=== PATIENT | male | born 1940 | race Caucasian/White ===

== ENCOUNTER 2020-03-31 10:39 | Outpatient (CLI) | payer MEDICARE, SELFPAY ==
--- NOTE | ~2020-03-31 | XR_ITS ---
XR chest 2V 03/31/2020 11:05 Indication: Shortness of breath and fatigue Procedure: 2 view chest Comparison: Comparison to multiple prior studies sequentially, with oldest reviewed study dated 05/2013. Findings: Status post median sternotomy for CABG. Heart size normal. No focal air space disease, pulm onary edema, pleural effusion or suspected pneumothorax. Mild thoracic spondylosis. Impression: 1: No acute cardiopulmonary disease. Reviewed, dictated and finalized at location A. Impression: 1: No acute cardiopulmonary disease.
--- NOTE | ~2020-03-31 | XR_ITS ---
XR hip LT 2V w AP pelvis 03/31/2020 11:05 Indication: Left hip pain Procedure: 3 views left hip including AP pelvis Comparison: 09/19/2014 Findings: There is moderate symmetric osteoarthritis of the hips. Moderate lower lumbar spondylosis. No acute fracture or traumatic malalignment. Sacral foramen are symmetric. Impression: 1: Moderate osteoarthritis of the left hip. Reviewed, dictated and finalized at location A. Impression: 1: Moderate osteoarthritis of the left hip.
== END 2020-03-31 10:40 | disposition home or self-care (01) ==
PROVIDERS: PCP Family Medicine; Visit Provider Family Medicine
DX: R06.02 Shortness of breath (principal); R53.83 Other fatigue; M25.552 Pain in left hip
CPT/HCPCS: 71046; 73502

== ENCOUNTER 2020-09-08 06:53 | Outpatient (NON) | payer MEDICARE, SELFPAY ==
[2020-09-09 00:04] LABS: SARS-CoV-2 RNA PCR Negative
== END 2020-09-08 06:54 ==
LOC: ANHCOVIDDT 07:03
PROVIDERS: PCP Family Medicine; Visit Provider Family Medicine
DX: R68.89 Other general symptoms and signs (principal); Z20.828 Contact with and (suspected) exposure to other viral communicable diseases
CPT/HCPCS: 87635; C9803; U0003

== ENCOUNTER 2020-12-18 12:30 | Outpatient (CLI) | payer MEDICARE, SELFPAY ==
--- NOTE | ~2020-12-18 | XR_ITS ---
XR_CERV2-3V_CR DATE: 12/18/2020 12:50 INDICATION: Neck pain, cervical radiculopathy TECHNIQUE: AP, open-mouth, lateral, swimmer views COMPARISON: None FINDINGS: Right-sided cochlear implant. Straightening of the cervical spine. C1 and C2 are normally aligned and the odontoid process is intact. No fracture or dislocation or lock ed facet or prevertebral soft tissue swelling is detected. There is moderate degenerative disc disease at C3-4, C4-5 and to a greater extent at C5-6. There is minimal anterolisthesis at C4-5. Sternal wire suture is noted. IMPRESSION: Straightening of the cervical spine Cervical spondylosis Reviewed, dictated and finalized at Location A. Reviewed, dictated and finalized at location A. RT ADMINISTRATOR
== END 2020-12-18 12:31 | disposition home or self-care (01) ==
PROVIDERS: PCP Family Medicine; Visit Provider Family Medicine
DX: M47.892 Other spondylosis, cervical region (principal)
CPT/HCPCS: 72040

== ENCOUNTER 2021-03-23 14:09 | Outpatient (CLI) | payer MEDICARE, SELFPAY ==
--- NOTE | ~2021-03-23 | XR_ITS ---
XR chest 2V DATE: 03/23/2021 14:27 INDICATION: Dyspnea on exertion TECHNIQUE: PA and lateral views COMPARISON: 03/31/2022 view chest 08/15/2018 PA and lateral chest FINDINGS: Status post sternotomy/CABG. Borderline heart size. Aortic arch calcification. There is there is mild elevation left leaf of diaphragm and left basilar infiltrate or atelectasis. T he lungs otherwise appear clear. Degenerative spurring of the thoracic spine. IMPRESSION: Left basilar atelectasis Reviewed, dictated and finalized at location A. IMPRESSION: Left basilar atelectasis
== END 2021-03-23 14:10 | disposition home or self-care (01) ==
PROVIDERS: PCP Family Medicine; Visit Provider Nurse Practitioner Adult Health
DX: R06.00 Dyspnea, unspecified (principal); R91.8 Other nonspecific abnormal finding of lung field
CPT/HCPCS: 71046

== ENCOUNTER 2021-08-03 08:32 | Outpatient (CLI) | payer MEDICARE, SELFPAY ==
--- NOTE | ~2021-08-03 | CT_ITS ---
EXAMINATION: CT cervical spine wo con DATE: 08/03/2021 09:39 INDICATION: Other cervical disc degeneration. TECHNIQUE: Computed tomography (CT) of the cervical spine was performed without intravenous contrast. Automated exposure control and iterative reconstruction technique were employed. The dose-length pro duct was 1362.00 mGy-cm. COMPARISON: Cervical spine radiographs 12/18/2020 FINDINGS: A right-sided cochlear implant is noted. There is 4 degrees dextrocurvature of cervical spi ne. Vertebral body heights are normal. There is moderately decreased disc height from C3-C4 through C 5-C6. Osseous central spinal canal is developmentally small from C1 to C6. The following disc levels are specifically discussed: C2-C3: There is mild bilateral uncovertebral joint osteoarthritis. There is severe bilateral facet brenda int osteoarthritis. There is mild bilateral neural foraminal stenosis. There is mild central canal st enosis. C3-C4: There is severe bilateral uncovertebral joint osteoarthritis. There is severe bilateral facet joint osteoarthritis. There is mild bilateral neural foraminal stenosis. There is moderate central ca nal stenosis. C4-C5: There is severe bilateral uncovertebral joint osteoarthritis. There is severe bilateral facet joint osteoarthritis. There is mild bilateral neural foraminal stenosis. There is moderate central ca nal stenosis. C5-C6: There is severe right and uncovertebral joint osteoarthritis. There is mild left cerebral face t joint osteoarthritis. There is mild bilateral neural foraminal stenosis. There is mild central maya l stenosis. C6-C7: There is no uncovertebral joint osteoarthritis. There is mild bilateral facet joint osteoarthr itis. There is no neural foraminal stenosis. There is mild central canal stenosis. C7-T1: There is no uncovertebral joint osteoarthritis. There is mild right and moderate left facet brenda int osteoarthritis. There is mild left neural foraminal stenosis. There is no central canal stenosis. IMPRESSION: 1. Moderate cervical spondylosis. Reviewed, dictated and finalized at location A.
--- NOTE | ~2021-08-03 | CT_ITS ---
EXAMINATION: CT brain wo/w con DATE: 08/03/2021 09:39 INDICATION: Paresis. Weakness. TECHNIQUE: Computed tomography (CT) of the head was performed without and subsequently with 100 cc Om nipaque 350 intravenous contrast. The mA was adjusted according to patient size. Iterative reconstruc tion technique was employed. Exam dose: 1362.00 mGy-cm total exam DLP. COMPARISON: 06/02/2005 CT brain FINDINGS: Vertebral artery, basilar artery and bilateral carotid siphon internal carotid artery calci fications. There is nonspecific diminished attenuation of the cerebral white matter, likely due to ch ronic small vessel ischemic changes. Chronic lacunar infarcts are noted in the region of the head of the right caudate nucleus and anterio r limb of the right internal capsule. No intracranial mass lesion or hemorrhage, midline shift or mass effect or cerebrovascular accident i s noted otherwise. No subdural or epidural hematoma. No orbital mass lesion. Right cochlear implant. There is mild mucoperiosteal thickening of the left frontal sinus, minimal mucoperiosteal thickening of the right frontal sinus. There is septal soft tissue thickening in the ethmoid air cells bilateral ly. Slight mucoperiosteal thickening of the left maxillary and sphenoid sinuses. The mastoid air cell s are unremarkable. No fracture or bone destruction of the cranial vault. IMPRESSION: Cerebral atherosclerosis and chronic small vessel ischemic changes of cerebral white mat ter Chronic lacunar infarcts in the region of the head of the right caudate nucleus and anterior limb of the right internal capsule No acute intracranial finding Right cochlear implant Reviewed, dictated and finalized at Location A. Reviewed, dictated and finalized at location B. IMPRESSION: Cerebral atherosclerosis and chronic small vessel ischemic changes of cerebral white matter Chronic lacunar infarcts in the region of the head of the right caudate nucleus and anterior limb of the right internal capsule No acute intracranial finding Right cochlear implant
[2021-08-03 09:23] LABS: Estimated Glomerular Filt Rate > 60
== END 2021-08-03 08:33 | disposition home or self-care (01) ==
PROVIDERS: PCP Family Medicine; Visit Provider Family Medicine
DX: R53.1 Weakness (principal); M50.30 Other cervical disc degeneration, unspecified cervical region; M47.892 Other spondylosis, cervical region; I67.2 Cerebral atherosclerosis
CPT/HCPCS: 70470; 72125; Q9967

== ENCOUNTER 2021-09-17 10:15 | Outpatient (CLI) | payer MEDICARE, SELFPAY ==
--- NOTE | ~2021-09-17 | CT_ITS ---
EXAMINATION: CT lumbar spine wo [facility] EXAM DATE: 09/17/2021 10:57 INDICATION: Lumbar radiculopathy. TECHNIQUE: Spiral CT of the lumbar spine was performed without contrast. Axial, coronal and sagittal images lumbar spine were reviewed. The dose-length product (DLP) for this examination was 1290.32 m Gy-cm. The exposure was tailored according to patient size (auto mA exposure control), and iterativ e reconstruction (ASIR) was used as additional dose reduction technique. There is no prior study for comparison. FINDINGS: Moderate disc disease L2-3, L4-5 and L5-S1. Vacuum disc phenomenon at L4-5 and L5-S1. No ac [place] fracture identified. The vertebral bodies are aligned in the AP dimension. No spondylolysis. Para spinal soft tissue is unremarkable. Moderate aortic arterial sclerosis. Level by level evaluation: T12-L1: Disc does not extend beyond the endplate margin. Facet arthropathy: Mild. Neural foraminal stenosis: No stenosis. Central canal stenosis: No stenosis. L1-L2: There is a mild diffuse disc bulge. Facet arthropathy: Mild bilateral. Neural foraminal stenosis: Mild left. Central canal stenosis: No stenosis. L2-L3: There is a mild to moderate diffuse disc bulge. Facet arthropathy: Mild to moderate. Neural foraminal stenosis: Mild to moderate bilateral. Central canal stenosis: Mild to moderate. L3-L4: There is a moderate diffuse disc bulge. Facet arthropathy: Moderate . Ligamentum flavum enlargement . Neural foraminal stenosis: Mild to moderate bilateral. Central canal stenosis: Moderate. L4-L5: There is a moderate diffuse disc bulge. Facet arthropathy: Moderate to severe . Ligamentum flavum enlargement. Neural foraminal stenosis: Moderate right, mild to moderate left. Central canal stenosis: Severe. L5-S1: There is a mild diffuse disc bulge. Facet arthropathy: Moderate. Neural foraminal stenosis: Moderate to severe right, moderate left. Central canal stenosis: Mild. IMPRESSION: 1. L4-5 severe central canal stenosis. 2. Overall moderate to severe lumbar spondylosis. Reviewed, dictated and finalized at location A. 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
== END 2021-09-17 10:16 | disposition home or self-care (01) ==
LOC: ANHIMG 10:22
PROVIDERS: PCP Family Medicine; Visit Provider Nurse Practitioner Family
DX: M47.26 Other spondylosis with radiculopathy, lumbar region (principal)
CPT/HCPCS: 72131

== ENCOUNTER 2022-09-01 14:54 | Outpatient (CLI) | payer MEDICARE, SELFPAY ==
--- NOTE | ~2022-09-01 | US_ITS ---
EXAMINATION: US renal BI DATE: 09/01/2022 15:35 INDICATION: Cystic kidney, acquired. TECHNIQUE: Multiple ultrasound grayscale images of the kidneys were obtained. COMPARISON: CT abdomen and pelvis 02/06/13 FINDINGS: The right kidney measures 11.8 x 6.6 x 7.8 cm. The left kidney measures 13.0 x 6.0 x 6.7 cm. The kidn eys demonstrate normal parenchymal echogenicity. There is a 3.1 cm cyst of left kidney. There is no h ydronephrosis. The bladder is not well distended. IMPRESSION: 1. 3.1 cm cyst of left kidney. Reviewed, dictated and finalized at location A. ACCOUNTANT
== END 2022-09-01 14:55 | disposition home or self-care (01) ==
PROVIDERS: PCP Family Medicine; Visit Provider Nurse Practitioner Family
DX: N28.1 Cyst of kidney, acquired (principal)
CPT/HCPCS: 76775

== ENCOUNTER 2023-01-30 15:26 | Outpatient (CLI) | payer MEDICARE, SELFPAY ==
[2023-01-30 16:21] LABS: Basophils Absolute Auto 0.1 K/mm3 (0.0-0.1); Basophils Percent Auto 0.7 % (0.2-1.2); Eosinophils Absolute Auto 0.2 K/mm3 (0-0.3); Eosinophils Percent Auto 2.7 % (0-4.4); Hematocrit 33.7 % (42.0-52.0); Immature Granulocyte Absolute 0.02 K/mm3 (0.00-0.031); Immature Granulocyte Percent A 0.3 % (0-0.5); Lymphocytes Percent Auto 24.3 % (18.3-44.2); Mean Corpuscular HGB Conc 32.6 g/dl (32-36); Mean Corpuscular Hemoglobin 30.2 pg (26-34); Mean Corpuscular Volume 92.6 fl (80-100); Mean Platelet Volume 11.5 fl (7.4-10.4); Monocytes Absolute Auto 0.6 K/mm3 (0.1-0.6); Neutrophils Absolute Auto 4.4 K/mm3 (1.3-6.7); Platelet Count Result 211 k/mm3 (150-375); Red Blood Count 3.64 M/mm3 (4.6-6.20); Red Cell Distribution Width 13.5 % (11.5-14.5)
[2023-01-30 16:53] LABS: Anion Gap 6 mmol/L (8-16); Blood Urea Nitrogen 30 mg/dL (9-20); Calcium 8.5 mg/dL (8.4-10.2); Carbon Dioxide 28 mmol/L (22-30); Chloride 103 mmol/L (98-107); Estimated Glomerular Filt Rate 58; Glucose 175 mg/dL (65-110); Potassium 3.5 mmol/L (3.4-5.0); Sodium 137 mmol/L (137-145); Uric Acid 5.1 mg/dL (3.5-8.5)
[2023-01-30 17:21] LABS: Iron 25 ug/dL (49-181)
[2023-01-30 17:30] LABS: Percent Iron Saturation 7 % (20-50)
[2023-02-03 15:32] LABS: Testosterone Free 0.3 pg/mL (30.0-135.0); Testosterone Total 2 ng/dL (250-1100)
== END 2023-01-30 15:27 | disposition home or self-care (01) ==
PROVIDERS: PCP Family Medicine; Visit Provider Family Medicine
DX: I10 Essential (primary) hypertension (principal); M10.9 Gout, unspecified; D64.9 Anemia, unspecified; G62.9 Polyneuropathy, unspecified; E29.1 Testicular hypofunction
CPT/HCPCS: 36415; 80048; 82607; 83540; 83550; 84402; 84403; 84443; 84550; 85025

== ENCOUNTER 2023-03-06 14:22 | Outpatient (CLI) | payer MEDICARE, SELFPAY ==
[2023-03-06 15:13] LABS: Basophils Absolute Auto 0.1 K/mm3 (0.0-0.1); Eosinophils Absolute Auto 0.2 K/mm3 (0-0.3); Eosinophils Percent Auto 2.8 % (0-4.4); Hematocrit 35.3 % (42.0-52.0); Hemoglobin 11.7 g/dL (14.0-18.0); Immature Granulocyte Absolute 0.02 K/mm3 (0.00-0.031); Immature Granulocyte Percent A 0.3 % (0-0.5); Lymphocytes Absolute Auto 1.91 K/mm3 (0.9-3.2); Lymphocytes Percent Auto 26.9 % (18.3-44.2); Mean Corpuscular HGB Conc 33.1 g/dl (32-36); Mean Corpuscular Hemoglobin 30.9 pg (26-34); Mean Corpuscular Volume 93.1 fl (80-100); Mean Platelet Volume 12.2 fl (7.4-10.4); Monocytes Absolute Auto 0.6 K/mm3 (0.1-0.6); Monocytes Percent Auto 8.7 % (2.6-8.5); Neutrophils Absolute Auto 4.3 K/mm3 (1.3-6.7); Neutrophils Percent Auto 60.3 % (45.5-73.1); Platelet Count Result 177 k/mm3 (150-375); Red Blood Count 3.79 M/mm3 (4.6-6.20); Red Cell Distribution Width 13.9 % (11.5-14.5); White Blood Count 7.1 K/mm3 (4.5-10.0)
[2023-03-06 21:13] LABS: Iron 55 ug/dL (49-181)
[2023-03-06 21:22] LABS: Percent Iron Saturation 15 % (20-50)
== END 2023-03-06 14:23 | disposition home or self-care (01) ==
PROVIDERS: PCP Family Medicine; Visit Provider Physician Assistant Medical
DX: D64.9 Anemia, unspecified (principal)
CPT/HCPCS: 36415; 83540; 83550; 85025; 85055

== ENCOUNTER 2023-09-28 08:54 | Outpatient (CLI) | payer MEDICARE, SELFPAY ==
--- NOTE | ~2023-09-28 | US_ITS ---
Renal-Bladder ultrasound Clinical History: Renal cyst Technique: Real-time sonographic imaging of the kidneys and urinary bladder was performed. Findings: The right kidney measures 12.0 cm in length and the left kidney measures 11.8 cm. There is no hydronephrosis or renal calculus identified. Renal cortical echogenicity is within normal limits. No solid renal mass lesion is identified. Small left renal cyst measures 2.5 cm. The urinary bladder is moderately distended at the time of this exam. No intraluminal echoes are iden tified. No abnormal wall thickening is seen. Impression: 2.5 cm left renal cyst. Reviewed, dictated and finalized at location . ESSORI TODDLER TEACHER Impression: 2.5 cm left renal cyst.
== END 2023-09-28 08:55 | disposition home or self-care (01) ==
PROVIDERS: PCP Family Medicine; Visit Provider Family Medicine
DX: N28.1 Cyst of kidney, acquired (principal)
CPT/HCPCS: 76775

== ENCOUNTER 2023-10-24 16:50 | Outpatient (CLI) | payer MEDICARE, SELFPAY ==
--- NOTE | ~2023-10-24 | XR_ITS ---
XR hip LT min 2V DATE: 10/24/2023 17:10 INDICATION: Left hip pain TECHNIQUE: AP and lateral views COMPARISON: None FINDINGS: There is mild left hip osteoarthritis. No fracture or dislocation, avascular necrosis or dmitriy ne destruction. The pubic symphysis and left sacral iliac joint are intact. IMPRESSION: Mild left hip osteoarthritis. Reviewed, dictated and finalized at location L. N RESOURCE PROFESSIONAL
== END 2023-10-24 16:51 | disposition home or self-care (01) ==
PROVIDERS: PCP Family Medicine; Visit Provider Family Medicine
DX: M16.12 Unilateral primary osteoarthritis, left hip (principal)
CPT/HCPCS: 73502

== ENCOUNTER 2023-12-15 11:22 | Outpatient (CLI) | payer MEDICARE, SELFPAY ==
--- NOTE | ~2023-12-15 | XR_ITS ---
Clinical Indication: Chronic cough PA and lateral views of the chest: Comparison: 03/23/2021 Findings: The lungs are clear, without evidence of focal consolidation or pleural effusion. Cardiome diastinal silhouette is stable, status post CABG. Bones and soft tissues are unremarkable. Impression: Clear lungs. Reviewed, dictated and finalized at location . SS CLINICIAN Impression: Clear lungs.
== END 2023-12-15 11:23 | disposition home or self-care (01) ==
PROVIDERS: PCP Family Medicine; Visit Provider Nurse Practitioner Family
DX: R05.3 Chronic cough (principal)
CPT/HCPCS: 71046

== ENCOUNTER 2024-02-08 06:53 | Outpatient (CLI) | payer MEDICARE, SELFPAY ==
--- NOTE | ~2024-02-08 | CT_ITS ---
Clinical Indication: Chronic cough CT Scan of the Chest with Contrast: Technique: Contiguous sections were acquired throughout the chest after intravenous administration of 75 cc of Omnipaque 350. Dose reduction technique was used on this scan by utilizing automated exposu re control and iterative reconstruction technique. The dose-length product (DLP) was 777.25 mGy-cm. Findings: There is no evidence of any significant mediastinal, hilar or axillary lymphadenopathy. No large cent ral pulmonary embolus seen. There is no evidence of aortic dissection or aneurysm. Evidence of prior presumed CABG. There is no evidence of pleural or pericardial effusion. The lungs are clear. No pulmonary nodules or infiltrates are noted. Images through the upper abdomen reveal no abnormalities. Impression: No acute abnormality. Status post CABG. Reviewed, dictated and finalized at [facility] [place]. Impression: No acute abnormality. Status post CABG.
[2024-02-08 07:21] LABS: Estimated Glomerular Filt Rate 58
== END 2024-02-08 06:54 | disposition home or self-care (01) ==
PROVIDERS: PCP Family Medicine; Visit Provider Physician Assistant
DX: R05.3 Chronic cough (principal); J41.1 Mucopurulent chronic bronchitis; Z95.1 Presence of aortocoronary bypass graft
CPT/HCPCS: 71260; Q9967

== ENCOUNTER 2024-02-28 08:14 | Outpatient (CLI) | payer MEDICARE, SELFPAY ==
--- NOTE | 2024-02-28 12:56 | WPDPFTINT ---
PFT Procedure Performed PFT Procedure Performed Spirometry with Pre/Post Bronchodilator Plethysmography (Lung Vol) Diffusing Cap (DLCO) Flow Vol Loop PFT Interpretation Lung volumes were measured with the body plethysmography method. The diminished expiratory reserve volume is related to obesity. The remaining lung volumes are unremarkable. Spirometry showed diminished expiratory flow rates and a normal FEV1 to FVC ratio 71%. Following administration of a bronchodilator there was no significant increase in expiratory flow rates. Lung diffusion capacity is within the normal range at 76% predicted. The restrictive pattern on spirometry coupled with a normal total lung capacity is consistent with a nonspecific pattern. The flow-volume loop is unremarkable. Impression: Nonspecific pattern. Lung diffusion capacity within the normal range.
== END 2024-02-28 08:15 | disposition home or self-care (01) ==
PROVIDERS: PCP Family Medicine; Visit Provider Family Medicine
DX: R06.02 Shortness of breath (principal)
CPT/HCPCS: 94060; 94726; 94729

== ENCOUNTER 2024-03-11 01:05 | Day surgery (SDC) | payer MEDICARE, SELFPAY ==
[2024-03-08 14:25] VITALS: BMI 39.4
[2024-03-11] VITALS (13 sets, daily range): BP systolic 103–192; BP diastolic 48–95; PULSE 52–58; RESP 12–20; TEMP 36.1–36.7; O2SAT 94–100
[2024-03-11 07:42] LABS: Basophils Absolute Auto 0.1 K/mm3 (0.0-0.1); Basophils Percent Auto 1.2 % (0.2-1.2); Eosinophils Absolute Auto 0.2 K/mm3 (0-0.3); Eosinophils Percent Auto 3.4 % (0-4.4); Hematocrit 35.8 % (42.0-52.0); Immature Granulocyte Absolute 0.01 K/mm3 (0.00-0.031); Immature Granulocyte Percent A 0.2 % (0-0.5); Lymphocytes Absolute Auto 1.55 K/mm3 (0.9-3.2); Lymphocytes Percent Auto 26.2 % (18.3-44.2); Mean Corpuscular HGB Conc 33.5 g/dl (32-36); Mean Corpuscular Hemoglobin 30.9 pg (26-34); Mean Corpuscular Volume 92.3 fl (80-100); Mean Platelet Volume 11.1 fl (7.4-10.4); Monocytes Absolute Auto 0.6 K/mm3 (0.1-0.6); Monocytes Percent Auto 9.6 % (2.6-8.5); Neutrophils Absolute Auto 3.5 K/mm3 (1.3-6.7); Neutrophils Percent Auto 59.4 % (45.5-73.1); Platelet Count Result 214 k/mm3 (150-375); Red Blood Count 3.88 M/mm3 (4.6-6.20); Red Cell Distribution Width 14.1 % (11.5-14.5); White Blood Count 5.9 K/mm3 (4.5-10.0)
[2024-03-11 07:53] LABS: Anion Gap 6 mmol/L (4-12); Blood Urea Nitrogen 29 mg/dL (9-20); Carbon Dioxide 28 mmol/L (22-30); Chloride 105 mmol/L (98-107); Estimated CRCL calculation 61 ml/min; Estimated Glomerular Filt Rate > 60; Glucose 109 mg/dL (65-110); Potassium 3.8 mmol/L (3.4-5.0); Sodium 139 mmol/L (137-145)
--- NOTE | 2024-03-11 10:33 | WPDCARDPROC ---
Cardiac Cath Procedure Note Date of procedure:: 03/11/24 Performing physician:: Victor Manuel Dallas MD Indication:: Exertional dyspnea coronary artery disease with previous bypass graft aortic stenosis, now severe by echo Brief clinical history:: this is an 83-year-old man known to have multivessel coronary disease who was referred for surgical revascularization back in 2009. He has been experiencing worsening symptoms of exertional dyspnea. He is known to have valve stenosis which has been mild fell now. Recent echocardiogram has suggested this has progressed to severe with valve area 0.8. With this information catheterization was recommended today for further evaluation this ischemic disease and valvular heart disease. Procedure Procedure performed:: Right heart catheterization simultaneous left ventricular and aortic hemodynamics and calculation of aortic valve area left ventriculography coronary angiography vein graft angiography VINICIUS graft angiography Sedation/Medication given:: fentanyl 50 mg Versed 2 mg Access site:: right femoral artery, right femoral vein Estimated blood loss:: 30 cc Procedure note:: patient brought to cardiac catheterization lab postabsorptive state where the right femoral triangle was prepared and draped in the usual fashion. Using the modified Seldinger technique the right femoral in the right femoral artery was punctured. A 7 Martiniquais sheath was placed in the femoral vein and a 6 Martiniquais 45 cm sheath was placed into the right femoral artery. The sheath was advanced into the central aorta. Following this I used a balloon tip [place]-Sharmila catheter to measure right-sided hemodynamics and perform thermodilution cardiac output assessment as well as Nikki cardiac output assessment. The [place]-Sharmila catheter was then removed. I used a 5 Martiniquais angled pigtail catheter then in the central aorta and a straight wire to cross the stenotic aortic valve. Simultaneous left ventricular and aortic pressures were documented. Aortic valve area was calculated. Left ventriculography was injected using this catheter in COKER projection. Following this the left coronary artery was engaged and injected using a standard 5 Martiniquais FL4 catheter. The right coronary artery was engaged and injected using a standard 5 Martiniquais JR4 catheter. This catheter was also used to inject the saphenous vein grafts. A 5 Martiniquais VINICIUS catheter was used to perform angiography of the left internal mammary graft. Following this the cineangiograms were reviewed case was terminated. An Angio-Seal device was deployed in the site of the arterial puncture with a good hemostatic result. The venous sheath was removed in the blood bank laboratory technologist. Findings:: Hemodynamics: right atrial pressure is 12, right ventricle 47/ 6 end-diastolic 12, pulmonary artery 46/16, pulmonary capillary wedge pressure 14, central aorta 182/71 left ventricle 208/5 end-. thermodilution cardiac output is 7.0 liters/minute giving an index of 2.8. Nikki cardiac output 7.1 liters/minute giving an index of 2.9. Central aorta saturation 93% pulmonary 66.5% aortic valve area calculates to be 1.55 cm2. Left ventricle: The LV is normal in size there is concentric LVH noted contractility is vigorous in all segments with an ejection fraction of visually estimated to be 70%. The left main coronary artery is medium in caliber. There is a distal 80% stenosis in the left main. The left anterior descending is diffusely diseased and totally occluded after the 1st diagonal branch takes its origin. The 1st diagonal is a small to medium size artery. the circumflex is a medium-sized artery with a 90% proximal stenosis. There is a 1st high OM branch that is seen with KEHINDE 3 flow in it without significant disease. After this 1st OM the remainder of the circumflex is totally closed. The right coronary artery is moderate caliber and dominant to the posterior circulation. T
== END 2024-03-11 13:30 | disposition home or self-care (01) ==
PROVIDERS: PCP Family Medicine; Visit Provider Specialist
PROC: 4A023N8 Measurement of Cardiac Sampling and Pressure, Bilateral, Percutaneous Approach (ICD-10-PCS; CPT 93461; principal; 2024-03-11 08:30)
DX: R93.1 Abnormal findings on diagnostic imaging of heart and coronary circulation (principal); I25.10 Atherosclerotic heart disease of native coronary artery without angina pectoris; I35.0 Nonrheumatic aortic (valve) stenosis; Z79.51 Long term (current) use of inhaled steroids; Z79.82 Long term (current) use of aspirin; Z79.810 Long term (current) use of selective estrogen receptor modulators (SERMs); Z95.1 Presence of aortocoronary bypass graft
CPT/HCPCS: 36415; 80048; 85025; 93461; C1760; C1769; C1887; C1894; G0269; J1644; J2250; J3010

== ENCOUNTER 2024-03-28 10:46 | Outpatient (CLI) | payer MEDICARE, SELFPAY ==
--- NOTE | ~2024-03-28 | XR_ITS ---
EXAMINATION: XR chest 2V 03/28/2024 11:10 INDICATION: Cough PROCEDURE: 2 view chest COMPARISON: Comparison to multiple prior studies sequentially, with oldest reviewed study dated 07/24. FINDINGS: The lungs are clear. The cardiomediastinal silhouette is within normal limits. There are no pleural effusions. There is no pneumothorax suspected. IMPRESSION: 1: NO ACUTE CARDIOPULMONARY DISEASE. Reviewed, dictated and finalized at location B.
== END 2024-03-28 10:47 | disposition home or self-care (01) ==
PROVIDERS: PCP Family Medicine; Visit Provider Family Medicine
DX: J40 Bronchitis, not specified as acute or chronic (principal)
CPT/HCPCS: 71046

== ENCOUNTER 2024-08-26 10:00 | Outpatient (RCR) | payer MEDICARE, SELFPAY ==
[2024-05-17 11:57] VITALS: PULSE 61
== END 2024-08-26 11:49 | disposition home or self-care (01) ==
LOC: ANHCPREHAB 10:00
PROVIDERS: PCP Family Medicine; Visit Provider Specialist
DX: Z98.61 Coronary angioplasty status (principal)
CPT/HCPCS: 93798

== ENCOUNTER 2025-01-05 20:29 | Emergency (ER) | payer MEDICARE, SELFPAY ==
--- NOTE | ~2025-01-05 | CT_ITS ---
CT of the Abdomen and Pelvis: Indication: Right flank pain Technique: 2.5 mm axial scans were obtained through the abdomen and pelvis following intravenous adm inistration of 100 cc of Omnipaque 350. Dose reduction technique was used on this scan by utilizing a utomated exposure control and iterative reconstruction technique. The dose-length product (DLP) was 1 687.67 mGy-cm. Findings: Scans through the lung bases are unremarkable. The liver, spleen, pancreas, gallbladder, adrenals and right kidney are within normal limits. 2.8 cm exophytic posterior left renal lesion demonstrates intermediate/indeterminate Hounsfield units. There are atherosclerotic calcifications of the aorta. No lymphadenopathy. No bowel obstruction or bowel wall thickening. There is no evidence to suggest acute appendicitis. Images through the pelvis were performed. Urinary bladder unremarkable. No pelvic mass seen. No ascit es. Impression: No acute abnormalities seen. 2.8 cm indeterminate left renal mass. Follow-up renal mass protocol CT or MR recommended to assess fo r solid versus cystic lesion. Reviewed, dictated and finalized at [facility]. Impression: No acute abnormalities seen. 2.8 cm indeterminate left renal mass. Follow-up renal mass protocol CT or MR re commended to assess for solid versus cystic lesion.
--- OUTSIDE RECORDS SUMMARY | 2025-01-05 20:31 | XMS_ITS | Referral Summary ---
Author Organization [facility] Address [address] [place] [address] Care Team Providers Care Manager Policy Name Role Phone Nicolas Kumar MD Primary Care Provider Victor Manuel Dallas MD Unavailable [phone] Fadi Moreno MD Unavailable [phone] Leno Mao MD Unavailable Linda Schwartz NP Unavailable [phone] Encounters Date Type Department Care Team Description 11/22/2024 9:40 AM MACHINE SETTER AND REPAIRER Office Visit [facility]) - [facility] Urology [address] [facility] [address] [place] [address] Jodi Kapoor MD Prostate cancer (HCC) (Primary Dx) 11/21/2024 Telephone [facility] Cardiology [address] [facility] [address] [place] [address] Aubrey Brand MD 11/14/2024 Telephone [facility] [address] [facility] [address] [place] [address] Victor Manuel Dallas MD 11/13/2024 3:45 PM MACHINE SETTER AND REPAIRER - 11/13/2024 11:59 PM MACHINE SETTER AND REPAIRER Hospital Encounter [facility] [address] [place] [address] Prostate CA (HCC) Discharge Disposition: Discharge to home or self care 11/13/[address] [facility] Advanced Medicine ([facility]) - [facility] Urology [address] [facility] 11th [place] [address] [place] [address] Jodi Kapoor MD Prostate CA (HCC) (Primary Dx) 11/13/2024 3:30 PM MACHINE SETTER AND REPAIRER Lab [facility] Outpatient Lab at [address] [address] Mixed hyperlipidemia (Primary Dx) 11/12/2024 Telephone [facility] Surgery [address] [place] [address] Alina Mendez 11/12/2024 Telephone [facility] Medical [facility] Cardiology [address] [facility] [address] [place] [address] Aubrey Brand MD from Last 3 Months Allergies Active Allergy Reactions Criticality Noted Date Comments Lactose Diarrhea,Flatulence Low Izsvbja-Rrf-Lau Reductase Inhibitors Muscle pain Medium 04/15/2024 Medications lansoprazole (PREVACID) 30 mg capsule take 1 capsule (30MG) by oral route every day before a meal 0 3 Active Additional Information Patient taking differently:30 mgoral Every morning, Informant: Self, Reported on 08/15/2023 indapamide (LOZOL) 2.5 mg tablet take 1 tablet (2.5MG) by oral route every day in the morning 0 3 Active Additional Information Patient taking differently:2.5 mgoral Every morning, Informant: Self, Reported on 08/15/2023 allopurinoL (ZYLOPRIM) 300 mg tabletIndicatio ns:prevention of acute gout attack Take 1 tablet (300 mg total) by mouth every morning 1 Active pregabalin (LYRICA) 50 mg capsuleIndicati ons:Neuropathic Pain Take 1 capsule (50 mg total) by mouth 2 (two) times a day Active aspirin 81 mg chewable tablet Take 1 tablet (81 mg total) by mouth daily 2 Active Xhance 93 mcg/actuation aerosol breath activated INSTILL 1 SPRAY IN EACH NOSTRIL EVERY 12 HOURS 3 Active albuterol HFA (PROVENTIL HFA,VENTOLIN HFA,PROAIR HFA) 90 mcg/actuation inhaler INHALE 2 PUFFS BY MOUTH EVERY 4 TO 6 HOURS NEEDED FOR SHORTNESS OF BREATH OR WHEEZING 4 Active lisinopriL (PRINIVIL,ZESTR IL) 40 mg tablet Take 1 tablet (40 mg total) by mouth daily 4 Active tamsulosin (FLOMAX) 0.4 mg extended release capsuleIndicati ons:Elevated PSA Take 1 capsule (0.4 mg total) by mouth daily 90 capsule 3 4 Active clopidogreL (PLAVIX) 75 mg tablet Take 1 tablet (75 mg total) by mouth daily 90 tablet 3 4 04/10/20 25 Active evolocumab 140 mg/mL pen injector Inject 1 mL (140 mg total) under the skin every 14 (fourteen) days 2 mL 11 4 Active metoprolol XL (TOPROL-XL) 25 mg extended release tablet Take 1 tablet (25 mg total) by mouth daily 90 tablet 2 4 05/28/20 25 Active Active Problems Problem Noted Date Diagnosed Date 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 The valve is functioning well. We will plan for a 1 year TAVR follow up. Aortic stenosis 04/29/2024 Aortic valve stenosis 04/09/2024 Encounter for examination fo r normal comparison and control in clinical research program 04/09/2024 Mixed hyperlipidemia 03/15/2024 Primary hypertension 03/15/2024 Nonrheumatic aortic valve stenosis 02/22/2024 Morbid (severe) obesity due to excess calories 1 Cervical stenosis of spine 01/07/2022 Overview (01/07/2022): Added automatically from request for surgery [id number] Elevated PSA 11/29/2021 Overview (11/29/2021): Added automatically from request for surgery [id number] Right carpal tunnel syndrome 05/10/2021 Overview (05/10/2021): Added automatically from request for surgery [id number] Aortic systolic murmur on examination 05/28/2019 CAD (coronary artery disease) 05/23/2017 S/P CABG (coronary artery bypass graft) 05/23/20 17 Hearing loss 04/27/2017 Immunizations Immunization Administration Dates Next Due Influenza, Quadrivalent, Beatrice l Culture-based MDCK, Antibiotic Free, Intramuscular 08/14/2018 Influenza, Quadrivalent, Hig h Dose, Preservative Free, Intrr 08/16/2021 Influenza, Quadrivalent, Split, Intramuscular Influenza, Quadrivalent, Spl it, Preservative Free, Intramuscular 09/22/2020 Moderna SARS-CoV-2 Monovalent Vaccination (12+ Y RS) 12/22/2020,11/19/2020 Pneumococcal Conjugate PCV 13 08/03/2016 Pneumococcal Polysaccharide PPV23 07/14/2010, TD Preservative Free 05/25/2017,10/11/2006 Social History Tobacco Use Types Packs/Day Years Used Date Smoking Tobacco: Former Cigarettes 2 50 S tarted: 1970 Smokeless Tobacco: Former Tobacco Cessation:Counseling Given: Not Answered Comments:pt quit between 30-35 years ago. Alcohol Use Standard Drinks/Week Comments No 0 (1 standard drink = 0.6 oz pur e alcohol) AUDIT-C Answer Date Recorded Q1: How often do you have a drink containing alc ohol? Monthly or less 04/29/2024 Q2: How many drinks containi ng alcohol do you have on a typical day when you are drinking? 1 or 2 04/29/2024 Frequency of Binge Drinking Not on file 05/2024 Personal Safety Answer Date Recorded Have you ever been in or are you currently in a harmful physical or emotional relationship or is someone making you feel afraid or unsafe? 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 Gender Identity Not on file Sexual Orientation Not on file Occupation Industry Job Start Date Job End Date Retired Not on file Not on file Not on file Last Filed Vital Signs Vital Sign Reading Time Taken Comments Blood Pressure 151/79 06/12/2024 2:56 PM CDT Pulse 54 06/12/2024 2:56 PM CDT Temperature 37.2 C (99 F) 04/30/2024 8:06 AM CDT Respiratory Rate 16 06/12/2024 2:56 PM CDT Oxygen Saturation 98% 06/12/2024 2:56 PM CDT Inhaled Oxygen Concentration - - Weight 123.4 kg (272 lb) 06/12/2024 2:56 PM CDT Height 185.4 cm (6' 1 ) 06/12/2024 2:56 PM CDT Body Mass Index 35.89 06/12/2024 2:56 PM CDT Plan of Treatment Not on file Medical Devices Implanted Type Area Hide Mill Man Device Identifier Shelf Expiration Date Model / Serial / Lot Brennan [employer] Tory 3 29mm Transcatheter Aortic Valve [id number] - [id number] - [id number] Implanted:Qty: 1 on 04/29/2024 by Aubrey Brand MD at [facility] Prosthetic Valve N/A: Aortic Valve [employer] 10/02/2026 [id number] / [id number] / [employer] Carlitos Synergy Xd Monorail 3.5mm 38mm 144cm Delivery System 1 Access [id number] - [id number] - [id number] Implanted:Qty: 1 on 04/03/2024 by Aubrey Brand MD at [facility] Stent Left: Circumflex Coronary Artery [employer] Carlitos 12/19/2025 [id number] / [id number] / [id number] [employer] 18f Manta Vascular Closure Device 2115 - S0 - [id number] Implanted:Qty: 1 on 04/29/2024 by Aubrey Brand MD at [facility] Vascular Closure Device [employer] 06/11/2025 [id number] / [id number] / [id number] Cochlear Implant Right: Head [facility] Carlitos Graft Bone Filler Cancellous 1-2mm Micro Granules Gel Altapore 10ml Putty [id number] - [id number] Implanted:Qty: 1 on 03/14/2022 by Fadi Moreno MD at [facility] N/A: Spine Cervical [facility] Carlitos [id number] 11/02/2023 [id number] / / [id number] Depuy Synthes Spine [id number] 3.5mm 16mm Ply Spine Screw Bone Nonsterile 4mm Jose - [id number] Implanted:Qty: 7 on 03/14/2022 by Fadi Moreno MD at [facility] N/A: Spine Cervical Depuy Synthes Spine [id number] / / Depuy Synthes Spine [id number] Lock Cap Spine T15 Standard Screw Set Titanium Nonsterile - [id number] Implanted:Qty: 7 on 03/14/2022 by Fadi Moreno MD at [facility] N/A: Spine Cervical Depuy Synthes Spine [id number] / / Depuy Spine [id number] [place] Expedium 2 Spine Wire Fixation Cocr Titanium - [id number] Implanted:Qty: 2 on 03/14/2022 by Fadi Moreno MD at [facility] N/A: Spine Cervical Depuy Synthes Spine [id number] / / Depuy Synthes Spine [id number] 4mm 60mm Lordosis Jose Spinal Titanium - [id number] Implanted:Qty: 2 on 03/14/2022 by Fadi Moreno MD at [facility] N/A: Spine Cervical Depuy Synthes Spine [id number] / / Procedures Procedure Name Priority Date/Time Associated Diagnosis Comments PSA, TOTAL AND FREE Routine 11/13/2024 3 :45 PM MACHINE SETTER AND REPAIRER Prostate CA (HCC) TOTAL TESTOSTERONE Routine 11/13/2024 3: 45 PM MACHINE SETTER AND REPAIRER Prostate CA (HCC) from Last 3 Months Results * PSA, total and free (11/13/2024 3:45 PM MACHINE SETTER AND REPAIRER) PSA-free <0.1 ng/mL [facility] PSA-Total <0.10 <=7.2 ng/mL [facility] PSA-Free/Total Ratio See Footnote CECIL ORDONE[facility] Comment: Ratio was not calculated because free PSA is less than 0.1 ng/mL. Ratio not calculated because clinical usefulness is not defined except in range of total PSA 4.0-10.0 ng/mL. ADDITIONAL INFORMATION The testing method is an electrochemiluminescence assay manufactured by [employer] and performed on the Modular or Yaneli system. Values obtained with different assay methods or kits may be different and cannot be used interchangeably. Test results cannot be interpreted as absolute evidence for the presence or absence of malignant disease. Test Performed by: [facility] [address] [place] [id number] Orange Picker Machine Operator: Kaiden Harp Ph.D.; CLIA# [id number] Blood 11/13/2024 3:45 PM MACHINE SETTER AND REPAIRER 11/13/2024 8:10 PM MACHINE SETTER AND REPAIRER us Jodi Kapoor MD LAB BLOOD ORDERABLES Final Resul t Performing Organization Address City/[facility] Co de Phone Number CECIL ORDONEZ [address] [place] [address] [facility] ref [facility] * (ABNORMAL) Total testosterone (11/13/2024 3:45 PM MACHINE SETTER AND REPAIRER) Testosterone <3(L) 193 - 740 ng/dL Blood 11/13/2024 3:45 PM MACHINE SETTER AND REPAIRER 11/13/2024 8:10 PM MACHINE SETTER AND REPAIRER us Jodi Kapoor MD LAB BLOOD ORDERABLES Final Resul t Performing Organization Address [facility] Co de Phone Number [facility]ECIL ORDONEZ [address] [employer] [place] [address] from Last 3 Months Insurance MEDICARE SOLUTIONS MEDICARE SOLUTIONS * Guarantor: QUAN GUALLPA Account Type Relation to Patient Date of Phone Billing Address Personal/Family MEDICARE SOLUTIONS Advance Directives For more information, please contact: [phone] Documents on File Type Date Recorded Patient Ed Manager Expl anation ADVANCE DIRECTIVE 03/14/2022 11:31 AM Johnathan r of Professor Of Legal Studies-Medical * Full Code (Latest Code Status on File) Date Activated Date Inactivated Comments 04/29/2024 11:57 AM 04/30/2024 6:57 PM * Full Code Date Activated Date Inactivated Comments 04/03/2024 5:03 PM 04/04/2024 1:59 PM * Full Code Date Activated Date Inactivated Comments 03/14/2022 10:30 PM 03/22/2022 6:43 PM Care Teams Manager Policy Relationship Specialty Start Date End Date Nicolas Kumar MD PCP - General 07/02/21 Victor Manuel Dallas MD [address] [facility] [address] [place] [address] Consulting Physician Cardiology 01/14/22 Fadi Moreno MD [address] [place] [address] Consulting Physician Neurosurgery 03/22/22 Leno Mao MD [address] [facility] [address] [place] [address] Consulting Physician Cardiothoracic Surgery 03/19/24 Linda Schwartz NP [address] [facility] [address] [place] [address] Nurse Practitioner Cardiothoracic Surgery 04/30/24
--- OUTSIDE RECORDS SUMMARY | 2025-01-05 20:31 | XMS_ITS | Clinical Summary ---
Author Organization [facility] Address [address], [address] [address] Phone Care Team Providers Care Media Relations Specialist Name Role Phone Breanna Mao MD Primary Care Provi sumanth Social History Tobacco Use Types Packs/Day Years Used Date Smoking Tobacco: Never Assessed Sex and Gender Information Value Date Recorded Sex Assigned at Not on file Legal Sex Male 11:16 PM CDT Gender Identity Not on file Sexual Orientation Not on file Plan of Treatment Health Maintenance Due Date Last Done Comments Hepatitis C Virus (HCV) Screening 1940 TdaP Immunization 1940 Pneumococcal Immunization (5 0+ years) (1 of 1 - PCV) 1989 Zoster Immunization (1 of 2) 1989 Respiratory Syncytial Virus (RSV) Immunization (Adult) (1 - 1-dose 75+ series) 2014 Influenza Immunization (#1) 2024 SARS-COV-2 Immunization ( - season) 2024 Hepatitis B Immunization Aged Out No longer eligible based on patient's age to complete this topic Meningococcal Immunization (ACWY) Aged Out No longer eligible based on patient's age to complete this topic Rotavirus Immunization Aged Out No lo nger eligible based on patient's age to complete this topic Care Teams Media Relations Specialist Relationship Specialty Start Date End Date Breanna Mao [place] [address] [place] [address] PCP - General Family Medicine 03/12/19
--- OUTSIDE RECORDS SUMMARY | 2025-01-05 20:31 | XMS_ITS | Continuity of Care Document ---
Author Name Auto Generated, Auto Generated Organization [facility] Support Name Relationship Address Phone Myles Daniela Emergency Contact [address] [place] [address] Daniela Bueno Daughter [address] [place] [address] Daniela Bueno [employer] [address] [place] [address] Feco, Gracia Daughter [address] [place] [address] Unavailable Feco, Gracia [employer] [address] [place] [address] Unavailable Félix Guallpa Son [facility] [place] [address] Quan Guallpa Financial Responsible [employer] [address] [place] [address] Unavailable Quan Guallpa Self [address] [place] [address] Unavailable Daniela Bueno [facility] [address] [place] [address] Feco, Gracia Emergency Contact [address] [place] [address] Unavailable Feco, Gracia [employer] [address] [place] [address] Unavailable Summary Purpose Consult/Referral Allergies, Adverse Reactions, Alerts No Known Allergies Medications No Known Medications Conditions/Problems No Known Problems Procedures No Known Procedures
--- OUTSIDE RECORDS SUMMARY | 2025-01-05 20:31 | XMS_ITS | Clinical Summary ---
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 Gender Identity Not on file Sexual Orientation Not on file Plan of Treatment Upcoming Encounters Date Type Department Care Team (Late st Contact Info) Description 01/08/2025 1:30 PM CDT Office Visit [facility] Oncology and Hematology - [place] [address] [facility] [address] [place] [address] Rico Kay MD [address] [facility] [address] [place] [address] Health Maintenance Due Date Last Done Comments ZOSTER VACCINE (1 of 2) 1989 RSV VACCINE (60+ or ) (1 - 1-dose 75+ series) 2014 DTAP/TDAP/TD VACCINES (1 - Tdap) 05/26/2017 05/25/20 17, 10/11/2006 INFLUENZA VACCINE (#1) 2024 1, 09/22/2020, 08/14/2019, Additional history exists PNEUMOCOCCAL VACCINE 50+ YEARS Completed 1 , 07/14/2010, 08/11/2006 Insurance [facility] [id number] [facility] [id number]
--- OUTSIDE RECORDS SUMMARY | 2025-01-05 20:31 | XMS_ITS | Clinical Summary ---
Author Organization [facility] [address] Address [address] [place] [address] Care Team Providers Care Junior Technical Writer Name Role Phone Nicolas Kumar MD Primary Care Provider Victor Manuel Dallas MD Unavailable Fadi Moreno MD Unavailable [phone] Leno Mao MD Unavailable Linda Schwartz NP Unavailable [phone] Allergies Active Allergy Reactions Criticality Noted Date Comments Lactose Diarrhea,Flatulence Low Amzowff-Dbt-Ybb Reductase Inhibitors Muscle pain Medium 04/15/2024 Medications [...] (01/07/2022): Added automatically from request for surgery [id number] Elevated PSA 11/29/2021 Overview (11/29/2021): Added automatically from request for surgery [id number] Right carpal tunnel syndrome 05/10/2021 Overview (05/10/2021): Added automatically from request for surgery [id number] Aortic systolic murmur on examination 05/28/2019 CAD (coronary artery disease) 05/23/2017 S/P CABG (coronary artery bypass graft) 05/23/20 17 Hearing loss 04/27/2017 Encounters Date Type Department Care Team Description 11/22/2024 9:40 AM SCHOOL BUS ATTENDANT Office Visit [facility]) - [facility] Urology [address] [place] [id number] Jodi Kapoor MD Prostate cancer (HCC) (Primary Dx) 11/21/2024 Telephone [facility] Cardiology [address] [facility] [address] [facility] [address] [place] [address] Aubrey Brand MD 11/14/2024 Telephone [facility] Cardiology [address] [facility] [address] [place] [address] Victor Manuel Dallas MD 11/13/2024 3:45 PM SCHOOL BUS ATTENDANT - 11/13/2024 11:59 PM SCHOOL BUS ATTENDANT Hospital Encounter [facility] [address] [place] [address] Prostate CA (HCC) Discharge Disposition: Discharge to home or self care 11/13/2024 3:30 PM SCHOOL BUS ATTENDANT Lab [facility] Outpatient Lab at [address] [address] Mixed hyperlipidemia (Primary Dx) 11/13/2024 Orders Only [facility] - [facility] Urology [facility] Advanced Medicine 11th [place] [address] [place] [address] Jodi Kapoor MD Prostate CA (HCC) (Primary Dx) 11/12/2024 Telephone [facility] Surgery [address] [place] [address] [place] 11/12/2024 Telephone [facility] Cardiology [address] [facility] [address] [facility] [address] [place] [address] Aubrey Brand MD from Last 3 Months Immunizations Immunization Administration Dates Next Due Influenza, Quadrivalent, Beatrice l Culture-based MDCK, Antibiotic Free, Intramuscular 08/14/2018 Influenza, Quadrivalent, Hig h Dose, Preservative Free, Intrr 08/16/2021 Influenza, Quadrivalent, Split, Intramuscular Influenza, Quadrivalent, Spl it, Preservative Free, Intramuscular 09/22/2020 Moderna SARS-CoV-2 Monovalent Vaccination (12+ Y RS) 12/22/2020,11/19/2020 Pneumococcal Conjugate PCV 13 08/03/2016 Pneumococcal Polysaccharide PPV23 07/14/2010, TD Preservative Free 05/25/2017,10/11/2006 Surgical History Surgery Date Site/Laterality Comments CORONARY ARTERY BYPASS GRAFT 2009, QUAD COCHLEAR IMPLANT Right CARDIAC STENT PLACEMENT 10/23/2002 - 10/22/2003 2 stents KNEE ARTHROSCOPY Right CORONARY STENT PLACEMENT 04/03/2024 DEVON to LAD x 1 CARDIAC CATHETERIZATION TRANSCATHETER AORTIC VALVE REPLACEMENT 04/29/2024 29 [place] Medical History Medical History Date Comments Hypertension GERD (gastroesophageal reflux disease) Weight loss Anxiety Gout Coronary artery disease Hyperlipidemia Prostate Cancer (CMS/HCC) (HCC) Hx of aortic valve stenosis 04/29/2024 TAVR Family History Medical History Relation Name Comments Cancer Father Quan Hearing loss Father Quan Prostate cancer Father Quan Stroke Mother Heart disease Other sibling Anesthesia problems Neg Hx Relation Name Status Comments Father Quan Mother Other sibling Other Social History Tobacco Use Types Packs/Day Years [...] on file Legal Sex Male 5:09 AM SCHOOL BUS ATTENDANT Gender Identity Not on file Sexual Orientation Not on file Occupation Industry Job Start Date Job End Date Retired Not on file Not on file Not on file Obstetrics History Last Filed Vital Signs Vital Sign Reading [...] 06/12/2024 2:56 PM CDT Plan of Treatment Health Maintenance Due Date Last Done Comments Depression Screening 1940 Hepatitis B Screening 1957 Zoster Vaccine (1 of 2) 1989 Well Visit 65+ 2004 DTaP/Tdap/Td Vaccine (1 - Tdap) 05/26/2017 7, 10/11/2006 Covid-19 Vaccine (4 - 2023-2 5 season) 2024 08/25/2021, 12/22/2020, 11/19/2020 Influenza Vaccine (#1) 2024 , 09/22/2020, 08/14/2019, Additional history exists Fall Risk Assessment 04/30/2025 04/30/2024 Pneumococcal vaccine 65+ Completed 016, 07/14/2010, 08/11/2006 Medical Devices Implanted Type Area Fluid Pump Operator Device Identifier Shelf Expiration Date Model / Serial / Lot Profit Software Tory 3 29mm Transcatheter Aortic Valve [id number] - [id number] - [id number] Implanted:Qty: 1 on 04/29/2024 by Aubrey Brand MD at [facility] Prosthetic Valve N/A: Aortic Valve [employer] 10/02/2026 [id number] / [id number] / [employer] Synergy Xd Monorail 3.5mm 38mm 144cm Delivery System 1 Access [id number] - [id number] - [id number] Implanted:Qty: 1 on 04/03/2024 by Aubrey Brand MD at [facility] Stent Left: Circumflex Coronary Artery [employer] 12/19/2025 [id number] / [id number] / [id number] [employer] 18f [place]anta Vascular Closure Device 2115 - S0 - [id number] Implanted:Qty: 1 on 04/29/2024 by Aubrey Brand MD at [facility] Vascular Closure Device [employer] 06/11/2025 2115 / 0 / [id number] Cochlear Implant Right: Head [facility] [employer] Graft Bone Filler Cancellous 1-2mm Micro Granules Gel Altapore 10ml Putty [id number] - [id number] Implanted:Qty: 1 on 03/14/2022 by Fadi Moreno MD at [facility] N/A: Spine Cervical [facility] [employer] [id number] 11/02/2023 [id number] / / [id number] Depuy Synthes Spine [id number] 3.5mm 16mm Ply Spine Screw Bone Nonsterile 4mm Jose - [id number] Implanted:Qty: 7 on 03/14/2022 by Fadi Moreno MD at [facility] N/A: Spine Cervical Depuy Synthes Spine [id number] / / Depuy Synthes Spine [id number] Lock Cap Spine T15 Standard Screw Set Titanium Nonsterile - [id number] Implanted:Qty: 7 on 03/14/2022 by Fadi Moreno MD at [facility] N/A: Spine Cervical Depuy Synthes Spine [id number] / / Depuy Spine [id number] [place] [employer] 2 Spine Wire Fixation Cocr Titanium - [id number] Implanted:Qty: 2 on 03/14/2022 by Fadi Moreno MD at [facility] N/A: Spine Cervical Depuy Synthes Spine [id number] / / Depuy Synthes Spine [id number] 4mm 60mm Lordosis Jose Spinal Titanium - [id number] Implanted:Qty: 2 on 03/14/2022 by Fadi Moreno MD at [facility] N/A: Spine Cervical Depuy Synthes Spine [id number] / / Procedures Procedure Name Priority Date/Time Associated Diagnosis Comments PSA, TOTAL AND FREE Routine 11/13/2024 3 :45 PM SCHOOL BUS ATTENDANT Prostate CA (HCC) TOTAL TESTOSTERONE Routine 11/13/2024 3: 45 PM SCHOOL BUS ATTENDANT Prostate CA (HCC) from Last 3 Months Results * PSA, total and free (11/13/2024 3:45 PM SCHOOL BUS ATTENDANT) PSA-free <0.1 ng/mL [facility] ref Lab PSA-Total <0.10 <=7.2 ng/mL [facility] [...] absence of malignant disease. Test Performed by: [address] [address] International Exchange Coordinator: Kaiden Harp Ph.D.; CLIA# [id number] Blood 11/13/2024 3:45 PM SCHOOL BUS ATTENDANT 11/13/2024 8:10 PM SCHOOL BUS ATTENDANT us Jodi Kapoor MD LAB BLOOD ORDERABLES Final Resul t [facility] [address] [facility] [place] [address] Tran ref Lab * (ABNORMAL) Total testosterone (11/13/2024 3:45 PM SCHOOL BUS ATTENDANT) Testosterone <3(L) 193 - 740 ng/dL Blood 11/13/2024 3:45 PM SCHOOL BUS ATTENDANT 11/13/2024 8:10 PM SCHOOL BUS ATTENDANT us Jodi Kapoor MD LAB BLOOD ORDERABLES Final Resul t Performing Organization Address City/[facility] Co de Phone Number [facility] [address] Department [place] [address] from Last 3 Months Insurance MEDICARE SOLUTIONS MEDICARE SOLUTIONS * Guarantor: QUAN GUALLPA Account Type Relation to Patient Date of Phone Billing Address Personal/Family MEDICARE SOLUTIONS Advance Directives For more information, please contact: [phone] Documents on File Type Date Recorded Patient Plant Maintenance Supervisor Expl anation ADVANCE DIRECTIVE 03/14/2022 11:31 AM Johnathan r of Rail Technician-Medical * Full Code (Latest Code Status on File) Date Activated Date Inactivated Comments 04/29/2024 11:57 AM 04/30/2024 6:57 PM * Full Code Date Activated Date Inactivated Comments 04/03/2024 5:03 PM 04/04/2024 1:59 PM * Full Code Date Activated Date Inactivated Comments 03/14/2022 10:30 PM 03/22/2022 6:43 PM Care Teams Junior Technical Writer Relationship Specialty Start Date End Date Nicolas Kumar MD PCP - General 07/02/21 Victor Manuel Dallas MD [address] [place] [address] Consulting Physician Cardiology 01/14/22 Fadi Moreno MD [address] [place] [address] Consulting Physician Neurosurgery 03/22/22 Leno Mao MD [address] [facility] [address] [place] [address] Consulting Physician Cardiothoracic Surgery 03/19/24 Linda Schwartz NP [address] [facility] [address] [place] [address] Nurse Practitioner Cardiothoracic Surgery 04/30/24
--- OUTSIDE RECORDS SUMMARY | 2025-01-05 20:31 | XMS_ITS | Clinical Summary ---
Author Organization [facility] Address [address] [place] [address] Care Team Providers Care Liaison Planner Name Role Phone Unavailable Primary Care Provider Unavailabl e Social History Tobacco Use Types Packs/Day Years Used Date Smoking Tobacco: Never Assessed Sex and Gender Information Value Date Recorded Sex Assigned at Not on file Legal Sex Male 7:42 PM CDT Gender Identity Not on file Sexual Orientation Not on file Plan of Treatment Health Maintenance Due Date Last Done Comments DTaP, Tdap and Td Vaccines ( 1 - Tdap) 1958 Zoster Vaccines (1 of 2) 1989 Pneumococcal Vaccine: 65+ Ye ars (1 of 1 - PCV) 2004 RSV Immunization or 60+ Years (1 - 1-dose 75+ series) 2014 COVID-19 Vaccine ( - 2023-2 5 season) 2024 Influenza Adult (#1) 2024 Meningococcal B Vaccine Aged Out No l onger eligible based on patient's age to complete this topic Meningococcal Vaccine Aged Out No mu david eligible based on patient's age to complete this topic RSV Immunizations Under 20 Months Aged Out No longer eligible based on patient's age to complete this topic
[2025-01-05 20:32] VITALS: BP 124/99; PULSE 68; RESP 18; TEMP 36.6; O2SAT 100
[2025-01-05 23:06] VITALS: BP 125/85; PULSE 85; RESP 16; TEMP 36.9; O2SAT 98
--- NOTE | 2025-01-05 23:06 | ED_ITS ---
HPI - Abdominal Pain General Chief Complaint: Abdominal Pain Stated Complaint: right flank pain Time Seen by Provider: 01/05/25 22:59 Source: patient and family (Daughter and son) Mode of arrival: ambulatory Limitations: no limitations History of Present Illness HPI narrative: Patient presents with report of right flank pain. He describes it as being in the area of my spare tire/muffin top/love handle. Low right sided back pain. He initially denies any abdominal pain although does note that it is on his lateral abdomen / right hip. He has a history of passing small kidney stones with the last occurring 2 months ago. Patient took 2 500 mg tablets of Tylenol while in the waiting room. In his penis or testicles. Denies any nausea, vomiting, diarrhea, dysuria, urgency, frequency, or hematuria. He has been told he has an enlarged prostate although he still makes urine and denies any changes with urination recently. He sees a urologist through [facility] in [place]. No fevers or chills. Denies any midline back pain or pain radiating to buttock or either leg. Related Data Home Medications ?Medication ?Instructions ?Recorded ?Confirmed ?Last Taken ?Type aspirin 81 mg tablet,delayed 81 mg PO DAILY 09/20/21 10/24/24 03/08/24 History release (Adult Aspirin Regimen) tamsulosin 0.4 mg capsule 0.4 mg PO DAILY 03/28/24 10/24/24 Unknown History clopidogrel 75 mg tablet 75 mg PO DAILY 05/23/24 10/24/24 Unknown History evolocumab 140 mg/mL subcutaneous mg subcut 05/23/24 10/24/24 Unknown History pen injector (Repatha SureClick) Allergies Allergy/AdvReac Type Severity Reaction Status Date / Time lactose Allergy Unknown stomach Verified 10/24/24 08:27 upset PMFSH Past Medical History Medical History (Updated 01/07/25 @ 06:27 by Re Martin MD) Hearing aid worn Hard of hearing CAD (coronary artery disease) Polyarthralgia Sinusitis Wheezing Testosterone deficiency Screening for malignant neoplasm of prostate Screening for malignant neoplasm of colon Low testosterone in male Influenza A Encounter for screening for malignant neoplasm of lung Dyspnea Chronic fatigue Left hip pain Constipation Post-nasal drip Saliva increased Dermatitis Testicular hypofunction Anemia Renal cyst BPH loc w/o ur obs/LUTS ZOILA (obstructive sleep apnea) Benign hypertension Prostate cancer BMI over 35 Chronic rhinitis Neuropathy Ataxia Cervical stenosis of spinal canal Progressive focal motor weakness Degenerative, intervertebral disc, cervical Former smoker Rotator cuff arthropathy Statin intolerance muscle pain Hypercholesteremia Ischemic heart disease Multi-vessel coronary artery stenosis Asbestos exposure Seasonal allergic rhinitis GERD without esophagitis Osteoarthritis Testicular hypofunction Controlled gout Hyperlipidemia Hypertension History of torn meniscus of right knee Carpal tunnel syndrome, bilateral Surgical History Surgical History S/P TAVR (transcatheter aortic valve replacement) S/P cervical spinal fusion Hx of extremity bypass graft History of vasectomy S/P CABG (coronary artery bypass graft) History of heart artery stent Family History Family History Mother Cerebrovascular accident Grandparent Family history of kidney disease Father Malignant neoplasm of prostate Sibling , natural causes Heart disease Social History Social History Social History: single-story home no stairs. Patient had hired caregiver . 3 children. POLST signed 03/30/22 lists DNR Smoking packs per day: 1 Smoking cigarettes per day: 20.0 Years smoked: 50 Smoking pack-years: 50.00 Smoking status: Former smoker Tobacco type: cigarettes Second hand tobacco smoke exposure: Yes Smoking end date: 10/23/16 Alcohol intake: current Alcohol use details: Rarely Substance use: never Substance use type: does not use Other substance usage details: gummies-used only for sleep. 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 HEAD: Normocephalic, atraumatic. EYES: Non injected, non icteric ENT: Nares clear, no rhinorrhea or epistaxis. Hard of hearing with hearing aid in left ear and implantable device right. NECK: Supple. CHEST: Speaking in full sentences. No respiratory distress. HEART: Regular rate and rhythm. . ABDOMEN: Protuberant but Soft, nondistended. No tenderness to palpation throughout. No appreciable hernia. EXTREMITIES: Normal range of motion. No lower extremity edema. BACK: No CVA tenderness on the right. No tenderness to palpation of thoracic or lumbar spine for which there was no bony step-offs or abnormalities. SKIN: Warm, dry. No ecchymosis, erythema, or rash overlying R back or right lateral abdomen : No appreciable inguinal hernia. NEURO: No focal deficits. Alert and oriented x3. PSYCH: Normal mood and affect. Course Vital Signs Vital signs: Vital Signs Temperature 98 F 01/05/25 20:32 Pulse Rate 68 01/05/25 20:32 Respiratory Rate 18 01/05/25 20:32 Blood Pressure 124/99 H 01/05/25 20:32 Pulse Oximetry 100 01/05/25 20:32 Oxygen Delivery Room Air 01/05/25 20:32 Temperature 98.5 F 01/05/25 23:06 Pulse Rate 53 L 01/06/25 04:56 Respiratory Rate 18 01/06/25 04:56 Blood Pressure 167/72 H 01/06/25 04:56 Pulse Oximetry 100 01/06/25 04:56 Oxygen Delivery Room Air 01/05/25 20:32 MDM - Abdominal Pain MDM Narrative Medical decision making narrative: Patient presents with initial report of right flank pain although it does appear to be right-sided low back pain/partial right lateral abdominal pain. In the emergency department he is afebrile with vital signs that show elevated diastolic blood pressure. Normocytic anemia, stable from previous. Isolated azotemia which has previously been appreciated. Patient reassessed approximately 2:05 a.m.. He states his pain is greatly improved, now only a twinge. Await CT interpretation. Patient noted to be bradycardic around 3:05 a.m. the nurse. He remains without complaint of shortness of breath or chest pain. He had been sleeping at the time. Appears to be sinus bradycardia on the monitor with no pauses appreciated. Hemodynamically stable otherwise in regards to BP and mentation. EKG obtained. He is having some pain again. Acetaminophen ordered. It had not been given at the time of reassessment. Because it had timed out, it was reordered along with ketorolac. Patient otherwise feels comfortable with discharge back to facility and family feels comfortable with being able to provide this as long as there is assistance getting him into the car. We did extensively discuss the incidental finding of the left mass in the kidney and the appropriate follow-up for this. He states that he believes this has been appreciated before and that his primary care physician is already aware of this. We discussed the uncertainty of his pain although likely felt to be musculoskeletal in nature. Discussed aggressive but reasonable multimodal pain management strategies to include cxls-zsb-nbgrgeg analgesic agents and appropriate dosing of these. Given his age, I do not feel comfortable prescribing a muscle relaxer given the sedating affects. However, he is also prescribed lidocaine patches and topical diclofenac. He had questioned the use of 650 mg acetaminophen that has been prescribed for his arthritis we discussed that this is usually not typically a very appropriate dose however for this acute pain, it would be safe to take 4000mg/day of acetaminophen and the easiest way to accomplish this might be 500mg x2 tablets q6 hours. He and his family verifies understanding and are in agreement with the plan. Stable for discharge. Differential Diagnosis Differential diagnosis: Likely abdominal pain, acute appendicitis, calculus of kidney, constipation, small bowel obstruction and other (Multiple sprain/strain, hernia, shingles/Zoster; RP hemorrhage/abscess) Lab Data Attestation: I reviewed the patient's lab results. Lab results narrative: Urinalysis unremarkable 01/05/25 23:56 01/05/25 23:56 Labs: Lab Results 01/05/25 01/06/25 Range/Units 23:56 01:26 WBC 7.8 (4.5-10.0) K/mm3 RBC 3.49 L (4.6-6.20) M/mm3 Hgb 11.0 L (14.0-18.0) g/dL Hct 33.1 L (42.0-52.0) % MCV 94.8 (80-100) fl MCH 31.5 (26-34) pg MCHC 33.2 (32-36) g/dl RDW 13.3 (11.5-14.5) % Plt Count 219 (150-375) k/mm3 MPV 10.8 H (7.4-10.4) fl Immature Gran % (Auto) 0.1 (0-0.5) % Neut % (Auto) 60.6 (45.5-73.1) % Lymph % (Auto) 27.3 (18.3-44.2) % Dorado % (Auto) 8.6 H (2.6-8.5) % Eos % (Auto) 2.6 (0-4.4) % Baso % (Auto) 0.8 (0.2-1.2) % Lymph # (Auto) 2.13 (0.9-3.2) K/mm3 Dorado # (Auto) 0.7 H (0.1-0.6) K/mm3 Eos # (Auto) 0.2 (0-0.3) K/mm3 Baso # (Auto) 0.1 (0.0-0.1) K/mm3 Abs Immat Gran (auto) 0.01 (0.00-0.031) K/mm3 Absolute Neuts (auto) 4.7 (1.3-6.7) K/mm3 Absolute Nucleated RBC 0.000 (0.0-0.012) K/mm3 Nucleated RBC % 0.0 (0.0-0.2) % Sodium 137 (137-145) mmol/L Potassium 3.7 (3.4-5.0) mmol/L Chloride 102 (98-107) mmol/L Carbon Dioxide 27 (22-30) mmol/L Anion Gap 8 (4-12) mmol/L BUN 25 H (9-20) mg/dL Creatinine 0.94 (0.7-1.3) mg/dL Estim Creat Clear Calc 70 ml/min Estimated GFR > 60 (59 - ) Glucose 107 (65-110) mg/dL Lactic Acid 1.0 (0.7-2.0) mmol/L Calcium 8.8 (8.4-10.2) mg/dL Total Bilirubin 0.3 (0.2-1.3) mg/dL AST 31 (17-59) U/L ALT 17 (6-50) U/L Alkaline Phosphatase 67 (38-126) U/L Total Protein 7.0 (6.3-8.2) g/dL Albumin 4.1 (3.5-5.1) g/dL Lipase 68 (23-300) U/L Urine Color Yellow (Yellow) Urine Appearance Clear (Clear) Urine pH 6.0 (5.0-9.0) Ur Specific Adena 1.022 (1.001-1.035) Urine Protein Negative (Negative) mg/dL Urine Glucose (UA) Negative (Negative) mg/dL Urine Ketones Negative (Negative) mg/dL Ur Blood (Man) Negative (Negative) Urine Nitrate Negative (Negative) Urine Bilirubin Negative (Negative) Urine Urobilinogen 1.0 (<2.0) mg/dL Leukocyte Esterase Rfl Negative (Negative) VERO/UL Imaging Data Radiologist's impression: ITS Impressions Abdomen/Pelvis CT 01/06/25 06:17 Impression: No acute abnormalities seen. 2.8 cm indeterminate left renal mass. Follow-up renal mass protocol CT or MR recommended to assess for solid versus cystic lesion. CT Abd Pelvis with Contrast STat Rad: No evidence of radiopaque renal calculi or signs of collecting system dilatation. Bilateral perinephric stranding. Findings can be seen with volume status. Sequela of ascending urinary tract infection is also possible, but less likely. Exophytic 2.7cm hypodensity within the lower pole of the left kidney. ACR White Paper guidelines (Herlisa, et al. JACR 2018; 15(2): 264-273) recommend MRI and CT without and with intravenous contrast. No evidence of bowel obstruction. Normal appendix. TAVR completely visualized. No other acute findings. ECG Data EKG #1: Attestation: I personally reviewed and interpreted this ECG as follows: ECG completion date: 01/06/25 ECG completion time: 03:08 Interpretation: Sinus bradycardia at a rate of 49 beats per minute. MS interval prolonged at 345 milliseconds. QRS 85. QT/QTC 444/413. Discharge Plan Discharge Clinical Impression: Normocytic anemia, Azotemia, First degree AV block, Right low back pain, Renal mass, left Patient Disposition: NH Detention/Asst Living Condition: Stable Instructions: Antibiotic Form, Low Back Strain (ED), Acute Low Back Pain (ED), Flank Pain (ED), Anemia (ED), Lower Back Exercises (ED) Additional Instructions: As we discussed, recommend a multimodal pain management regimen to help you balance both rest with improving the pain to a degree that allows you to continue to move in maintain activities that you do not become more sore/achy/stiff. Acetaminophen/Tylenol (maximum 4000 mg per day) is safe to take with NSAIDs (ibuprofen/Motrin) for pain relief. You were incidentally found to have a mass within the lower pole of your left kidney. Recommend follow up with an MRI or CT without and with IV contrast. Your primary care physician can help arrange this for the outpatient setting. Follow-up with your primary care physician and return to the emergency department with any new or worsening symptoms. Return to the ER if you have increased pain in your back, you develop lower extremity weakness/numbness/paralysis, you have numbness or tingling in your private parts, or you are unable to control your ability to urinate/stool. Patient Language: Pashto Prescriptions: New acetaminophen 500 mg capsule 1,000 mg PO Q6H PRN (Reason: pain) Qty: 30 0RF ibuprofen 600 mg tablet 600 mg PO TID PRN (Reason: pain) Qty: 30 0RF diclofenac sodium [Arthritis Pain (diclofenac)] 1 % gel 2 g topical QID Qty: 100 0RF Rx Instructions: apply to single elbow, wrist or hand; for hand includes palm/fingers/back of hand lidocaine 4 % adhesive patch,medicated 1 patch topical DAILY PRN (Reason: pain) Qty: 10 0RF No Action aspirin [Adult Aspirin Regimen] 81 mg tablet,delayed release (DR/EC) 81 mg PO DAILY tamsulosin 0.4 mg capsule 0.4 mg PO DAILY Neilmed Sinus Rinse Refill Packet 1 packet .Route .2 times daily Qty: 100 0RF Rx Instructions: 1 packet 2 times a day meloxicam 7.5 mg tablet 7.5 mg PO DAILY Qty: 30 0RF Repatha SureClick 140 mg/mL pen injector subcut clopidogrel 75 mg tablet 75 mg PO DAILY Xhance 93 mcg/actuation aerosol breath activated 1 spray intranasal Q12H Qty: 16 3RF Rx Instructions: into each nostril metoprolol succinate 50 mg tablet extended release 24 hr 50 mg PO DAILY Qty: 90 1RF albuterol sulfate 90 mcg/actuation HFA aerosol inhaler 2 inh inhalation Q4-6H PRN (Reason: shortness of breath or wheezing) Qty: 6.7 0RF indapamide 2.5 mg tablet 2.5 mg PO DAILY Qty: 90 3RF Rx Instructions: TAKE 1 TABLET BY MOUTH DAILY. allopurinol 300 mg tablet 300 mg PO DAILY Qty: 90 2RF ferrous sulfate 325 mg (65 mg iron) tablet,delayed release (DR/EC) 325 mg PO DAILY Qty: 30 6RF pregabalin 50 mg capsule 50 mg PO BID Qty: 180 2RF lansoprazole 30 mg capsule,delayed release(DR/EC) 30 mg PO DAILY Qty: 90 1RF lisinopril 40 mg tablet 40 mg PO DAILY Qty: 90 1RF polyethylene glycol 3350 [Miralax] 17 gram Powder In Packet 17 g PO QAM PRN (Reason: Constipation - 1st Line) Qty: 14 0RF Metamucil (with sugar) 3.4 gram Powder In Packet 1 packet PO Q12HR PRN (Reason: prn) Qty: 10 0RF Follow-up/Referrals: Nicolas Kumar MD [Primary Care Provider] - Stand Alone Forms: [facility] Discharge Time of Disposition: 04:51
--- OUTSIDE RECORDS SUMMARY | 2025-01-05 23:38 | XMS_ITS | Clinical Summary ---
Author Organization [facility] Address [address] [place] [address] Care Team Providers Care Child And Youth Program Assistant Name Role Phone Unavailable Primary Care Provider [...] topic Meningococcal Vaccine Aged Out No mu davdi eligible based on patient's age to complete this topic RSV Immunizations Under 20 Months Aged Out No longer eligible based on patient's age to complete this topic
--- OUTSIDE RECORDS SUMMARY | 2025-01-05 23:38 | XMS_ITS | Referral Summary ---
Author Organization [facility] [address] Address [address] [place] [address] Care Team Providers Care Commercial Loan Processor Name Role Phone Nicolas Kumar MD Primary Care Provider Victor Manuel Dallas MD Unavailable [phone] Fadi Moreno MD Unavailable [phone] Leno Mao MD Unavailable [phone] Linda Schwartz NP Unavailable [phone] Encounters Date Type Department Care Team Description 11/22/2024 9:40 AM AIR TRAFFIC CONTROL SUPERVISOR Office Visit [facility]) - [facility] Urology [address] [place] [address] Jodi Kapoor MD Prostate cancer (HCC) (Primary Dx) 11/21/2024 Telephone [facility] Medical Group Cardiology [address] [place] [address] Aubrey Brand MD 11/14/2024 Telephone [facility] Cardiology [address] [place] [address] Victor Manuel Dallas MD 11/13/2024 3:45 PM AIR TRAFFIC CONTROL SUPERVISOR - 11/13/2024 11:59 PM AIR TRAFFIC CONTROL SUPERVISOR Hospital Encounter [facility] [address] [place] [address] Prostate CA (HCC) Discharge Disposition: Discharge to home or self care 11/13/2024 Orders Only [facility] Advanced Medicine ([facility]) - [facility] Urology [address] 11[address] [place] [address] [place] [id number] Jodi Kapoor MD Prostate CA (HCC) (Primary Dx) 11/13/2024 3:30 PM AIR TRAFFIC CONTROL SUPERVISOR Lab [facility] Medical [facility] Outpatient Lab at [address] [address] Mixed hyperlipidemia (Primary Dx) 11/12/2024 Telephone [facility] Surgery [address] [place] [address] Alina Mendez 11/12/2024 Telephone [facility] Medical [facility] Cardiology [address] [place] [address] Aubrey Brand MD from Last 3 Months Allergies Active Allergy Reactions Criticality Noted Date Comments Lactose Diarrhea,Flatulence Low Gvdmkyg-Aph-Axb Reductase Inhibitors Muscle pain Medium 04/15/2024 Medications [...] (01/07/2022): Added automatically from request for surgery [id number] Elevated PSA 11/29/2021 Overview (11/29/2021): Added automatically from request for surgery [id number] Right carpal tunnel syndrome 05/10/2021 Overview (05/10/2021): Added automatically from request for surgery [id number] Aortic systolic murmur on examination 05/28/2019 CAD [...] on file Legal Sex Male 5:09 AM AIR TRAFFIC CONTROL SUPERVISOR Gender Identity Not on file Sexual Orientation [...] on file Medical Devices Implanted Type Area Chiropractor Assistant Device Identifier Shelf Expiration Date Model / Serial / Lot [employer] Tory 3 29mm Transcatheter Aortic Valve [id number] - [id number] - [id number] Implanted:Qty: 1 on 04/29/2024 by Aubrey Brand MD at [facility] Prosthetic Valve N/A: Aortic Valve [employer] 10/02/2026 [id number] / [id number] / [employer] Synergy Xd Monorail 3.5mm 38mm 144cm Delivery System 1 Access [id number] - [id number] - [id number] Implanted:Qty: 1 on 04/03/2024 by Aubrey Brand MD at [facility] Stent Left: Circumflex Coronary Artery [employer]itos 12/19/2025 [id number] / [id number] / [id number] [employer] 18f Manta Vascular Closure Device 2115 - S0 - [id number] Implanted:Qty: 1 on 04/29/2024 by Aubrey Brand MD at [facility] Vascular Closure Device [employer] 06/11/2025 [id number] / 0 / [id number] Cochlear Implant Right: Head [facility] Carlitos Graft Bone Filler Cancellous 1-2mm Micro Granules Gel Altapore 10ml Putty [id number] - [id number] Implanted:Qty: 1 on 03/14/2022 by Fadi Moreno MD at [facility] N/A: Spine Cervical [facility] [employer]itos [id number] 11/02/2023 [id number] / / [id number] Depuy Synthes Spine [id number] 3.5mm 16mm Ply Spine Screw Bone Nonsterile 4mm Jose - [id number] Implanted:Qty: 7 on 03/14/2022 by Fadi Moreno MD at [facility] N/A: Spine Cervical Depuy Synthes Spine [id number] / / Depuy Synthes Spine [id number] Lock Cap Spine T15 Standard Screw Set Titanium Nonsterile - [id number] Implanted:Qty: 7 on 03/14/2022 by Fadi Moreno MD at [facility] N/A: Spine Cervical Depuy Synthes Spine [id number] / / Depuy Spine [id number] Pool Expedium 2 Spine Wire Fixation Cocr Titanium - [id number] Implanted:Qty: 2 on 03/14/2022 by Fadi Moreno MD at [facility] N/A: Spine Cervical Depuy Synthes Spine [id number] / / Depuy Synthes Spine [id number] 4mm 60mm Lordosis Jose Spinal Titanium - [id number] Implanted:Qty: 2 on 03/14/2022 by Fadi Moreno MD at [facility] N/A: Spine Cervical Depuy Synthes Spine [id number] / / Procedures Procedure Name Priority Date/Time Associated Diagnosis Comments PSA, TOTAL AND FREE Routine 11/13/2024 3 :45 PM AIR TRAFFIC CONTROL SUPERVISOR Prostate CA (HCC) TOTAL TESTOSTERONE Routine 11/13/2024 3: 45 PM AIR TRAFFIC CONTROL SUPERVISOR Prostate CA (HCC) from Last 3 Months Results * PSA, total and free (11/13/2024 3:45 PM AIR TRAFFIC CONTROL SUPERVISOR) PSA-free <0.1 ng/mL [place] [facility] PSA-Total <0.10 <=7.2 ng/mL CECIL [...] absence of malignant disease. Test Performed by: [facility] [address] [place] [id number] Race Starter: Kaiden Harp Ph.D.; CLIA# [id number] Blood 11/13/2024 3:45 PM AIR TRAFFIC CONTROL SUPERVISOR 11/13/2024 8:10 PM AIR TRAFFIC CONTROL SUPERVISOR us Jodi Kapoor MD LAB BLOOD ORDERABLES Final Resul t Performing Organization Address City[facility] Co de Phone Number CECIL ORDONEZ [address] [place] [address] [place] [facility] * (ABNORMAL) Total testosterone (11/13/2024 3:45 PM AIR TRAFFIC CONTROL SUPERVISOR) Testosterone <3(L) 193 - 740 ng/dL Blood 11/13/2024 3:45 PM AIR TRAFFIC CONTROL SUPERVISOR 11/13/2024 8:10 PM AIR TRAFFIC CONTROL SUPERVISOR us Jodi Kapoor MD LAB BLOOD ORDERABLES Final Resul t Performing Organization Address [facility] Co de Phone Number CECIL ORDONEZ [address] [place] [address] from Last 3 Months Insurance MEDICARE SOLUTIONS MEDICARE SOLUTIONS * Guarantor: QUAN GUALLPA Account Type Relation to Patient Date of Phone Billing Address Personal/Family MEDICARE SOLUTIONS Advance Directives For more information, please contact: [phone] Documents on File Type Date Recorded Patient Log Getter Expl anation ADVANCE DIRECTIVE 03/14/2022 11:31 AM Johnathan r of Dental Equipment Installer And Servicer-Medical * Full Code (Latest Code Status on File) Date Activated Date Inactivated Comments 04/29/2024 11:57 AM 04/30/2024 6:57 PM * Full Code Date Activated Date Inactivated Comments 04/03/2024 5:03 PM 04/04/2024 1:59 PM * Full Code Date Activated Date Inactivated Comments 03/14/2022 10:30 PM 03/22/2022 6:43 PM Care Teams Commercial Loan Processor Relationship Specialty Start Date End Date Nicolas Kumar MD PCP - General 07/02/21 Victor Manuel Dallas MD [address] [facility] [address] [place] [address] Consulting Physician Cardiology 01/14/22 Fadi Moreno MD [address] [place] [address] Consulting Physician Neurosurgery 03/22/22 Leno Mao MD [address] [place] [address] Consulting Physician Cardiothoracic Surgery 03/19/24 Linda Schwartz NP [address] [place] [address] Nurse Practitioner Cardiothoracic Surgery 04/30/24
--- OUTSIDE RECORDS SUMMARY | 2025-01-05 23:38 | XMS_ITS | Clinical Summary ---
Author Organization [facility] [address] Address [address] [place] [address] Care Team Providers Care Well Reactivator Operator Name Role Phone Nicolas Kumar MD Primary Care Provider Victor Manuel Dallas MD Unavailable Fadi Moreno MD Unavailable [phone] Leno Mao MD Unavailable Linda Schwartz NP Unavailable [phone] Allergies Active Allergy Reactions Criticality Noted Date Comments Lactose Diarrhea,Flatulence Low Bmgrwmb-Gaw-Vix Reductase Inhibitors Muscle pain Medium 04/15/2024 Medications [...] (01/07/2022): Added automatically from request for surgery [id number] Elevated PSA 11/29/2021 Overview (11/29/2021): Added automatically from request for surgery [id number] Right carpal tunnel syndrome 05/10/2021 Overview (05/10/2021): Added automatically from request for surgery [id number] Aortic systolic murmur on examination 05/28/2019 CAD (coronary artery disease) 05/23/2017 S/P CABG (coronary artery bypass graft) 05/23/20 17 Hearing loss 04/27/2017 Encounters Date Type Department Care Team Description 11/22/2024 9:40 AM FISH INSPECTOR Office Visit [facility]) - [facility] Urology [address] [facility] [address] [place] [address] Jodi Kapoor MD Prostate cancer (HCC) (Primary Dx) 11/21/[address] [facility] Cardiology [address] [facility] [address] [place] [address] Aubrey Brand MD 11/14/[address] [facility] Cardiology [address] [facility] [address] [place] [address] Victor Manuel Dallas MD 11/13/2024 3:45 PM FISH INSPECTOR - 11/13/2024 11:59 PM FISH INSPECTOR Hospital Encounter [facility] [address] [place] [address] Prostate CA (HCC) Discharge Disposition: Discharge to home or self care 11/13/2024 3:30 [address] Lab [facility] Outpatient Lab at [address] [address] Mixed hyperlipidemia (Primary Dx) 11/13/2024 Orders Only [facility]) - [facility] Urology [facility] Advanced Medicine [address]th [place] [address] [place] [address] Jodi Kapoor MD Prostate CA (HCC) (Primary Dx) 11/12/2024 Telephone [facility] Surgery [address] [place] [address] [place] 11/12/[address] [facility] Cardiology [address] [facility] [address] [place] [address] Aubrey Brand MD from Last [...] on file Legal Sex Male 5:09 AM FISH INSPECTOR Gender Identity Not on file Sexual Orientation [...] 07/14/2010, 08/11/2006 Medical Devices Implanted Type Area Steel Erector Device Identifier Shelf Expiration Date Model / Serial / Lot Bikanta Tory 3 29mm Transcatheter Aortic Valve [id number] - [id number] - [id number] Implanted:Qty: 1 on 04/29/2024 by Aubrey Brand MD at [facility] Prosthetic Valve N/A: Aortic Valve [employer] Lifesciences 10/02/2026 [id number] / [id number] / [place] [employer] Carlitos Synergy Xd Monorail 3.5mm 38mm 144cm Delivery System 1 Access [id number] - [id number] - [id number] Implanted:Qty: 1 on 04/03/2024 by Aubrey Brand MD at [facility] Stent Left: Circumflex Coronary Artery [place] [employer] Carlitos 12/19/2025 [id number] / [id number] / [id number] Teleflex Medical Inc 18f Manta Vascular Closure Device 2115 - S0 - [id number] Implanted:Qty: 1 on 04/29/2024 by Aubrey Brand MD at [facility] Vascular Closure Device Teleflex Medical Inc 06/11/2025 2115 / 0 / [id number] Cochlear Implant Right: Head [facility] Carlitos Graft Bone Filler Cancellous 1-2mm Micro Granules Gel Altapore 10ml Putty [id number] - [id number] Implanted:Qty: 1 on 03/14/2022 by Fadi Moreno MD at [facility] N/A: Spine Cervical [facility] Carlitos [id number] 11/02/2023 [id number] / / [id number] Depuy Synthes Spine [id number] 3.5mm 16mm Ply Spine Screw Bone Nonsterile 4mm Jose - [id number] Implanted:Qty: 7 on 03/14/2022 by Fadi Moreno MD at [facility] N/A: Spine Cervical Depuy Synthes Spine [id number] / / Depuy Synthes Spine [id number] Lock Cap Spine T15 Standard Screw Set Titanium Nonsterile - [id number] Implanted:Qty: 7 on 03/14/2022 by Fadi Moreno MD at [facility] N/A: Spine Cervical Depuy Synthes Spine [id number] / / Depuy Spine [id number] [place] Expedium 2 Spine Wire Fixation Cocr Titanium - [id number] Implanted:Qty: 2 on 03/14/2022 by Fadi Moreno MD at [facility] N/A: Spine Cervical Depuy Synthes Spine [id number] / / Depuy Synthes Spine [id number] 4mm 60mm Lordosis Jose Spinal Titanium - [id number] Implanted:Qty: 2 on 03/14/2022 by Fadi Moreno MD at [facility] N/A: Spine Cervical Depuy Synthes Spine [id number] / / Procedures Procedure Name Priority Date/Time Associated Diagnosis Comments PSA, TOTAL AND FREE Routine 11/13/2024 3 :45 PM FISH INSPECTOR Prostate CA (HCC) TOTAL TESTOSTERONE Routine 11/13/2024 3: 45 PM FISH INSPECTOR Prostate CA (HCC) from Last 3 Months Results * PSA, total and free (11/13/2024 3:45 PM FISH INSPECTOR) PSA-free <0.1 ng/mL [place] ref Lab PSA-Total <0.10 <=7.2 ng/mL C[facility]IL [...] absence of malignant disease. Test Performed by: [address] [address] Buildings Painter: Kaiden Harp Ph.D.; CLIA# [id number] Blood 11/13/2024 3:45 PM FISH INSPECTOR 11/13/2024 8:10 PM FISH INSPECTOR us Jodi Kapoor MD LAB BLOOD ORDERABLES Final Resul t [facility] [address] Department [place] [address] [place] ref Lab * (ABNORMAL) Total testosterone (11/13/2024 3:45 PM FISH INSPECTOR) Testosterone <3(L) 193 - 740 ng/dL Blood 11/13/2024 3:45 PM FISH INSPECTOR 11/13/2024 8:10 PM FISH INSPECTOR us Jodi Kapoor MD LAB BLOOD ORDERABLES Final Resul t Performing Organization Address City/[facility] Co de Phone Number [facility] [address] Department [place] [address] from Last 3 Months Insurance [facility] Address: [facility] [address] [place] [address] [facility] MED[facility] Address: [address] [address] [place] [address] * Guarantor: QUAN GUALLPA Account Type Relation to Patient Date of Phone Billing Address Personal/Family [facility] Address: [place] [id number] [place] [address] Advance Directives For more information, please contact: [phone] Documents on File Type Date Recorded Patient Lace Roller Expl anation ADVANCE DIRECTIVE 03/14/2022 11:31 AM Johnathan r of Chief Specialist [facility] * Full Code (Latest Code Status on File) Date Activated Date Inactivated Comments 04/29/2024 11:57 AM 04/30/2024 6:57 PM * Full Code Date Activated Date Inactivated Comments 04/03/2024 5:03 PM 04/04/2024 1:59 PM * Full Code Date Activated Date Inactivated Comments 03/14/2022 10:30 PM 03/22/2022 6:43 PM Care Teams Well Reactivator Operator Relationship Specialty Start Date End Date Nicolas Kumar MD PCP - General 07/02/21 Victor Manuel Dallas MD [address] [place] [address] Consulting Physician Cardiology 01/14/22 Fadi Moreno MD [address] [place] [address] Consulting Physician Neurosurgery 03/22/22 Leno Mao MD [address] [facility] [address] [place] [address] Consulting Physician Cardiothoracic Surgery 03/19/24 Linda Schwartz NP [address] [facility] [address] [place] [address] Nurse Practitioner Cardiothoracic Surgery 04/30/24
--- OUTSIDE RECORDS SUMMARY | 2025-01-05 23:38 | XMS_ITS | Clinical Summary ---
Author Organization [facility] Address [address] [place] [address] Phone Care Team Providers Care Business Information Analyst Name Role Phone Unavailable Primary Care Provider Unavailabl e Social History Tobacco Use Types Packs/Day Years Used Date Smoking Tobacco: Never Assessed Sex and Gender Information Value Date Recorded Sex Assigned at Not on file Legal Sex Male 10:51 AM TOWER SUPERVISOR Gender Identity Not on file Sexual Orientation Not on file Plan of Treatment Upcoming Encounters Date Type Department Care Team (Late st Contact Info) Description 01/08/2025 1:30 PM CDT Office Visit [facility] Oncology and Hematology - [place] [address] [facility] [address] [place] [address] Rico Kay MD [address] [facility] [address] [place] [address] Health Maintenance Due Date Last Done Comments ZOSTER VACCINE (1 of 2) 1989 RSV VACCINE (60+ or ) (1 - 1-dose 75+ series) 2014 DTAP/TDAP/TD VACCINES (1 - Tdap) 05/26/2017 05/25/20 17, 10/11/2006 INFLUENZA VACCINE (#1) 2024 1, 09/22/2020, 08/14/2019, Additional history exists PNEUMOCOCCAL VACCINE 50+ YEARS Completed 1 , 07/14/2010, 08/11/2006 Insurance [facility] [id number] [facility] [id number]
--- OUTSIDE RECORDS SUMMARY | 2025-01-05 23:38 | XMS_ITS | Clinical Summary ---
Author Organization [facility] Address [address], [address] [address] Phone Care Team Providers Care Distribution Coordinator Name Role Phone Breanna Mao MD Primary [...] age to complete this topic Care Teams Distribution Coordinator Relationship Specialty Start Date End Date Breanna Mao [place] [address] [place] [address] PCP - General Family Medicine 03/12/19
[2025-01-06 00:07] LABS: Basophils Absolute Auto 0.1 K/mm3 (0.0-0.1); Basophils Percent Auto 0.8 % (0.2-1.2); Eosinophils Absolute Auto 0.2 K/mm3 (0-0.3); Eosinophils Percent Auto 2.6 % (0-4.4); Hematocrit 33.1 % (42.0-52.0); Immature Granulocyte Absolute 0.01 K/mm3 (0.00-0.031); Immature Granulocyte Percent A 0.1 % (0-0.5); Lymphocytes Absolute Auto 2.13 K/mm3 (0.9-3.2); Lymphocytes Percent Auto 27.3 % (18.3-44.2); Mean Corpuscular HGB Conc 33.2 g/dl (32-36); Mean Corpuscular Hemoglobin 31.5 pg (26-34); Mean Corpuscular Volume 94.8 fl (80-100); Mean Platelet Volume 10.8 fl (7.4-10.4); Monocytes Absolute Auto 0.7 K/mm3 (0.1-0.6); Monocytes Percent Auto 8.6 % (2.6-8.5); Neutrophils Absolute Auto 4.7 K/mm3 (1.3-6.7); Neutrophils Percent Auto 60.6 % (45.5-73.1); Platelet Count Result 219 k/mm3 (150-375); Red Blood Count 3.49 M/mm3 (4.6-6.20); Red Cell Distribution Width 13.3 % (11.5-14.5); White Blood Count 7.8 K/mm3 (4.5-10.0)
[2025-01-06] MEDS: MORPHINE SULFATE (*CRX) 4 MG/ML INJ IV PUSH (00:10)
[2025-01-06 00:17] LABS: Alanine Aminotransferase 17 U/L (6-50); Albumin Level 4.1 g/dL (3.5-5.1); Alkaline Phosphatase 67 U/L (38-126); Anion Gap 8 mmol/L (4-12); Aspartate Amino Transferase 31 U/L (17-59); Bilirubin,Total 0.3 mg/dL (0.2-1.3); Blood Urea Nitrogen 25 mg/dL (9-20); Calcium 8.8 mg/dL (8.4-10.2); Carbon Dioxide 27 mmol/L (22-30); Chloride 102 mmol/L (98-107); Estimated CRCL calculation 70 ml/min; Estimated Glomerular Filt Rate > 60; Glucose 107 mg/dL (65-110); Lipase 68 U/L (23-300); Potassium 3.7 mmol/L (3.4-5.0); Sodium 137 mmol/L (137-145)
[2025-01-06 01:32] LABS: Add Urine Microscopic? NO; Appearance Urine Clear (Clear); Bilirubin Urine Negative (Negative); Blood Urine Negative (Negative); Color Urine Yellow (Yellow); Glucose Urine UA Negative (Negative); Ketones Urine Negative (Negative); Leukocyte Esterase Ur Negative LEU/UL (Negative); Nitrate Urine Negative (Negative); Protein Urine Negative (Negative); Specific Grav Ur 1.022 (1.001-1.035)
--- NOTE | 2025-01-06 03:04 | ECG_ITS ---
Test Date: 2025-01-06 03:08:10 Measurements Intervals [place] Rate: 49 P: 29 MS: 345 QRS: -3 QRSD: 85 T: 13 QT: 444 QTc: 402 Interpretive Statements SINUS BRADYCARDIA WITH FIRST DEGREE AV BLOCK MINIMAL VOLTAGE CRITERIA FOR LVH, CONSIDER NORMAL VARIANT [MEETS CRITERIA IN ONE OF: R(aVL), S(V1), R(V5), R(V5/V6)+S(V1)] No previous ECG available for comparison Electronically Signed On 01-06-2025 15:28:39 CDT by Ervin Durán M.D.
[2025-01-06 03:08] VITALS: BP 181/72; PULSE 48; RESP 16; O2SAT 100
[2025-01-06] MEDS: KETOROLAC 15 MG/ML VIAL (*BKC) IV PUSH (04:47)
[2025-01-06] MEDS: ACETAMINOPHEN 500 MG TABLET 1000 MG PO (04:50)
[2025-01-06] MEDS: LIDOCAINE 5% PATCH 1 PATCH TRANSDERM (04:51)
[2025-01-06 04:56] VITALS: BP 167/72; PULSE 53; RESP 18; O2SAT 100
== END 2025-01-06 05:23 ==
PROVIDERS: Physician Assistant; Emergency Provider Student in an Organized Health Care Education/Training Program; PCP Family Medicine
DX: D64.9 Anemia, unspecified (principal); R79.89 Other specified abnormal findings of blood chemistry; I44.0 Atrioventricular block, first degree; M54.50 Low back pain, unspecified; N28.89 Other specified disorders of kidney and ureter; Z79.82 Long term (current) use of aspirin; I25.10 Atherosclerotic heart disease of native coronary artery without angina pectoris; G47.33 Obstructive sleep apnea (adult) (pediatric); I10 Essential (primary) hypertension; E78.00 Pure hypercholesterolemia, unspecified; E78.5 Hyperlipidemia, unspecified; Z95.1 Presence of aortocoronary bypass graft; Z95.2 Presence of prosthetic heart valve; Z87.891 Personal history of nicotine dependence
CPT/HCPCS: 36415; 74177; 80053; 81003; 83605; 83690; 85025; 93005; 96374; 96375; 99284; A9270; J1885; J2270; Q9967

== ENCOUNTER 2025-01-08 14:08 | Outpatient (CLI) | payer MEDICARE, SELFPAY ==
[2025-01-08 14:28] LABS: Basophils Absolute Auto 0.1 K/mm3 (0.0-0.1); Basophils Percent Auto 0.9 % (0.2-1.2); Eosinophils Absolute Auto 0.2 K/mm3 (0-0.3); Eosinophils Percent Auto 2.3 % (0-4.4); Hematocrit 33.7 % (42.0-52.0); Hemoglobin 11.3 g/dL (14.0-18.0); Immature Granulocyte Absolute 0.01 K/mm3 (0.00-0.031); Immature Granulocyte Percent A 0.2 % (0-0.5); Lymphocytes Absolute Auto 1.65 K/mm3 (0.9-3.2); Lymphocytes Percent Auto 25.4 % (18.3-44.2); Mean Corpuscular HGB Conc 33.5 g/dl (32-36); Mean Corpuscular Hemoglobin 31.4 pg (26-34); Mean Corpuscular Volume 93.6 fl (80-100); Mean Platelet Volume 10.6 fl (7.4-10.4); Monocytes Absolute Auto 0.5 K/mm3 (0.1-0.6); Monocytes Percent Auto 7.1 % (2.6-8.5); Neutrophils Absolute Auto 4.2 K/mm3 (1.3-6.7); Neutrophils Percent Auto 64.1 % (45.5-73.1); Platelet Count Result 224 k/mm3 (150-375); Red Cell Distribution Width 13.2 % (11.5-14.5); White Blood Count 6.5 K/mm3 (4.5-10.0)
--- OUTSIDE RECORDS SUMMARY | 2025-01-08 15:48 | XMS_ITS | Clinical Summary ---
Author Organization [facility] Address [address], [address] [address] Phone Care Team Providers Care Mercerizing Range Feeder Name Role Phone Breanna Mao MD Primary [...] age to complete this topic Care Teams Mercerizing Range Feeder Relationship Specialty Start Date End Date Breanna Mao [place] [address] [place] [address] PCP - General Family Medicine 03/12/19
--- OUTSIDE RECORDS SUMMARY | 2025-01-08 15:48 | XMS_ITS | Clinical Summary ---
Author Organization [facility] Address [address] [place] [address] Care Team Providers Care Green Hide Inspector Name Role Phone Unavailable Primary Care Provider [...]
--- OUTSIDE RECORDS SUMMARY | 2025-01-08 15:48 | XMS_ITS | Referral Summary ---
Author Organization [facility] [address] [facility] [address] Address [address] [place] [address] Care Team Providers Care Senior Scientist Name Role Phone Nicolas Kumar MD Primary Care Provider [phone] Victor Manuel Dallas MD Unavailable Fadi Moreno MD Unavailable [phone] Leno Mao MD Unavailable [phone] Linda Schwartz NP Unavailable Encounters Date Type Department Care Team Description 01/06/2025 Telephone [facility] Cardiology [address] [facility] [address] [place] [address] Victor Manuel Dallas MD 11/22/2024 9:40 AM BOTTLE GAUGER Office Visit [facility]) - [facility] Urology [address] [facility] [address] [place] [address] Jodi Kapoor MD Prostate cancer (HCC) (Primary Dx) 11/21/2024 Telephone [facility] Cardiology [address] [facility] [address] [place] [address] Aubrey Brand MD 11/14/2024 Telephone [facility] Cardiology [address] [facility] [address] [place] [address] Victor Manuel [place] MD 11/13/2024 3:45 PM BOTTLE GAUGER - 11/13/2024 11:59 PM BOTTLE GAUGER Hospital Encounter [facility] [address] [place] [address] Prostate CA (HCC) Discharge Disposition: Discharge to home or self care 11/13/2024 Orders Only [facility] ([facility]) - [facility] Urology [address] [facility] 11th [place] [address] [place] [address] Jodi Kapoor MD Prostate CA (HCC) (Primary Dx) 11/13/2024 3:30 PM BOTTLE GAUGER Lab [facility] Outpatient Lab at [address] [address] Mixed hyperlipidemia (Primary Dx) 11/12/2024 Telephone [facility] Surgery [address] [place] [address] Alina Mendez 11/12/2024 Telephone [facility] Medical [facility] Cardiology [address] [facility] [address] [place] [address] Aubrey Brand MD from Last 3 Months Allergies Active Allergy Reactions Criticality Noted Date Comments Lactose Diarrhea,Flatulence Low Urecakh-Iba-Ntf Reductase Inhibitors Muscle pain Medium 04/15/2024 Medications [...] (01/07/2022): Added automatically from request for surgery [id number] Elevated PSA 11/29/2021 Overview (11/29/2021): Added automatically from request for surgery [id number] Right carpal tunnel syndrome 05/10/2021 Overview (05/10/2021): Added automatically from request for surgery [id number] Aortic systolic murmur on examination 05/28/2019 CAD [...] on file Legal Sex Male 5:09 AM BOTTLE GAUGER Gender Identity Not on file Sexual Orientation [...] on file Medical Devices Implanted Type Area Survey Compiler Device Identifier Shelf Expiration Date Model / Serial / Lot [employer] Tory 3 29mm Transcatheter Aortic Valve [id number] - [id number] - [id number] Implanted:Qty: 1 on 04/29/2024 by Aubrey Brand MD at [facility] Prosthetic Valve N/A: Aortic Valve [employer] 10/02/2026 [id number] / [id number] / [employer] Carlitos Synergy Xd Monorail 3.5mm 38mm 144cm Delivery System 1 Access [id number] - [id number] - [id number] Implanted:Qty: 1 on 04/03/2024 by Aubrey Brand MD at [facility] Stent Left: Circumflex Coronary Artery [employer] Carlitos 12/19/2025 [id number] / [id number] / [id number] Teleflex Medical Inc 18f Manta Vascular Closure Device 2115 - S0 - [id number] Implanted:Qty: 1 on 04/29/2024 by Aubrey Brand MD at [facility] Vascular Closure Device Tele[employer] Inc 06/11/2025 2115 / 0 / [id number] Cochlear Implant Right: Head [employer] Carlitos Graft Bone Filler Cancellous 1-2mm Micro Granules Gel Altapore 10ml Putty [id number] - [id number] Implanted:Qty: 1 on 03/14/2022 by Fadi Moreno MD at [facility] N/A: Spine Cervical [employer] Carlitos [id number] 11/02/2023 [id number] / / [id number] Depuy Synthes Spine [id number] 3.5mm 16mm Ply Spine Screw Bone Nonsterile 4mm Jose - [id number] Implanted:Qty: 7 on 03/14/2022 by Fadi Moreno MD at [facility] N/A: Spine Cervical Depuy Synthes Spine [id number] / / Depuy Synthes Spine [id number] Lock Cap Spine T15 Standard Screw Set Titanium Nonsterile - [id number] Implanted:Qty: 7 on 03/14/2022 by Fadi Moreno MD at [facility] N/A: Spine Cervical Depuy Synthes Spine [id number] / / Depuy Spine [id number] [place] Expedium 2 Spine Wire Fixation Cocr Titanium - [id number] Implanted:Qty: 2 on 03/14/2022 by Fadi Moreno MD at [facility] N/A: Spine Cervical Depuy Synthes Spine [id number] / / Depuy Synthes Spine [id number] 4mm 60mm Lordosis Jose Spinal Titanium - [id number] Implanted:Qty: 2 on 03/14/2022 by Fadi Moreno MD at [facility] N/A: Spine Cervical Depuy Synthes Spine [id number] / / Procedures Procedure Name Priority Date/Time Associated Diagnosis Comments PSA, TOTAL AND FREE Routine 11/13/2024 3 :45 PM BOTTLE GAUGER Prostate CA (HCC) TOTAL TESTOSTERONE Routine 11/13/2024 3: 45 PM BOTTLE GAUGER Prostate CA (HCC) from Last 3 Months Results * PSA, total and free (11/13/2024 3:45 PM BOTTLE GAUGER) PSA-free <0.1 ng/mL [place] ref Lab PSA-Total <0.10 <=7.2 ng/mL CECIL [...] absence of malignant disease. Test Performed by: [place] [address] Classroom Instructional Aide: Kaiden Harp Ph.D.; CLIA# [id number] Blood 11/13/2024 3:45 PM BOTTLE GAUGER 11/13/2024 8:10 PM BOTTLE GAUGER Jodi Kapoor MD LAB BLOOD ORDERABLES Final Resul t Performing Organization Address [facility] Co de Phone Number [facility] [address] [place] [address] [place] ref Lab * (ABNORMAL) Total testosterone (11/13/2024 3:45 PM BOTTLE GAUGER) Testosterone <3(L) 193 - 740 ng/dL Blood 11/13/2024 3:45 PM BOTTLE GAUGER 11/13/2024 8:10 PM BOTTLE GAUGER Jodi Kapoor MD LAB BLOOD ORDERABLES Final Resul t Performing Organization Address [facility] Co de Phone Number [facility] [address] [place] [address] from Last 3 Months Insurance [employer] Member Subscriber Plan / Payer (Ef fective 2017-Present) Name:QUAN GUALLPA Relation to Subscriber:Self Name:Quan Guallpa Payer ID:[id number] (NAIC) Type:[facility] Address: [address] [id number] MEDICARE [employer] [place] [id number] * Guarantor: QUAN GUALLPA Account Type Relation to Patient Date of Phone Billing Address Personal/Family [employer] Advance Directives For more information, please contact: [phone] Documents on File Type Date Recorded Patient Tire Debeader Expl anation ADVANCE DIRECTIVE 03/14/2022 11:31 AM Johnathan ferrer of Automatic [employer] * Full Code (Latest Code Status on File) Date Activated Date Inactivated Comments 04/29/2024 11:57 AM 04/30/2024 6:57 PM * Full Code Date Activated Date Inactivated Comments 04/03/2024 5:03 PM 04/04/2024 1:59 PM * Full Code Date Activated Date Inactivated Comments 03/14/2022 10:30 PM 03/22/2022 6:43 PM Care Teams Senior Scientist Relationship Specialty Start Date End Date Nicolas Kumar MD PCP - General 07/02/21 Victor Manuel Dallas MD [address] [facility] [address] [place] [address] Consulting Physician Cardiology 01/14/22 Fadi Morneo MD [address] [place] [address] Consulting Physician Neurosurgery 03/22/22 Leno Mao MD [address] [facility] [address] [place] [address] Consulting Physician Cardiothoracic Surgery 03/19/24 Linda Schwartz NP [address] [place] [address] Nurse Practitioner Cardiothoracic Surgery 04/30/24
--- OUTSIDE RECORDS SUMMARY | 2025-01-08 15:48 | XMS_ITS | Clinical Summary ---
Author Organization [employer] [facility] Address [address] [place] [address] Phone Care Team Providers Care Modern Dancer Name Role Phone Nicolas Kumar MD Primary Care Provider [phone] Allergies No known active allergies Medications metoprolol succinate (TOPROL XL) 25 mg Extended Release 24 hour tablet Take 25 mg by mouth daily. 4 025 Active evolocumab (REPATHA) 140 mg/mL Pen Injector Inject 140 mg by subcutaneous injection every 2 weeks. 4 Active clopidogreL (PLAVIX) 75 mg Tablet Take 75 mg by mouth daily. 4 025 Active tamsulosin (FLOMAX) 0.4 mg capsule Take 0.4 mg by mouth daily. 4 Active albuterol sulfate HFA 90 mcg/actuation aerosol inhaler 2 Puffs by See Admin Instructions route see administration instructions. 4 Active lisinopriL (PRINIVIL) 40 mg tablet Take 40 mg by mouth daily. Active Xhance 93 mcg/actuation Aerosol Breath Activated INSTILL 1 SPRAY IN EACH NOSTRIL EVERY 12 HOURS Active aspirin (NILO CHEWABLE) 81 mg Tablet, Chewable Take 81 mg by mouth daily. 2 Active pregabalin (LYRICA) 50 mg Capsule Take 50 mg by mouth 2 times daily. Active allopurinoL (ZYLOPRIM) 300 mg tablet Take 1 Tablet by mouth daily. 5 Active lansoprazole (PREVACID) 30 mg Capsule, Delayed Release(E.C.) Take 1 Capsule by mouth daily. 5 Active indapamide (LOZOL) 2.5 mg tablet Take 2.5 mg by mouth daily. Active Active Problems No known active problems Encounters Date Type Department Care Team Description 01/08/2025 1:30 PM CDT Office Visit [facility] Oncology and Hematology - [place] [address] [place] [address] Rico Kay MD Chronic anemia (Primary Dx) from Last 3 Months Family History Medical History Relation Name Comments No Known Problems Child 1 No Known Problems Child 2 No Known Problems Child 3 Cancer Father No Known Problems Mother Heart Disease Sister Relation Name Status Comments Child 1 Alive Child 2 Alive Child 3 Alive Father Mother Sister Social History Tobacco Use Types Packs/Day Years Used Date Smoking Tobacco: Former Cigarettes Smokeless Tobacco: Never Alcohol Use Standard Drinks/Week Comments Yes 0 (1 standard drink = 0.6 oz pur e alcohol) Occasionally Sex and Gender Information Value Date Recorded Sex Assigned at Not on file Legal Sex Male 10:51 AM 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 MOVER Gender Identity Not on file Sexual Orientation Not on file Last Filed Vital Signs Vital Sign Reading Time Taken Comments Blood Pressure 160/78 01/08/2025 1:31 PM CDT Pulse 57 01/08/2025 1:28 PM CDT Temperature 36.2 C (97.1 F) 01/08/2025 1:28 PM CDT Respiratory Rate 15 01/08/2025 1:28 PM CDT Oxygen Saturation 96% 01/08/2025 1:28 PM CDT Inhaled Oxygen Concentration - - Weight 127.2 kg (280 lb 6.4 oz) 01/08/2025 1:28 PM CDT Height 182.9 cm (6') 01/08/2025 1:28 PM CDT Body Mass Index 38.03 01/08/2025 1:28 PM CDT Plan of Treatment Upcoming Encounters Date Type Department Care Team (Late st Contact Info) Description 01/22/2025 4:00 PM CDT Telephone Check Up [facility] Oncology and Hematology - [place] [address] [place] [address] Rico Kay MD [address] [facility] [address] [place] [address] Health Maintenance Due Date Last Done Comments ZOSTER VACCINE (1 of 2) 1989 RSV VACCINE (60+ or ) (1 - 1-dose 75+ series) 2014 DTAP/TDAP/TD VACCINES (1 - Tdap) 05/26/2017 05/25/20 17, 10/11/2006 INFLUENZA VACCINE (#1) 2024 , 09/22/2020, 08/14/2019, Additional history exists Medicare Advantage ([place]) Preventative Visit/Annual Wellness Visit 10/23/2024 PNEUMOCOCCAL VACCINE 50+ YEARS Completed 1 , 07/14/2010, 08/11/2006 Insurance [facility] [id number] Member Subscriber Plan / Payer (Ef fective 2022-Present) Name:Quan Guallpa Relation to Subscriber:Self Name:JadeQuan ferrer Payer ID:[id number] (NAIC) Type:[facility] Address: [place] [id number] Care Teams Modern Dancer Relationship Specialty Start Date End Date Nicolas Kumar MD [address] [place] [address] PCP - General Family Practice 01/08/25
--- OUTSIDE RECORDS SUMMARY | 2025-01-08 15:48 | XMS_ITS | Clinical Summary ---
Author Organization [facility] [address] Address [address] [place] [address] Care Team Providers Care Commercial Litigation Paralegal Name Role Phone Nicolas Kumar MD Primary Care Provider [phone] Victor Manuel Dallas MD Unavailable Fadi Moreno MD Unavailable [phone] Leno Mao MD Unavailable Linda Schwartz NP Unavailable [phone] Allergies Active Allergy Reactions Criticality Noted Date Comments Lactose Diarrhea,Flatulence Low Hihutlj-Dwd-Xaj Reductase Inhibitors Muscle pain Medium 04/15/2024 Medications [...] (01/07/2022): Added automatically from request for surgery [id number] Elevated PSA 11/29/2021 Overview (11/29/2021): Added automatically from request for surgery [id number] Right carpal tunnel syndrome 05/10/2021 Overview (05/10/2021): Added automatically from request for surgery [id number] Aortic systolic murmur on examination 05/28/2019 CAD (coronary artery disease) 05/23/2017 S/P CABG (coronary artery bypass graft) 05/23/20 17 Hearing loss 04/27/2017 Encounters Date Type Department Care Team Description 01/06/2025 Telephone [facility] Medical [facility] Cardiology [address] [facility] [address] [place] [address] Victor Manuel Dallas MD 11/22/2024 9:40 AM ANTIQUE FINISHER Office Visit [facility] [address] [facility] [address] [place] [phone] Jodi Kapoor MD Prostate cancer (HCC) (Primary Dx) 11/21/2024 Telephone [facility] Cardiology [address] [facility] [address] [place] [address] Aubrey Brand MD 11/14/2024 Telephone [facility] Cardiology [address] [facility] [address] [place] [address] Victor Manuel Dallas MD 11/13/2024 3:45 PM ANTIQUE FINISHER - 11/13/2024 11:59 PM ANTIQUE FINISHER Hospital Encounter [facility] [id number] [place] [address] Prostate CA (HCC) Discharge Disposition: Discharge to home or self care 11/13/2024 3:30 PM ANTIQUE FINISHER Lab [facility] Medical Group Outpatient Lab at [address] [phone] Mixed hyperlipidemia (Primary Dx) 11/13/2024 Orders Only [facility] Urology [address] [facility] 11th [place] [address] [place] [address] Jodi Kapoor MD Prostate CA (HCC) (Primary Dx) 11/12/[address] [facility] [address] [place] [address] Alina Mendez 11/12/2024 Telephone [facility] Medical Group Cardiology [address] [facility] [address] [place] [address] Aubrey Brand MD from Last [...] CATHETERIZATION TRANSCATHETER AORTIC VALVE REPLACEMENT 04/29/2024 29 [facility] Medical History Medical History Date Comments Hypertension GERD (gastroesophageal reflux disease) Weight loss Anxiety Gout Coronary artery disease Hyperlipidemia Prostate Cancer ([facility]/HCC) ([facility]) Hx of aortic valve stenosis 04/29/2024 TAVR [...] on file Legal Sex Male 5:09 AM ANTIQUE FINISHER Gender Identity Not on file Sexual Orientation [...] 07/14/2010, 08/11/2006 Medical Devices Implanted Type Area Data Management Manager Device Identifier Shelf Expiration Date Model / Serial / Lot Brennan [employer] Tory 3 29mm Transcatheter Aortic Valve [id number] - [id number] - [id number] Implanted:Qty: 1 on 04/29/2024 by Aubrey Brand MD at [facility] Prosthetic Valve N/A: Aortic Valve [employer] 10/02/2026 [id number] / [id number] / [employer] Synergy Xd Monorail 3.5mm 38mm 144cm Delivery System 1 Access [id number] - [id number] - [id number] Implanted:Qty: 1 on 04/03/2024 by Aubrey Brand MD at [facility] Stent Left: Circumflex Coronary Artery [employer] 12/19/2025 [id number] / [id number] / [id number] [employer] 18f Manta Vascular Closure Device 2115 - S0 - [id number] Implanted:Qty: 1 on 04/29/2024 by Aubrey Brand MD at [facility] Vascular Closure Device [employer] 06/11/20255 / 0 / [id number] Cochlear Implant Right: Head [facility] Carlitos Graft Bone Filler Cancellous 1-2mm Micro Granules Gel Altapore 10ml Putty [id number] - [id number] Implanted:Qty: 1 on 03/14/2022 by Fadi Moreno MD at [facility] N/A: Spine Cervical [facility] [facility] [employer]itos [id number] 11/02/2023 [id number] / / [id number] Depuy Synthes Spine [id number] 3.5mm 16mm Ply Spine Screw Bone Nonsterile 4mm Jose - [id number] Implanted:Qty: 7 on 03/14/2022 by Fadi Moreno MD at [facility] N/A: Spine Cervical Depuy Synthes Spine [id number] / / Depuy Synthes Spine [id number] Lock Cap Spine T15 Standard Screw Set Titanium Nonsterile - [id number] Implanted:Qty: 7 on 03/14/2022 by Fadi Moreno MD at [facility] N/A: Spine Cervical Depuy Synthes Spine [id number] / / Depuy Spine [id number] [place] Expedium 2 Spine Wire Fixation Cocr Titanium - [id number] Implanted:Qty: 2 on 03/14/2022 by Fadi Moreno MD at [facility] N/A: Spine Cervical Depuy Synthes Spine [id number] / / Depuy Synthes Spine [id number] 4mm 60mm Lordosis Jose Spinal Titanium - [id number] Implanted:Qty: 2 on 03/14/2022 by Fadi Moreno MD at [facility] N/A: Spine Cervical Depuy Synthes Spine [id number] / / Procedures Procedure Name Priority Date/Time Associated Diagnosis Comments PSA, TOTAL AND FREE Routine 11/13/2024 3 :45 PM ANTIQUE FINISHER Prostate CA (HCC) TOTAL TESTOSTERONE Routine 11/13/2024 3: 45 PM ANTIQUE FINISHER Prostate CA (HCC) from Last 3 Months Results * PSA, total and free (11/13/2024 3:45 PM ANTIQUE FINISHER) PSA-free <0.1 ng/mL [facility] PSA-Total <0.10 <=7.2 ng/mL [facility] PSA-Free/Total Ratio See Footnote [facility] ORDONEZ Comment: [...] absence of malignant disease. Test Performed by: [facility] [address] [place] [address] Computer Tester: Kaiden Harp Ph.D.; IA# [id number] Blood 11/13/2024 3:45 PM ANTIQUE FINISHER 11/13/2024 8:10 PM ANTIQUE FINISHER us Jodi Kapoor MD LAB [place]OD [place] [address] [address] Department [place] [address] [facility] * (ABNORMAL) Total testosterone (11/13/2024 3:45 PM ANTIQUE FINISHER) Testosterone <3(L) 193 - 740 ng/dL Blood 11/13/2024 3:45 PM ANTIQUE FINISHER 11/13/2024 8:10 PM ANTIQUE FINISHER us Jodi Kapoor MD LAB BLOOD ORDERABLES Final Resul t Performing Organization Address [facility] Co de Phone Number CECIL JOSÉ LUIS [address] [place] [address] from Last 3 Months Insurance MEDICARE SOLUTIONS MEDICARE SOLUTIONS * Guarantor: QUAN GUALLPA Account Type Relation to Patient Date of Phone Billing Address Personal/Family MEDICARE SOLUTIONS Advance Directives For more information, please contact: [phone] Documents on File Type Date Recorded Patient Registered Safety Engineer Expl anation ADVANCE DIRECTIVE 03/14/2022 11:31 AM Johnathan r of [employer] * Full Code (Latest Code Status on File) Date Activated Date Inactivated Comments 04/29/2024 11:57 AM 04/30/2024 6:57 PM * Full Code Date Activated Date Inactivated Comments 04/03/2024 5:03 PM 04/04/2024 1:59 PM * Full Code Date Activated Date Inactivated Comments 03/14/2022 10:30 PM 03/22/2022 6:43 PM Care Teams Commercial Litigation Paralegal Relationship Specialty Start Date End Date Nicolas Kumar MD PCP - General 07/02/21 Victor Manuel Dallas MD [address] [place] [address] Consulting Physician Cardiology 01/14/22 Fadi Moreno MD [address] [facility] [facility] [address] [place] [address] Consulting Physician Neurosurgery 03/22/22 Leno Mao MD [address] [facility] [address] [place] [address] Consulting Physician Cardiothoracic Surgery 03/19/24 Linda Schwartz NP [address] [facility] [address] [place] [address] Nurse Practitioner Cardiothoracic Surgery 04/30/24
--- OUTSIDE RECORDS SUMMARY | 2025-01-08 15:48 | XMS_ITS | Encounter Summary ---
Author Organization [facility] [address] [facility] Address [address] [place] [address] Care Team Providers Care Window Shade Cutter And Mounter Name Role Phone Nicolas Kumar MD Primary Care Provider [phone] Reason for Visit * Reason Comments Establish Care Encounter Details Date Type Department Care Team (Late st Contact Info) Description 01/08/2025 1:30 PM CDT Office Visit [facility] Oncology and Hematology - [place] [address] [facility] [address] [place] [phone] Rico Kay MD [address] [facility] [address] [place] [address] Chronic anemia (Primary Dx) Social History Tobacco Use Types Packs/Day Years Used Date Smoking Tobacco: Former Cigarettes Smokeless Tobacco: Never Alcohol Use Standard Drinks/Week Comments Yes 0 (1 standard drink = 0.6 oz pur e alcohol) Occasionally Sex and Gender Information Value Date Recorded Sex Assigned at Not on file Legal Sex Male 10:51 AM ORGANIZATIONAL EFFECTIVENESS DIRECTOR Gender Identity Not on file Sexual Orientation Not on file documented as of this encounter Last Filed Vital Signs Vital Sign Reading [...] Mass Index 38.03 01/08/2025 1:28 PM CDT documented in this encounter Progress Notes * Rico Kay MD - 01/08/2025 1:44 PM CDT Hematology-oncology consult Note Requesting Physician Nicolas Kumar MD Primary Care Physician Nicolas Kumar MD Problem list There is no problem list on file for this patient. Previous TREATMENT ? Measurable Disease ? Reason for Visit Quan Guallpa is a 84 y.o. male who was referred for consultation for chronic anemia. History of present illness This is a 84-year-old obese male with history of hyperlipidemia, hypertension and prostate cancer referred to me for anemia. According to patient he was told to have anemia recently. He hasmild tiredness and fatigue. He has intermittent hematuria due to small kidney stone. His colonoscopy was more than 10 years ago. He was taking oral iron once a day but ran out 5 days ago. He denies any history of gastric bypass surgery. Denies being a vegetarian. Patient has coronary artery disease and status post stent placement along with aortic valve replacement. He is taking Plavix. His labsfrom September 2024 showed hemoglobin of 10.8. Past Medical History Past Medical History: Diagnosis Date Hyperlipidemia Hypertension Lactose intolerance Malignant neoplasm (CMS/HCC) Surgical History Past Surgical History: Procedure Laterality Date HX ANTERIOR CERVICAL DISCECTOMY W/ FUSION 2021 HX CORONARY ARTERY BYPASS GRAFT x5 in 2009 HX ILIAC STENTS 2002 HX KNEE SURGERY Right miniscus 2014 Medications Current Outpatient Medications Medication Sig Dispense Refill metoprolol succinate (TOPROL XL) 25 mg Extended Release 24 hour tablet Take 25 mg by mouth daily. evolocumab (REPATHA) 140 mg/mL Pen Injector Inject 140 mg by subcutaneous injection every 2 weeks. clopidogreL (PLAVIX) 75 mg Tablet Take 75 mg by mouth daily. tamsulosin (FLOMAX) 0.4 mg capsule Take 0.4 mg by mouth daily. albuterol sulfate HFA 90 mcg/actuation aerosol inhaler 2 Puffs by See Admin Instructions route see administration instructions. aspirin (NILO CHEWABLE) 81 mg Tablet, Chewable Take 81 mg by mouth daily. allopurinoL (ZYLOPRIM) 300 mg tablet Take 1 Tablet by mouth daily. lansoprazole (PREVACID) 30 mg Capsule, Delayed Release(E.C.) Take 1 Capsule by mouth daily. indapamide (LOZOL) 2.5 mg tablet Take 2.5 mg by mouth daily. lisinopriL (PRINIVIL) 40 mg tablet Take 40 mg by mouth daily. Xhance 93 mcg/actuation Aerosol Breath Activated INSTILL 1 SPRAY IN EACH NOSTRIL EVERY 12 HOURS pregabalin (LYRICA) 50 mg Capsule Take 50 mg by mouth 2 times daily. No current facility-administered medications for this visit. Allergies No Known Allergies Immunizations: There is no immunization history on file for this patient. Family History Family History Problem Relation Name Age of Onset Cancer Father No Known Problems Mother Heart Disease Sister No Known Problems Child No Known Problems Child No Known Problems Child Social History Social History Tobacco Use Smoking status: Former Types: Cigarettes Smokeless tobacco: Never Substance Use Topics Alcohol use: Yes Comment: Occasionally Review of Systems Constitutional: Patient did not mention fever; no night sweats; no anorexia; no weight loss; complain of tiredness and fatigue NEENT: Patient did not mention headache; no change in vision; no change in hearing; no sore throat;no dysphagia Respiratory: Patient did not mention shortness of breath; no pleuritic chest pain; no cough; no hemoptysis Cardiac: Patient did not mention cardiac-like chest pain; no palpitations; no orthopnea; no PND; noDOE GI: Patient did not mention abdominal pain; no nausea; no vomiting; no diarrhea; no hematochezia; no melena : Patient did not mention dysuria; no frequency; no hesitancy; no hematuria PATHOLOGICAL TECHNICIAN: Musculosketetal: Patient did not mention bone pain; no arthralgia; no joint swelling; no myalgia; Skin: Patient did not mention pruritis; no rash; no petechiae; no ecchymoses Endocrine: Patient did not mention polydipsia; no polyuria; no unusual weight gain Neuro: Patient did not mention headache; no change in vision; no sensory changes; no muscle weakness; no confusion; no seizures Psych: Patient did not mention anxiety; no depression; Physical Exam Vitals: As per nursing note Constitutional: Well developed, well nourished, no acute distress, non-toxic appearance Teeth and gum. No signs of infection or swelling. Eyes: PERRL, conjunctiva normal HEENT: Atraumatic, external ears normal, nose normal, oropharynx moist, no pharyngeal exudates. no sinus tenderness Neck- normal range of motion, no tenderness, supple Respiratory: No respiratory distress, normal breath sounds, no rales, no wheezing Cardiovascular: Normal rate, normal rhythm, no murmurs, no gallops, no rubs GI: Soft, nondistended, normal bowel sounds, nontender, no splenomegaly, no hepatomegaly, no mass, no rebound, no guarding : No costovertebral angle tenderness Musculoskeletal: No edema, no tenderness, no deformities. Back- no tenderness Integument: Well hydrated, no rash, Digits and nails inspection normal Lymphatic: No lymphadenopathy noted Neurologic: Alert & oriented x 3, CN 2-12 normal, normal motor function, normal sensory function, no focal deficits noted Psychiatric: Speech and behavior appropriate ? labs No results found for this or any previous visit (from the past 24 hours). Labs from September 2024 showed WBC 6.1 hemoglobin 10.8 MCV 97.5 platelet 203,000 creatinine 1.26 GFR 56 iron 74 saturation 25. Labs from May 2024 showed iron 49 saturation 15. Pathology ? Imaging & Other Studies Performance Status? Assessment / Plan: ? Normocytic anemia. Patient is a obese 84-year-old male with history of prostate cancer, aortic valve replacement, coronary artery disease on Plavix along with hypertension and hyperlipidemia referred to me for anemia. He has been complaining of mild tiredness and fatigue. He denies any bleeding other than occasional hematuria secondary to kidney stone. He denies being a vegetarian. Denies having any gastric surgery. I have reviewed the labs. Patient has mild iron deficiency. We also informed him the possibility of underlying bone marrow disorder like MDS. I will order the complete workup that will include CBC with differential, CMP, serum protein electrophoresis with immunofixation, soluble transferrin receptor, methylmalonic acid level, iron studies and vitamin B12 level. I will discuss this finding with patient in 2 weeks. Based on the result we will decide about iron infusion versus oral iron replacement. We will also decide about bone marrow biopsy. I have answered all the questions to patient's satisfaction. Coronary artery disease status post stent placement. He is on Plavix. Hypertension. Patient is on Toprol and lisinopril. Peripheral neuropathy. He is on pregabalin. Hyperlipidemia. He is on Repatha. Prostate cancer. Patient is under surveillance. Thank you very much for allowing me to participate in Quan Guallpa's evaluation and management. Please feel free to contact if I can be of any further assistance in your patient???s care requiring hematology or oncology evaluation. Sincerely, ? ? Rico Kay M.D. cell TOBACCO COUNSELING He is not a tobacco/nicotine user. Rico Kay MD ,01/08/2025 2:15 PM ? Total time spent 60 minutes, two third of the total time spent counseling patient [id number]. CC:?.Nicolas Kumar MD documented in this encounter Plan of Treatment Upcoming Encounters Date Type Department Care Team (Late st Contact Info) Description 01/22/2025 4:00 PM CDT Telephone Check Up [facility] Oncology and Hematology [facility] [address] [facility] [address] [place] [address] Rico Kay MD [address] [facility] [address] [place] [address] Scheduled Orders Name Type Priority Associated Diagnoses Orde r Schedule CBC WITH DIFFERENTIAL Lab Stat Chronic anemia Expected: 01/08/2025, Expires: 01/08/2026 COMPREHENSIVE METABOLIC PANEL Lab Stat Chronic anemia Expected: 01/08/2025, Expires: 01/08/2026 FERRITIN Lab Routine Chronic anemia Expected: 01/08/2025, Expires: 01/08/2026 IRON, TIBC, AND PERCENT SATURATION Lab Routine Chronic anemia Expected: 01/08/2025, Expires: 01/08/2026 LACTATE DEHYDROGENASE Lab Routine Chronic anemia Expected: 01/08/2025, Expires: 01/08/2026 METHYLMALONIC ACID Lab Routine Chronic anemia Expected: 01/08/2025, Expires: 01/08/2026 TRANSFERRIN RECEPTOR TFR SOLUBLE Lab Routine Chronic anemia Expected: 01/08/2025, Expires: 01/08/2026 VITAMIN B12 AND FOLATE Lab Routine Chronic anemia Expected: 01/08/2025, Expires: 01/08/2026 PROTEIN ELECTROPHORESIS W/REFLEX,SERUM Lab Routine Chronic anemia Expected: 01/08/2025, Expires: 01/08/2026 documented as of this encounter Visit Diagnoses Diagnosis Chronic anemia- Primary Anemia, unspecified documented in this encounter Care Teams Window Shade Cutter And Mounter Relationship Specialty Start Date End Date Nicolas Kumar MD [address] [place] [address] PCP - General Family Practice 01/08/25 documented as of this encounter
--- OUTSIDE RECORDS SUMMARY | 2025-01-08 15:48 | XMS_ITS | Encounter Summary ---
Author Organization [facility] Healthcare Address [address] [place] [address] Care Team Providers Care Multi Slide Machine Tender Name Role Phone Nicolas Kumar MD Primary Care Provider [phone] Victor Manuel Dallas MD Unavailable [phone] aFdi Moreno MD Unavailable [phone] Leno Mao MD Unavailable [phone] Linda Schwartz NP Unavailable [phone] Encounter Details Date Type Department Care Team (Late st Contact Info) Description 01/06/2025 Telephone [facility] Medical Group Cardiology [address] [place] [address] Victor Manuel Dallas MD [address] [place] [address] Social History Tobacco Use Types Packs/Day Years Used Date Smoking Tobacco: Former Cigarettes 2 50 S tarted: 1970 Smokeless Tobacco: Former Comments:pt quit between 30- 35 years ago. Alcohol Use Standard Drinks/Week Comments [...] Frequency of Binge Drinking Not on file 0 05/2024 Personal Safety Answer Date Recorded Have you ever been in or are you currently in a harmful physical or emotional relationship or is someone making you feel afraid or unsafe? 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 Occasional use would be ok, but acetaminophen is preferred. Daughter verbalizes understanding. * Telephone Encounter - Kesha Peña - 01/06/2025 3:10 PM CDT Pts daughter called stating the pt was seen at ER last night for pain in his right hip that moved up to his right love handle area. They did a CAT scan at and stated that they thought it was just a muscle spasm and told him to take acetomorphine and ibuprofen intermittently for the pain and to use like an icy hot patch. She is requesting a call back to discuss the medications because she isthinking that F doesn't want him to take ibuprofen. Please advise. Thank you. Contact: documented in this encounter Plan of Treatment Not on file documented as of this encounter Visit Diagnoses Not on filedocumented in this encounter Care Teams Multi Slide Machine Tender Relationship Specialty Start Date End Date Nicolas Kumar MD PCP - General 07/02/21 Victor Manuel Dallas MD [address] [place] [address] Consulting Physician Cardiology 01/14/22 Fadi Moreno MD [address] [place] [address] Consulting Physician Neurosurgery 03/22/22 Leno Mao MD [address] [facility] [address] [place] [address] Consulting Physician Cardiothoracic Surgery 03/19/24 Linda Schwartz NP [address] [facility] [address] [place] [address] Nurse Practitioner Cardiothoracic Surgery 04/30/24 documented as of this encounter
[2025-01-08 17:13] LABS: Iron 74 ug/dL (49-181)
[2025-01-08 17:24] LABS: Percent Iron Saturation 21 % (20-50)
[2025-01-08 17:45] LABS: Alanine Aminotransferase 16 U/L (6-50); Albumin Level 4.4 g/dL (3.5-5.1); Alkaline Phosphatase 69 U/L (38-126); Anion Gap 8 mmol/L (4-12); Aspartate Amino Transferase 55 U/L (17-59); Bilirubin,Total 0.3 mg/dL (0.2-1.3); Blood Urea Nitrogen 30 mg/dL (9-20); Calcium 9.2 mg/dL (8.4-10.2); Carbon Dioxide 29 mmol/L (22-30); Chloride 100 mmol/L (98-107); Estimated Glomerular Filt Rate 56; Glucose 101 mg/dL (65-110); Lactate Dehydrogenase 213 U/L (120-246); Potassium 4.6 mmol/L (3.4-5.0); Sodium 137 mmol/L (137-145)
[2025-01-08 18:50] LABS: Folic Acid 11.5 ng/mL (2.76->20)
[2025-01-09 21:24] LABS: Protein, Total 7.1 g/dL (6.1-8.1)
[2025-01-11 14:38] LABS: Soluble Transferrin Receptor 1.12 mg/L (0.76-1.76)
[2025-01-12 08:09] LABS: Methylmalonic Acid 146 nmol/L (85-423)
[2025-01-13 09:34] LABS: Alpha 1 Globulin 0.4 g/dL (0.2-0.3); Alpha 2 Globulin 0.5 g/dL (0.5-0.9); Beta 1 Globulin 0.5 g/dL (0.4-0.6); Gamma Globulin 1.2 g/dL (0.8-1.7)
== END 2025-01-08 14:09 | disposition home or self-care (01) ==
LOC: ANHLAB 14:09
PROVIDERS: PCP Family Medicine; Visit Provider Internal Medicine Hematology & Oncology
DX: D64.9 Anemia, unspecified (principal)
CPT/HCPCS: 36415; 80053; 82607; 82728; 82746; 83540; 83550; 83615; 83921; 84155; 84165; 84238; 85025

== ENCOUNTER 2025-02-17 12:13 | Observation (INO) | payer MEDICARE, SELFPAY ==
--- NOTE | ~2025-02-17 | CT_ITS ---
EXAMINATION: CT cervical spine wo con DATE: 02/17/2025 12:44 INDICATION: Trauma with head injury post fall TECHNIQUE: Computed tomography (CT) of the cervical spine was performed without intravenous contrast. Automated exposure control and iterative reconstruction technique were employed. The dose-length pro duct was 486.36 mGy-cm. COMPARISON: Spine CT dated 08/03/2021 FINDINGS: C4 and C5 laminectomies. C3-C6 posterior spinal fusion with bilateral vertical jarrett and lateral mass s crews at each level with the exception of on the left at C5. Straightening of the normal cervical waldo dosis. 1-2 mm anterolisthesis C3 on C4 and C4 on C5 and 2 mm retrolisthesis C6 on C7. Vertebral body heights are normal. No fracture. Moderate to severe disc height loss at C3-C4 and C5-C6, moderate dis c height loss at C4-C5 and C6-C7 and mild disc height loss at C7-T1 through T2-3. Disc bulges resulti ng in mild central canal stenosis at C2-C3 and C6-C7. Posterior disc osteophyte complexes without sig nificant central canal stenosis resulting from the posterior decompression at C3-C4 and C4-C5. There is severe multilevel bilateral cervical uncovertebral osteoarthritis with solid osseous fusion on the right at C5-C6. Severe facet osteoarthritis bilaterally at C2-C3 and mild to moderate facet osteoart hritis at C6-C7 through T3-T4. Moderate neural foraminal stenosis on the left at C3-C4 and mild neura l from stenosis at many of the remaining cervical levels. Atherosclerotic calcification is at the terri ateral carotid bulbs. Cervical soft tissues are otherwise unremarkable. Visualized apices of lungs ar e clear. IMPRESSION: 1. Moderate to severe cervical spondylosis with C4-C5 laminectomies and instrumented C3-C6 posterior spinal fusion. No acute osseous abnormality. Reviewed, dictated and finalized at location B. IMPRESSION: 1. Moderate to severe cervical spondylosis with C4-C5 laminectomies and instrum ented C3-C6 posterior spinal fusion. No acute osseous abnormality.
--- NOTE | ~2025-02-17 | CT_ITS ---
CT brain wo con Ordering provider: Murray Palencia MD History: 84 years Male with . trauma . Comparison: None. Technique: CT of the head without contrast. FINDINGS: BRAIN PARENCHYMA AND CSF SPACES: No midline shift, mass effect or hemorrhage. The brain parenchyma a nd CSF spaces are otherwise normal. VISUALIZED PARANASAL SINUSES: Well aerated. MASTOIDS: Well aerated. BONES: The bones appear intact. SOFT TISSUES: Visualized nasopharynx is normal. Scalp hematoma is seen in the right occipital area. Superficial soft tissues are normal. IMPRESSION: No acute intracranial findings. Reviewed, dictated and finalized at location A.
--- NOTE | ~2025-02-17 | CT_ITS ---
EXAMINATION: CTA brain carotid DATE: 02/17/2025 17:36 INDICATION: syncope TECHNIQUE: Computed tomographic angiography (CTA) of the head and neck was performed with 100 mL Omni paque-350 intravenous contrast. Automated exposure control and iterative reconstruction technique wer e employed. The dose-length product was 1249.06 mGy-cm. Maximum intensity projection and volume rende red 3D-reconstructions were created by the technologist on a separate workstation. COMPARISON: 02/17/2025 and 08/03/2021. FINDINGS: CTA HEAD: No large vessel occlusion, aneurysm, high flow vascular malformation, nidus or extravasation. Scatter ed atherosclerotic intracranial calcifications and multifocal areas of mild atherosclerotic narrowing . Old right basal ganglia lacunar infarct. Posterior scalp hematoma/laceration, to the right of midli ne. Right cochlear implant. Paranasal sinus mucosal thickening. Symmetric parenchymal enhancement. Pa tent cerebral veins. Prominent cerebral veins overlying the right hemisphere, at the level of the donovan vian fissure. CTA NECK: Aortic arch and proximal great vessels: Normal arch anatomy. Atherosclerotic calcifications at the vi sualized aortic arch and proximal great vessels. Right common carotid, carotid bifurcation, and internal carotid artery: Calcified and noncalcified at herosclerotic plaque at the carotid bifurcation.There is 47% stenosis of the proximal right internal carotid artery relative to normal distal artery lumen diameter (NASCET criteria). Left common carotid, carotid bifurcation, and internal carotid artery: Calcified and noncalcified ath erosclerotic plaque at the carotid bifurcation.There is 25% stenosis of the proximal left internal ca rotid artery relative to normal distal artery lumen diameter (NASCET criteria). Vertebral arteries: Severe short segment atherosclerotic stenoses at the origins of the bilateral silvio tebral arteries. Vertebral arteries co-dominant. Other findings: Cervical fusion hardware spanning C3-C6, with posterior decompression. Atlantodental fusion. Multilevel degenerative disc disease and facet arthropathy in the cervical spine. Degenerativ e changes in the bilateral sternoclavicular joints. Sternotomy wires in the upper sternum. IMPRESSION: No large vessel intracranial occlusion, high-grade intracranial stenosis, or aneurysm. Prominent right cerebral vein over the right sylvian fissure, may be normal for this patient or repre sentative of a small DVA or AVM. MRI of the brain with MRA could be considered for further characteri zation. No carotid artery occlusion, dissection, or significant stenosis. Severe short segment atherosclerotic stenoses at the origins of the bilateral vertebral arteries. Reviewed, dictated and finalized at location K. IMPRESSION: No large vessel intracranial occlusion, high-grade intracranial stenosis, or an eurysm. Prominent right cerebral vein over the right sylvian fissure, may be normal for this patient or advertising representative of a small DVA or AVM. MRI of the brain with MR A could be considered for further characterization. No carotid artery occlusion, dissection, or significant stenosis. Severe short segment atherosclerotic stenoses at the origins of the bilateral v ertebral arteries.
[2025-02-17 12:10] VITALS: BP 108/90; PULSE 73; RESP 20; TEMP 36.4; O2SAT 96
--- NOTE | 2025-02-17 12:17 | ED_ITS ---
HPI - General Adult General Chief complaint: Fall Stated complaint: Fall - hit head - uncontrolled bleeding History of Present Illness HPI narrative: 84-year-old male presents to the emergency department for evaluation for a head injury. Patient is unsure what caused the ground level fall. Patient does have a significant hematoma to the posterior scalp. Patient denies any other pain or injury. Patient states he has had 2 syncopal episodes in the course of the last week. His for syncopal episode he was sitting in a chair and just finished preparing dinner when he had an episode of loss of consciousness for an unknown period of time. Today patient was standing in line checking out when he last remembers trying to put his credit card away and then woke up on the floor after having a fall and head injury. Patient's son is also present to the emergency department. Related Data Home Medications ?Medication ?Instructions ?Recorded ?Confirmed ?Last Taken ?Type aspirin 81 mg tablet,delayed 81 mg PO DAILY 09/20/21 02/17/25 02/17/25 History release (Adult Aspirin Regimen) tamsulosin 0.4 mg capsule 0.4 mg PO DAILY 03/28/24 02/17/25 02/17/25 History clopidogrel 75 mg tablet 75 mg PO DAILY 05/23/24 02/17/25 02/17/25 History evolocumab 140 mg/mL subcutaneous 140 mg subcut MONTHLY 05/23/24 02/17/25 Unknown History pen injector (Lauren Louis) metoprolol succinate 50 mg 25 mg PO DAILY 02/17/25 02/17/25 02/17/25 History tablet,extended release 24 hr pregabalin 100 mg capsule 100 mg PO Q12H 02/17/25 02/17/25 02/17/25 History Allergies Allergy/AdvReac Type Severity Reaction Status Date / Time lactose Allergy Unknown stomach Verified 02/17/25 18:08 upset Review of Systems 2 Review of Systems: All systems reviewed & are unremarkable except as noted in HPI and below PMFSH Past Medical History Medical History (Updated 02/17/25 @ 21:44 by Selin Dickinson, MAURO) Renal cyst Hearing aid worn Hard of hearing CAD (coronary artery disease) Polyarthralgia Sinusitis Wheezing Testosterone deficiency Screening for malignant neoplasm of prostate Screening for malignant neoplasm of colon Low testosterone in male Influenza A Encounter for screening for malignant neoplasm of lung Dyspnea Chronic fatigue Left hip pain Constipation Post-nasal drip Saliva increased Dermatitis Testicular hypofunction Anemia BPH loc w/o ur obs/LUTS ZOILA (obstructive sleep apnea) Benign hypertension Prostate cancer BMI over 35 Chronic rhinitis Neuropathy Ataxia Cervical stenosis of spinal canal Progressive focal motor weakness Degenerative, intervertebral disc, cervical Former smoker Rotator cuff arthropathy Statin intolerance muscle pain Hypercholesteremia Ischemic heart disease Multi-vessel coronary artery stenosis Asbestos exposure Seasonal allergic rhinitis GERD without esophagitis Osteoarthritis Testicular hypofunction Controlled gout Hyperlipidemia Hypertension History of torn meniscus of right knee Carpal tunnel syndrome, bilateral Surgical History Surgical History S/P TAVR (transcatheter aortic valve replacement) S/P cervical spinal fusion Hx of extremity bypass graft History of vasectomy S/P CABG (coronary artery bypass graft) History of heart artery stent Family History Family History Mother Cerebrovascular accident Grandparent Family history of kidney disease Father Malignant neoplasm of prostate Sibling , natural causes Heart disease Social History Social History Social History: single-story home no stairs. Patient had hired caregiver . 3 children. POLST signed 03/30/22 lists DNR Smoking packs per day: 1 Smoking cigarettes per day: 20.0 Years smoked: 50 Smoking pack-years: 50.00 Smoking status: Former smoker Second hand tobacco smoke exposure: Yes Alcohol intake: never Alcohol use details: Rarely Substance use: never Other substance usage details: gummies-used only for sleep. 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 HEAD: normocephalic, hematoma. EYES: PERRLA/EOMI, conjunctivae clear. NOSE: Normal no drainage EARS:TMS clear with good light reflex. THROAT: Pharynx clear, no exudate. NECK: Supple. No adenopathy, no masses. RESPIRATORY: Airway patent, respirations nonlabored. Clear to auscultation bilaterally, no rales, rhonchi, wheezing. CARDIOVASCULAR: Regular rate and rhythm without murmurs rubs or gallops. ABDOMINAL: Soft, nontender, nondistended, normal bowel sounds MUSCULOSKELETAL: Moves all extremities. Strength/ROM intact, No edema, No calf tenderness. NEURO: Alert. Cranial nerves II through XII intact. Grossly intact SKIN: Warm, dry. Normal Color Course Vital Signs Vital signs: Vital Signs Temperature 97.6 F 02/17/25 12:10 Pulse Rate 73 02/17/25 12:10 Respiratory Rate 20 02/17/25 12:10 Blood Pressure 108/90 02/17/25 12:10 Pulse Oximetry 96 02/17/25 12:10 Oxygen Delivery Room Air 02/17/25 12:10 Temperature 97.6 F 02/17/25 12:10 Pulse Rate 62 02/17/25 16:05 Respiratory Rate 18 02/17/25 16:05 Blood Pressure 154/76 H 02/17/25 16:05 Pulse Oximetry 98 02/17/25 16:05 Oxygen Delivery Room Air 02/17/25 18:44 Medical Decision Making [facility] Narrative Medical decision making narrative: 84-year-old male presents emergency department for evaluation after having multiple syncopal episodes today. Patient's syncopal episode today had no prodrome. Patient denies any current lightheaded or dizziness but states he had done at that time either. Patient does have a hematoma at his scalp with no laceration requiring suture repair. Patient's current the afebrile with no leukocytosis and his hemoglobin 11.3 no significant electrolyte abnormalities. TSH was normal. Patient had negative head CT cervical spine CT. CTA was negative for acute abnormality. Case discussed with hospitalist patient was accepted for admission to cardiac tele. Both patient and family were updated the results of workup plan for admission. All questions concerns were addressed. Differential Diagnosis Differential Diagnosis: TIA, CVA, COVID, RSV, influenza, dehydration, syncope, near syncope, scalp laceration, subdural hematoma, subarachnoid hemorrhage, cardiac arrhythmia Vital Signs Vital Signs: Vital Signs Temperature 97.6 F 02/17/25 12:10 Pulse Rate 73 02/17/25 12:10 Respiratory Rate 20 02/17/25 12:10 Blood Pressure 108/90 02/17/25 12:10 Pulse Oximetry 96 02/17/25 12:10 Oxygen Delivery Room Air 02/17/25 12:10 Temperature 97.6 F 02/17/25 12:10 Pulse Rate 62 02/17/25 16:05 Respiratory Rate 18 02/17/25 16:05 Blood Pressure 154/76 H 02/17/25 16:05 Pulse Oximetry 98 02/17/25 16:05 Oxygen Delivery Room Air 02/17/25 18:44 Lab Data Lab results reviewed: Yes I reviewed the patient's lab results. 02/17/25 12:33 02/17/25 12:33 Labs: Lab Results 02/17/25 Range/Units 12:33 WBC 6.9 (4.5-10.0) K/mm3 RBC 3.66 L (4.6-6.20) M/mm3 Hgb 11.3 L (14.0-18.0) g/dL Hct 34.0 L (42.0-52.0) % MCV 92.9 (80-100) fl MCH 30.9 (26-34) pg MCHC 33.2 (32-36) g/dl RDW 13.2 (11.5-14.5) % Plt Count 204 (150-375) k/mm3 MPV 10.9 H (7.4-10.4) fl Immature Gran % (Auto) 0.4 (0-0.5) % Neut % (Auto) 71.0 (45.5-73.1) % Lymph % (Auto) 17.4 L (18.3-44.2) % [place] % (Auto) 8.4 (2.6-8.5) % Eos % (Auto) 2.2 (0-4.4) % Baso % (Auto) 0.6 (0.2-1.2) % Lymph # (Auto) 1.20 (0.9-3.2) K/mm3 [place] # (Auto) 0.6 (0.1-0.6) K/mm3 Eos # (Auto) 0.2 (0-0.3) K/mm3 Baso # (Auto) 0.0 (0.0-0.1) K/mm3 Abs Immat Gran (auto) 0.03 (0.00-0.031) K/mm3 Absolute Neuts (auto) 4.9 (1.3-6.7) K/mm3 Absolute Nucleated RBC 0.000 (0.0-0.012) K/mm3 Nucleated RBC % 0.0 (0.0-0.2) % PT 12.6 (11.1-14.7) Seconds INR 0.9 APTT 28.8 (22.3-36.8) Seconds Sodium 136 L (137-145) mmol/L Potassium 3.5 (3.4-5.0) mmol/L Chloride 100 (98-107) mmol/L Carbon Dioxide 25 (22-30) mmol/L Anion Gap 11 (4-12) mmol/L BUN 22 H (9-20) mg/dL Creatinine 0.94 (0.7-1.3) mg/dL Estim Creat Clear Calc 71 ml/min Estimated GFR > 60 (59 - ) Glucose 111 H (65-110) mg/dL Calcium 8.8 (8.4-10.2) mg/dL Magnesium 1.7 (1.6-2.3) mg/dL Total Bilirubin 0.5 (0.2-1.3) mg/dL AST 27 (17-59) U/L ALT 16 (6-50) U/L Alkaline Phosphatase 80 (38-126) U/L Total Protein 7.0 (6.3-8.2) g/dL Albumin 4.3 (3.5-5.1) g/dL TSH (Reflex) 2.980 (0.465-4.68) uIU/mL Imaging Data Radiologist's impression: Impressions Head CT 02/17/25 12:51 IMPRESSION: No acute intracranial findings. Cervical Spine CT 02/17/25 13:00 IMPRESSION: 1. Moderate to severe cervical spondylosis with C4-C5 laminectomies and instrumented C3-C6 posterior spinal fusion. No acute osseous abnormality. Discharge Plan Discharge Clinical Impression: Head injury, Syncope and collapse Patient Disposition: Still a Patient Condition: Serious
--- NOTE | 2025-02-17 12:17 | ECG_ITS ---
Test Date: 2025-02-17 14:32:07 Measurements Intervals [place] Rate: 65 P: 13 MT: 317 QRS: -14 QRSD: 168 T: -6 QT: 441 QTc: 461 Interpretive Statements SINUS RHYTHM WITH MARKED FIRST DEGREE AV BLOCK RIGHT BUNDLE BRANCH BLOCK LEFT VENTRICULAR HYPERTROPHY ABNORMAL ECG Compared to ECG 01/06/2025 03:08:10 HEART RATE HAS INCREASED Right bundle-branch block now present Electronically Signed On 02-17-2025 14:52:52 CDT by Lam Ontiveros D.O.
[2025-02-17 12:45] LABS: Basophils Percent Auto 0.6 % (0.2-1.2); Eosinophils Absolute Auto 0.2 K/mm3 (0-0.3); Eosinophils Percent Auto 2.2 % (0-4.4); Hemoglobin 11.3 g/dL (14.0-18.0); Immature Granulocyte Absolute 0.03 K/mm3 (0.00-0.031); Immature Granulocyte Percent A 0.4 % (0-0.5); Lymphocytes Percent Auto 17.4 % (18.3-44.2); Mean Corpuscular HGB Conc 33.2 g/dl (32-36); Mean Corpuscular Hemoglobin 30.9 pg (26-34); Mean Corpuscular Volume 92.9 fl (80-100); Mean Platelet Volume 10.9 fl (7.4-10.4); Monocytes Absolute Auto 0.6 K/mm3 (0.1-0.6); Monocytes Percent Auto 8.4 % (2.6-8.5); Neutrophils Absolute Auto 4.9 K/mm3 (1.3-6.7); Platelet Count Result 204 k/mm3 (150-375); Red Blood Count 3.66 M/mm3 (4.6-6.20); Red Cell Distribution Width 13.2 % (11.5-14.5); White Blood Count 6.9 K/mm3 (4.5-10.0)
[2025-02-17 12:56] LABS: INR 0.9; Prothrombin Time 12.6 Seconds (11.1-14.7)
[2025-02-17 12:58] LABS: Partial Thromboplastin Time 28.8 Seconds (22.3-36.8)
[2025-02-17 13:00] LABS: Alanine Aminotransferase 16 U/L (6-50); Albumin Level 4.3 g/dL (3.5-5.1); Alkaline Phosphatase 80 U/L (38-126); Anion Gap 11 mmol/L (4-12); Aspartate Amino Transferase 27 U/L (17-59); Bilirubin,Total 0.5 mg/dL (0.2-1.3); Blood Urea Nitrogen 22 mg/dL (9-20); Calcium 8.8 mg/dL (8.4-10.2); Carbon Dioxide 25 mmol/L (22-30); Chloride 100 mmol/L (98-107); Estimated CRCL calculation 71 ml/min; Estimated Glomerular Filt Rate > 60; Glucose 111 mg/dL (65-110); Potassium 3.5 mmol/L (3.4-5.0); Sodium 136 mmol/L (137-145)
[2025-02-17 14:57] VITALS: BP 186/82; PULSE 70; RESP 20; O2SAT 98
[2025-02-17 15:35] LABS: Magnesium 1.7 mg/dL (1.6-2.3)
--- OUTSIDE RECORDS SUMMARY | 2025-02-17 15:36 | XMS_ITS | Clinical Summary ---
Author Organization [facility] Address [address] [place] [address] Care Team Providers Care Developer Advisor Name Role Phone Unavailable Primary Care Provider [...] Td Vaccines ( 1 - Tdap) 1958 Pneumococcal Vaccine: 50+ Ye ars (1 of 1 - PCV) 1989 Zoster Vaccines (1 of 2) 1989 RSV Immunization or 60+ Years (1 - 1-dose 75+ series) 2014 COVID-19 Vaccine ( - 2023-2 5 season) 2024 Meningococcal B Vaccine Aged Out No l onger eligible based on patient's age to complete this topic Meningococcal Vaccine Aged Out No mu david eligible based on patient's age to complete this topic RSV Immunizations Under 20 Months Aged Out No longer eligible based on patient's age to complete this topic
--- OUTSIDE RECORDS SUMMARY | 2025-02-17 15:37 | XMS_ITS | Referral Summary ---
Author Organization [address] Address [address] [facility] [address] [place] [address] Care Team Providers Care Airport Operations Officer Name Role Phone Nicolas Kumar MD Primary Care Provider [phone] Victor Manuel Dallas MD Unavailable [phone] Fadi Moreno MD Unavailable [phone] Leno Mao MD Unavailable Linda Schwartz NP Unavailable Encounters Date Type Department Care Team Description 02/17/2025 Telephone [facility] Medical Group Cardiology [address] [place] [address] [address] [place] [address] Victor Manuel Dallas MD 01/16/2025 11:00 AM CDT Office Visit [facility] Medical Group Cardiology at [address] [place] [address] Victor Manuel Dallas MD S/P CABG (coronary artery bypass graft) (Primary Dx); S/P TAVR (transcatheter aortic valve replacement) 01/06/2025 Telephone [facility] Cardiology [address] [place] [address] [address] [place] [address] Victor Manuel Dallas MD 11/22/2024 9:40 AM GYM SUPERVISOR Office Visit [facility] Urology [address] [facility] [address] [place] [address] Jodi Kapoor MD Prostate cancer (HCC) (Primary Dx) 11/21/2024 Telephone [facility] Medical Group Cardiology [address] [facility] [address] [place] [address] Aubrey Brand MD from Last 3 Months Allergies Active Allergy Reactions Criticality Noted Date Comments Lactose Diarrhea,Flatulence Low Ozgydgq-Ocj-Vfn Reductase Inhibitors Muscle pain Medium 04/15/2024 Medications lansoprazole (PREVACID) 30 mg capsule take 1 capsule (30MG) by oral route every day before a meal 0 12/11/19 13 Active Additional Information Patient taking differently:30 mgoral Every morning, Informant: Self, Reported on 01/16/2025 indapamide (LOZOL) 2.5 mg tablet take 1 tablet (2.5MG) by oral route every day in the morning 0 12/11/19 13 Active Additional Information Patient taking differently:2.5 mgoral Every morning, Informant: Self, Reported on 01/16/2025 allopurinoL (ZYLOPRIM) 300 mg tabletIndicati ons:prevention of acute gout attack Take 1 tablet (300 mg total) by mouth every morning 11/03/19 21 Active pregabalin (LYRICA) 50 mg capsuleIndicat ions:Neuropath ic Pain Take 1 capsule (50 mg total) by mouth 2 (two) times a day Active aspirin 81 mg chewable tablet Take 1 tablet (81 mg total) by mouth daily 03/22/20 22 Active Xhance 93 mcg/actuation aerosol breath activated INSTILL 1 SPRAY IN EACH NOSTRIL EVERY 12 HOURS 08/10/20 23 Active albuterol HFA (PROVENTIL HFA,VENTOLIN HFA,PROAIR HFA) 90 mcg/actuation inhaler INHALE 2 PUFFS BY MOUTH EVERY 4 TO 6 HOURS NEEDED FOR SHORTNESS OF BREATH OR WHEEZING 12/18/19 24 Active lisinopriL (PRINIVIL,ZEST RIL) 40 mg tablet Take 1 tablet (40 mg total) by mouth daily 12/01/19 24 Active tamsulosin (FLOMAX) 0.4 mg extended release capsuleIndicat ions:Elevated PSA Take 1 capsule (0.4 mg total) by mouth daily 90 capsule 3 03/26/20 24 Active clopidogreL (PLAVIX) 75 mg tablet Take 1 tablet (75 mg total) by mouth daily 90 tablet 3 04/10/20 24 025 Active metoprolol XL (TOPROL-XL) 25 mg extended release tablet Take 1 tablet (25 mg total) by mouth daily 90 tablet 2 05/28/20 24 025 Active Repatha SureClick 140 mg/mL pen injector ADMINISTER 1 ML(140 MG) UNDER THE SKIN EVERY 14 DAYS 2 mL 11 02/11/20 25 Active evolocumab 140 mg/mL pen injector Inject 1 mL (140 mg total) under the skin every 14 (fourteen) days 2 mL 11 04/15/20 24 025 Discontinued Active Problems Problem Noted Date Diagnosed Date [...] (01/07/2022): Added automatically from request for surgery [id number] Elevated PSA 11/29/2021 Overview (11/29/2021): Added automatically from request for surgery [id number] Right carpal tunnel syndrome 05/10/2021 Overview (05/10/2021): Added automatically from request for surgery [id number] Aortic systolic murmur on examination 05/28/2019 CAD [...] Types Packs/Day Years Used Date Smoking Tobacco: Passive Smo ke Exposure - Never Smoker Cigarettes 2 50 Started: 10/23/1969 Smokeless Tobacco: Former Tobacco Cessation:Counseling Given: Not [...] on file Legal Sex Male 5:09 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 SUPERVISOR Gender Identity Not on file Sexual Orientation Not on file Occupation Industry Job Start Date Job End Date Retired Not on file Not on file Not on file Last Filed Vital Signs Vital Sign Reading Time Taken Comments Blood Pressure 154/72 01/16/2025 11:02 AM CDT Pulse 63 01/16/2025 11:02 AM CDT Temperature 37.2 C (99 F) 04/30/2024 8:06 AM CDT Respiratory Rate 16 06/12/2024 2:56 PM CDT Oxygen Saturation 95% 01/16/2025 11:02 AM CDT Inhaled Oxygen Concentration - - Weight 132.9 kg (293 lb) 01/16/2025 11:02 AM CDT Height 185.4 cm (6' 1 ) 01/16/2025 11:02 AM CDT Body Mass Index 38.66 01/16/2025 11:02 AM CDT Plan of Treatment Not on file Medical Devices Implanted Type Area Dairy Nutrition Specialist Device Identifier Shelf Expiration Date Model / Serial / Lot Brennan [employer] Tory 3 29mm Transcatheter Aortic Valve [id number] - [id number] - [id number] Implanted:Qty: 1 on 04/29/2024 by Aubrey Brand MD at [facility] Prosthetic Valve N/A: Aortic Valve [employer] 10/02/2026 [id number] / [id number] / [employer] Carlitos Synergy Xd Monorail 3.5mm 38mm 144cm Delivery System 1 Access [id number] - [id number] - [id number] Implanted:Qty: 1 on 04/03/2024 by Aubrey Brand MD at [facility] Stent Left: Circumflex Coronary Artery [employer] Carlitos 12/19/2025 [id number] / [id number] / [id number] [employer] 18f Manta Vascular Closure Device 2115 - S0 - [id number] Implanted:Qty: 1 on 04/29/2024 by Aubrey Brand MD at [facility] Vascular Closure Device [employer] 06/11/2025 [id number] / 0 / [id number] Cochlear Implant Right: Head [facility] Carlitos Graft Bone Filler Cancellous 1-2mm Micro Granules Gel Altapore 10ml Putty [id number] - [id number] Implanted:Qty: 1 on 03/14/2022 by Fadi Moreno MD at [facility] N/A: Spine Cervical [facility] Carlitos [id number] 11/02/2023 [id number] / / [id number] Depuy Infolinks Spine [id number] 3.5mm 16mm Ply Spine Screw Bone Nonsterile 4mm Jose - [id number] Implanted:Qty: 7 on 03/14/2022 by Fadi Moreno MD at [facility] N/A: Spine Cervical Depuy Synthes Spine [id number] / / Depuy Synthes Spine [id number] Lock Cap Spine T15 Standard Screw Set Titanium Nonsterile - [id number] Implanted:Qty: 7 on 03/14/2022 by Fadi Moreno MD at [facility] N/A: Spine Cervical Depuy Synthes Spine [id number] / / Depuy Spine [id number] [place] Expedium 2 Spine Wire Fixation Cocr Titanium - [id number] Implanted:Qty: 2 on 03/14/2022 by Fadi Moreno MD at [facility] N/A: Spine Cervical Depuy Synthes Spine [id number] / / Depuy Synthes Spine [id number] 4mm 60mm Lordosis Jose Spinal Titanium - [id number] Implanted:Qty: 2 on 03/14/2022 by Fadi Moreno MD at [facility] N/A: Spine Cervical Depuy Synthes Spine [id number] / / Insurance [facility] MEDICARE ADVANTAGE UHC MEDICARE ADVANTAGE * Guarantor: LOLIQUAN CHEN Account Type Relation to Patient Date of Phone Billing Address Personal/Family UHC MEDICARE ADVANTAGE Advance Directives For more information, please contact: [phone] Documents on File Type Date Recorded Patient Script Artist Expl anation ADVANCE DIRECTIVE 03/14/2022 11:31 AM Johnathan ferrer of Technology Education Teacher-Medical * Full Code (Latest Code Status on File) Date Activated Date Inactivated Comments 04/29/2024 11:57 AM 04/30/2024 6:57 PM * Full Code Date Activated Date Inactivated Comments 04/03/2024 5:03 PM 04/04/2024 1:59 PM * Full Code Date Activated Date Inactivated Comments 03/14/2022 10:30 PM 03/22/2022 6:43 PM Care Teams Airport Operations Officer Relationship Specialty Start Date End Date Nicolas Kumar MD PCP - General 07/02/21 Victor Manuel Dallas MD [address] [facility] [address] [place] [address] Consulting Physician Cardiology 01/14/22 Fadi Moreno MD [address] [place] [address] Consulting Physician Neurosurgery 03/22/22 Leno Mao MD [address] [facility] [address] [place] [address] Consulting Physician Cardiothoracic Surgery 03/19/24 Linda Schwartz NP [address] [facility] [address] [place] [address] Nurse Practitioner Cardiothoracic Surgery 04/30/24
--- OUTSIDE RECORDS SUMMARY | 2025-02-17 15:37 | XMS_ITS | Clinical Summary ---
Author Organization [facility] [address] Address [address] [place] [address] Care Team Providers Care Geothermal Electrical Engineer Name Role Phone Nicolas Kumar MD Primary Care Provider Victor Manuel Dallas MD Unavailable Fadi Moreno MD Unavailable [phone] Leno Mao MD Unavailable [phone] Linda Schwartz NP Unavailable [phone] Allergies Active Allergy Reactions Criticality Noted Date Comments Lactose Diarrhea,Flatulence Low Mrfbfne-Zeb-Ccv Reductase Inhibitors Muscle pain Medium 04/15/2024 Medications [...] THE SKIN EVERY 14 DAYS 2 mL 02/11/20 25 Active evolocumab 140 mg/mL pen injector Inject 1 mL (140 mg total) under the skin every 14 (fourteen) days 2 mL 04/15/20 24 025 Discontinued Active Problems Problem [...] (01/07/2022): Added automatically from request for surgery [id number] Elevated PSA 11/29/2021 Overview (11/29/2021): Added automatically from request for surgery [id number] Right carpal tunnel syndrome 05/10/2021 Overview (05/10/2021): Added automatically from request for surgery [id number] Aortic systolic murmur on examination 05/28/2019 CAD (coronary artery disease) 05/23/2017 S/P CABG (coronary artery bypass graft) 05/23/20 17 Hearing loss 04/27/2017 Encounters Date Type Department Care Team Description 02/17/2025 Telephone [facility] Cardiology [address] [facility] [address] [place] [address] Victor Manuel Dallas MD 01/16/2025 11:00 AM CDT Office Visit [facility] Cardiology at [address] [place] [address] Victor Manuel Dallas MD S/P CABG (coronary artery bypass graft) (Primary Dx); S/P TAVR (transcatheter aortic valve replacement) 01/06/2025 Telephone [facility] Cardiology [address] [facility] [address] [place] [address] Victor Manuel Dallas MD 11/22/2024 9:40 AM 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 - [facility] Urology [address] [facility] [address] Medical Office Building [address] [place] [address] Jodi Kapoor MD Prostate cancer (HCC) (Primary Dx) 11/21/2024 Telephone [facility] Cardiology [address] [facility] [address] [place] [address] Aubrey Brand MD from Last [...] TRANSCATHETER AORTIC VALVE REPLACEMENT 04/29/2024 29 [place] ANGIOPLASTY 2023 VASECTOMY 1978 CARDIAC VALVE REPLACEMENT 2023,aortic Medical History Medical History Date Comments Hypertension GERD (gastroesophageal reflux disease) Weight loss Anxiety Gout Coronary artery disease Hyperlipidemia Prostate Cancer (CMS/HCC) (HCC) Hx of aortic valve stenosis 04/29/2024 TAVR Heart disease 2002 Arthritis 1980 Family History Medical History Relation Name Comments [...] on file Legal 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 Gender Identity Not on file Sexual Orientation [...] 01/16/2025 11:02 AM CDT Plan of Treatment Health Maintenance Due Date Last Done Comments Depression Screening 1939 Hepatitis B Screening 1957 Zoster Vaccine (1 of 2) 1989 Well Visit 65+ 2004 DTaP/Tdap/Td Vaccine (1 - Tdap) 05/26/2017 7, 10/11/2006 Covid-19 Vaccine (4 - 2023-2 5 season) 2024 08/25/2021, 12/22/2020, 11/19/2020 Fall Risk Assessment 04/30/2025 04/30/2024 Influenza Vaccine (Season Ended) 2025 08/16/2021, 09/22/2020, 08/14/2019, Additional history exists Pneumococcal vaccine 65+ Completed 016, 07/14/2010, 08/11/2006 Medical Devices Implanted Type Area Daycare Provider Device Identifier Shelf Expiration Date Model / Serial / Lot [place] [employer] Tory 3 29mm Transcatheter Aortic Valve [id number] - [id number] - [id number] Implanted:Qty: 1 on 04/29/2024 by Aubrey Brand MD at [facility] Prosthetic Valve N/A: Aortic Valve [employer] 10/02/2026 [id number] / [id number] / [employer] Synergy Xd Monorail 3.5mm 38mm 144cm Delivery System 1 Access [id number] - [id number] - [id number] Implanted:Qty: 1 on 04/03/2024 by Aubrey Brand MD at [facility] Stent Left: Circumflex Coronary Artery [employer] 12/19/2025 [id number] / [id number] / [id number] [employer] 18f Manta Vascular Closure Device 2115 - S0 - [id number] Implanted:Qty: 1 on 04/29/2024 by Aubrey Brand MD at [facility] Vascular Closure Device [employer] 06/11/2025 [id number] / 0 / [id number] Cochlear Implant Right: Head [facility] Carlitos Graft Bone Filler Cancellous 1-2mm Micro Granules Gel Altapore 10ml Putty [id number] - [id number] Implanted:Qty: 1 on 03/14/2022 by Fadi Moreno MD at [facility] N/A: Spine Cervical [facility] [employer]itos [id number] 11/02/2023 [id number] / / [id number] Depuy Synthes Spine [id number] 3.5mm 16mm Ply Spine Screw Bone Nonsterile 4mm Jose - [id number] Implanted:Qty: 7 on 03/14/2022 by Fadi Moreno MD at [facility] N/A: Spine Cervical Depuy Synthes Spine [id number] / / Depuy Synthes Spine [id number] Lock Cap Spine T15 Standard Screw Set Titanium Nonsterile - [id number] Implanted:Qty: 7 on 03/14/2022 by Fadi Moreno MD at [facility] N/A: Spine Cervical Depuy Synthes Spine [id number] / / Depuy Spine [id number] Erath Expedium 2 Spine Wire Fixation Cocr Titanium - [id number] Implanted:Qty: 2 on 03/14/2022 by Fadi Moreno MD at [facility] N/A: Spine Cervical Depuy Synthes Spine [id number] / / Depuy Synthes Spine [id number] 4mm 60mm Lordosis Jose Spinal Titanium - [id number] Implanted:Qty: 2 on 03/14/2022 by Fadi Moreno MD at [facility] N/A: Spine Cervical Depuy Synthes Spine [id number] / / Insurance UHC MEDICARE [facility]VANTAGE [facility] Address: [address] [address] [place] [address] UHC MEDICARE ADVANTAGE [facility] MED[facility] Address: [address] [address] [place] [address] * Guarantor: QUAN GUALLPA Account Type Relation to Patient Date of Phone Billing Address Personal/Family [facility] MEDICARE [facility]ANTAGE [facility] Address: [facility] [address] [place] [address] Advance Directives For more information, please contact: [phone] Documents on File Type Date Recorded Patient Environmental Project Manager Expl anation ADVANCE DIRECTIVE 03/14/2022 11:31 AM Johnathan r of [employer] * Full Code (Latest Code Status on File) Date Activated Date Inactivated Comments 04/29/2024 11:57 AM 04/30/2024 6:57 PM * Full Code Date Activated Date Inactivated Comments 04/03/2024 5:03 PM 04/04/2024 1:59 PM * Full Code Date Activated Date Inactivated Comments 03/14/2022 10:30 PM 03/22/2022 6:43 PM Care Teams Geothermal Electrical Engineer Relationship Specialty Start Date End Date Nicolas Kumar MD PCP - General 07/02/21 Victor Manuel Dallas MD [address] [facility] [address] [place] [address] Consulting Physician Cardiology 01/14/22 Fadi Moreno MD [address] [place] [address] Consulting Physician Neurosurgery 03/22/22 Leno Mao MD [address] [place] [address] Consulting Physician Cardiothoracic Surgery 03/19/24 Linda Schwartz NP [address] [place] [address] Nurse Practitioner Cardiothoracic Surgery 04/30/24
--- OUTSIDE RECORDS SUMMARY | 2025-02-17 15:37 | XMS_ITS | Encounter Summary ---
Author Organization [facility] Address [address] [place] [address] Phone Care Team Providers Care Rotary Bar Operator Name Role Phone Nicolas Kumar MD Primary Care Provider [phone] Victor Manuel Dallas MD Unavailable [phone] Fadi Moreno MD Unavailable [phone] Leno Mao MD Unavailable Linda Schwartz NP Unavailable [phone] Encounter Details Date Type Department Care Team (Late st Contact Info) Description 05/09/2024 Telephone [place] [address] [facility] Medical Office Building [address] [place] [address] Loretta Garcia NP [address] [place] [address] Social History Tobacco Use Types Packs/Day Years [...] on file Legal 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 Was taking pregabalin 50 mg BID and now on 100 mg BID. * Telephone Encounter - Loretta Garcia NP - 01/14/2025 9:50 AM CDT I reviewed the patient's radiology report. He had a CT of the abdomen. It appears that there is a left renal lesion that his primary care is working up. States that he had severe pain in his right flank that radiated into his back. This has resolved. His biggest complaint is increased numbness in his left upper extremity, hand and left lower extremity. He last had a myelogram in 2021. It showed no significant stenosis. He recently had a CT, but has been hesitant to proceed with a CT myelogram due to how uncomfortable it is for him. He also has known multilevel lumbar stenosis. He has no pain in his upper or lower extremities, just numbness. It is affecting his quality of life. His last EMG was in October of 2023 revealing multiple peripheral nerve issues. He has had 2 carpal tunnel releases in both upper extremities. I have recommended he increase his Lyrica to 100 mg b.i.d. to see if this helps his symptoms. If it does not, we could co nsider a total spine CT myelogram to obtain more information. He was instructed to update me in 1 week. * Telephone Encounter - Sydney Mcintyre - 01/13/2025 8:13 AM CDT Radiology Report scanned into chart. * Telephone Encounter - Dena Espino CMA - 01/09/2025 9:00 AM CDT Pt called to report continued hand numbness worse in left hand and recently started to experience right lumbar hip pain that recently resulted in ED visit at [facility]. CT performed. Pt asking for evaluation, imaging requested from [facility] F: [phone], no available appts until 05/2025. * Telephone Encounter - Daina Tadeo RMA - 08/09/2024 11:25 AM CDT Patient OT/PT signed and faxed back * Telephone Encounter - Loretta Garcia NP - 08/08/2024 3:58 PM CDT New PT/OT faxed to [facility] * Telephone Encounter - Loretta Garcia NP - 08/08/2024 3:47 PM CDT Please print for signature * Telephone Encounter - Tigre Castaneda - 08/06/2024 1:14 PM CDT [facility] calling on pt behalf to request Pt PT Auth re-cert document to be signed and returned to them FAX: [phone] PH: [phone] * Telephone Encounter - Linda Abdalla CMA - 08/02/2024 10:27 AM CDT Patient calling wanting to let ABISAI know that he doesn't want to do the myelogram, says its too uncomfortable. Says his hands are getting worse and wanting to know if he can have more OT/PT for his hands * Telephone Encounter - Loretta Garcia NP - 07/15/2024 3:15 PM CDT I reviewed the patient's CT of the cervical, thoracic and lumbar spine. Unfortunately, since he didnot want undergo with the CT myelogram I can not fully assess his residual cervical stenosis. I discussed this with him. He remains hesitant to repeat a CT myelogram as it was so uncomfortable for him last time. Continues to have increased pain and dysfunction of bilateral hands. I have also offered him a repeat EMG. He was not interested in this. He would like to discuss this further with his daughters to see if he wants to proceed with a CT myelogram. I let him know that since he was unable to have an MRI, this is the only way that we are able to image his spinal cord and nerves successfully. He will update me with his decision. * Telephone Encounter - Dena Espino CMA - 07/05/2024 1:22 PM CDT 07/03/24 CT Cervical, thoracic, and lumbar results and imaging in chart for review. * Telephone Encounter - Gisela Morales Ivonne - 06/14/2024 9:57 AM CDT Patient scheduled for 07/03/24 at [place]. * Telephone Encounter - Loretta Garcia NP - 06/10/2024 4:51 PM CDT I talked to the patient. We will have him undergo a total spine CT without contrast to start. He does not want the invasive myelogram. He is unable to undergo an MRI. He would like these at [facility], 1st available. I will call him with results. Can you please schedule? Thank you * Telephone Encounter - Gisela Morales RMA - 06/07/2024 11:12 AM CDT Per IR patient cancelled his myelogram, he did not want that invasive of a procedure. * Telephone Encounter - Gisela Morales RMA - 06/04/2024 7:49 AM CDT Printed and faxed back to [phone] * Telephone Encounter - Lali Mao - 06/03/2024 6:14 PM CDT PT POC scanned into chart, requires signature. * Telephone Encounter - Gisela Morales RMA - 05/21/2024 9:09 AM CDT Printed and faxed back to [phone] * Telephone Encounter - Loretta Garcia NP - 05/17/2024 12:49 PM CDT Please print for signature * Telephone Encounter - Juan Salgado - 05/17/2024 7:45 AM CDT OT POC scanned into chart - Signature required * Telephone Encounter - Juan Salgado - 05/16/2024 7:54 AM CDT Discharge records scanned into chart - signature required * Telephone Encounter - Gisela Morales RMA - 05/10/2024 11:04 AM CDT Patient scheduled for 06/18/24 and aware of apt details. Also sent instructions to his [employer] account. * Telephone Encounter - Loretta Garcia NP - 05/09/2024 3:44 PM CDT The patient needs a total spine CT myelogram. Can you please schedule him at the end of May? Please let them know that I did talk to the patient's trade union official, Dr. Brand. He said that he would be okay with the patient holding Plavix one-month after his TAVR. Thanks! documented in this encounter Plan of Treatment Not on file documented as of this encounter Visit Diagnoses Not on filedocumented in this encounter Care Teams Rotary Bar Operator Relationship Specialty Start Date End Date Nicolas Kumar MD PCP - General 07/02/21 Victor Manuel Dallas MD [address] [place] [address] Consulting Physician Cardiology 01/14/22 Fadi Moreno MD [address] [place] [address] Consulting Physician Neurosurgery 03/22/22 Leno Mao MD [address] [facility] [address] [place] [address] Consulting Physician Cardiothoracic Surgery 03/19/24 Linda Schwartz NP [address] [facility] [address] [place] [address] Nurse Practitioner Cardiothoracic Surgery 04/30/24 documented as of this encounter
--- OUTSIDE RECORDS SUMMARY | 2025-02-17 15:37 | XMS_ITS | Encounter Summary ---
Author Organization [facility] Healthcare Address [address] [place] [address] Care Team Providers Care Kindergartner Name Role Phone Nicolas Kumar MD Primary Care Provider [phone] Victor Manuel Dallas MD Unavailable [phone] Fadi Moreno MD Unavailable [phone] Leno Mao MD Unavailable Linda Schwartz NP Unavailable Encounter Details Date Type Department Care Team (Late st Contact Info) Description 02/17/2025 Telephone [facility] Group Cardiology [address] [facility] [address] [facility] [address] [place] [address] Victor Manuel Dallas MD [address] [place] [address] Social History Tobacco Use Types Packs/Day Years Used Date Smoking Tobacco: Passive Smo ke Exposure - Never Smoker Cigarettes 2 50 Started: 10/23/1969 Smokeless Tobacco: Former Comments:pt quit between 30- [...] on file 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 * Telephone Encounter - Gloria Geller - 02/17/2025 2:59 PM CDT Pt dtr called to report pt is at ED because he passed out and fell and hit his head. His BP is 186/82. Dtr called to report pt will be staying the night there. Contact: documented in this encounter Plan of Treatment Not on file documented as of this encounter Visit Diagnoses Not on filedocumented in this encounter Care Teams Kindergartner Relationship Specialty Start Date End Date Nicolas Kumar MD PCP - General 07/02/21 Victor Manuel Dallas MD [address] [address] Consulting Physician Cardiology 01/14/22 Fadi Moreno MD [address] [place] [address] Consulting Physician Neurosurgery 03/22/22 Leno Mao MD [address] [place] [address] Consulting Physician Cardiothoracic Surgery 03/19/24 Linda Schwartz NP [address] [place] [address] Nurse Practitioner Cardiothoracic Surgery 04/30/24 documented as of this encounter
--- OUTSIDE RECORDS SUMMARY | 2025-02-17 15:37 | XMS_ITS | Clinical Summary ---
Author Organization [facility] Address [address] [place] [address] Phone Care Team Providers Care Service Desk Associate Name Role Phone Nicolas Kumar MD Primary Care Provider [phone] Allergies No known active allergies Medications metoprolol [...] Encounters Date Type Department Care Team Description 01/23/2025 4:30 PM CDT Telephone Check Up [facility] Oncology and Hematology - [place] [address] [place] [address] Rico Kay MD Chronic anemia (Primary Dx) 01/14/2025 External Device Data ST[place] ABSTRACTION Provider, Abstract 01/14/2025 External Device Data ST[place] ABSTRACTION Provider, Abstract 01/14/2025 External Device Data [place] ABSTRACTION Provider, Abstract 01/13/2025 Orders Only [facility] Oncology and Hematology - [place] [address] [place] [address] Rico Kay MD 01/10/2025 Orders Only [facility] Oncology and Hematology - [place] [address] [place] [address] Rico Kay MD 01/09/2025 Orders Only [facility] Oncology and Hematology - [place] [address] [place] [address] Rico Kay MD 01/08/2025 1:30 PM CDT Office Visit [facility] Oncology and Hematology - [place] [address] [place] [address] Rico Kay MD Chronic anemia (Primary Dx) [...] on file 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 Gender Identity Not on file Sexual Orientation [...] Care Team (Late st Contact Info) Description 04/29/2025 11:30 AM CDT Office Visit [facility] Oncology and Hematology - [place] [address] [facility] [address] [place] [address] Rico Kay MD [address] [facility] [address] [place] [address] Health Maintenance Due Date Last Done Comments ZOSTER VACCINE (1 of 2) 1989 RSV VACCINE (60+ or ) (1 - 1-dose 75+ series) 2014 DTAP/TDAP/TD VACCINES (1 - Tdap) 05/26/2017 05/25/20 17, 10/11/2006 INFLUENZA VACCINE (#1) 2024 , 09/22/2020, 08/14/2019, Additional history exists PNEUMOCOCCAL VACCINE 50+ YEARS Completed 1 , 07/14/2010, 08/11/2006 Procedures Procedure Name Priority Date/Time Associated Diagnosis Comments CBC WITH DIFFERENTIAL Routine 01/08/2025 4:23 PM CDT PROTEIN ELECTROPHORESIS, CSF Routine 01/08/2025 1:35 PM CDT METHYLMALONIC ACID Routine 01/08/2025 1: 30 PM CDT COMPREHENSIVE METABOLIC PANEL Routine 01/08/2025 11:42 AM CDT from Last 3 Months Results * CBC WITH DIFFERENTIAL (01/08/2025 4:23 PM CDT) Blood us Rico Kay MD HEMATOLOGY ORDERABLES Final Res ult * PROTEIN ELECTROPHORESIS, CSF (01/08/2025 1:35 PM CDT) Cerebrospinal fluid CEREBROSPINAL FLUID / Unknown us Rico Kay MD BODY FLUIDS AND STOOLS Final Re sult * METHYLMALONIC ACID (01/08/2025 1:30 PM CDT) Blood us Rico Kay MD CHEMISTRY ORDERABLES Final Resu lt * COMPREHENSIVE METABOLIC PANEL (01/08/2025 11:42 AM CDT) Blood us Rico Kay MD CHEMISTRY ORDERABLES Final Resu lt from Last 3 Months Insurance [id number] [id number] [facility] [id number] [facility] [id number] Care Teams Service Desk Associate Relationship Specialty Start Date End Date Nicolas Kumar MD [address] [place] [address] PCP - General Family Practice 01/08/25
--- OUTSIDE RECORDS SUMMARY | 2025-02-17 15:37 | XMS_ITS | Clinical Summary ---
Author Organization [facility] Address [address], [address] [address] Phone Care Team Providers Care Machine Sign Writer Name Role Phone Breanna Mao MD Primary [...] age to complete this topic Care Teams Machine Sign Writer Relationship Specialty Start Date End Date Breanna Mao MD [address] [place] [address] PCP - General Family Medicine 03/12/19
[2025-02-17 16:05] VITALS: BP 154/76; PULSE 62; RESP 18; O2SAT 98
--- NOTE | 2025-02-17 16:21 | P.HP_ITS ---
H&P: HPI History of Present Illness Date/Time: 02/17/25 16:21 Chief Complaint: syncope Narrative: This is an 84-year-old male with a significant past medical history of coronary artery disease status post CABG, anemia, prostate cancer, ZOILA, hypertension, former smoker, hyperlipidemia, GERD, Gout, TAVR who presented to the hospital with report of syncope with collapse and head injury. Patient states that he wa s standing in line at the [employer] store when he collapsed. He does not remember what led up to him collapsing and woke up with people around him. He did hit his head and there was a brief loss of consciousness. On examination he does have a large posterior scalp hematoma. He denies any fever, chills, nausea, vomiting, diarrhea, abdominal pain, chest pain, shortness a breath. Patient states that he had 1 other incident last Monday when he was sitting in his chair at home and briefly lost consciousness. He states that episode had tube in very brief as his coffee was still warm when he came to. He does have history of a TAVR which was placed in April of last year and he sees Dr. Mao at [facility]. He is also followed by Dr. [place] cardiology. He also reported that he was just increased on his Neurontin from 50 mg to 100 mg 2 weeks ago by his neurologist. He denies any history of seizure stroke. Workup in the hospital included a Head CT was negative for any acute intracranial findings. Cervical spine CT showed moderate to severe cervical spondylosis with C4-C5 laminectomies and instrumented C3 through C6 posterior spinal fusion without any acute osseous abnormality. Head/neck CTA did not show any large vessel intracranial occlusion or high-grade intracranial stenosis. There was 25% stenosis in the proximal left internal carotid artery and 47% stenosis of the proximal right internal carotid artery, severe short-segment atherosclerotic stenosis at the origins of the bilateral vertebral arteries were noted, prominent right cerebral vein over the right sylvian fissure may be normal for this patient or represent small DVT a or AVM. Initial labs showed a normal white blood cell count of 6.9, hemoglobin 11.3, sodium 136, blood sugar 111. EKG showed sinus rhythm with marked first-degree AV block, right bundle branch block with a rate of 65, QTC 461. Review of Systems Review of Systems: All systems reviewed & are unremarkable except as noted in HPI and below PMFSH Past Medical History Medical History (Updated 02/17/25 @ 21:44 by Selin Dickinson APRN) Renal cyst Hearing aid worn Hard of hearing CAD (coronary artery disease) Polyarthralgia Sinusitis Wheezing Testosterone deficiency Screening for malignant neoplasm of prostate Screening for malignant neoplasm of colon Low testosterone in male Influenza A Encounter for screening for malignant neoplasm of lung Dyspnea Chronic fatigue Left hip pain Constipation Post-nasal drip Saliva increased Dermatitis Testicular hypofunction Anemia BPH loc w/o ur obs/LUTS ZOILA (obstructive sleep apnea) Benign hypertension Prostate cancer BMI over 35 Chronic rhinitis Neuropathy Ataxia Cervical stenosis of spinal canal Progressive focal motor weakness Degenerative, intervertebral disc, cervical Former smoker Rotator cuff arthropathy Statin intolerance muscle pain Hypercholesteremia Ischemic heart disease Multi-vessel coronary artery stenosis Asbestos exposure Seasonal allergic rhinitis GERD without esophagitis Osteoarthritis Testicular hypofunction Controlled gout Hyperlipidemia Hypertension History of torn meniscus of right knee Carpal tunnel syndrome, bilateral Surgical History Surgical History S/P TAVR (transcatheter aortic valve replacement) S/P cervical spinal fusion Hx of extremity bypass graft History of vasectomy S/P CABG (coronary artery bypass graft) History of heart artery stent Family History Family History Mother Cerebrovascular accident Grandparent Family history of kidney disease Father Malignant neoplasm of prostate Sibling , natural causes Heart disease Social History Social History Social History: single-story home no stairs. Patient had hired caregiver . 3 children. POLST signed 03/30/22 lists DNR Smoking packs per day: 1 Smoking cigarettes per day: 20.0 Years smoked: 50 Smoking pack-years: 50.00 Smoking status: Former smoker Second hand tobacco smoke exposure: Yes Alcohol intake: never Alcohol use details: Rarely Substance use: never Other substance usage details: gummies-used only for sleep. 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 Gender identity (if verbalized by the patient): Male Spiritual care concerns: No (Pent[employer]ostalism) Agree to blood products: Yes Meds Home Medications and Allergies Home Medications ?Medication ?Instructions ?Recorded ?Confirmed ?Type aspirin 81 mg tablet,delayed 81 mg PO DAILY 09/20/21 02/17/25 History release (Adult Aspirin Regimen) fluticasone propionate 93 1 spray intranasal Q12H #16 mL 08/10/23 02/17/25 Rx mcg/actuation breath activated aerosol (Xhance) albuterol sulfate 90 mcg/actuation 2 inh inhalation Q4-6H PRN 02/08/24 02/17/25 Rx aerosol inhaler shortness of breath or wheezing #6.7 grams tamsulosin 0.4 mg capsule 0.4 mg PO DAILY 03/28/24 02/17/25 History indapamide 2.5 mg tablet 2.5 mg PO DAILY #90 tabs 05/22/24 02/17/25 Rx clopidogrel 75 mg tablet 75 mg PO DAILY 05/23/24 02/17/25 History evolocumab 140 mg/mL subcutaneous 140 mg subcut MONTHLY 05/23/24 02/17/25 History pen injector (Lauren Louis) lansoprazole 30 mg capsule,delayed 30 mg PO DAILY #90 caps 11/18/24 02/17/25 Rx release lisinopril 40 mg tablet 40 mg PO DAILY #90 tabs 11/18/24 02/17/25 Rx allopurinol 300 mg tablet 300 mg PO DAILY #90 tabs 02/16/25 02/17/25 Rx metoprolol succinate 50 mg 25 mg PO DAILY 02/17/25 02/17/25 History tablet,extended release 24 hr pregabalin 100 mg capsule 100 mg PO Q12H 02/17/25 02/17/25 History Allergies Allergy/AdvReac Type Severity Reaction Status Date / Time lactose Allergy Unknown stomach Verified 02/17/25 18:08 upset Vital Signs Vital Signs - 24 hr 02/17/25 12:10 02/17/25 14:57 02/17/25 16:05 Temperature 97.6 F Pulse Rate 73 70 62 Respiratory Rate 20 20 18 Blood Pressure 108/90 186/82 H 154/76 H Pulse Oximetry 96 98 98 Oxygen Delivery Room Air Exam Narrative: General: In no acute distress, well nourished Head: Hematoma noted on posterior scalp, no encephalopathy, denies headache Eyes: PERRLA, sclera clear, denies vision changes ENT: moist mucous membranes, nasal passages clear Neck: supple, no JVD, no adenopathy, trachea midline Cardiac: Normal S1 and S2. RRR, No murmur, gallops or friction rubs, peripheral pulses intact. Respiratory: Lungs clear to auscultation, no adventitious lung sounds, currently on room air Gastrointestinal: soft, non-distended, non-tender, normoactive bowel sounds. : voiding without difficulty. Extremities: moves all extremities well, mild ankle edema on the left greater than the right Skin: Hematoma noted to posterior scalp with dressing in place Neuro: Alert and oriented x4, cranial nerves intact, no neuro deficits. Psych: normal mood, normal affect, interactive H&P: Results Labs Labs: Short CBC 02/17/25 Range/Units 12:33 WBC 6.9 (4.5-10.0) K/mm3 Hgb 11.3 L (14.0-18.0) g/dL Hct 34.0 L (42.0-52.0) % Plt Count 204 (150-375) k/mm3 BMP 02/17/25 12:33 Sodium 136 L Potassium 3.5 Chloride 100 Carbon Dioxide 25 BUN 22 H Creatinine 0.94 Glucose 111 H Calcium 8.8 Liver Function 02/17/25 Range/Units 12:33 Total Bilirubin 0.5 (0.2-1.3) mg/dL AST 27 (17-59) U/L ALT 16 (6-50) U/L Alkaline Phosphatase 80 (38-126) U/L Albumin 4.3 (3.5-5.1) g/dL Imaging CT scan - head: Radiologist's impression: CT brain wo con Ordering provider: Murray Palencia MD History: 84 years Male with . trauma . Comparison: None. Technique: CT of the head without contrast. FINDINGS: BRAIN PARENCHYMA AND CSF SPACES: No midline shift, mass effect or hemorrhage. The brain parenchyma and CSF spaces are otherwise normal. VISUALIZED PARANASAL SINUSES: Well aerated. MASTOIDS: Well aerated. BONES: The bones appear intact. SOFT TISSUES: Visualized nasopharynx is normal. Scalp hematoma is seen in the right occipital area. Superficial soft tissues are normal. IMPRESSION: No acute intracranial findings. Reviewed, dictated and finalized at location A. Cervical spine CT: Radiologist's impression: EXAMINATION: CT cervical spine wo con DATE: 02/17/2025 12:44 INDICATION: Trauma with head injury post fall TECHNIQUE: Computed tomography (CT) of the cervical spine was performed without intravenous contrast. Automated exposure control and iterative reconstruction technique were employed. The dose-length product was 486.36 mGy-cm. COMPARISON: Spine CT dated 08/03/2021 FINDINGS: C4 and C5 laminectomies. C3-C6 posterior spinal fusion with bilateral vertical jarrett and lateral mass screws at each level with the exception of on the left at C5. Straightening of the normal cervical lordosis. 1-2 mm anterolisthesis C3 on C4 and C4 on C5 and 2 mm retrolisthesis C6 on C7. Vertebral body heights are normal. No fracture. Moderate to severe disc height loss at C3-C4 and C5-C6, moderate disc height loss at C4-C5 and C6-C7 and mild disc height loss at C7-T1 through T2-3. Disc bulges resulting in mild central canal stenosis at C2-C3 and C6-C7. Posterior disc osteophyte complexes without significant central canal stenosis resulting from the posterior decompression at C3-C4 and C4-C5. There is severe multilevel bilateral cervical uncovertebral osteoarthritis with solid osseous fusion on the right at C5-C6. Severe facet osteoarthritis bilaterally at C2-C3 and mild to moderate facet osteoarthritis at C6-C7 through T3-T4. Moderate neural foraminal stenosis on the left at C3-C4 and mild neural from stenosis at many of the remaining cervical levels. Atherosclerotic calcification is at the bilateral carotid bulbs. Cervical soft tissues are otherwise unremarkable. Visualized apices of lungs are clear. IMPRESSION: 1. Moderate to severe cervical spondylosis with C4-C5 laminectomies and instrumented C3-C6 posterior spinal fusion. No acute osseous abnormality. Reviewed, dictated and finalized at location B. Assessment and Plan Assessment and plan (1) Syncope and collapse: Code(s): R55 - Syncope and collapse Status: Acute Assessment and Plan: Patient was noted to have a syncopal episode while standing in line at a [employer] store. He did have loss of consciousness and hit the back of his head. He does have a large posterior scalp hematoma. Previous history of a TAVR which was done April of 2024. Recent medication change of Neurontin from 50 mg to 100 mg which started 2 weeks ago by his neurologist. * CT of the cervical spine showed moderate to severe cervical spondylosis with C4-C5 laminectomies and instrumented C3 through C6 posterior spinal fusion. * Head CT was negative for any acute intracranial findings * Continue cardiac monitoring * EKG shown normal sinus rhythm with marked first-degree AV block, right bundle branch block the rate of 65, QTC 461 * Sodium 136 * Obtain echocardiogram * Head/neck CTA did not show any significant large vessel intracranial occlusion or high-grade intracranial stenosis, showed prominent right cerebral vein over the right sylvian fissure may be normal for the patient or represent a small DBM or AVM, severe short-segment atherosclerotic stenosis at the origins of the bilateral vertebral arteries, 25% stenosis of the proximal left internal carotid artery and 47% stenosis of the proximal right internal carotid artery * EEG ordered * Monitor Orthostatic blood pressures Q shift * Cardiology consulted * Followed by Dr. Eros Mao at [facility] for his TAVR (2) Head injury: Code(s): S09.90XA - Unspecified injury of head, initial encounter Status: Acute Assessment and Plan: * Posterior scalp hematoma * Continue dressing changes daily * Continue to monitor * Continue neuro checks (3) Severe aortic stenosis: Code(s): I35.0 - Nonrheumatic aortic (valve) stenosis Status: Acute Assessment and Plan: * Status post TAVR April of 2024 * Followed by Dr. Eros Mao at [facility] * Has appointment for follow-up in April of this year * Will check echocardiogram this admission (4) CAD (coronary artery disease): Code(s): I25.10 - Atherosclerotic heart disease of [place] coronary artery without angina pectoris Status: Acute Assessment and Plan: * Status post CABG * Continue Plavix and aspirin (5) GERD without esophagitis: Code(s): K21.9 - Gastro-esophageal reflux disease without esophagitis Status: Acute Assessment and Plan: * Will start Protonix (6) Hyperlipidemia: Code(s): E78.5 - Hyperlipidemia, unspecified Status: Acute Assessment and Plan: * Continue aspirin, Plavix (7) Benign hypertension: Code(s): I10 - Essential (primary) hypertension Status: Acute Assessment and Plan: * Blood pressure ranging 154/76 to 186/82 * Continue lisinopril, metoprolol (8) BPH loc w/o ur obs/LUTS: Code(s): N40.0 - Benign prostatic hyperplasia without lower urinary tract symptoms Status: Acute Assessment and Plan: * Continue tamsulosin (9) Neuropathy of both feet: Code(s): G57.93 - Unspecified mononeuropathy of bilateral lower limbs Status: Acute Assessment and Plan: * Continue Neurontin Quality VTE Prophylaxis VTE prophylaxis: mechanical ordered Hospitalist MIPS Advance Care Plan I have confirmed that the patient's Advanced Care Plan is present, code status is documented, or surrogate decision maker is listed in patient medical record.: Yes Medication Reconciliation I have utilized all available resources to obtain, update and review the patients current medications (includes all prescriptions, OTC, herbals, can nabis, and nutritional supplements).: Yes
[2025-02-17 16:37] VITALS: BMI 38.2
--- NOTE | 2025-02-17 16:41 | ADMGEN ---
This patient, Quan Guallpa, was admitted to 3 [facility] Surg Room 305-01. Patient/family oriented to hospital policies and general routines including ID bracelet, bed and alarms, visiting hours, pain management, procedures, bathroom and other care routines, personal items, smoking policy, room service/diet, and visiting hours. Information on how to activate the Rapid Response Team has been discussed. Patient/Family are encouraged to report perceived risks to care and to ask questions if they do not understand what they are told or what they should do.
[2025-02-17] MEDS: ACETAMINOPHEN 325 MG TABLET 650 MG PO (19:18)
[2025-02-17 20:00] VITALS: PULSE 74
[2025-02-17] MEDS: PREGABALIN (*CRX) 50 MG CAPSULE 100 MG PO (21:23)
[2025-02-17 21:55] VITALS: BP 196/73; PULSE 76; RESP 18; TEMP 35.9; O2SAT 96
--- NOTE | 2025-02-17 22:20 | ECG_ITS ---
Test Date: 2025-02-17 22:37:33 Measurements Intervals [place] Rate: 75 P: 13 OR: 326 QRS: -22 QRSD: 159 T: -13 QT: 431 QTc: 482 Interpretive Statements SINUS RHYTHM WITH FIRST DEGREE AV BLOCK RIGHT BUNDLE BRANCH BLOCK LEFT VENTRICULAR HYPERTROPHY ABNORMAL ECG Compared to ECG 02/17/2025 14:32:07 No significant changes Electronically Signed On 02-18-2025 06:15:47 CDT by Lam Ontiveros D.O.
[2025-02-18] VITALS (10 sets, daily range): BP systolic 125–210; BP diastolic 50–91; PULSE 60–85; RESP 18; TEMP 35.8–36.6; O2SAT 94–99
--- NOTE | 2025-02-18 | ECHO_ITS ---
Patient Info Name: Quan Guallpa Age: 84 years : 1940 Gender: Male Ht: 72 in Wt: 291 lbs BSA: 2.64 m2 HR: 63 bpm BP: 210 / 76 mmHg Heart Rhythm: Sinus Rhythm Technical Quality: Good Exam Date: 02/18/2025 10:27 AM Exam Location: Echo Lab Patient Status: Outpatient Admit Date: 02/17/2025 Staff Ordering Physician: Selin Dickinson APRN Grants Manager: Juli Mendez RDCS Attending Provider: Greg Hernandez MD Referring Physician: Teena DYE; Exam Type: CA echo doppler w bubble study Study Info Indications - Syncope Complete two-dimensional, color flow and Doppler transthoracic echocardiogram is performed with agitated saline. Contrast/Agitated Saline Contrast/Ag. Saline: Agitated Saline Amount: 12.00 ml Existing IV Access: Yes IV Access Condition: patent with no signs of infiltration Summary 1. Left ventricular hypertrophy with vigorous systolic function and grade 2 diastolic noncompliance. 2. Mildly dilated left atrium. 3. Normally functioning TAVR aortic valve prosthesis. 4. Agitated saline contrast negative for visual. 5. Normal sinus rhythm. Left Ventricle Left ventricular chamber dimension is normal. Left ventricular systolic function is hyperdynamic, estimated at >70%. There is moderate concentric increased left ventricular wall thickness. The left ventricular diastolic function is grade II diastolic dysfunction. Right Ventricle Right ventricular chamber dimension is normal. Left Atria Left atrial chamber dimension is mildly enlarged. Right Atria Right atrial chamber dimension is normal. Aortic Valve There is no TAVR aortic valve stenosis. Pulmonic Valve The pulmonic valve is normal. Mitral Valve The mitral valve has normal leaflets. There is mild mitral valve regurgitation. The mitral valve annulus is mildly calcified. Tricuspid Valve The tricuspid valve leaflets are normal. There is trace tricuspid valve regurgitation. Aorta The aortic root size at the sinus of Valsalva is normal. Left Ventricular Outflow Tract Name Value Normal LVOT Doppler LVOT Peak Gradient 3 mmHg LVOT Mean Gradient 2 mmHg LVOT VTI 20 cm LVOT VTI/AV VTI Ratio 0.5 Pulmonic Valve Name Value Normal PV Doppler PV Peak Gradient 4 mmHg Mitral Valve Name Value Normal MV Doppler MV Decel Walker 308 cm/s2 MV PHT 93 ms MV Area (PHT) 2.4 cm2 4.0-5.0 MV Diastolic Function MV E Peak Velocity 99 cm/s MV A Peak Velocity 75 cm/s MV E/A 1.3 MV Decel Time 322 ms MV Annular TDI MV E/e' (Septal) 12.1 <=8.0 MV E/e' (Lateral) 9.7 <=8.0 MV E/e' (Average) 10.9 Tricuspid Valve Name Value Normal TV Regurgitation Doppler TR Peak Velocity 262 cm/s TR Peak Gradient 27 mmHg Estimated PAP/RSVP RA Pressure 10 mmHg <=5 PA Systolic Pressure 37 mmHg <36 RV Systolic Pressure 37 mmHg <36 Aorta Name Value Normal Ascending Aorta Ao Root Diameter (MM) 3.9 cm Ao Root Diam Index (MM) 1.5 cm/m2 Aortic Valve Name Value Normal AV Doppler AV Peak Velocity 198 cm/s AV Peak Gradient 16 mmHg AV Mean Gradient 9 mmHg AV VTI 41 cm Ventricles Name Value Normal LV Dimensions 2D/MM IVS Diastolic Thickness (2D) 1.5 cm 0.6-1.0 LVID Diastole (2D) 4.5 cm 4.2-5.8 LVIW Diastolic Thickness (2D) 1.4 cm 0.6-1.0 LVID Systole (2D) 2.6 cm 2.5-4.0 LV Mass (2D Cubed) 275.21 g 88.00-224.00 LV Mass Index (2D Cubed) 104 g/m2 49-115 Relative Wall Thickness (2D) 0.63 LV Fractional Shortening/Ejection Fraction 2D/MM LV Fractional Shortening (2D) 44 % 25-43 LV EF (2D Teicholz) 75 % 52-72 LV Diastolic Volume (4C MOD) 183 ml LV EF (4C MOD) 68 % LV Diastolic Volume (2C MOD) 151 ml LV EF (2C MOD) 68 % LV Diastolic Volume (BP MOD) 165 ml 62-150 LV Diastolic Volume Index (BP MOD) 63 ml/m2 34-74 LV Systolic Volume (BP MOD) 54 ml 21-61 LV Systolic Volume Index (BP MOD) 21 ml/m2 11-31 LV EF (BP MOD) 67 % 52-72 LV Diastolic Length (4C) 9.1 cm LV Systolic Length (4C) 7.5 cm LV Stroke Volume (4C MOD) 124 ml RV Dimensions 2D/MM RVID Diastole (2D) 5.4 cm 2.5-3.5 Atria Name Value Normal LA Dimensions LA Dimension (MM) 4.3 cm 3.0-4.1 LA Volume (4C A-L) 132 ml LA Volume (BP A-L) 119 ml RA Dimensions RA Area (4C) 22.7 cm2 <=18.0 Report Signatures
[2025-02-18] MEDS: METOPROLOL TARTRATE INJ 5 MG/5 ML VIAL IV PUSH (06:02)
[2025-02-18 06:37] LABS: Basophils Percent Auto 0.6 % (0.2-1.2); Eosinophils Absolute Auto 0.1 K/mm3 (0-0.3); Eosinophils Percent Auto 1.5 % (0-4.4); Hematocrit 32.3 % (42.0-52.0); Hemoglobin 10.7 g/dL (14.0-18.0); Immature Granulocyte Absolute 0.03 K/mm3 (0.00-0.031); Immature Granulocyte Percent A 0.4 % (0-0.5); Lymphocytes Absolute Auto 0.87 K/mm3 (0.9-3.2); Mean Corpuscular HGB Conc 33.1 g/dl (32-36); Mean Corpuscular Hemoglobin 30.7 pg (26-34); Mean Corpuscular Volume 92.8 fl (80-100); Monocytes Absolute Auto 0.7 K/mm3 (0.1-0.6); Monocytes Percent Auto 10.1 % (2.6-8.5); Neutrophils Percent Auto 74.4 % (45.5-73.1); Platelet Count Result 204 k/mm3 (150-375); Red Blood Count 3.48 M/mm3 (4.6-6.20); Red Cell Distribution Width 13.1 % (11.5-14.5); White Blood Count 6.7 K/mm3 (4.5-10.0)
[2025-02-18 06:41] LABS: Alanine Aminotransferase 15 U/L (6-50); Albumin Level 4.2 g/dL (3.5-5.1); Alkaline Phosphatase 68 U/L (38-126); Anion Gap 10 mmol/L (4-12); Aspartate Amino Transferase 27 U/L (17-59); Bilirubin,Total 0.6 mg/dL (0.2-1.3); Blood Urea Nitrogen 19 mg/dL (9-20); Calcium 8.9 mg/dL (8.4-10.2); Carbon Dioxide 28 mmol/L (22-30); Chloride 97 mmol/L (98-107); Estimated CRCL calculation 78 ml/min; Estimated Glomerular Filt Rate > 60; Glucose 105 mg/dL (65-110); Potassium 3.3 mmol/L (3.4-5.0); Sodium 135 mmol/L (137-145)
--- NOTE | 2025-02-18 07:52 | PCNEURO ---
EEG was attempted this AM but due to the hematoma and bandages over the back of his head was unable to be done at this time.
[2025-02-18] MEDS: PREGABALIN (*CRX) 50 MG CAPSULE 100 MG PO ×2 (08:58→21:07)
[2025-02-18] MEDS: INDAPAMIDE 2.5 MG TABLET PO (08:58)
[2025-02-18] MEDS: allopurinoL 300 MG TABLET PO (08:58)
[2025-02-18] MEDS: PANTOPRAZOLE 40 MG TABLET PO (08:58)
[2025-02-18] MEDS: lisinopriL 20 MG TABLET 40 MG PO (08:58)
[2025-02-18] MEDS: TAMSULOSIN HCL 0.4 MG CAPSULE PO (08:58)
[2025-02-18] MEDS: METOPROLOL SUCCINATE EXT REL 25 MG TABCR PO (08:59)
[2025-02-18] MEDS: CLOPIDOGREL BISULFATE 75 MG TABLET PO (08:59)
--- NOTE | 2025-02-18 10:23 | P.PNIM_ITS ---
Progress Note: A&P Assessment and Plan (1) Syncope and collapse: Code(s): R55 - Syncope and collapse Status: Acute Assessment and Plan: Patient was noted to have a syncopal episode while standing in line at a [employer] store. He did have loss of consciousness and hit the back of his head. He does have a large posterior scalp hematoma. Previous history of a TAVR which was done April of 2024. Recent medication change of Neurontin from 50 mg to 100 mg which started 2 weeks ago by his neurologist. CT of the cervical spine showed moderate to severe cervical spondylosis with C4-C5 laminectomies and instrumented C3 through C6 posterior spinal fusion, Head CT was negative for any acute intracranial findings, Head/neck CTA did not show any significant large vessel intracranial occlusion or high-grade intracranial stenosis, showed prominent right cerebral vein over the right sylvian fissure may be normal for the patient or represent a small DBM or AVM, severe short-segment atherosclerotic stenosis at the origins of the bilateral vertebral arteries, 25% stenosis of the proximal left internal carotid artery and 47% stenosis of the proximal right internal carotid artery. Followed by Dr. Eros Mao at [facility] for his TAVR * Continue cardiac monitoring * Obtain echocardiogram * EEG ordered unable to perform due to patient's he scalp hematoma need to be scheduled outpatient * Monitor Orthostatic blood pressures Q shift have been negative * Cardiology consulted appreciate any further recommendations * Will need outpatient event monitor (2) Head injury: Code(s): S09.90XA - Unspecified injury of head, initial encounter Status: Acute Assessment and Plan: Posterior scalp hematoma post syncopal episode * Continue dressing changes daily * Hold Plavix and ASA for now * Continue neuro checks (3) Severe aortic stenosis: Code(s): I35.0 - Nonrheumatic aortic (valve) stenosis Status: Acute Assessment and Plan: Status post TAVR April of 2024, Followed by Dr. 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 (4) CAD (coronary artery disease): Code(s): I25.10 - Atherosclerotic heart disease of [place] coronary artery without angina pectoris Status: Acute Assessment and Plan: * Status post CABG * Holding Plavix and aspirin due to head injury with hematoma (5) GERD without esophagitis: Code(s): K21.9 - Gastro-esophageal reflux disease without esophagitis Status: Acute Assessment and Plan: * Will start Protonix (6) Benign hypertension: Code(s): I10 - Essential (primary) hypertension Status: Acute Assessment and Plan: Blood pressure ranging 154/76 to 186/82 * Continue lisinopril, metoprolol * BP per unit protocol need to increase his BP medication (7) BPH loc w/o ur obs/LUTS: Code(s): N40.0 - Benign prostatic hyperplasia without lower urinary tract symptoms Status: Acute Assessment and Plan: * Continue tamsulosin (8) Neuropathy of both feet: Code(s): G57.93 - Unspecified mononeuropathy of bilateral lower limbs Status: Acute Assessment and Plan: patient recently increase his Neurontin from 50 mg to 100 mg * Continue Neurontin Plan Code status: Full code per patient DVT prophylaxis: SCD Stress ulcer prophylaxis: Protonix 40 daily PT/OT notes: PT/OT pending Disposition: patient was admitted to the medical unit for further evaluation and treatment syncopal episode with head injury hematoma noted patient will consult to Cardiology for further any recommendations and echocardiogram pending. PT/OT has been ordered for evaluation Time Spent With Patient Time with patient: 15 - 25 minutes Subjective Date/time seen: 02/18/25 10:23 Interval history: Patient is an 84-year-old male with a significant past medical history of coronary artery disease status post CABG, anemia, prostate cancer, ZOILA, hypertension, former smoker, hyperlipidemia, GERD, Gout, TAVR who presented to the hospital with report of syncope with collapse and head injury. He was admitted for further evaluation. 02/18/2025: Patient comfortable at time of assessment, denied, CP,SOB, dizziness, visual changes, palpitations or further syncopal episodes since admission. Daughter at bedside and updated. Review of Systems Review of Systems: All systems reviewed & are unremarkable except as noted in HPI and below Exam Narrative: General: In no acute distress, well nourished Head: Hematoma noted on posterior scalp Neck: supple, no JVD Cardiac: RRR Respiratory: Lungs clear to auscultation Gastrointestinal: soft, non-distended, non-tender, normoactive bowel sounds. Extremities: moves all extremities well, he right Skin: Hematoma noted to posterior scalp with dressing in place, mild ankle edema on the left greater than the right Neuro: Alert and oriented x4, cranial nerves intact, no neuro deficits. Objective Data Vital Signs Vital Signs: Vital Signs - 24 hr 02/17/25 12:10 02/17/25 14:57 02/17/25 16:05 Temperature 97.6 F Pulse Rate 73 70 62 Respiratory Rate 20 20 18 Blood Pressure 108/90 186/82 H 154/76 H Pulse Oximetry 96 98 98 Oxygen Delivery Room Air 02/17/25 18:44 02/17/25 20:00 02/17/25 20:00 Temperature Pulse Rate 74 Respiratory Rate Blood Pressure Pulse Oximetry Oxygen Delivery Room Air Room Air 02/17/25 21:55 02/18/25 00:00 02/18/25 04:00 Temperature 96.6 F L Pulse Rate 76 85 73 Respiratory Rate 18 Blood Pressure 196/73 H Pulse Oximetry 96 Oxygen Delivery 02/18/25 04:45 02/18/25 08:00 02/18/25 08:59 Temperature 96.4 F L 97.0 F L Pulse Rate 78 66 78 Respiratory Rate 18 18 Blood Pressure 210/76 H 150/76 H Pulse Oximetry 95 95 Oxygen Delivery Intake/Output Intake/Output: Intake & Output 02/15/25 02/16/25 02/17/25 02/18/25 23:59 23:59 23:59 23:59 Intake Total 880 508 Balance 880 508 Meds/Results Medications: Active Medications Generic Name Dose Route Start Last Admin Trade Name Freq PRN Reason Stop Dose Admin Acetaminophen 650 mg 02/17/25 16:41 02/17/25 19:18 Acetaminophen 325 Mg Tablet PO 650 mg Q4H PRN Administration Mild Pain (1-3) or Fever Hydrocodone Bitart/Acetaminophen 1 tab 02/17/25 16:41 Hydrocodone/Acetaminophen (*Crx) 5-325 Mg Tablet PO Q4H PRN Moderate Pain (4-6) Albuterol 2 puff 02/17/25 20:15 Albuterol Sulfate (*Sp) Aerosol 1 Puff INHALATION Q4-6H PRN shortness of breath or wheezing Allopurinol 300 mg 02/18/25 09:00 02/18/25 08:58 Allopurinol 300 Mg Tablet PO 300 mg DAILY DARÍO Administration Clopidogrel Bisulfate 75 mg 02/18/25 09:00 02/18/25 08:59 Clopidogrel Bisulfate 75 Mg Tablet PO 75 mg DAILY DARÍO Administration Magnesium Sulfate 2 gm in 50 mls @ 25 mls/hr 02/18/25 10:22 Magnesium Sulf 2 Gm/Water 50ml IVPB 02/18/25 12:21 ONCE ONE Indapamide 2.5 mg 02/18/25 09:00 02/18/25 08:58 Indapamide 2.5 Mg Tablet PO 2.5 mg DAILY DARÍO Administration Lisinopril 40 mg 02/18/25 09:00 02/18/25 08:58 Lisinopril 20 Mg Tablet PO 40 mg DAILY DARÍO Administration Metoprolol Succinate 25 mg 02/18/25 09:00 02/18/25 08:59 Metoprolol Succinate Ext Rel 25 Mg Tabcr PO 25 mg DAILY DARÍO Administration Ondansetron HCl 4 mg 02/17/25 16:41 Ondansetron Inj 4 Mg/2 Ml Vial IV PUSH Q6H PRN Nausea And Vomiting Pantoprazole Sodium 40 mg 02/18/25 09:00 02/18/25 08:58 Pantoprazole 40 Mg Tablet PO 40 mg QAM DARÍO Administration Perflutren Lipid Microsphere 0 ml 02/17/25 16:41 Perflutren Lipid Microspheres 1.5 Ml Vial Diluted To 10 Ml Total Volume IV PUSH 02/20/25 16:44 ONCE PRN adequate visualization Protocol Potassium Chloride 40 meq 02/18/25 10:22 Potassium Chloride 20 Meq Er Tablet PO 02/18/25 10:23 ONCE ONE Pregabalin 100 mg 02/17/25 21:00 02/18/25 08:58 Pregabalin (*Crx) 50 Mg Capsule PO 100 mg Q12H DARÍO Administration Tamsulosin HCl 0.4 mg 02/18/25 09:00 02/18/25 08:58 Tamsulosin Hcl 0.4 Mg Capsule PO 0.4 mg DAILY DARÍO Administration Radiology Results: ITS Impressions Head CT 02/17/25 12:51 IMPRESSION: No acute intracranial findings. Cervical Spine CT 02/17/25 13:00 IMPRESSION: 1. Moderate to severe cervical spondylosis with C4-C5 laminectomies and instrumented C3-C6 posterior spinal fusion. No acute osseous abnormality. Head/Neck CTA 02/17/25 17:39 IMPRESSION: No large vessel intracranial occlusion, high-grade intracranial stenosis, or aneurysm. 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 MRI of the brain with MRA could be considered for further characterization. No carotid artery occlusion, dissection, or significant stenosis. Severe short segment atherosclerotic stenoses at the origins of the bilateral vertebral arteries. Labs Labs: Laboratory Results - last 24 hr 02/17/25 02/18/25 12:33 05:48 WBC 6.9 6.7 RBC 3.66 L 3.48 L Hgb 11.3 L 10.7 L Hct 34.0 L 32.3 L MCV 92.9 92.8 MCH 30.9 30.7 MCHC 33.2 33.1 RDW 13.2 13.1 Plt Count 204 204 MPV 10.9 H 11.0 H Immature Gran % (Auto) 0.4 0.4 Neut % (Auto) 71.0 74.4 H Lymph % (Auto) 17.4 L 13.0 L [place] % (Auto) 8.4 10.1 H Eos % (Auto) 2.2 1.5 Baso % (Auto) 0.6 0.6 Lymph # (Auto) 1.20 0.87 L [place] # (Auto) 0.6 0.7 H Eos # (Auto) 0.2 0.1 Baso # (Auto) 0.0 0.0 Abs Immat Gran (auto) 0.03 0.03 Absolute Neuts (auto) 4.9 5.0 Absolute Nucleated RBC 0.000 0.000 Nucleated RBC % 0.0 0.0 PT 12.6 INR 0.9 APTT 28.8 Sodium 136 L 135 L Potassium 3.5 3.3 L Chloride 100 97 L Carbon Dioxide 25 28 Anion Gap 11 10 BUN 22 H 19 Creatinine 0.94 0.84 Estim Creat Clear Calc 71 78 Estimated GFR > 60 > 60 Glucose 111 H 105 Calcium 8.8 8.9 Magnesium 1.7 Total Bilirubin 0.5 0.6 AST 27 27 ALT 16 15 Alkaline Phosphatase 80 68 Total Protein 7.0 7.0 Albumin 4.3 4.2 TSH (Reflex) 2.980 Quality VTE Prophylaxis VTE prophylaxis: mechanical ordered -Patient's previous records reviewed on admission -ER notes reviewed in detail on admission -discussed all findings and current treatment plan with patient/Family/POA -Consultations reviewed for recommendations -Patient's disposition for safe discharge discussed with case liner Dictation performed by [employer] direct speech recognition software, therefore hold worker variants and typographical errors may occur. Hospitalist MIPS Advance Care Plan I have confirmed that the patient's Advanced Care Plan is present, code status is documented, or surrogate decision maker is listed in patient medical record.: Yes Medication Reconciliation I have utilized all available resources to obtain, update and review the patients current medications (includes all prescriptions, OTC, herbals, cannabis, and nutritional supplements).: Yes The patient is not eligible for med reconciliation; the patient is in a emergent medical situation where delaying treatment would jeopardize the patients health.: No
[2025-02-18] MEDS: POTASSIUM CHLORIDE 20 MEQ ER TABLET 40 MEQ PO (11:07)
[2025-02-18] MEDS: MAGNESIUM SULF 2 GM/WATER 50ML 2 GM/50 ML BAG IVPB (11:11)
--- NOTE | 2025-02-18 14:58 | PM.CNCAR ---
Assessment and Plan Assessment and plan (1) Severe aortic stenosis: Code(s): I35.0 - Nonrheumatic aortic (valve) stenosis Status: Acute (2) Ischemic heart disease: Code(s): I25.9 - Chronic ischemic heart disease, unspecified Status: Acute (3) Benign hypertension: Code(s): I10 - Essential (primary) hypertension Status: Acute (4) Hyperlipidemia: Code(s): E78.5 - Hyperlipidemia, unspecified Status: Acute (5) Syncope: Code(s): R55 - Syncope and collapse Status: Acute Plan 1. Syncope, 2 episodes 2. CAD; post CABG 3. Severe status post TAVR 4. Hypertension 5. Hyperlipidemia -this gentleman known to have CAD, aortic stenosis post TAVR has presented with 2 episodes of syncope past week. The temporal association of increased dose of Neurontin may have played a role. However cannot rule out neurocardiogenic/arrhythmogenic syncope -Avoid any AV rosa agents -consider discontinuation of gabapentin -will keep on telemetry to monitor for any tachyarrhythmia, bradycardia, pauses. He also had a TAVR several months ago which can lead to conduction issues. He may need an event monitor on discharge a telemetry does not reveal any any tachy or bradyarrhythmia during the hospital stay -get an echo to assess LV function, transvalvular velocities across the aortic valve -may need or even monitor on discharge -consider Neurology consultation History of Present Illness History of Present Illness Consult date/time: 02/18/25 14:58 Reason For Visit: Syncope, head injury Narrative: This is an 84-year-old male with a significant past medical history of coronary artery disease status post CABG in 2009, severe aortic stenosis status post TAVR in 2023, hypertension, hyperlipidemia sleep apnea, anemia was admitted with 2 episodes of syncope in the last 1 week. 1st episode occurred when he was at home and he found himself on the ground, did not sustain any injury. 2nd episode occurred when he was shopping and was in the line in for long the ground. He denies any or any tonic-clonic movements any loss of bowel bladder. He denies any palpitations prior to or after the episode. Denies any chest pain, dizziness, presyncope Dose of gabapentin was increased recently by his neurologist EKG shows normal sinus rhythm with first-degree AV block and right bundle-branch block LHC (02/2024): 1. mild aortic stenosis 2. vigorous left ventricular systolic function with modestly elevated LVEDP 3. multivessel coronary artery disease with high-grade distal left main stenosis, 90% stenosis in the circumflex prior to OM1 which is un bypassed. 4. Total occlusion of the LAD after 1st diagonal and circumflex after OM1 5. hazy but apparently non flow-limiting disease in the proximal RCA 6. moderate stenosis in the saphenous vein graft to the RPDA 7. patent saphenous vein graft to the OM 2 filling the remainder of the circumflex 8. patent VINICIUS graft to the 2nd diagonal and LAD sequentially No echo available in the system post TAVR Review of Systems Review of Systems: All systems reviewed & are unremarkable except as noted in HPI and below [facility] Past Medical History Medical History (Updated 02/18/25 @ 18:56 by Uzma Foster MD) Renal cyst Hearing aid worn Hard of hearing CAD (coronary artery disease) Polyarthralgia Sinusitis Wheezing Testosterone deficiency Screening for malignant neoplasm of prostate Screening for malignant neoplasm of colon Low testosterone in male Influenza A Encounter for screening for malignant neoplasm of lung Dyspnea Chronic fatigue Left hip pain Constipation Post-nasal drip Saliva increased Dermatitis Testicular hypofunction Anemia BPH loc w/o ur obs/LUTS ZOILA (obstructive sleep apnea) Benign hypertension Prostate cancer BMI over 35 Chronic rhinitis Neuropathy Ataxia Cervical stenosis of spinal canal Progressive focal motor weakness Degenerative, intervertebral disc, cervical Former smoker Rotator cuff arthropathy Statin intolerance muscle pain Hypercholesteremia Ischemic heart disease Multi-vessel coronary artery stenosis Asbestos exposure Seasonal allergic rhinitis GERD without esophagitis Osteoarthritis Testicular hypofunction Controlled gout Hyperlipidemia Hypertension History of torn meniscus of right knee Carpal tunnel syndrome, bilateral Surgical History Surgical History S/P TAVR (transcatheter aortic valve replacement) S/P cervical spinal fusion Hx of extremity bypass graft History of vasectomy S/P CABG (coronary artery bypass graft) History of heart artery stent Family History Family History Mother Cerebrovascular accident Grandparent Family history of kidney disease Father Malignant neoplasm of prostate Sibling , natural causes Heart disease Social History Social History Social History: single-story home no stairs. Patient had hired caregiver . 3 children. POLST signed 03/30/22 lists DNR Smoking packs per day: 1 Smoking cigarettes per day: 20.0 Years smoked: 50 Smoking pack-years: 50.00 Smoking status: Former smoker Second hand tobacco smoke exposure: Yes Alcohol intake: never Alcohol use details: Rarely Substance use: never Other substance usage details: gummies-used only for sleep. 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 Gender identity (if verbalized by the patient): Male Spiritual care concerns: No (Adventism) Agree to blood products: Yes Meds Home Medications and Allergies Home Medications ?Medication ?Instructions ?Recorded ?Confirmed ?Type aspirin 81 mg tablet,delayed 81 mg PO DAILY 09/20/21 02/17/25 History release (Adult Aspirin Regimen) fluticasone propionate 93 1 spray intranasal Q12H #16 mL 08/10/23 02/17/25 Rx mcg/actuation breath activated aerosol (Xhance) albuterol sulfate 90 mcg/actuation 2 inh inhalation Q4-6H PRN 02/08/24 02/17/25 Rx aerosol inhaler shortness of breath or wheezing #6.7 grams tamsulosin 0.4 mg capsule 0.4 mg PO DAILY 03/28/24 02/17/25 History indapamide 2.5 mg tablet 2.5 mg PO DAILY #90 tabs 05/22/24 02/17/25 Rx clopidogrel 75 mg tablet 75 mg PO DAILY 05/23/24 02/17/25 History evolocumab 140 mg/mL subcutaneous 140 mg subcut MONTHLY 05/23/24 02/17/25 History pen injector (Lauren Louis) lansoprazole 30 mg capsule,delayed 30 mg PO DAILY #90 caps 11/18/24 02/17/25 Rx release lisinopril 40 mg tablet 40 mg PO DAILY #90 tabs 11/18/24 02/17/25 Rx allopurinol 300 mg tablet 300 mg PO DAILY #90 tabs 02/16/25 02/17/25 Rx metoprolol succinate 50 mg 25 mg PO DAILY 02/17/25 02/17/25 History tablet,extended release 24 hr pregabalin 100 mg capsule 100 mg PO Q12H 02/17/25 02/17/25 History Allergies Allergy/AdvReac Type Severity Reaction Status Date / Time lactose Allergy Unknown stomach Verified 02/17/25 18:08 upset Vital Signs Vital Signs - 24 hr 02/17/25 16:05 02/17/25 18:44 02/17/25 20:00 Temperature Pulse Rate 62 Respiratory Rate 18 Blood Pressure 154/76 H Pulse Oximetry 98 Oxygen Delivery Room Air Room Air 02/17/25 20:00 02/17/25 21:55 02/18/25 00:00 Temperature 35.9 C L Pulse Rate 74 76 85 Respiratory Rate 18 Blood Pressure 196/73 H Pulse Oximetry 96 Oxygen Delivery 02/18/25 04:00 02/18/25 04:45 02/18/25 08:00 Temperature 35.8 C L 36.1 C L Pulse Rate 73 78 66 Respiratory Rate 18 18 Blood Pressure 210/76 H 150/76 H Pulse Oximetry 95 95 Oxygen Delivery 02/18/25 08:00 02/18/25 08:59 02/18/25 11:26 Temperature Pulse Rate 78 Respiratory Rate Blood Pressure Pulse Oximetry Oxygen Delivery Room Air Room Air 02/18/25 11:45 Temperature Pulse Rate Respiratory Rate Blood Pressure Pulse Oximetry Oxygen Delivery Room Air Exam Narrative: General: In no acute distress, well nourished Head: Hematoma noted on posterior scalp Neck: supple, no JVD Cardiac: RRR Respiratory: Lungs clear to auscultation Gastrointestinal: soft, non-distended, non-tender, normoactive bowel sounds. Extremities: moves all extremities well, he right Skin: Hematoma noted to posterior scalp with dressing in place, mild ankle edema on the left greater than the right Neuro: Alert and oriented x4, cranial nerves intact, no neuro deficits. Results Labs and Meds 02/18/25 05:48 02/18/25 05:48 Lab results: Cardiac Enzymes 02/18/25 Range/Units 05:48 AST 27 (17-59) U/L CBC 02/18/25 Range/Units 05:48 WBC 6.7 (4.5-10.0) K/mm3 RBC 3.48 L (4.6-6.20) M/mm3 Hgb 10.7 L (14.0-18.0) g/dL Hct 32.3 L (42.0-52.0) % Plt Count 204 (150-375) k/mm3 Lymph # (Auto) 0.87 L (0.9-3.2) K/mm3 [place] # (Auto) 0.7 H (0.1-0.6) K/mm3 Eos # (Auto) 0.1 (0-0.3) K/mm3 Baso # (Auto) 0.0 (0.0-0.1) K/mm3 Comprehensive Metabolic Panel 02/18/25 Range/Units 05:48 Sodium 135 L (137-145) mmol/L Potassium 3.3 L (3.4-5.0) mmol/L Chloride 97 L (98-107) mmol/L Carbon Dioxide 28 (22-30) mmol/L BUN 19 (9-20) mg/dL Creatinine 0.84 (0.7-1.3) mg/dL Glucose 105 (65-110) mg/dL Calcium 8.9 (8.4-10.2) mg/dL AST 27 (17-59) U/L ALT 15 (6-50) U/L Alkaline Phosphatase 68 (38-126) U/L Total Protein 7.0 (6.3-8.2) g/dL Albumin 4.2 (3.5-5.1) g/dL Intake and Output 02/17/25 02/18/25 02/18/25 23:59 07:59 15:59 Intake Total 880 150 598 Balance 880 150 598 Intake: Oral 880 150 598 Other: # Unmeasured Voids 2 6 Number of Bowel Movements Today 1
[2025-02-19] VITALS (13 sets, daily range): BP systolic 114–184; BP diastolic 59–79; PULSE 60–80; RESP 18; TEMP 36.2–36.7; O2SAT 94–96
[2025-02-19] MEDS: lisinopriL 20 MG TABLET 40 MG PO (06:14)
[2025-02-19] MEDS: METOPROLOL SUCCINATE EXT REL 25 MG TABCR PO (06:14)
[2025-02-19 07:56] LABS: Basophils Absolute Auto 0.1 K/mm3 (0.0-0.1); Basophils Percent Auto 0.7 % (0.2-1.2); Eosinophils Absolute Auto 0.2 K/mm3 (0-0.3); Eosinophils Percent Auto 2.6 % (0-4.4); Hematocrit 33.4 % (42.0-52.0); Hemoglobin 10.6 g/dL (14.0-18.0); Immature Granulocyte Absolute 0.02 K/mm3 (0.00-0.031); Immature Granulocyte Percent A 0.3 % (0-0.5); Lymphocytes Absolute Auto 0.91 K/mm3 (0.9-3.2); Mean Corpuscular HGB Conc 31.7 g/dl (32-36); Mean Corpuscular Hemoglobin 30.4 pg (26-34); Mean Corpuscular Volume 95.7 fl (80-100); Mean Platelet Volume 11.1 fl (7.4-10.4); Monocytes Absolute Auto 0.8 K/mm3 (0.1-0.6); Monocytes Percent Auto 11.7 % (2.6-8.5); Neutrophils Percent Auto 71.7 % (45.5-73.1); Platelet Count Result 186 k/mm3 (150-375); Red Blood Count 3.49 M/mm3 (4.6-6.20); Red Cell Distribution Width 13.3 % (11.5-14.5)
[2025-02-19 08:13] LABS: Alanine Aminotransferase 14 U/L (6-50); Alkaline Phosphatase 70 U/L (38-126); Anion Gap 7 mmol/L (4-12); Aspartate Amino Transferase 25 U/L (17-59); Bilirubin,Total 0.6 mg/dL (0.2-1.3); Blood Urea Nitrogen 24 mg/dL (9-20); Calcium 8.7 mg/dL (8.4-10.2); Carbon Dioxide 30 mmol/L (22-30); Chloride 96 mmol/L (98-107); Estimated CRCL calculation 60 ml/min; Estimated Glomerular Filt Rate > 60; Glucose 105 mg/dL (65-110); Potassium 3.8 mmol/L (3.4-5.0); Sodium 133 mmol/L (137-145)
--- NOTE | 2025-02-19 08:43 | P.PNCA_ITS ---
Progress Note: A&P Assessment and Plan (1) Severe aortic stenosis: Code(s): I35.0 - Nonrheumatic aortic (valve) stenosis Status: Acute (2) Ischemic heart disease: Code(s): I25.9 - Chronic ischemic heart disease, unspecified Status: Acute (3) Benign hypertension: Code(s): I10 - Essential (primary) hypertension Status: Acute (4) Hyperlipidemia: Code(s): E78.5 - Hyperlipidemia, unspecified Status: Acute (5) Syncope: Code(s): R55 - Syncope and collapse Status: Acute Plan 1. Syncope, 2 episodes 2. CAD; post CABG 3. Severe status post TAVR 4. Hypertension 5. Hyperlipidemia 6. Sinus Pause -this gentleman known to have CAD, aortic stenosis post TAVR has presented with 2 episodes of syncope past week. He had a 3 second sinus pause in the hospital. With the history or recurrent syncope, recent TAVR and sinus pause, I think he will benefit from a PPM -Avoid any AV rosa agents; DC Beta rajiv - consider discontinuation of gabapentin - Will need a PPM. Discussed with the patient, he agreed withe plan - Discussed with Dr Dallas, he is busy and recommended transfer D/w Hospitalist, needs to be transferred for a PPM Subjective Date/time seen: 02/19/25 08:43 Interval history: Had a 3 second pause yesterday afternoon Doing well, no chest paiin or dyspnea Review of Systems Review of Systems: All systems reviewed & are unremarkable except as noted in HPI and below Exam Narrative: General: In no acute distress, well nourished Head: Hematoma noted on posterior scalp Neck: supple, no JVD Cardiac: RRR Respiratory: Lungs clear to auscultation Gastrointestinal: soft, non-distended, non-tender, normoactive bowel sounds. Extremities: moves all extremities well, he right Skin: Hematoma noted to posterior scalp with dressing in place, mild ankle edema on the left greater than the right Neuro: Alert and oriented x4, cranial nerves intact, no neuro deficits. Objective Data Vital Signs Vital Signs: Vital Signs - 24 hr 02/18/25 08:59 02/18/25 11:26 02/18/25 11:45 Temperature Pulse Rate 78 Respiratory Rate Blood Pressure Pulse Oximetry Oxygen Delivery Room Air Room Air 02/18/25 12:00 02/18/25 15:03 02/18/25 15:03 Temperature 36.6 C 36.6 C Pulse Rate 70 70 68 Respiratory Rate 18 18 Blood Pressure 129/61 129/55 L Pulse Oximetry 94 97 Oxygen Delivery 02/18/25 16:00 02/18/25 20:00 02/18/25 20:00 Temperature Pulse Rate 60 60 69 Respiratory Rate 18 Blood Pressure Pulse Oximetry 97 Oxygen Delivery Room Air 02/18/25 21:10 02/19/25 00:00 02/19/25 04:00 Temperature 36.3 C L Pulse Rate 61 60 72 Respiratory Rate 18 Blood Pressure 156/91 H Pulse Oximetry 99 Oxygen Delivery 02/19/25 05:50 Temperature 36.3 C L Pulse Rate 61 Respiratory Rate 18 Blood Pressure 184/68 H Pulse Oximetry 96 Oxygen Delivery Intake/Output Intake/Output: Intake & Output 02/16/25 02/17/25 02/18/25 02/19/25 23:59 23:59 23:59 23:59 Intake Total 880 1858 200 Balance 880 1858 200 Meds/Results Medications: Active Medications Generic Name Dose Route Start Last Admin Trade Name Freq PRN Reason Stop Dose Admin Acetaminophen 650 mg 02/17/25 16:41 02/17/25 19:18 Acetaminophen 325 Mg Tablet PO 650 mg Q4H PRN Administration Mild Pain (1-3) or Fever Hydrocodone Bitart/Acetaminophen 1 tab 02/17/25 16:41 Hydrocodone/Acetaminophen (*Crx) 5-325 Mg Tablet PO Q4H PRN Moderate Pain (4-6) Albuterol 2 puff 02/17/25 20:15 Albuterol Sulfate (*Sp) Aerosol 1 Puff INHALATION Q4-6H PRN shortness of breath or wheezing Allopurinol 300 mg 02/18/25 09:00 02/18/25 08:58 Allopurinol 300 Mg Tablet PO 300 mg DAILY DARÍO Administration Amlodipine Besylate 5 mg 02/19/25 09:00 Amlodipine Besylate 5 Mg Tablet PO DAILY DARÍO Clopidogrel Bisulfate 75 mg 02/18/25 09:00 02/18/25 08:59 Clopidogrel Bisulfate 75 Mg Tablet PO 75 mg DAILY DARÍO Administration Indapamide 2.5 mg 02/18/25 09:00 02/18/25 08:58 Indapamide 2.5 Mg Tablet PO 2.5 mg DAILY DARÍO Administration Lisinopril 40 mg 02/18/25 09:00 02/19/25 06:14 Lisinopril 20 Mg Tablet PO 40 mg DAILY DARÍO Administration Ondansetron HCl 4 mg 02/17/25 16:41 Ondansetron Inj 4 Mg/2 Ml Vial IV PUSH Q6H PRN Nausea And Vomiting Pantoprazole Sodium 40 mg 02/18/25 09:00 02/18/25 08:58 Pantoprazole 40 Mg Tablet PO 40 mg QAM DARÍO Administration Perflutren Lipid Microsphere 0 ml 02/17/25 16:41 Perflutren Lipid Microspheres 1.5 Ml Vial Diluted To 10 Ml Total Volume IV PUSH 02/20/25 16:44 ONCE PRN adequate visualization Protocol Pregabalin 100 mg 02/17/25 21:00 02/18/25 21:07 Pregabalin (*Crx) 50 Mg Capsule PO 100 mg Q12H DARÍO Administration Tamsulosin HCl 0.4 mg 02/18/25 09:00 02/18/25 08:58 Tamsulosin Hcl 0.4 Mg Capsule PO 0.4 mg DAILY DARÍO Administration Radiology Results: ITS Impressions Head CT 02/17/25 12:51 IMPRESSION: No acute intracranial findings. Cervical Spine CT 02/17/25 13:00 IMPRESSION: 1. Moderate to severe cervical spondylosis with C4-C5 laminectomies and instrumented C3-C6 posterior spinal fusion. No acute osseous abnormality. Head/Neck CTA 02/17/25 17:39 IMPRESSION: No large vessel intracranial occlusion, high-grade intracranial stenosis, or aneurysm. 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 MRI of the brain with MRA could be considered for further characterization. No carotid artery occlusion, dissection, or significant stenosis. Severe short segment atherosclerotic stenoses at the origins of the bilateral vertebral arteries. Labs Labs: Laboratory Results - last 24 hr 02/19/25 06:31 WBC 7.0 RBC 3.49 L Hgb 10.6 L Hct 33.4 L MCV 95.7 MCH 30.4 MCHC 31.7 L RDW 13.3 Plt Count 186 MPV 11.1 H Immature Gran % (Auto) 0.3 Neut % (Auto) 71.7 Lymph % (Auto) 13.0 L [place] % (Auto) 11.7 H Eos % (Auto) 2.6 Baso % (Auto) 0.7 Lymph # (Auto) 0.91 [place] # (Auto) 0.8 H Eos # (Auto) 0.2 Baso # (Auto) 0.1 Abs Immat Gran (auto) 0.02 Absolute Neuts (auto) 5.0 Absolute Nucleated RBC 0.000 Nucleated RBC % 0.0 Sodium 133 L Potassium 3.8 Chloride 96 L Carbon Dioxide 30 Anion Gap 7 BUN 24 H Creatinine 1.10 Estim Creat Clear Calc 60 Estimated GFR > 60 Glucose 105 Calcium 8.7 Total Bilirubin 0.6 AST 25 ALT 14 Alkaline Phosphatase 70 Total Protein 7.0 Albumin 4.0
[2025-02-19] MEDS: PREGABALIN (*CRX) 50 MG CAPSULE 100 MG PO (08:56)
[2025-02-19] MEDS: TAMSULOSIN HCL 0.4 MG CAPSULE PO (08:56)
[2025-02-19] MEDS: PANTOPRAZOLE 40 MG TABLET PO (08:56)
[2025-02-19] MEDS: INDAPAMIDE 2.5 MG TABLET PO (08:56)
[2025-02-19] MEDS: allopurinoL 300 MG TABLET PO (08:56)
[2025-02-19] MEDS: amLODIPine BESYLATE 5 MG TABLET PO (09:02)
--- NOTE | 2025-02-19 09:22 | P.PNIM_ITS ---
Progress Note: A&P Assessment and Plan (1) Syncope and collapse: Code(s): R55 - Syncope and collapse Status: Acute Assessment and Plan: Head CT was negative for any acute intracranial findings, Head/neck CTA did not show any significant large vessel intracranial occlusion or high-grade intracranial stenosis, 25% stenosis of the proximal left internal carotid artery and 47% stenosis of the proximal right internal carotid artery. Followed by Dr. Eros Mao at [facility] for his TAVR * Continue cardiac monitoring * echocardiogram EF over 70%, with grade 2 diastolic noncompliance * EEG ordered unable to perform due to patient's he scalp hematoma need to be scheduled outpatient * Monitor Orthostatic blood pressures Q shift have been negative Cardiology consulted recommending neurology consult, avoiding any AV rosa agents and discontinue gabapentin will follow * Will need outpatient event monitor Patient will be transferring to a tertiary center for pacemaker status bed is available, continue to hold Plavix and aspirin. (2) Head injury: Code(s): S09.90XA - Unspecified injury of head, initial encounter Status: Acute Assessment and Plan: Posterior scalp hematoma post syncopal episode * Continue dressing changes daily * Hold Plavix and ASA for now * Continue neuro checks (3) Severe aortic stenosis: Code(s): I35.0 - Nonrheumatic aortic (valve) stenosis Status: Acute Assessment and Plan: Status post TAVR April of 2024, Followed by Dr. Eros Moa at [facility] with follow-up appointment for follow-up in April * cardiology consulted * continuous gambling monitor (4) CAD (coronary artery disease): Code(s): I25.10 - Atherosclerotic heart disease of tribe coronary artery without angina pectoris Status: Acute Assessment and Plan: * Status post CABG (5) GERD without esophagitis: Code(s): K21.9 - Gastro-esophageal reflux disease without esophagitis Status: Acute Assessment and Plan: * Protonix (6) Benign hypertension: Code(s): I10 - Essential (primary) hypertension Status: Acute Assessment and Plan: Blood pressure ranging 154/76 to 186/82 * Continue lisinopril, metoprolol * BP per unit protocol need to increase his BP medication (7) BPH loc w/o ur obs/LUTS: Code(s): N40.0 - Benign prostatic hyperplasia without lower urinary tract symptoms Status: Acute Assessment and Plan: * Continue tamsulosin (8) Neuropathy of both feet: Code(s): G57.93 - Unspecified mononeuropathy of bilateral lower limbs Status: Acute Assessment and Plan: patient recently increase his Neurontin from 50 mg to 100 mg * Discontinue per Cardiology: Neurontin Plan Code status: Full code per patient DVT prophylaxis: SCD Stress ulcer prophylaxis: Protonix 40 daily PT/OT notes: PT/OT pending Time Spent With Patient Time with patient: Greater than 35 minutes Subjective Date/time seen: 02/19/25 09:22 Interval history: 84-year-old male with a significant past medical history of coronary artery disease status post CABG, anemia, prostate cancer, ZOILA, hypertension, former smoker, hyperlipidemia, GERD, Gout, TAVR who presented to the hospital with report of syncope with collapse and head injury. Called by Cardiology this morning with Dr. Foster, patient had a 3 second pause and will need emergent pacemaker, are discussed with cannot handle this at this time he will need a transferred requesting transfer to [place]. Transferred to [facility] accepted by Dr. Canchola for the hospitalist team and DINORA Jreome for cardiology. Review of Systems Review of Systems: All systems reviewed & are unremarkable except as noted in HPI and below Exam Narrative: General: well appearing, appears stated age. HEENT: normocephalic, atraumatic. Mucous membranes moist. EOMI, PERRLA, bilateral sclera anicteric, no conjunctival injection. Neck supple without JVD, lymphadenopathy, or bruit. Respiratory: clear to ascultation bilaterally. No rales/rhonic/wheezes. Cardiovascular: Regular rate and rhythm, normal S1-S2 upon ascultation. No murmurs, rubs, or clicks. PMI is nondisplaced, capillary refill less than 3 second. Abdomen: Soft, round, no pulsatile masses, nondistended and nontender. No rebound, no guarding. No CVA tenderness, no hepatosplenomegaly. Bowel sounds present to all four quadrants. No high pitch or tinkling sounds, resonant to percussion. Extremities: No cyanosis, clubbing, or edema present. Pulses are palpable 2/2. Active ROM to all four extremities. Neuro: Alert and orientated x 4. PERRLA. Cranial nerves 2-12 intact without focal deficit. Skin: Warm, dry, and intact, without rash, erythema, or lesion. Psych: pleasant, cooperative, normal speech, normal affect, no hallucinations, no dysarthia Objective Data Vital Signs Vital Signs: Vital Signs - 24 hr 02/18/25 11:26 02/18/25 11:45 02/18/25 12:00 Temperature Pulse Rate 70 Respiratory Rate Blood Pressure Pulse Oximetry Oxygen Delivery Room Air Room Air 02/18/25 15:03 02/18/25 15:03 02/18/25 16:00 Temperature 98 F 98 F Pulse Rate 70 68 60 Respiratory Rate 18 18 Blood Pressure 129/61 129/55 L Pulse Oximetry 94 97 Oxygen Delivery 02/18/25 20:00 02/18/25 20:00 02/18/25 21:10 Temperature 97.4 F L Pulse Rate 60 69 61 Respiratory Rate 18 18 Blood Pressure 156/91 H Pulse Oximetry 97 99 Oxygen Delivery Room Air 02/19/25 00:00 02/19/25 04:00 02/19/25 05:50 Temperature 97.3 F L Pulse Rate 60 72 61 Respiratory Rate 18 Blood Pressure 184/68 H Pulse Oximetry 96 Oxygen Delivery 02/19/25 08:45 02/19/25 08:50 02/19/25 08:55 Temperature 98.1 F Pulse Rate 69 Respiratory Rate 18 Blood Pressure 128/60 125/59 L 114/79 Pulse Oximetry 94 Oxygen Delivery Intake/Output Intake/Output: Intake & Output 02/16/25 02/17/25 02/18/25 02/19/25 23:59 23:59 23:59 23:59 Intake Total 880 1858 200 Balance 880 1858 200 Meds/Results Medications: Active Medications Generic Name Dose Route Start Last Admin Trade Name Freq PRN Reason Stop Dose Admin Acetaminophen 650 mg 02/17/25 16:41 02/17/25 19:18 Acetaminophen 325 Mg Tablet PO 650 mg Q4H PRN Administration Mild Pain (1-3) or Fever Hydrocodone Bitart/Acetaminophen 1 tab 02/17/25 16:41 Hydrocodone/Acetaminophen (*Crx) 5-325 Mg Tablet PO Q4H PRN Moderate Pain (4-6) Albuterol 2 puff 02/17/25 20:15 Albuterol Sulfate (*Sp) Aerosol 1 Puff INHALATION Q4-6H PRN shortness of breath or wheezing Allopurinol 300 mg 02/18/25 09:00 02/19/25 08:56 Allopurinol 300 Mg Tablet PO 300 mg DAILY DARÍO Administration Amlodipine Besylate 5 mg 02/19/25 09:00 02/19/25 09:02 Amlodipine Besylate 5 Mg Tablet PO 5 mg DAILY DARÍO Administration Clopidogrel Bisulfate 75 mg 02/18/25 09:00 02/18/25 08:59 Clopidogrel Bisulfate 75 Mg Tablet PO 75 mg DAILY DARÍO Administration Indapamide 2.5 mg 02/18/25 09:00 02/19/25 08:56 Indapamide 2.5 Mg Tablet PO 2.5 mg DAILY DARÍO Administration Lisinopril 40 mg 02/18/25 09:00 02/19/25 06:14 Lisinopril 20 Mg Tablet PO 40 mg DAILY DARÍO Administration Ondansetron HCl 4 mg 02/17/25 16:41 Ondansetron Inj 4 Mg/2 Ml Vial IV PUSH Q6H PRN Nausea And Vomiting Pantoprazole Sodium 40 mg 02/18/25 09:00 02/19/25 08:56 Pantoprazole 40 Mg Tablet PO 40 mg QAM DARÍO Administration Perflutren Lipid Microsphere 0 ml 02/17/25 16:41 Perflutren Lipid Microspheres 1.5 Ml Vial Diluted To 10 Ml Total Volume IV PUSH 02/20/25 16:44 ONCE PRN adequate visualization Protocol Pregabalin 100 mg 02/17/25 21:00 02/19/25 08:56 Pregabalin (*Crx) 50 Mg Capsule PO 100 mg Q12H DARÍO Administration Tamsulosin HCl 0.4 mg 02/18/25 09:00 02/19/25 08:56 Tamsulosin Hcl 0.4 Mg Capsule PO 0.4 mg DAILY DARÍO Administration Radiology Results: ITS Impressions Head CT 02/17/25 12:51 IMPRESSION: No acute intracranial findings. Cervical Spine CT 02/17/25 13:00 IMPRESSION: 1. Moderate to severe cervical spondylosis with C4-C5 laminectomies and instrumented C3-C6 posterior spinal fusion. No acute osseous abnormality. Head/Neck CTA 02/17/25 17:39 IMPRESSION: No large vessel intracranial occlusion, high-grade intracranial stenosis, or aneurysm. Prominent right cerebral vein over the right sylvian fissure, may be normal for this patient or employment representative of a small DVA or AVM. MRI of the brain with MRA could be considered for further characterization. No carotid artery occlusion, dissection, or significant stenosis. Severe short segment atherosclerotic stenoses at the origins of the bilateral vertebral arteries. Labs Labs: Laboratory Results - last 24 hr 02/19/25 06:31 WBC 7.0 RBC 3.49 L Hgb 10.6 L Hct 33.4 L MCV 95.7 MCH 30.4 MCHC 31.7 L RDW 13.3 Plt Count 186 MPV 11.1 H Immature Gran % (Auto) 0.3 Neut % (Auto) 71.7 Lymph % (Auto) 13.0 L Dewitt % (Auto) 11.7 H Eos % (Auto) 2.6 Baso % (Auto) 0.7 Lymph # (Auto) 0.91 Dewitt # (Auto) 0.8 H Eos # (Auto) 0.2 Baso # (Auto) 0.1 Abs Immat Gran (auto) 0.02 Absolute Neuts (auto) 5.0 Absolute Nucleated RBC 0.000 Nucleated RBC % 0.0 Sodium 133 L Potassium 3.8 Chloride 96 L Carbon Dioxide 30 Anion Gap 7 BUN 24 H Creatinine 1.10 Estim Creat Clear Calc 60 Estimated GFR > 60 Glucose 105 Calcium 8.7 Total Bilirubin 0.6 AST 25 ALT 14 Alkaline Phosphatase 70 Total Protein 7.0 Albumin 4.0 Quality VTE Prophylaxis VTE prophylaxis: mechanical ordered Hospitalist MIPS Advance Care Plan I have confirmed that the patient's Advanced Care Plan is present, code status is documented, or surrogate decision maker is listed in patient medical record.: Yes Medication Reconciliation I have utilized all available resources to obtain, update and review the patients current medications (includes all prescriptions, OTC, herbals, cannabis, and nutritional supplements).: Yes
--- NOTE | 2025-02-19 10:31 | WPDNEURCNPN ---
Assessment and Plan Assessment and plan (1) Syncope: Code(s): R55 - Syncope and collapse Status: Acute Plan 1. Syncopal episode 2. Status post TAVR 3. Possibility of the seizure EEG cannot be carried out because the cephalhematoma 3. Possibility of the orthostatic hypotension. Considering that he will be scheduled for the EEG, start him on the Keppra 750mg twice a day for the time being to avoid the possibility of the seizure recurrence. and while he is in the hospital we can check him for orthostasis for the guideline. Consult date: 02/19/25 HPI: Quan Guallpa is a 84 year old male Admitted to the hospital through the emergency room for the evaluation of head injury subsequent to the ground level fall and with resultant hematoma to the posterior scalp but with no history of any other injury also with history of having had 2 syncopal episodes in the course of the last 1 week. Reportedly he was sitting in chair just finished preparing dinner when he had an episode of loss of consciousness for unclear duration. On the day of admission he was standing in the line checking out when he last remembers trying to put his credit card awake and then woke up on the floor after having a fall and head injury. His medications include aspirin 81mg daily, tamsulosin 0.4mg daily, clopidogrel 75mg daily, metoprolol 25mg daily, and pregabalin 100mg q.12 hours. He has history of transcatheter aortic valve replacement, history of cervical spinal fusion, history of extremity bypass grafting, and history of coronary artery bypass grafting as well. He smokes 1 pack per day 20 cigarettes per day and he has smoked 50 years. On initial exam in the emergency room there were no significant abnormalities. Vital signs were normal. CBC was normal, BMP was with sodium 136 otherwise normal, mast scan was also normal initial CT scan of the head revealed no evidence of bleed or tumor, cervical spine CT scan documented moderate to severe cervical spondylosis with C4-C5 laminectomies and instrumentation between C3-C6 with posterior spinal fusion. Review of Systems Review of Systems: All systems reviewed & are unremarkable except as noted in HPI and below PMFSH Past Medical History Medical History Renal cyst Hearing aid worn Hard of hearing CAD (coronary artery disease) Polyarthralgia Sinusitis Wheezing Testosterone deficiency Screening for malignant neoplasm of prostate Screening for malignant neoplasm of colon Low testosterone in male Influenza A Encounter for screening for malignant neoplasm of lung Dyspnea Chronic fatigue Left hip pain Constipation Post-nasal drip Saliva increased Dermatitis Testicular hypofunction Anemia BPH loc w/o ur obs/LUTS ZOILA (obstructive sleep apnea) Benign hypertension Prostate cancer BMI over 35 Chronic rhinitis Neuropathy Ataxia Cervical stenosis of spinal canal Progressive focal motor weakness Degenerative, intervertebral disc, cervical Former smoker Rotator cuff arthropathy Statin intolerance muscle pain Hypercholesteremia Ischemic heart disease Multi-vessel coronary artery stenosis Asbestos exposure Seasonal allergic rhinitis GERD without esophagitis Osteoarthritis Testicular hypofunction Controlled gout Hyperlipidemia Hypertension History of torn meniscus of right knee Carpal tunnel syndrome, bilateral Surgical History Surgical History S/P TAVR (transcatheter aortic valve replacement) S/P cervical spinal fusion Hx of extremity bypass graft History of vasectomy S/P CABG (coronary artery bypass graft) History of heart artery stent Family History Family History Mother Cerebrovascular accident Grandparent Family history of kidney disease Father Malignant neoplasm of prostate Sibling , natural causes Heart disease Social History Social History Social History: single-story home no stairs. Patient had hired caregiver . 3 children. POLST signed 03/30/22 lists DNR Smoking packs per day: 1 Smoking cigarettes per day: 20.0 Years smoked: 50 Smoking pack-years: 50.00 Smoking status: Former smoker Second hand tobacco smoke exposure: Yes Alcohol intake: never Alcohol use details: Rarely Substance use: never Other substance usage details: gummies-used only for sleep. 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 Gender identity (if verbalized by the patient): Male Spiritual care concerns: No (Tenriism) Agree to blood products: Yes Meds Home Medications and Allergies Home Medications ?Medication ?Instructions ?Recorded ?Confirmed ?Type aspirin 81 mg tablet,delayed 81 mg PO DAILY 09/20/21 02/17/25 History release (Adult Aspirin Regimen) fluticasone propionate 93 1 spray intranasal Q12H #16 mL 08/10/23 02/17/25 Rx mcg/actuation breath activated aerosol (Xhance) albuterol sulfate 90 mcg/actuation 2 inh inhalation Q4-6H PRN 02/08/24 02/17/25 Rx aerosol inhaler shortness of breath or wheezing #6.7 grams tamsulosin 0.4 mg capsule 0.4 mg PO DAILY 03/28/24 02/17/25 History indapamide 2.5 mg tablet 2.5 mg PO DAILY #90 tabs 05/22/24 02/17/25 Rx clopidogrel 75 mg tablet 75 mg PO DAILY 05/23/24 02/17/25 History evolocumab 140 mg/mL subcutaneous 140 mg subcut MONTHLY 05/23/24 02/17/25 History pen injector (Lauren Louis) lansoprazole 30 mg capsule,delayed 30 mg PO DAILY #90 caps 11/18/24 02/17/25 Rx release lisinopril 40 mg tablet 40 mg PO DAILY #90 tabs 11/18/24 02/17/25 Rx allopurinol 300 mg tablet 300 mg PO DAILY #90 tabs 02/16/25 02/17/25 Rx metoprolol succinate 50 mg 25 mg PO DAILY 02/17/25 02/17/25 History tablet,extended release 24 hr pregabalin 100 mg capsule 100 mg PO Q12H 02/17/25 02/17/25 History Allergies Allergy/AdvReac Type Severity Reaction Status Date / Time lactose Allergy Unknown stomach Verified 02/17/25 18:08 upset Vital Signs Vital Signs - 24 hr 02/18/25 11:26 02/18/25 11:45 02/18/25 12:00 Temperature Pulse Rate 70 Respiratory Rate Blood Pressure Pulse Oximetry Oxygen Delivery Room Air Room Air 02/18/25 15:03 02/18/25 15:03 02/18/25 16:00 Temperature 36.6 C 36.6 C Pulse Rate 70 68 60 Respiratory Rate 18 18 Blood Pressure 129/61 129/55 L Pulse Oximetry 94 97 Oxygen Delivery 02/18/25 20:00 02/18/25 20:00 02/18/25 21:10 Temperature 36.3 C L Pulse Rate 60 69 61 Respiratory Rate 18 18 Blood Pressure 156/91 H Pulse Oximetry 97 99 Oxygen Delivery Room Air 02/19/25 00:00 02/19/25 04:00 02/19/25 05:50 Temperature 36.3 C L Pulse Rate 60 72 61 Respiratory Rate 18 Blood Pressure 184/68 H Pulse Oximetry 96 Oxygen Delivery 02/19/25 08:45 02/19/25 08:50 02/19/25 08:55 Temperature 36.7 C Pulse Rate 69 Respiratory Rate 18 Blood Pressure 128/60 125/59 L 114/79 Pulse Oximetry 94 Oxygen Delivery Exam Narrative: Revealed him to be awake alert cooperative in no obvious acute distress, head normocephalic with obvious hematoma on the posterior scalp, neck supple with no meningeal signs, no cervical bruit no thyromegaly no lymphadenopathy, heart regular with no murmur, lungs clear to auscultation with no crepitations or rhonchi, abdomen is soft nontender, neurologically he is awake alert able to follow the verbal commands appropriately his speech is not dysphasic not dysarthric not dysphonic interested in knowing what can be due EEG could not be done because of the scalp hematoma pupils round regular feels the vision full extraocular movements full face symmetrical tongue midline motor examination revealed normal strength and tone in upper and lower extremities reflexes symmetrical sluggish plantars downgoing there is no evidence of gross cerebellar deficit. Results Labs 02/19/25 06:31 02/19/25 06:31 Labs: Short CBC 02/19/25 Range/Units 06:31 WBC 7.0 (4.5-10.0) K/mm3 Hgb 10.6 L (14.0-18.0) g/dL Hct 33.4 L (42.0-52.0) % Plt Count 186 (150-375) k/mm3 BMP 02/19/25 06:31 Sodium 133 L Potassium 3.8 Chloride 96 L Carbon Dioxide 30 BUN 24 H Creatinine 1.10 Glucose 105 Calcium 8.7 Liver Function 02/19/25 Range/Units 06:31 Total Bilirubin 0.6 (0.2-1.3) mg/dL AST 25 (17-59) U/L ALT 14 (6-50) U/L Alkaline Phosphatase 70 (38-126) U/L Albumin 4.0 (3.5-5.1) g/dL
--- NOTE | 2025-02-19 10:39 | ECG_ITS ---
Test Date: 2025-02-19 10:52:09 Measurements Intervals [place] Rate: 76 P: 44 UT: 289 QRS: -19 QRSD: 162 T: -1 QT: 406 QTc: 459 Interpretive Statements SINUS RHYTHM WITH FIRST DEGREE AV BLOCK WITH OCCASIONAL VENTRICULAR PREMATURE COMPLEXES RIGHT BUNDLE BRANCH BLOCK CONSIDER INFERIOR INFARCT, AGE INDETERMINATE VOLTAGE CRITERIA FOR LVH BASELINE ARTIFACT- I, II, AVR, AVL, AVF, V4-V6 ABNORMAL ECG Compared to ECG 02/17/2025 22:37:33 Ventricular premature complex(es) now present Electronically Signed On 02-19-2025 11:00:38 CDT by Lam Ontiveros D.O.
[2025-02-20] VITALS: PULSE 63
[2025-02-20 04:00] VITALS: PULSE 63
[2025-02-20 05:45] VITALS: BP 160/56; PULSE 66; RESP 20; TEMP 35.9; O2SAT 96
[2025-02-20 06:59] LABS: Basophils Absolute Auto 0.1 K/mm3 (0.0-0.1); Basophils Percent Auto 0.8 % (0.2-1.2); Eosinophils Absolute Auto 0.3 K/mm3 (0-0.3); Eosinophils Percent Auto 4.1 % (0-4.4); Hematocrit 32.5 % (42.0-52.0); Hemoglobin 10.3 g/dL (14.0-18.0); Immature Granulocyte Absolute 0.02 K/mm3 (0.00-0.031); Immature Granulocyte Percent A 0.3 % (0-0.5); Lymphocytes Absolute Auto 0.97 K/mm3 (0.9-3.2); Lymphocytes Percent Auto 15.7 % (18.3-44.2); Mean Corpuscular HGB Conc 31.7 g/dl (32-36); Mean Corpuscular Hemoglobin 30.7 pg (26-34); Mean Platelet Volume 11.4 fl (7.4-10.4); Monocytes Absolute Auto 0.8 K/mm3 (0.1-0.6); Monocytes Percent Auto 12.7 % (2.6-8.5); Neutrophils Absolute Auto 4.1 K/mm3 (1.3-6.7); Neutrophils Percent Auto 66.4 % (45.5-73.1); Platelet Count Result 187 k/mm3 (150-375); Red Blood Count 3.35 M/mm3 (4.6-6.20); Red Cell Distribution Width 13.2 % (11.5-14.5); White Blood Count 6.2 K/mm3 (4.5-10.0)
--- NOTE | 2025-02-20 07:05 | P.PNCA_ITS ---
Progress Note: A&P Assessment and Plan (1) Severe aortic stenosis: Code(s): I35.0 - Nonrheumatic aortic (valve) stenosis Status: Acute (2) Ischemic heart disease: Code(s): I25.9 - Chronic ischemic heart disease, unspecified Status: Acute (3) Benign hypertension: Onset Date: ~02/20/25 Code(s): I10 - Essential (primary) hypertension Status: Acute (4) Hyperlipidemia: Code(s): E78.5 - Hyperlipidemia, unspecified Status: Acute (5) Syncope: Code(s): R55 - Syncope and collapse Status: Acute Plan 1. Syncope, Recurrent 2. CAD; post CABG 3. Severe status post TAVR 4. Hypertension 5. Hyperlipidemia 6. Sinus Pause -this gentleman known to have CAD, aortic stenosis post TAVR has presented with 2 episodes of syncope past week. He had a 3 second sinus pause in the hospital. With the history or recurrent syncope, recent TAVR and sinus pause, I think he will benefit from a PPM -Avoid any AV rosa agents; off Beta rajiv - consider discontinuation of gabapentin - Accepted at [facility], awaiting transfer Subjective Date/time seen: 02/20/25 07:05 Interval history: Doing well, no chest pain or dyspnea Review of Systems Review of Systems: All systems reviewed & are unremarkable except as noted in HPI and below Exam Narrative: General: In no acute distress, well nourished Head: Hematoma noted on posterior scalp Neck: supple, no JVD Cardiac: RRR Respiratory: Lungs clear to auscultation Gastrointestinal: soft, non-distended, non-tender, normoactive bowel sounds. Extremities: moves all extremities well, he right Skin: Hematoma noted to posterior scalp with dressing in place, mild ankle edema on the left greater than the right Neuro: Alert and oriented x4, cranial nerves intact, no neuro deficits. Objective Data Vital Signs Vital Signs: Vital Signs - 24 hr 02/19/25 08:00 02/19/25 08:00 02/19/25 08:45 Temperature 36.7 C Pulse Rate 73 69 Respiratory Rate 18 Blood Pressure 128/60 Pulse Oximetry 94 Oxygen Delivery Room Air 02/19/25 08:50 02/19/25 08:55 02/19/25 10:37 Temperature Pulse Rate Respiratory Rate Blood Pressure 125/59 L 114/79 Pulse Oximetry 95 Oxygen Delivery Room Air 02/19/25 12:00 02/19/25 14:00 02/19/25 16:00 Temperature 36.2 C L Pulse Rate 68 80 76 Respiratory Rate 18 Blood Pressure 148/65 H Pulse Oximetry 94 Oxygen Delivery 02/19/25 20:00 02/19/25 20:00 02/19/25 20:20 Temperature 36.6 C Pulse Rate 78 72 Respiratory Rate 18 Blood Pressure 168/61 H Pulse Oximetry 94 Oxygen Delivery Room Air 02/20/25 00:00 02/20/25 04:00 02/20/25 05:45 Temperature 35.9 C L Pulse Rate 63 63 66 Respiratory Rate 20 Blood Pressure 160/56 H Pulse Oximetry 96 Oxygen Delivery Intake/Output Intake/Output: Intake & Output 02/17/25 02/18/25 02/19/25 02/20/25 23:59 23:59 23:59 23:59 Intake Total 880 1858 1195 250 Balance 880 1858 1195 250 Meds/Results Medications: Active Medications Generic Name Dose Route Start Last Admin Trade Name Freq PRN Reason Stop Dose Admin Acetaminophen 650 mg 02/17/25 16:41 02/17/25 19:18 Acetaminophen 325 Mg Tablet PO 650 mg Q4H PRN Administration Mild Pain (1-3) or Fever Hydrocodone Bitart/Acetaminophen 1 tab 02/17/25 16:41 Hydrocodone/Acetaminophen (*Crx) 5-325 Mg Tablet PO Q4H PRN Moderate Pain (4-6) Albuterol 2 puff 02/17/25 20:15 Albuterol Sulfate (*Sp) Aerosol 1 Puff INHALATION Q4-6H PRN shortness of breath or wheezing Allopurinol 300 mg 02/18/25 09:00 02/19/25 08:56 Allopurinol 300 Mg Tablet PO 300 mg DAILY DARÍO Administration Amlodipine Besylate 5 mg 02/19/25 09:00 02/19/25 09:02 Amlodipine Besylate 5 Mg Tablet PO 5 mg DAILY DARÍO Administration Clopidogrel Bisulfate 75 mg 02/18/25 09:00 02/18/25 08:59 Clopidogrel Bisulfate 75 Mg Tablet PO 75 mg DAILY DARÍO Administration Indapamide 2.5 mg 02/18/25 09:00 02/19/25 08:56 Indapamide 2.5 Mg Tablet PO 2.5 mg DAILY DARÍO Administration Lisinopril 40 mg 02/18/25 09:00 02/19/25 06:14 Lisinopril 20 Mg Tablet PO 40 mg DAILY DARÍO Administration Ondansetron HCl 4 mg 02/17/25 16:41 Ondansetron Inj 4 Mg/2 Ml Vial IV PUSH Q6H PRN Nausea And Vomiting Pantoprazole Sodium 40 mg 02/18/25 09:00 02/19/25 08:56 Pantoprazole 40 Mg Tablet PO 40 mg QAM DARÍO Administration Perflutren Lipid Microsphere 0 ml 02/17/25 16:41 Perflutren Lipid Microspheres 1.5 Ml Vial Diluted To 10 Ml Total Volume IV PUSH 02/20/25 16:44 ONCE PRN adequate visualization Protocol Tamsulosin HCl 0.4 mg 02/18/25 09:00 02/19/25 08:56 Tamsulosin Hcl 0.4 Mg Capsule PO 0.4 mg DAILY DARÍO Administration Radiology Results: ITS Impressions Head CT 02/17/25 12:51 IMPRESSION: No acute intracranial findings. Cervical Spine CT 02/17/25 13:00 IMPRESSION: 1. Moderate to severe cervical spondylosis with C4-C5 laminectomies and instrumented C3-C6 posterior spinal fusion. No acute osseous abnormality. Head/Neck CTA 02/17/25 17:39 IMPRESSION: No large vessel intracranial occlusion, high-grade intracranial stenosis, or aneurysm. 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 MRI of the brain with MRA could be considered for further characterization. No carotid artery occlusion, dissection, or significant stenosis. Severe short segment atherosclerotic stenoses at the origins of the bilateral vertebral arteries. Labs Labs: Laboratory Results - last 24 hr 02/19/25 02/20/25 06:31 05:56 WBC 7.0 6.2 RBC 3.49 L 3.35 L Hgb 10.6 L 10.3 L Hct 33.4 L 32.5 L MCV 95.7 97.0 MCH 30.4 30.7 MCHC 31.7 L 31.7 L RDW 13.3 13.2 Plt Count 186 187 MPV 11.1 H 11.4 H Immature Gran % (Auto) 0.3 0.3 Neut % (Auto) 71.7 66.4 Lymph % (Auto) 13.0 L 15.7 L [place] % (Auto) 11.7 H 12.7 H Eos % (Auto) 2.6 4.1 Baso % (Auto) 0.7 0.8 Lymph # (Auto) 0.91 0.97 [place] # (Auto) 0.8 H 0.8 H Eos # (Auto) 0.2 0.3 Baso # (Auto) 0.1 0.1 Abs Immat Gran (auto) 0.02 0.02 Absolute Neuts (auto) 5.0 4.1 Absolute Nucleated RBC 0.000 0.000 Nucleated RBC % 0.0 0.0 Sodium 133 L Potassium 3.8 Chloride 96 L Carbon Dioxide 30 Anion Gap 7 BUN 24 H Creatinine 1.10 Estim Creat Clear Calc 60 Estimated GFR > 60 Glucose 105 Calcium 8.7 Total Bilirubin 0.6 AST 25 ALT 14 Alkaline Phosphatase 70 Total Protein 7.0 Albumin 4.0
[2025-02-20 07:15] LABS: Alanine Aminotransferase 15 U/L (6-50); Albumin Level 3.9 g/dL (3.5-5.1); Alkaline Phosphatase 68 U/L (38-126); Anion Gap 8 mmol/L (4-12); Aspartate Amino Transferase 26 U/L (17-59); Bilirubin,Total 0.5 mg/dL (0.2-1.3); Blood Urea Nitrogen 31 mg/dL (9-20); Calcium 8.6 mg/dL (8.4-10.2); Carbon Dioxide 29 mmol/L (22-30); Chloride 95 mmol/L (98-107); Estimated CRCL calculation 56 ml/min; Estimated Glomerular Filt Rate 58; Glucose 105 mg/dL (65-110); Sodium 132 mmol/L (137-145)
[2025-02-20 08:00] VITALS: BP 115/64; BP 117/61; BP 126/68; PULSE 72; PULSE 77; PULSE 88; O2SAT 97; O2SAT 98
[2025-02-20] MEDS: allopurinoL 300 MG TABLET PO (08:44)
[2025-02-20] MEDS: amLODIPine BESYLATE 5 MG TABLET PO (08:44)
[2025-02-20] MEDS: lisinopriL 20 MG TABLET 40 MG PO (08:45)
[2025-02-20] MEDS: TAMSULOSIN HCL 0.4 MG CAPSULE PO (08:45)
[2025-02-20] MEDS: PANTOPRAZOLE 40 MG TABLET PO (08:45)
[2025-02-20] MEDS: INDAPAMIDE 2.5 MG TABLET PO (08:45)
--- NOTE | 2025-02-20 10:08 | P.DS_ITS ---
DS: Admitting Diagnosis Discharge Date 02/20/2025 Admitting Diagnosis Syncope DS: Discharge Diagnosis Discharge Diagnosis Plan Syncope & collapse Sinus Pause DS: Summary Hospital Course Reason for hospitalization: 84-year-old male with a significant past medical history of coronary artery disease status post CABG, anemia, prostate cancer, ZOILA, hypertension, former smoker, hyperlipidemia, GERD, Gout, TAVR who presented to the hospital with report of syncope with collapse and head injury. Patient states that he was standing in line at the [employer] store when he collapsed. He does not remember what led up to him collapsing and woke up with people around him. He did hit his head and there was a brief loss of consciousness. On examination he does have a large posterior scalp hematoma. He denies any fever, chills, nausea, vomiting, diarrhea, abdominal pain, chest pain, shortness a breath. Patient states that he had 1 other incident last Monday when he was sitting in his chair at home and briefly lost consciousness. He states that episode had tube in very brief as his coffee was still warm when he came to. He does have history of a TAVR which was placed in April of last year and he sees Dr. Mao at [facility]. He is also followed by Dr. Dallas cardiology. He also reported that he was just increased on his Neurontin from 50 mg to 100 mg 2 weeks ago by his neurologist. He denies any history of seizure stroke. Workup in the hospital included a Head CT was negative for any acute intracranial findings. Cervical spine CT showed moderate to severe cervical spondylosis with C4-C5 laminectomies and instrumented C3 through C6 posterior spinal fusion without any acute osseous abnormality. Head/neck CTA did not show any large vessel intracranial occlusion or high-grade intracranial stenosis. There was 25% stenosis in the proximal left internal carotid artery and 47% stenosis of the proximal right internal carotid artery, severe short-segment atherosclerotic stenosis at the origins of the bilateral vertebral arteries were noted, prominen t right cerebral vein over the right sylvian fissure may be normal for this patient or represent small DVT a or AVM. Initial labs showed a normal white blood cell count of 6.9, hemoglobin 11.3, sodium 136, blood sugar 111. EKG showed sinus rhythm with marked first-degree AV block, right bundle branch block with a rate of 65, QTC 461. Hospital Course: Quan Guallpa is an 84 year old man hx CAD, post TAVR who ?presented with 2 episodes of syncope the week prior to admission. Tele was notable for a 3 second sinus pause. ?He was seen by cardiology in the hospital. Syncope Sinus Pause-- ??have CAD, aortic stenosis post TAVR has presented with 2 episodes of syncope past week. He had a 3 second sinus pause in the hospital. With the history or recurrent syncope, recent TAVR and sinus pause, cardiology recommended a PPM so transfer was arranged to [facility] Head CT was negative for any acute intracranial findings, Head/neck CTA did not show any significant large vessel intracranial occlusion or high-grade intracranial stenosis, 25% stenosis of the proximal left internal carotid artery and 47% stenosis of the proximal right internal carotid artery. Followed by Dr. Eros Mao at [facility] for his TAVR 02/18/25 echocardiogram EF over 70%, with grade 2 diastolic noncompliance EEG ordered unable to perform due to patient's scalp hematoma need to be scheduled outpatient Orthostatic blood pressures Q shift have been negative Cardiology recommended: ?Avoiding any AV rosa agents; DC Beta rajiv - Cardiology discussed with Dr Dallas, and transfer was arranged to [facility] --Wound need an outpatient event monitor if PPM not done during admission --Stopped lyrica for discharge, was recently increased from 50mg to 100mg BID for neuropathy but symptoms primary numbness and ne denies pain. ? ??Head injury: ?Posterior scalp hematoma post syncopal episode --Continue dressing changes daily --Nonfocal neuro exam, A&Ox4 Severe aortic stenosis: Status post TAVR April of 2024, Followed by Dr. Eros Mao at [facility] with follow-up appointment for follow-up in April --Cardiology consulted CAD (coronary artery disease) Atherosclerotic heart disease of [place] coronary artery--Status post CABG?Holding plavix, continued aspirin GERD without esophagitis: Protonix Benign hypertension: Blood pressure ranging 154/76 to 186/82 --Continue lisinopril, metoprolol BPH loc w/o ur obs/LUTS: Continue tamsulosin Neuropathy of both feet: Unspecified mononeuropathy of bilateral lower limbs ?Lyrica recently increased from 50 mg to 100 mg--Discontinued per Cardiology recs Status at Discharge Cognitive/behavioral status at discharge: A&Ox4 Time Spent with Patient Time attestation: Total time spent providing and/or coordinating discharge services: 59 Exam Narrative: General - Awake and alert. No acute distress Eyes - PERRLA, EOM intact ENT - No thrush, No erythema Neck - No noticeable or palpable swelling Lymph Nodes - No lymphadenopathy Cardiovascular - RRR no m/r/g, no JVD Lungs: Clear to auscultation, No wheezing, use of accessory muscles, no crackles Skin - Skin warm and dry, no wounds or rashes. Posterior head dressing dry and intact Abdomen - Normal bowel sounds, abdomen soft and nontender Extremities - No edema, cyanosis or clubbing Musculoskeletal - 5/5 strength, normal range of motion, no swollen or erythematous joints. Neurological ? Alert and oriented x 3, CN 2-12 grossly intact. Psych: Normal mood and affect DS: Data Data Completed and Pending Labs on day of discharge: Labs from last 24 hours 02/20/25 05:56 WBC 6.2 RBC 3.35 L Hgb 10.3 L Hct 32.5 L MCV 97.0 MCH 30.7 MCHC 31.7 L RDW 13.2 Plt Count 187 MPV 11.4 H Immature Gran % (Auto) 0.3 Neut % (Auto) 66.4 Lymph % (Auto) 15.7 L [place] % (Auto) 12.7 H Eos % (Auto) 4.1 Baso % (Auto) 0.8 Lymph # (Auto) 0.97 [place] # (Auto) 0.8 H Eos # (Auto) 0.3 Baso # (Auto) 0.1 Abs Immat Gran (auto) 0.02 Absolute Neuts (auto) 4.1 Absolute Nucleated RBC 0.000 Nucleated RBC % 0.0 Sodium 132 L Potassium 4.0 Chloride 95 L Carbon Dioxide 29 Anion Gap 8 BUN 31 H Creatinine 1.20 Estim Creat Clear Calc 56 Estimated GFR 58 L Glucose 105 Calcium 8.6 Total Bilirubin 0.5 AST 26 ALT 15 Alkaline Phosphatase 68 Total Protein 7.0 Albumin 3.9 Discharge Plan Discharge Attending physician on discharge: Camille Valdez Consulting providers: Kesha Byrne; Mary Barth; Timothy Ambrosio Discharging Clinician: Camille Valdez Anticipated Discharge Date/Time: 02/20/25 10:37 Patient Disposition: NH Retirement/Asst Living Activity: february shower Diet: regular Discharge Instructions: Follow up at [facility] for planned Pacemaker. You will need an event monitor if you do not have a pacemaker procedure during admission Patient Instructions: Antibiotic Form Patient Language: Dominican Stand Alone Forms: General Discharge Information Follow-up/Referrals: Mary Barth APN-C [Advanced Practice Nurse] - Discharge Medications: New acetaminophen 325 mg Tablet 650 mg PO Q4H PRN (Reason: Mild Pain (1-3) Or Fever) Qty: 30 0RF Continued aspirin [Adult Aspirin Regimen] 81 mg tablet,delayed release (DR/EC) 81 mg PO DAILY tamsulosin 0.4 mg capsule 0.4 mg PO DAILY Repatha SureClick 140 mg/mL pen injector 140 mg subcut MONTHLY Patient Comments: next due on february 23 metoprolol succinate 50 mg tablet extended release 24 hr 25 mg PO DAILY Xhance 93 mcg/actuation aerosol breath activated 1 spray intranasal Q12H Qty: 16 3RF Rx Instructions: into each nostril albuterol sulfate 90 mcg/actuation HFA aerosol inhaler 2 inh inhalation Q4-6H PRN (Reason: shortness of breath or wheezing) Qty: 6.7 0RF indapamide 2.5 mg tablet 2.5 mg PO DAILY Qty: 90 3RF Rx Instructions: TAKE 1 TABLET BY MOUTH DAILY. lansoprazole 30 mg capsule,delayed release(DR/EC) 30 mg PO DAILY Qty: 90 1RF lisinopril 40 mg tablet 40 mg PO DAILY Qty: 90 1RF allopurinol 300 mg tablet 300 mg PO DAILY Qty: 90 2RF No Action clopidogrel 75 mg tablet 75 mg PO DAILY pregabalin 100 mg capsule 100 mg PO Q12H Other Ambulatory Orders: Pregabalin (Routine) Timeframe: 1 Week Location: Determined by Patient Ordered By: Camille Valdez Date of admission: 02/17/25 15:43 Primary Care Provider: Nicolas Kumar Admitting Provider: Greg Hernandez Attending physician on admission: Camille Valdez Condition: Serious Hospitalist MIPS Heart Failure (Exclusion) Patient has history of Heart Transplant or Left Ventricular Assistive Device?: No IF YES, STOP HERE Heart Failure (Qualifier) Patient has current or prior documentation of LVEF less than or equal to 40%, or mod/servere depressed LVSF?: No IF NO, STOP HERE
[2025-02-20] MEDS: HYDROcodone/acetaminophen (*CRX) 5-325 MG TABLET 1 TAB PO (11:03)
--- OUTSIDE RECORDS SUMMARY | 2025-02-22 11:07 | XMS_ITS | Clinical Summary ---
Author Organization [facility] Address [address] [place] [address] Phone Care Team Providers Care Animal Skinner Name Role Phone Nicolas Kumar MD Primary Care Provider [phone] Allergies No known active allergies Medications metoprolol [...] 01/23/2025 4:30 PM CDT Telephone Check Up [facility] Oncology and Hematology - [place] [address] [place] [address] Rico Kay MD Chronic anemia (Primary Dx) 01/14/2025 External Device Data ST[facility] ABSTRACTION Provider, Abstract 01/14/2025 External Device Data ST[facility] ABSTRACTION Provider, Abstract 01/14/2025 External Device Data ST[facility] ABSTRACTION Provider, Abstract 01/13/2025 Orders Only [facility]ology - [place] [address] [place] [address] Rico Kay MD 01/10/2025 Orders Only [facility] and Hematology - [place] [address] [place] [address] Rico Kay MD 01/09/2025 Orders Only [facility] On[facility] and Hematology - [place] [address] [place] [address] Rico Kay MD 01/08/2025 1:30 PM CDT Office Visit [facility] On[facility] and Hematology - [place] [address] [place] [address] Rico Kay MD Chronic anemia (Primary Dx) [...] on file 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 Gender Identity Not on file Sexual Orientation [...] Description 04/29/2025 11:30 AM CDT Office Visit [facility] Oncology and Hematology - [place] [address] [facility] [address] [place] [address] Rico Kay MD [address] [facility] [address] [place] [address] Health Maintenance Due Date Last [...] 1:35 PM CDT METHYLMALONIC ACID Routine 01/08/2025 1 :30 PM CDT COMPREHENSIVE METABOLIC PANEL Routine 01/08/2025 [...] lt from Last 3 Months Insurance [id number] [place] [id number] [facility] [id number] [facility] [id number] Care Teams Animal Skinner Relationship Specialty Start Date End Date Nicolas Kumar MD [address] [place] [address] PCP - General Family Practice 01/08/25
--- OUTSIDE RECORDS SUMMARY | 2025-02-22 11:07 | XMS_ITS | Encounter Summary ---
Author Organization [facility] Healthcare Address [address] [place] [address] Care Team Providers Care Visual Lead Name Role Phone Nicolas Kumar MD Primary Care Provider [phone] Victor Manuel Dallas MD Unavailable [phone] Fadi Moreno MD Unavailable [phone] Leno Mao MD Unavailable Linda Schwartz NP Unavailable Encounter Details Date Type Department Care Team (Late st Contact Info) Description 02/21/2025 2:47 PM CDT Anesthesia Event [facility] Electrophysiology Lab [address] [place] [address] Munir Sherman MD [facility] [facility] [place] [address] Kesha Gambino RN Anesthesia Record Procedure Summary Procedure Name Responsible Anesthesiologist Anesthesia Start Time Anesthesia Stop Time 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 Meds * Agents No agents on file. * Blood No blood administrations on file. Lines, Drains, and Airways Type Details Placement Removal Cochlear Implant 12/26/22; 1244 12/26/22 1244 b y Lily Starks Ear Mold 02/07/23; 1546 02/07/23 1546 by Lily Starks Hearing Aid 02/07/23; 1550 02/07/23 1550 by Lily Starks Wound 02/20/25; 1310; Y; EDWARD Christiansen/EDWARD Cisneros; hematoma; Head; Posterior 02/20/25 1310 by Lillie Dumont External Urinary Device 02/20/25; 1822; Other (Comment); Male-One size 02/20/25 182 by Daina Graves Peripheral IV Placement Date: 02/20/25; Placement Time: 2199; Catheter Size: 20 G; Orientation: Right; Location: Forearm 02/20/252199 by Maxine Robles RN Venous Sheath Placement Date: 02/21/25; Placement Time: 1534; Hand Hygiene: Yes; Site Prep: Chlorhexidine; Site Prep Agent Dried: Yes; Sterile Barrier Used: Yes; Inserted by: Dr. MILLER; Insertion Attempts: 1; Pt Tolerance: Tolerated well; Placement Verification: Blood return, Ultrasound; Removal Date: 02/21/25; Removal Time: 15402/21/25 153 by Ana Langston RN 02/21/25 154 by Ana Langston RN documented in this encounter Social History Tobacco Use Types Packs/Day Years [...] making you feel afraid or unsafe? 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 Anesthesia Evaluation Quan Guallpa is a 84 y.o. 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 Comments: CONCLUSIONS: 1. LV systolic function is hyperdynamic. Ejection Fraction is measured at (Simpsons) >65 %. 2. Normal right ventricular systolic function. Normal right ventricular size. 3. There is no aortic regurgitation. Normal functioning bioprosthetic aortic valve. 4. Normal appearing pericardial thickness. No significant pericardial effusion. Electronically Signed By: Aubrey Brand MD 2024-06-13 09:36:16 CDT Hepatic / Heme + History of anemia Gastrointestinal + GERD - on daily therapy. Musculoskeletal/Pain + Osteoarthritis Comments: Gout Endocrine / Other + Obesity (BMI >30) + Cancer history Cancer type: Prostate. 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 Aortic valve stenosis 04/09/2024 Encounter for examination for normal comparison and control in clinical research program 04/09/2024 Mixed hyperlipidemia 03/15/2024 Primary hypertension 03/15/2024 Nonrheumatic aortic valve stenosis 02/22/2024 Morbid (severe) obesity due to excess calories (HCC) 08/15/2023 Cervical stenosis of spine 01/07/2022 Elevated PSA 11/29/2021 Right carpal tunnel syndrome 05/10/2021 Aortic systolic murmur on examination 05/28/2019 CAD (coronary artery disease) 05/23/2017 S/P CABG (coronary artery bypass graft) 05/23/2017 Hearing loss 04/27/2017 Past Medical History: Diagnosis Date Anxiety Arthritis 1979 Coronary artery disease GERD (gastroesophageal reflux disease) Gout Heart disease 2001 Hx of aortic valve stenosis 04/29/2024 TAVR Hyperlipidemia Hypertension Prostate Cancer (CMS/HCC) (HCC) Weight loss Past Surgical History: Procedure Laterality Date ANGIOPLASTY 2001, 2023 CARDIAC CATHETERIZATION CARDIAC STENT PLACEMENT 2002 2 stents CARDIAC VALVE REPLACEMENT 2023,aortic COCHLEAR IMPLANT Right CORONARY ARTERY BYPASS GRAFT 2009, QUAD CORONARY STENT PLACEMENT 04/03/2024 DEVON to LAD x 1 KNEE ARTHROSCOPY Right TRANSCATHETER AORTIC VALVE REPLACEMENT 04/29/2024 29 [place] VASECTOMY 1977 Allergies Allergen Reactions [id number] Reductase Inhibitors Muscle pain Lactose Diarrhea and Flatulence Med List Status: Pharmacy Complete Set By: Gonzales Melo miah at 02/20/2025 2:03 PM Taking? Last Dose Start Date End Date Provider albuterol HFA (PROVENTIL HFA,VENTOLIN HFA,PROAIR HFA) 90 mcg/actuation inhaler -- 12/18/23 -- ProviderKim MD allopurinoL (ZYLOPRIM) 300 mg tablet 02/20/2025 11/03/20 -- ProviderKim MD aspirin 81 mg chewable tablet Unknown 03/22/22 -- Mary Miller NP Take 1 tablet (81 mg total) by mouth daily clopidogreL (PLAVIX) 75 mg tablet Past Week 04/10/24 04/10/25 Aubrey Brand MD Take 1 tablet (75 mg total) by mouth daily Notes: Changing from Brilinta indapamide (LOZOL) 2.5 mg tablet 02/20/2025 12/11/12 -- Victor Manuel Dallas MD take 1 tablet (2.5MG) by oral route every day in the morning Patient taking differently: Take 1 tablet (2.5 mg total) by mouth every morning lansoprazole (PREVACID) 30 mg capsule 02/20/2025 12/11/12 -- Victor Manuel Dallas MD take 1 capsule (30MG) by oral route every day before a meal Patient taking differently: Take 1 capsule (30 mg total) by mouth every morning lisinopriL (PRINIVIL,ZESTRIL) 40 mg tablet 02/20/2025 12/01/23 -- Kmi Arthur MD metoprolol XL (TOPROL-XL) 25 mg extended release tablet 02/19/2025 05/28/24 05/28/25 Victor Manuel Dallas MD Take 1 tablet (25 mg total) by mouth daily pregabalin (LYRICA) 100 mg capsule 02/19/2025 -- -- Kim Arthur MD Repatha SureClick 140 mg/mL pen injector -- 02/10/25 -- Aubrey Brand MD ADMINISTER 1 ML(140 MG) UNDER THE SKIN EVERY 14 DAYS Notes: Next dose due Friday 02/23 tamsulosin (FLOMAX) 0.4 mg extended release capsule 02/20/2025 03/26/24 -- Jodi Kapoor MD Take 1 capsule (0.4 mg total) by mouth daily Xhance 93 mcg/actuation aerosol breath activated Unknown 08/10/23 -- Kim Arthur MD Current Facility-Administered Medications: acetaminophen (TYLENOL) tablet 650 mg, 650 mg, oral, Q4H PRN albuterol HFA (PROVENTIL HFA,VENTOLIN HFA,PROAIR HFA) 90 mcg/actuation inhaler 2 puff, 2 puff, inhalation, Q6H PRN (RT), 2 puff at 02/21/25 1020 allopurinoL (ZYLOPRIM) tablet 300 mg, 300 mg, oral, QAM, 300 mg at 02/21/25 0925 benzocaine-menthoL (CHLORASEPTIC) lozenge 1 lozenge, 1 lozenge, mouth/throat, Q2H PRN benzonatate (TESSALON) capsule 100 mg, 100 mg, oral, TID PRN, 100 mg at 02/21/25 1003 Carrier Fluids for Secondary Infusion - 0.9% Sodium Chloride, 30 mL, intravenous, PRN fluticasone propionate (FLONASE) 50 mcg/actuation nasal spray 2 spray, 2 spray, each nostril, DailyPRN guaiFENesin (ROBITUSSIN) 20 mg/mL oral liquid 400 mg, 400 mg, oral, Q4H PRN, 400 mg at 02/20/25 2141 lisinopriL (PRINIVIL,ZESTRIL) tablet 40 mg, 40 mg, oral, Daily, 40 mg at 02/21/25 0925 ondansetron ODT (ZOFRAN-ODT) disintegrating tablet 4 mg, 4 mg, oral, Q6H PRN OR ondansetron (ZOFRAN) injection 4 mg, 4 mg, intravenous, Q6H PRN pantoprazole DR (PROTONIX) extended release tablet 40 mg, 40 mg, oral, Daily, 40 mg at 02/21/25 09 pregabalin (LYRICA) capsule 100 mg, 100 mg, oral, BID, 100 mg at 02/21/25 09 ramelteon (ROZEREM) tablet 8 mg, 8 mg, oral, Nightly PRN senna-docusate (PERICOLACE) 8.6-50 mg per tablet 1 tablet, 1 tablet, oral, BID PRN, 1 tablet at 02/21/25 0925 sodium chloride 0.9% flush 0.5-20 mL, 0.5-20 mL, intra-catheter, Q8H DARÍO (ALT), 10 mL at 02/21/25 0925 sodium chloride 0.9% flush 0.5-20 mL, 0.5-20 mL, intra-catheter, PRN tamsulosin (FLOMAX) extended release capsule 0.4 mg, 0.4 mg, oral, Daily, 0.4 mg at 02/21/25 0925 Social History Tobacco Use Smoking Status Passive Smoke Exposure - Never Smoker Smokeless Tobacco Former Tobacco Comments pt quit between 30-35 years ago. Alcohol Use: Unknown (04/29/2024) AUDIT-C Frequency of Alcohol Consumption: Monthly or less Average Number of Drinks: 1 or 2 Frequency of Binge Drinking: Not on file Substance and Sexual Activity Drug Use Yes Types: Marijuana Comment: edibles prescribed by PCP Family History Problem Relation Age of Onset Stroke Mother Cancer Father Prostate cancer Father Hearing loss Father Heart disease Other Anesthesia problems Neg Hx Vitals: 02/21/25 1020 02/21/25 1100 02/21/25 1209 BP: 111/45 Pulse: 88 93 Resp: 16 Temp: 36.9 ??C (98.4 ??F) SpO2: 95% 96% PT: No results found for requested labs within last 30 days. INR: No results found for requested labs within last 30 days. APTT: No results found for requested labs within last 30 days. Hgb A1C: No results found for requested labs within last 30 days. CBC RBC: 02/21/2025: 3.39 M/cumm (L) RDW: No results found for requested labs within last 30 days. MCHC: 02/21/2025: 33.8 g/dL MCH: 02/21/2025: 31.0 pg MCV: 02/21/2025: 91.7 fL Hct: 02/21/2025: 31.1 % (L) Hgb: 02/21/2025: 10.5 g/dL (L) WBC: 02/21/2025: 5.97 K/cumm MPV: 02/21/2025: 11.2 fL Platelets: 02/21/2025: 183 K/cumm RDW CV: 02/21/2025: 13.0 % RDW Sd: 02/21/2025: 43.3 fL BMP Glucose: 02/21/2025: 120 mg/dL Calcium: 02/21/2025: 8.8 mg/dL Sodium: 02/21/2025: 133 mmol/L (L) Potassium: 02/21/2025: 3.9 mmol/L CO2: 02/21/2025: 27 mmol/L Chloride: 02/21/2025: 96 mmol/L (L) BUN: 02/21/2025: 29 mg/dL (H) Creatinine: 02/21/2025: 1.11 mg/dL documented in this encounter Plan of Treatment Not on file documented as of this encounter Visit Diagnoses Not on filedocumented in this encounter Additional Health Concerns Infection Onset Date Last Indicated Resolved Time Human metapneumovirus, contact + droplet 02/20/2025 02/20/2025 documented as of this encounter Care Teams Visual Lead Relationship Specialty Start Date End Date Nicolas Kumar MD PCP - General 07/02/21 Victor Manuel Dallas MD [address] [place] [id number] Consulting Physician Cardiology 01/14/22 Fadi Moreno MD [address] [place] [address] Consulting Physician Neurosurgery 03/22/22 Leno Mao MD [address] [facility] [address] [place] [address] Consulting Physician Cardiothoracic Surgery 03/19/24 Linda Schwartz NP [address] [facility] [address] [place] [address] Nurse Practitioner Cardiothoracic Surgery 04/30/24 documented as of this encounter
--- OUTSIDE RECORDS SUMMARY | 2025-02-22 11:07 | XMS_ITS | Encounter Summary ---
Author Organization [facility] Healthcare Address [address] [place] [address] Care Team Providers Care Licensing Specialist Name Role Phone Nicolas Kumar MD Primary Care Provider [phone] Victor Manuel Dallas MD Unavailable [phone] Fadi Moreno MD Unavailable [phone] Leno Mao MD Unavailable Linda Schwartz NP Unavailable Encounter Details Date Type Department Care Team (Late st Contact Info) Description 02/19/2025 Orders Only [address] [address] Farrah Canchola MD [address] [place] [id number] Social History Tobacco Use Types Packs/Day Years [...] on file 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 Gender Identity Not on file Sexual Orientation Not on file Occupation Industry Job Start Date Job End Date Retired Not on file Not on file Not on file documented as of this encounter Plan of Treatment Not on file documented as of this encounter Visit Diagnoses Not on filedocumented in this encounter Additional Health Concerns Infection Onset Date Last Indicated Resolved Time COVID: Suspected 02/20/2025 02/20/2025 02/20/2025 9:04 PM CDT Human metapneumovirus, conta ct + droplet 02/20/2025 02/20/2025 documented as of this encounter Care Teams Licensing Specialist Relationship Specialty Start Date End Date Nicolas Kumar MD PCP - General 07/02/21 Victor Manuel Dallas MD [address] [facility] [address] [place] [address] Consulting Physician Cardiology 01/14/22 Fadi Moreno MD [address] [place] [address] Consulting Physician Neurosurgery 03/22/22 Leno Mao MD [address] [facility] [address] [place] [address] Consulting Physician Cardiothoracic Surgery 03/19/24 Linda Schwartz NP [address] [facility] [address] [place] [address] Nurse Practitioner Cardiothoracic Surgery 04/30/24 documented as of this encounter
--- OUTSIDE RECORDS SUMMARY | 2025-02-22 11:07 | XMS_ITS | Clinical Summary ---
Author Organization [facility] [address] [place] [address] Care Team Providers Care Cable Stretcher And Tester Name Role Phone Nicolas Kumar MD Primary Care Provider [phone] Victor Manuel [place] MD Unavailable Fadi Moreno MD Unavailable [phone] Leno Mao MD Unavailable [phone] Linda Schwartz NP Unavailable [phone] Allergies Active Allergy Reactions Criticality Noted Date Comments Lactose Diarrhea,Flatulence Low Cvwhszc-Bei-Owt Reductase Inhibitors Muscle pain Medium 04/15/2024 Medications lansoprazole (PREVACID) 30 mg capsule take 1 capsule (30MG) by oral route every day before a meal 0 12/11/19 13 Suspended Additional Information Patient taking differently:30 mgoral Every morning, Informant: Self, Reported on 02/20/2025 indapamide (LOZOL) 2.5 mg tablet take 1 tablet (2.5MG) by oral route every day in the morning 0 12/11/19 13 Suspended Additional Information Patient taking differently:2.5 mgoral Every morning, Informant: Self, Reported on 02/20/2025 allopurinoL (ZYLOPRIM) 300 mg tabletIndicati ons:prevention of acute gout attack Take 1 tablet (300 mg total) by mouth every morning 11/03/19 21 Suspended pregabalin (LYRICA) 50 mg capsuleIndicat ions:Neuropath ic Pain Take 2 capsules (100 mg total) by mouth 2 (two) times a day 025 Discontinued aspirin 81 mg chewable tablet Take 1 tablet (81 mg total) by mouth daily 03/22/20 22 Suspended Xhance 93 mcg/actuation aerosol breath activated INSTILL 1 SPRAY IN EACH NOSTRIL EVERY 12 HOURS 08/10/20 23 Suspended albuterol HFA (PROVENTIL HFA,VENTOLIN HFA,PROAIR HFA) 90 mcg/actuation inhaler Inhale 2 puffs every 6 (six) hours as needed 12/18/19 24 Suspended lisinopriL (PRINIVIL,ZEST RIL) 40 mg tablet Take 1 tablet (40 mg total) by mouth daily 12/01/19 24 Suspended tamsulosin (FLOMAX) 0.4 mg extended release capsuleIndicat ions:Elevated PSA Take 1 capsule (0.4 mg total) by mouth daily 90 capsule 3 03/26/20 24 Suspended clopidogreL (PLAVIX) 75 mg tablet Take 1 tablet (75 mg total) by mouth daily 90 tablet 3 04/10/20 24 025 Suspended evolocumab 140 mg/mL pen injector Inject 1 mL (140 mg total) under the skin every 14 (fourteen) days 2 mL 04/15/20 24 025 Discontinued metoprolol XL (TOPROL-XL) 25 mg extended release tablet Take 1 tablet (25 mg total) by mouth daily 90 tablet 2 05/28/20 24 025 Suspended Repatha SureClick 140 mg/mL pen injector ADMINISTER 1 ML(140 MG) UNDER THE SKIN EVERY 14 DAYS 2 mL 02/11/20 25 Suspended pregabalin (LYRICA) 100 mg capsule Take 1 capsule (100 mg total) by mouth 2 (two) times a day Suspended Active Problems Problem Noted Date Diagnosed Date 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 Syncope, cardiogenic 02/20/2025 S/P TAVR (transcatheter aortic valve replacement ) [...] (01/07/2022): Added automatically from request for surgery [id number] Elevated PSA 11/29/2021 Overview (11/29/2021): Added automatically from request for surgery [id number] Right carpal tunnel syndrome 05/10/2021 Overview (05/10/2021): Added automatically from request for surgery [id number] Aortic systolic murmur on examination 05/28/2019 CAD (coronary artery disease) 05/23/2017 S/P CABG (coronary artery bypass graft) 05/23/20 17 Hearing loss 04/27/2017 Encounters Date Type Department Care Team Description 02/21/2025 2:47 PM CDT Anesthesia Event [facility] Electrophysiology [facility] [address] [place] [address] [phone] Munir Sherman MD Messer, Jennifer Ellyn, RN 02/21/2025 2:35 PM CDT - 02/21/2025 4:25 PM CDT Surgery [facility] [address] [place] [phone] Raymond James MD LEADLESS, SINGLE CHAMBER PACEMAKER (PPM) INSERTION 02/20/2025 1:05 PM CDT - Present Hospital Encounter [address] [phone] Farrah Canchola MD Ahmad, Bazgha Imtiaz, DO Tachy-scotty syndrome (HCC) (Primary Dx); Syncope, cardiogenic [R55] 02/19/2025 Orders Only [facility] [address] [place] [address] Farrah Canchola MD 02/17/2025 Telephone [facility] Medical [facility] Cardiology [address] [place] [address] Victor Manuel Dallas MD 01/16/2025 11:00 AM CDT Office Visit [facility] Medical [facility] Cardiology at [address] [place] [address] Victor Manuel Dallas MD S/P CABG (coronary artery bypass graft) (Primary Dx); S/P TAVR (transcatheter aortic valve replacement) 01/06/2025 Telephone [facility] Medical [facility] Cardiology [address] [place] [address] Victor Manuel Dallas MD from Last 3 Months Immunizations Immunization [...] TRANSCATHETER AORTIC VALVE REPLACEMENT 04/29/2024 29 Brennan ANGIOPLASTY 2001, 2023 VASECTOMY 1978 CARDIAC VALVE REPLACEMENT 2023,aortic [...] on file 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 Gender Identity Not on file Sexual Orientation Not on file Occupation Industry Job Start Date Job End Date Retired Not on file Not on file Not on file Obstetrics History Last Filed Vital Signs Vital Sign Reading Time Taken Comments Blood Pressure 139/57 02/22/2025 7:52 AM CDT Pulse 80 02/22/2025 9:00 AM CDT Temperature 36.8 C (98.3 F) 02/22/2025 7:52 AM CDT Respiratory Rate 20 02/22/2025 7:52 AM CDT Oxygen Saturation 91% 02/22/2025 7:52 AM CDT Inhaled Oxygen Concentration - - Weight 125.2 kg (276 lb) 02/20/2025 2:36 PM CDT Height 185.4 cm (6' 1 ) 02/20/2025 1:07 PM CDT Body Mass Index 36.41 02/20/2025 1:07 PM CDT Plan of Treatment Health Maintenance Due Date Last Done Comments Depression Screening 1940 Hepatitis B Screening 1957 Zoster Vaccine (1 of 2) 1989 Well Visit 65+ 2004 DTaP/Tdap/Td Vaccine (1 - Tdap) 05/26/2017 7, 10/11/2006 Covid-19 Vaccine (4 - 2023-2 5 season) 2024 08/25/2021, 12/22/2020, 11/19/2020 Influenza Vaccine (Season Ended) 2025 08/16/2021, 09/22/2020, 08/14/2019, Additional history exists Fall Risk Assessment 02/22/2026 02/22/2025 Pneumococcal vaccine 65+ Completed 016, 07/14/2010, 08/11/2006 Medical Devices Implanted Type Area Labor Delivery Rn Device Identifier Shelf Expiration Date Model / Serial / Lot Medtronic Inc Micra 2 Av Synchronous Leadless Ventricular Pacemaker [id number] - [id number] - [id number] Implanted:Qty: 1 on 02/21/2025 by Raymond James MD at [facility] Pacemaker Medtronic Inc 06/05/2026 [id number] / [id number] / Brennan [employer] Tory 3 29mm Transcatheter Aortic Valve [id number] - [id number] - [id number] Implanted:Qty: 1 on 04/29/2024 by Aubrey Brand MD at [facility] Prosthetic Valve N/A: Aortic Valve [employer] 10/02/2026 [id number] / [id number] / [employer] Synergy Xd Monorail 3.5mm 38mm 144cm Delivery System 1 Access [id number] - [id number] - [id number] Implanted:Qty: 1 on 04/03/2024 by Aubrey Brand MD at [facility] Stent Left: Circumflex Coronary Artery [employer] 12/19/2025 [id number] / [id number] / [id number] Teleflex Medical Inc 18f Manta Vascular Closure Device 2115 - S0 - [id number] Implanted:Qty: 1 on 04/29/2024 by Aubrey Brand MD at [facility] Vascular Closure Device Tele[employer] Inc 06/11/2025 [id number] / 0 / [id number] Bellamy Vascular System Closure Repair Femoral Artery Suture Mediated Perclose Prostyle 10651-44 - [id number] - [id number] Implanted:Qty: 1 on 02/21/2025 by Raymond James MD at [facility] Vascular Closure Device [employer] 11/22/2026 73912-18 / [id number] / [id number] Bellamy Vascular System Closure Repair Femoral Artery Suture Mediated Perclose Prostyle 71638-37 - [id number] - [id number] Implanted:Qty: 1 on 02/21/2025 by Raymond James MD at [facility] Vascular Occlusion Device [employer] 12/20/2026 48942-42 / [id number] / [id number] Cochlear Implant Right: Head [employer]itos Graft Bone Filler Cancellous 1-2mm Micro Granules Gel Altapore 10ml Putty [id number] - [id number] Implanted:Qty: 1 on 03/14/2022 by Fadi Moreno MD at [facility] N/A: Spine Cervical [employer] Carlitos [id number] 11/02/2023 [id number] / / [id number] Depuy Synthes Spine [id number] 3.5mm 16mm Ply Spine Screw Bone Nonsterile 4mm Jose - [id number] Implanted:Qty: 7 on 03/14/2022 by Fadi Moreno MD at [facility] N/A: Spine Cervical Depuy Synthes Spine [id number] / / Depuy Synthes Spine [id number] Lock Cap Spine T15 Standard Screw Set Titanium Nonsterile - [id number] Implanted:Qty: 7 on 03/14/2022 by Fadi Moreno MD at [facility] N/A: Spine Cervical Depuy Synthes Spine [id number] / / Depuy Spine [id number] [place] Expedium 2 Spine Wire Fixation Cocr Titanium - [id number] Implanted:Qty: 2 on 03/14/2022 by Fadi Moreno MD at [facility] N/A: Spine Cervical Depuy Synthes Spine [id number] / / Depuy Synthes Spine [id number] 4mm 60mm Lordosis Jose Spinal Titanium - [id number] Implanted:Qty: 2 on 03/14/2022 by Fadi Moreno MD at [facility] N/A: Spine Cervical Depuy Synthes Spine [id number] / / Procedures * The patient is currently admitted. The information in this section might not be complete until the patient is discharged. Procedure Name Priority Date/Time Associated Diagnosis Comments LEADLESS, SINGLE CHAMBER PACEMAKER (PPM) INSERTION Routine 02/21/2025 3:51 PM CDT Tachy-scotty syndrome (HCC) EGFR Routine 02/21/2025 4:15 AM CDT DIFFERENTIAL AUTO Routine 02/21/2025 4:1 5 AM CDT CBC WITH AUTO DIFFERENTIAL Routine 02/21/2025 4:15 AM CDT BASIC METABOLIC PANEL Routine 02/21/2025 4:15 AM CDT ECG 12-LEAD Routine 02/20/2025 10:44 PM CDT XR CHEST 1 VIEW IP Routine 02/20/2025 8:58 PM CDT RESPIRATORY PATHOGEN PANEL Routine 02/20/2025 7:59 PM CDT from Last 3 Months Results * LEADLESS, SINGLE CHAMBER PACEMAKER (PPM) INSERTION (02/21/2025 3:51 PM CDT) Anatomical Region Laterality Modality X-Ray Angiograph y Narrative 02/21/2025 4:05 PM CDT Table formatting from the original result was not included. CARDIAC IMPLANTABLE ELECTRONIC DEVICE (CIED) PLACEMENT REPORT PROCEDURE(S): Placement of leadless permanent cardiac pacemaker CABLE COVERER: Raymond James MD, FACC VENEER SUPERVISOR(S): None. PREOPERATIVE DIAGNOSIS: High-grade AV block ANESTHESIA TYPE: Moderate Sedation CLINICAL HISTORY: Quan Guallpa is a very pleasant 84 y.o. male with intermittent high-grade AV block who now presents for placement of a VDD single-chamber leadless permanent cardiac pacemaker. The benefits, risks, and alternatives of a permanent pacemaker implant were discussed at length with the patient using the principles of shared decision-making. Specific procedural risks discussed included, but were not limited to: vascular injury, bleeding, pneumothorax, and cardiac perforation/tamponade. Long-term risks discussed included, but were not limited to:device failure and/or recall, dislodgement with need for subsequent revision, and infection necessitating a system extraction. The patient demonstrated a clear understanding of these issues during our discussion. All questions were answered. DESCRIPTION: After obtaining informed consent, the patient was brought to the EP laboratory in a postabsorptive, nonsedated state. Peripheral IV access was established. Continuous ECG, noninvasive blood pressure monitoring, and pulse oximetry were initiated. Cardioversion patch electrodes were placed on the patient's chest and back. Sedation was administered per Anesthesia Services. The patient was sterilely prepared and draped in the usual manner. The right inguinal access site was infiltrated with 2% lidocaine. Vascular access was achieved using a micropuncture access needle via the modified Seldinger technique and utilizing ultrasound guidance. Two Perclose devices were deployed to preclose the vascular access site. A super stiff guide wire was advanced to the SVC. After predilatation using a Andres dilator, the introducer assembly was advanced under fluoroscopy. The delivery system for the ventricular device was prepared and flushed, and then advanced into the introducer. Under fluoroscopic guidance, the delivery catheter and device were advanced across the tricuspid valve to the RV septum. Intravenous contrast was injected to ensure appropriate septal placement. After confirmation of appropriate positioning and demonstration adequate sensing and pacing thresholds, the device was released and the delivery system was withdrawn. All venous sheaths were removed and hemostasis was achieved using Perclose closure devices. The patient was taken to the recovery area in stable condition. DEVICE INFORMATION AND PROGRAMMING: Model Serial No. Sensing (mV) Pacing Threshold (V) Impedence (Ohm) See Implants See Implants RV 6.3 0.25 @ 0.24 ms 780 Bradyarrhythmia Programming: VDD 50/110 FINDINGS: Successful placement of permanent leadless cardiac pacemaker system. SPECIMEN(S): None. ESTIMATED BLOOD LOSS: <5 cc. COMPLICATIONS: None. POSTOPERATIVE DIAGNOSIS: High-grade AV block Permanent cardiac pacemaker in place RECOMMENDATIONS AND FOLLOW-UP: Follow-up: [facility] in 4 weeks. Raymond James MD, [facility] [address], [address] [place], [place] [address] us Maki Jerome ELEVATOR INSTALLER CV ELECTROPHYSIOLOGY PROCS Final Result * eGFR (02/21/2025 4:15 AM CDT) eGFR 65 >=60 mL/min/1. 73 m2 Comment: Interpretive Data Reference Interval Normal >/= 90 mL/min/1.73m2 Mildly decreased* 60 - 89 mL/min/1.73m2 Mildly to moderately decreased 45 - 59 mL/min/1.73m2 Moderately to severely decreased 30 - 44 mL/min/1.73m2 Severely decreased 15 - 29 mL/min/1.73m2 Kidney Failure < 15 mL/min/1.73m2 *Relative to young adult level Estimated glomerular filtration rate is determined by the 2020 CKD-EPI equation recommended by the National Kidney Foundation (A Unifying Approach to GFR Estimation: Recommendations of the NKF-ASK Task Force on Reassessing the Inclusion of Race in Diagnosing Kidney Disease, JASN 2020). The CKD-EPI equation should not be used for patients with unstable renal function and has not been validated in children and those over 70. Current interpretive data was last reviewed 2021. Blood 02/21/2025 4:15 AM CDT 02/21/2025 5:12 AM CDT us Farrah Canchola MD LAB BLOOD ORDERABLES Final Result [facility] [address] Department [place] [address] * (ABNORMAL) Differential, auto (02/21/2025 4:15 AM CDT) Pathologist [facility] Neutrophil abs 4.51 1.50 - 6.50 K/cumm Imm gran abs 0.02 0.00 - 0.10 K/cumm [facility] Lymphocyte abs 0.58(L) 0.80 - 3.30 K/cumm [facility] Monocyte abs 0.68 0.20 - 0.80 K/cumm [facility] Eosinophil abs 0.15 0.00 - 0.50 K/cumm [facility] Basophil abs 0.03 0.00 - 0.10 K/cumm [facility] Neutrophil pct 75.6 % [facility] Comment: Interpretive Data Percent cell count reference ranges are not reported, since discordance with absolute values may lead to misinterpretation of CBC data. Current Interpretive Data was last revised on 2018. Imm gran pct 0.3 % [facility] Comment: Interpretive Data Percent cell count reference ranges are not reported, since discordance with absolute values may lead to misinterpretation of CBC data. Current Interpretive Data was last revised on 2018. Lymphocyte pct 9.7 % [facility] Comment: Interpretive Data Percent cell count reference ranges are not reported, since discordance with absolute values may lead to misinterpretation of CBC data. Current Interpretive Data was last revised on 2018. Monocyte pct 11.4 % [facility] Comment: Interpretive Data Percent cell count reference ranges are not reported, since discordance with absolute values may lead to misinterpretation of CBC data. Current Interpretive Data was last revised on 2018. Eosinophil pct 2.5 % [facility] Comment: Interpretive Data Percent cell count reference ranges are not reported, since discordance with absolute values may lead to misinterpretation of CBC data. Current Interpretive Data was last revised on 2018. Basophil pct 0.5 % [facility] Comment: Interpretive Data Percent cell count reference ranges are not reported, since discordance with absolute values may lead to misinterpretation of CBC data. Current Interpretive Data was last revised on 2018. Blood 02/21/2025 4:15 AM CDT 02/21/2025 5:11 AM CDT us Farrah Canchola MD LAB BLOOD ORDERABLES Final Result [facility] [address] Department [place] [address] * (ABNORMAL) CBC with auto differential (02/21/2025 4:15 AM CDT) [facility] WBC 5.97 3.80 - 9.90 K/cumm Hgb 10.5(L) 13.0 - 17.5 g/dL [facility] Hct 31.1(L) 38.9 - 50.3 % [facility] Plt 183 150 - 400 K/cumm [facility] MPV 11.2 9.1 - 12.3 fL [facility] RBC 3.39(L) 4.30 - 5.80 M/cumm [facility] MCV 91.7 81.3 - 96.4 fL [facility] MCH 31.0 27.1 - 33.3 pg [facility] MCHC 33.8 32.3 - 35.7 g/dL [facility] RDW CV 13.0 11.1 - 14.9 % [facility] RDW SD 43.3 35.7 - 48.1 fL [facility] NRBC abs 0.00 0.00 - 0.01 K/cumm [facility] Blood 02/21/2025 4:15 AM CDT 02/21/2025 5:11 AM CDT Farrah Canchola MD LAB BLOOD ORDERABLES Final Result [facility] [address] Department [place] [address] * (ABNORMAL) Basic metabolic panel (02/21/2025 4:15 AM CDT) [facility] Sodium 133(L) 135 - 145 mmol/L Potassium, pl 3.9 3.3 - 4.9 mmol/L [facility] Chloride 96(L) 97 - 110 mmol/L [facility] CO2 27 22 - 32 mmol/L [facility] Anion gap 10 2 - 15 mmol/L [facility] BUN 29(H) 6 - 25 mg/dL [facility] Creatinine 1.11 0.80 - 1.30 mg/dL [facility] Glucose 120 70 - 199 mg/dL [facility] Comment: Interpretive Data Fasting glucose >/= 126 mg/dl is diagnostic for diabetes. Fasting is defined as no caloric intake for at least 8 hours. Fasting glucose between 100 mg/dl to 125 mg/dl is diagnostic of prediabetes. In a patient with classic symptoms of hyperglycemia or hyperglycemic crisis, a random glucose >/= 200 mg/dl is diagnostic for diabetes. In the absence of unequivocal hyperglycemia, results should be confirmed by repeat testing. The classification and Diagnosis of Diabetes Diabetes Care 2021; 46: S19-S40. Current interpretive data was last revised 2022. Calcium 8.8 8.5 - 10.3 mg/dL [facility] Blood 02/21/2025 4:15 AM CDT 02/21/2025 5:12 AM CDT Farrah Canchola MD LAB BLOOD ORDERABLES Final Result Performing Organization Address City/[facility]/ZIP Co de Phone Number [facility] [address] Department [place] [address] * ECG 12 lead (02/20/2025 10:44 PM CDT) 02/20/2025 10:4 4 PM CDT Narrative [facility] - 02/21/2025 10:17 AM CDT Vent Rate: 86 bpm RR Interval: 696 msec WI Interval: 286 msec QRS Duration: 152 msec QT Interval: 388 msec QTC Interval: 431 msec P-R-T [place]: 31 - -21 - 2 degrees IMPRESSION: SINUS RHYTHM WITH FIRST DEGREE AV BLOCK BORDERLINE LEFT AXIS DEVIATION RIGHT BUNDLE BRANCH BLOCK MODERATE VOLTAGE CRITERIA FOR LVH, CONSIDER NORMAL VARIANT ABNORMAL ECG Electronically Signed By: Victor Manuel Merlos MD [email or web address] Farrah Canchola MD ECG ORDERABLES Final Resul t Performing Organization Address City/[facility] Co de Phone Number [facility] [employer] [facility] * XR Chest 1 Vw (02/20/2025 8:58 PM CDT) Anatomical Region Laterality Modality Body, Chest N/A Computed Radiogr aphy 02/21/2025 7:2 5 AM CDT Impressions 02/21/2025 7:25 AM CDT Median sternotomy wires and mediastinal clips are again seen. Stable cardiomediastinal silhouette with normal heart size. Lungs are clear. No pneumonia or other pulmonary disease identified. No pleural effusion or pneumothorax. Electronically signed by: Wilfrido Lopez M.D. Narrative 02/21/2025 7:25 AM CDT EXAMINATION: Chest 1 view COMPARISON: 06/10/2010 Procedure Note Wilfrido Lopez MD - 02/21/2025 EXAMINATION: Chest 1 view COMPARISON: 06/10/2010 IMPRESSION: Median sternotomy wires and mediastinal clips are again seen. Stable cardiomediastinal silhouette with normal heart size. Lungs are clear. No pneumonia or other pulmonary disease identified. No pleural effusion or pneumothorax. Electronically signed by: Wilfrido Lopez M.D. Benoit Perez MD IMG XR PROCEDURES Final Result * (ABNORMAL) Respiratory pathogen panel Nasopharyngeal (02/20/2025 7:59 PM CDT) Influenza A RNA Not Detected Not Detected [facility] Influenza B RNA Not Detected Not Detected [facility] RSV RNA Not Detected Not Detected [facility] COVID-19 RNA Not Detected Not Detected [facility] Coronavirus 229E RNA Not Detected Not Detected [facility] Coronavirus HKU1 RNA Not Detected Not Detected [facility] Coronavirus NL63 RNA Not Detected Not Detected [facility] Coronavirus OC43 RNA Not Detected Not Detected [facility] Adenovirus DNA Not Detected Not Detected [facility] Metapneumovirus RNA Detected(A) Not Detected [facility] Rhinovirus/Enterov irus RNA Not Detected Not Detected [facility] Parainfluenza 1 RNA Not Detected Not Detected [facility] Parainfluenza 2 RNA Not Detected Not Detected [facility] Parainfluenza 3 RNA Not Detected Not Detected [facility] Parainfluenza 4 RNA Not Detected Not Detected [facility] B. pertussis DNA Not Detected Not Detected [facility] B. parapertussis DNA Not Detected Not Detected [facility] C. pneumoniae DNA Not Detected Not Detected [facility] M. pneumoniae DNA Not Detected Not Detected [facility] Comment: Interpretive Data The [employer] FilmArray Respiratory Panel (RP2.1) assay is a multiplexed real-time PCR based nucleic acid test capable of simultaneous qualitative detection and identification of multiple respiratory viral and bacterial nucleic acids, including SARS Coronavirus 2 (the causative agent of COVID-19). The following bacteria, viruses and virus subtypes can be identified using the FilmArray RP2.1 assay: Bordetella pertussis, Bordetella parapertussis, Chlamydia pneumoniae, Mycoplasma pneumoniae, Adenovirus, SARS Coronavirus 2, seasonal coronaviruses (Coronavirus HKU1, Coronavirus NL63, Coronavirus 229E, and Coronavirus OC43), Influenza A, Influenza A subtype H1, Influenza A subtype H3, Influenza A subtype 2009 H1, Influenza B, Metapneumovirus, Parainfluenza 1, Parainfluenza 2, Parainfluenza 3, Parainfluenza 4, RSV, Rhinovirus/Enterovirus. Due to the genetic similarity between human Rhinovirus and Enterovirus, the FilmArray RP2.1 assay cannot reliably differentiate them. Coronavirus OC43 may cross-react with some isolates of Coronavirus HKU1. A dual positive result may be due to cross-reactivity or may indicate a co- infection. The detection and identification of specific viral and bacterial nucleic acids from individuals exhibiting signs and symptoms of a respiratory infection aids in the diagnosis of respiratory infection if used in conjunction with other clinical and epidemiological information. The results of this test should not be used as the sole basis for diagnosis, treatment, or other management decisions. Negative results in the setting of a respiratory illness may be due to infection with pathogens that are not detected by this test. Positive results do not rule out infection/co-infection with other organisms. The agent(s) detected by the FilmArray RP2.1 may not be the definite cause of disease. Additional testing (lab, imaging, etc.) may be necessary when evaluating a patient with possible respiratory tract infection. The FilmArray RP2.1 assay has FDA clearance for testing of ELEVATOR INSTALLER swabs. The performance characteristics of this assay have been determined by [facility]. Current interpretive data was last revised on 2021. Nasopharyngeal 02/20/2025 7: 59 PM CDT 02/20/2025 8:10 PM CDT Narrative [facility] - 02/20/2025 9:03 PM CDT Is the Patient experiencing symptoms consistent with COVID?->Yes Surveillance testing for transplant patient?->No Benoit Perez MD LAB MICROBIOLOGY - GENER AL ORDERABLES Final Result [facility] [address] Department [place] [address] MBC from Last 3 Months Additional Health Concerns Infection Onset Date Last Indicated Resolved Time Human metapneumovirus, contact + droplet 02/20/2025 02/20/2025 Insurance UHC MEDICARE ADVANTAGE [facility] MEDICARE ADVANTAGE * Guarantor: QUAN GUALLPA Account Type Relation to Patient Date of Phone Billing Address Personal/Family [facility] MEDICARE ADVANTAGE Advance Directives For more information, please contact: [phone] Documents on File Type Date Recorded Patient Clarifier Operator Helper Expl anation ADVANCE DIRECTIVE 03/14/2022 11:31 AM Johnathan r of Sales Enablement Specialist-Medical * LIMITED - No CPR (Latest Code Status on File) Date Activated Date Inactivated Comments 02/20/2025 6:12 PM Question Answer Comments Provide aggressive medical m anagement before a full cardiopulmonary arrest occurs. 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
--- OUTSIDE RECORDS SUMMARY | 2025-02-22 11:07 | XMS_ITS | Encounter Summary ---
Author Organization [facility] Healthcare Address [address] [place] [address] Care Team Providers Care Asphalt Paver Name Role Phone Nicolas Kumar MD Primary Care Provider Victor Manuel Dallas MD Unavailable [phone] Fadi Moreno MD Unavailable [phone] Leno Mao MD Unavailable Linda Schwartz NP Unavailable [phone] Reason for Visit * Auth/Cert Specialty Diagnoses / Procedures Referred By Contac t Referred To Contact Diagnoses Arrhythmia---ACC Procedures N Referral ID Status Reason Start Date Expiration Date Visits Re quested Visits Authorized [id number] 1 1 Encounter Details Date Type Department Care Team (Latest Contact Info) Description 02/20/2025 1:05 PM CDT - Present Hospital Encounter 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 INTERVAL HISTORY: Syncope. Awaiting pacemaker. Coughing. No other complaints. OBJECTIVE Vitals: 24hr Min/Max: Temp Min: 36.4 ??C (97.5 ??F) Max: 36.9 ??C (98.5 ??F) Pulse Min: 63 Max: 94 BP Min: 161/72 Max: 180/66 Resp Min: 16 Max: 22 SpO2 Min: 93 % Max: 100 % Most Recent : Vitals: 02/21/25 0755 BP: Pulse: 84 Resp: Temp: SpO2: Physical exam: General Appearance: Alert, cooperative, no distress, hearing aid, hand wasting Lungs: Clear to auscultation bilaterally, respirations unlabored, heard coughing Cardiovascular: Regular rate and rhythm, no murmur Abdomen: Soft, non-tender, no masses, no organomegaly, non-distended Extremities: Extremities normal, atraumatic, no cyanosis or edema, no clubbing Skin: no rashes, lesions or bruising Neurologic: CNII-XII intact. 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 Head/cervical spine CT negative. Plan for pacer today. Consult PT/OT Metapneumovirus CAD status post CABG Labile blood pressure Aortic stenosis status post TAVR with normally functioning valve on echo hypertension Dyslipidemia Hyponatremia Azotemia Normocytic anemia Dvt ppx SCDs Disposition: Anticipate discharge tomorrow These fluid and electrolyte abnormalities are being treated, evaluated or monitored: As above Obesity. Weight loss recommended. Malnutrition Screening No data recorded documented in this encounter H&P Notes * Benoit Perez MD - 02/20/2025 4:14 PM CDT Images from the original note were not included. History and Physical Division of Hospital Medicine Name: Quan Guallpa Today's Date: February 20, 2025 Admit Date: 02/20/2025 Bed: [id number] LOS: 0 days Subjective HPI Quan Guallpa is a 84 y.o. male with past medical history notable for coronary artery disease status post CABG, aortic stenosis status post TAVR, hypertension, hypercholesterolemia who presented initially to [facility] with syncope. History was obtained with the patient, review local records, and review of records from [facility]. Patient was in his usual state of health until 02/09/2025. He was standing in the [employer]. He was found down by other patrons. He was found have a large posterior scalp hematoma. He was brought to the emergency department [place] for further evaluation. In the emergency department [place], CT head and C-spine showed no acute abnormalities. CT angiography of the neck showed no acute issues. He was admitted locally. Transthoracic echocardiogram showed was done that showed a normally functioning bioprosthetic TAVR valve and normal left ventricular ej ection fraction with grade 2 diastolic dysfunction. He reportedly had sinus pauses on telemetry. There is no availability for pacemaker placement at that facility so he was transferred here for EP eval. Patient was evaluated by electrophysiology and plans were made to potentially place a leadless pacemaker. On my evaluation patient, he denies any current shortness of breath or chest pain. He reportshe had another episode of where he passed out while sitting in a chair at home about a week ago. Heis not sure how long he was out for that time but he was drinking coffee that was very hot at the time and reports his cough he was still hot when he woke up. He has coronary artery disease in his most recent PCI was on 03/19/2024 for where he had drug-eluting stent placement in the left main into the circumflex. Aspirin and Plavix have been on hold as he has a posterior scalp hematoma after the fall. He is a remote former smoker. He reports he drinks about 1-2 beers every 2 weeks. 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 He lives in a nursing home environment in an independent apartment. He reports his oldest daughter Daniela would make medical decisions for him in an emergency. We discussed code status as part of admission and he confirmed limited code with no intubation. Objective Past Medical History Past Medical History: Diagnosis Date Anxiety Arthritis [...] AORTIC VALVE REPLACEMENT 04/29/2024 29 [place] VASECTOMY 1978 Current Facility-Administered Medications Medication Dose Route Frequency Provider Last Rate Last Admin acetaminophen (TYLENOL) tablet 650 mg 650 mg oral Q4H PRN Farrah Canchola MD albuterol HFA (PROVENTIL HFA,VENTOLIN HFA,PROAIR HFA) 90 mcg/actuation inhaler 2 puff 2 puff inhalation Q6H PRN (RT) Benoit Perez MD [START ON 02/21/2025] allopurinoL (ZYLOPRIM) tablet 300 mg 300 mg oral QAM Benoit Perez MD [Held by Provider] aspirin chewable tablet 81 mg 81 mg oral Daily Benoit Perez MD Carrier Fluids for Secondary Infusion - 0.9% Sodium Chloride 30 mL intravenous PRN Farrah Canchola MD [Held by Provider] clopidogreL (PLAVIX) tablet 75 mg 75 mg oral Daily Benoit Perez MD fluticasone propionate (FLONASE) 50 mcg/actuation nasal spray 2 spray 2 spray each nostril Daily PRN Benoit Perez MD [START ON 02/21/2025] lisinopriL (PRINIVIL,ZESTRIL) tablet 40 mg 40 mg oral Daily Benoit Perez MD ondansetron ODT (ZOFRAN-ODT) disintegrating tablet 4 mg 4 mg oral Q6H PRN Farrah Canchola MD Or ondansetron (ZOFRAN) injection 4 mg 4 mg intravenous Q6H PRN Farrah Canchola MD [START ON 02/21/2025] pantoprazole DR (PROTONIX) extended release tablet 40 mg 40 mg oral Daily Benoit Perez MD pregabalin (LYRICA) capsule 100 mg 100 mg oral BID Benoit Perez MD sodium chloride 0.9% flush 0.5-20 mL 0.5-20 mL intra-catheter Q8H DARÍO (ALT) Farrah Canchola MD 10 mL at 02/20/25 1611 sodium chloride 0.9% flush 0.5-20 mL 0.5-20 mL intra-catheter PRN Farrah Canchola MD [START ON 02/21/2025] tamsulosin (FLOMAX) extended release capsule 0.4 mg 0.4 mg oral Daily Benoit Perez MD Allergies Allergen Reactions Ivzwtaf-Xaj-Ogc Reductase Inhibitors Muscle pain Lactose Diarrhea and Flatulence Social and Family History Social History Tobacco Use Smoking status: Passive Smoke Exposure - Never Smoker Smokeless tobacco: Former Tobacco comments: pt quit between 30-35 years ago. Substance and Sexual Activity Drug use: Yes Types: Marijuana Comment: edibles prescribed by PCP Sexual activity: Not Currently Partners: Female control/protection: Abstinence Alcohol Use: Unknown (04/29/2024) AUDIT-C Frequency of Alcohol Consumption: Monthly or less Average Number of Drinks: 1 or 2 Frequency of Binge Drinking: Not on file Family History Problem Relation Age of Onset Stroke Mother Cancer Father Prostate cancer Father Hearing loss Father Heart disease Other Anesthesia problems Neg Hx Vitals Most Recent Vitals: T 36.4 ??C (97.5 ??F), HR 68, BP 165/59, RR 16, SpO2 96 %. 24hr Min/Max: Temp Min: 36.4 ??C (97.5 ??F) Max: 36.7 ??C (98 ??F) Pulse Min: 63 Max: 72 BP Min: 161/72 Max: 165/59 Resp Min: 16 Max: 22 SpO2 Min: 96 % Max: 100 % Intake/Output Summary (Last 24 hours) at 02/20/2025 1822 Last data filed at 02/20/2025 1445 Gross per 24 hour Intake 200 ml Output -- Net 200 ml Physical Exam Vitals and nursing note reviewed. Constitutional: Appearance: He is obese. He is not ill-appearing. Cardiovascular: Rate and Rhythm: Normal rate and regular rhythm. Heart sounds: Normal heart sounds. Pulmonary: Breath sounds: Normal breath sounds. Abdominal: Palpations: Abdomen is soft. Tenderness: There is no abdominal tenderness. Musculoskeletal: Right lower leg: No edema. Left lower leg: No edema. Skin: General: Skin is warm and dry. Psychiatric: Mood and Affect: Mood normal. Behavior: Behavior normal. Lines, Drains, Airways Labs/Diagnostic Review Labs from [facility] dated 02/20/2025 White blood cell count 6.2 Hemoglobin 10.3 Hematocrit 32.5 Platelet count 187 INR 0.9 Sodium 132 Potassium 4 Chloride 95 Bicarb 29 BUN 31 Creatinine 1.2 Glucose 105 Calcium 8.6 Magnesium 1.7 Total protein 7 Albumin 3.9 Total bilirubin 0.5 Alkaline phosphatase 68 AST 26 ALT [address] [facility] dated 02/17/2025 TSH 2.98 I have reviewed the laboratory results. Imaging Review No results found. CT head dated 02/17/[address] [facility] No acute intracranial findings CT cervical spine dated 02/09/[address] [facility] [id number] cervical spondylosis with C4-C5 laminectomies and instrumented C3-C6 posterior spinal fusion. No acute osseous abnormality. CT angiography of the head neck dated 02/17/[address] 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 MRI of the brain with MRA could be considered for further characterization No carotid artery occlusion, dissection, or significant stenosis. EKG report dated 02/17/[address] [facility] Sinus rhythm with a rate of 65, first-degree AV block, right bundle-branch block, LVH. The tracing was not available for me to personally review or interpret Transthoracic echocardiogram dated 02/19/[address] [facility] 1. Left ventricular hypertrophy with vigorous systolic function and grade 2 diastolic noncompliance. 2. Mildly dilated left atrium. 3. Normally functioning TAVR aortic valve prosthesis. 4. Agitated saline contrast negative for visual. 5. Normal sinus rhythm. I have independently reviewed and interpreted labs. Assessment/Plan No new Assessment & Plan notes have been filed under this hospital service since the last note was generated. Service: Hospitalists Syncope, suspect cardiogenic Reported 3 second sinus pause at [place] EP consult reviewed Hold home metoprolol succinate 25 mg daily NPO after MN for pacer eval Posterior scalp hematoma Hold aspirin and Plavix. Can likely resume following pacer placement if remains stable Essential hypertension Blood pressure most recently 165/59 Continue lisinopril 40 mg daily Hold home metoprolol as above Hold home indapamide 2.5 mg daily Coronary artery disease status post CABG, PCI with DEVON to LM and LAD 02/2024 Aortic stenosis status post TAVR Hold home aspirin 81 mg daily and Plavix 75 mg daily Hypercholesterolemia Statin intolerance On Repatha at home BPH without LUTS Continue home Flomax 0 4 mg daily GERD without documented esophagitis Ppi daily as per formulary Chronic pain syndrome Continue Lyrica 100 mg b.i.d. Obesity. Weight loss recommended. These fluid and electrolyte abnormalities are being treated, evaluated or monitored: No fluid or electrolyte disorders Code status : LIMITED - No CPR Diet : Adult Diet Regular NPO Diet Supplementary Attestation Today, I am treating the patient for cardiogenic syncope which is in severe exacerbation, progression, or experiencing treatment side effects as evidenced by posing threat of bodily harm, as described in the note. Reviewed records from the following unique sources (external institutions or providers from different services): Electrophysiology. Independently interpreted test labs which shows as above. Decision made today to implement a do not resuscitate (DNR) order. Benoit Perez MD 6:22 PM 02/20/25 documented in this encounter Consult Notes * Lulu Zee RN - 02/21/2025 11:56 AM CDT Wound/Ostomy Service Admission Date: 02/20 Today's Date: 02/21 Reason for Consult: scalp wound Nutrition: BMI: 36.41 Diet Orders: NPO Support Surfaces: Bed: BASIM Sitting Surface: regular Heel protectors: none--patient is mobile Wound Assessment: Hematoma to parietal-occipital area from fall prior to admission. Wound is purpleand intact without drainage. Plan of care: allevyn dressing to pad and protect hematoma Education: Plan of care discussed: with patient and daughter--both voiced understanding Questions answered: yes Goals: hematoma reabsorbs, healing Wound/Ostomy Dept. to follow: no Please contact Wound/Ostomy Dept on Vocera with any questions or concerns * Maki Jerome NP - 02/20/2025 2:32 PM CDT Images from the original note were not included. Consult Note Patient Name: Quan Guallpa Date of : 1940 Primary Physician: Nicolas Kumar MD Chief Complaint Bradycardia Syncope HPI Quan Guallpa is a 84 y.o. male seen in consultation for bradycardia and syncope. He has a history of coronary disease, status post coronary artery bypass grafting 2009, aortic stenosis, in his now status post TAVR on 04/29/2024. He does well throughout the day. He still drives and remains active. He goes to his grandchildren'ssporting events and stays busy throughout the day. He has had 2 recent episodes of syncope. 1 time he was staying at the [facility] and does not have any prodrome or residual symptoms reported. He does have a scalp hematoma. He also had an episode in the morning a couple days ago. At that time he fell passed out in his recliner. When he awoke did not what happened. He was admitted to [facility] and I received a call from Cardiology there. He had an episodeof near-syncope and a 2nd pause per report. He is currently on metoprolol. Currently on telemetry he is in sinus rhythm with rates in the 60s. Past Medical History Past Medical History: Diagnosis Date Anxiety Arthritis 1979 Coronary artery disease GERD (gastroesophageal reflux disease) Gout Heart disease 2001 Hx of aortic valve stenosis 04/29/2024 TAVR Hyperlipidemia Hypertension Prostate Cancer ([facility] ([facility] Weight loss Past Surgical History Past Surgical History: Procedure Laterality Date ANGIOPLASTY 2001, 2023 CARDIAC CATHETERIZATION CARDIAC STENT PLACEMENT 2002 2 stents CARDIAC VALVE REPLACEMENT 2023,aortic COCHLEAR IMPLANT Right CORONARY ARTERY BYPASS GRAFT 2009, QUAD CORONARY STENT PLACEMENT 04/03/2024 DEVON to LAD x 1 KNEE ARTHROSCOPY Right TRANSCATHETER AORTIC VALVE REPLACEMENT 04/29/2024 29 [place] VASECTOMY 1977 Medications Medications Prior to Admission Medication Sig Dispense Refill Last Dose/Taking allopurinoL (ZYLOPRIM) 300 mg tablet Take 1 tablet (300 mg total) by mouth every morning 02/20/2025 clopidogreL (PLAVIX) 75 mg tablet Take 1 tablet (75 mg total) by mouth daily 90 tablet 3 Past Week indapamide (LOZOL) 2.5 mg tablet take 1 tablet (2.5MG) by oral route every day in the morning (Patient taking differently: Take 1 tablet (2.5 mg total) by mouth every morning) 0 02/20/2025 lansoprazole (PREVACID) 30 mg capsule take 1 capsule (30MG) by oral route every day before a meal (Patient taking differently: Take 1 capsule (30 mg total) by mouth every morning) 0 02/20/2025 lisinopriL (PRINIVIL,ZESTRIL) 40 mg tablet Take 1 tablet (40 mg total) by mouth daily 02/20/2025 metoprolol XL (TOPROL-XL) 25 mg extended release tablet Take 1 tablet (25 mg total) by mouth daily 90 tablet 2 02/19/2025 pregabalin (LYRICA) 100 mg capsule Take 1 capsule (100 mg total) by mouth 2 (two) times a day 02/19/2025 Morning tamsulosin (FLOMAX) 0.4 mg extended release capsule Take 1 capsule (0.4 mg total) by mouth daily 90capsule 3 02/20/2025 albuterol HFA (PROVENTIL HFA,VENTOLIN HFA,PROAIR HFA) 90 mcg/actuation inhaler Inhale 2 puffs every6 (six) hours as needed aspirin 81 mg chewable tablet Take 1 tablet (81 mg total) by mouth daily Unknown Repatha SureClick 140 mg/mL pen injector ADMINISTER 1 ML(140 MG) UNDER THE SKIN EVERY 14 DAYS 2 mL 11 Xhance 93 mcg/actuation aerosol breath activated INSTILL 1 SPRAY IN EACH NOSTRIL EVERY 12 HOURS Unknown Allergies Allergies Allergen Reactions Ayzxrta-Hko-Nqz Reductase Inhibitors Muscle pain Lactose Diarrhea and Flatulence Family History Family History Problem Relation Age of Onset Stroke Mother Cancer Father Prostate cancer Father Hearing loss Father Heart disease Other Anesthesia problems Neg Hx Social History Social History Tobacco Use Smoking status: Passive Smoke Exposure - Never Smoker Smokeless tobacco: Former Tobacco comments: pt quit between 30-35 years ago. Substance and Sexual Activity Drug use: Yes Types: Marijuana Comment: edibles prescribed by PCP Sexual activity: Not Currently Partners: Female control/protection: Abstinence Alcohol Use: Unknown (04/29/2024) AUDIT-C Frequency of Alcohol Consumption: Monthly or less Average Number of Drinks: 1 or 2 Frequency of Binge Drinking: Not on file Review of Systems Review of Systems Constitutional: Negative. HENT: Negative. Eyes: Negative. Respiratory: Negative. Cardiovascular: Negative. Gastrointestinal: Negative. Endocrine: Negative. Genitourinary: Negative. Skin: Negative. Neurological: Negative. Hematological: Negative. Psychiatric/Behavioral: Negative. Objective BP 161/72 (BP Location: Right arm, Patient Position: HOB 30 degrees) Pulse 63 Temp 36.7 ??C (98??F) (Oral) Resp 22 Ht 185.4 cm (6' 1 ) Wt 125.2 kg (276 lb 0.3 oz) SpO2 100% BMI 36.42 kg/m?? Physical Exam Vitals reviewed. Constitutional: Appearance: Normal appearance. He is well-developed. HENT: Head: Normocephalic and atraumatic. Right Ear: External ear normal. Left Ear: External ear normal. Nose: Nose normal. Mouth/Throat: Mouth: Mucous membranes are moist. Eyes: Conjunctiva/sclera: Conjunctivae normal. Pupils: Pupils are equal, round, and reactive to light. Cardiovascular: Rate and Rhythm: Normal rate and regular rhythm. Heart sounds: Normal heart sounds. Pulmonary: Effort: Pulmonary effort is normal. Breath sounds: Normal breath sounds. Abdominal: General: Bowel sounds are normal. Palpations: Abdomen is soft. Musculoskeletal: General: Normal range of motion. Cervical back: Normal range of motion and neck supple. Skin: General: Skin is warm and dry. Neurological: Mental Status: He is alert and oriented to person, place, and time. Psychiatric: Behavior: Behavior normal. Thought Content: Thought content normal. Judgment: Judgment normal. Diagnostics Assessment/Plan 84 y.o. male seen in consultation for syncope, injury, and bradycardia PLAN: Mr. Guallpa is a pleasant 84-year-old male who presented with syncope x2 at home with reported sinus pauses up to 3-[address] [facility] with near-syncope. Echocardiogram at that time demonstrated normal LV function. He also has a past history of CAD, status post CABG, valvular heart disease now status post TAVR. Will obtain telemetry strips available from [facility]. Would recommend placement of a pacemaker, consider leadless pacemaker as he would only need a low percentage of intermittent pacing The risks and benefits have been explained to the patient and he is agreeable to proceed. Will makeappropriate arrangements Maki Jerome NP [facility] Cosigned by Raymond James MD at 02/20/2025 6:28 PM CDT Associated attestation - Raymond James MD - 02/20/2025 6:28 PM CDT Chart reviewed. Case discussed with [facility]. IMPRESSION: Syncope, bradycardia RECOMMENDATIONS: Plan for permanent pacemaker documented in this encounter Miscellaneous Notes * Plan of Care - Maxine Robles RN - 02/21/2025 9:59 PM CDT Goals: Clinical Goals for the Shift: Monitor cath site, monitor vss, pacemaker. Senior Care Patient Centered Goal for Treatment: Pt will return to baseline Summary: Problem: Discharge Planning Goal: Understanding discharge needs will improve Outcome: Progressing Problem: Fall Risk Goal: Ability to state ways to decrease the risk of falls will improve Outcome: Progressing Goal: Will remain free from falls Outcome: Progressing Goal: Will remain free from injury from falls Outcome: Progressing Problem: Neurosensory Goal: Achieves stable or improved neurological status Outcome: Progressing Goal: Absence of seizures Outcome: Progressing Goal: Remains free of injury related to seizures activity Outcome: Progressing Goal: Achieves maximal functionality and self care Outcome: Progressing Goal: Ability to maintain intracranial pressure will improve Outcome: Progressing Problem: Cardiovascular Goal: Maintains optimal cardiac output and hemodynamic stability Outcome: Progressing Goal: Absence of cardiac dysrhythmias or at baseline Outcome: Progressing Goal: Cardiovascular status will improve Outcome: Progressing Problem: Skin/Tissue Integrity Goal: Skin integrity remains intact Outcome: Progressing Goal: Incisions, wounds, or drain sites healing without S/S of infection Outcome: Progressing Goal: Oral mucous membranes remain intact Description: Outcome: Progressing Problem: Musculoskeletal Goal: Maintain proper alignment of affected body part Outcome: Progressing Goal: Mobility, ROM and muscle strength will improve Outcome: Progressing Goal: Return mobility to safest level of function Outcome: Progressing Problem: Isolation Lack of Knowledge Goal: Knowledge of risk factors and measures for prevention of condition will improve Outcome: Progressing Problem: Isolation Physical Regulation Goal: Isolation- Spread of further infection will be prevented Outcome: Progressing Goal: Isolation- Complications related to the disease process, condition, or treatment will be avoided or minimized. Outcome: Progressing Problem: Respiratory Goal: Achieves optimal ventilation and oxygenation Outcome: Progressing Problem: Gastrointestinal Goal: Minimal or absence of nausea and vomiting Outcome: Progressing Problem: Genitourinary Goal: Absence of urinary retention Outcome: Progressing Problem: Infection Goal: Absence of infection during hospitalization Outcome: Progressing Problem: Metabolic/Fluid and Electrolytes Goal: Electrolytes maintained within normal limits Outcome: Progressing Problem: Hematologic Goal: Maintains hematologic stability Outcome: Progressing * Plan of Care - Lillie Dumont - 02/21/2025 8:30 AM CDT Problem: Fall Risk Goal: Ability to state ways to decrease the risk of falls will improve Outcome: Progressing Goals: Clinical Goals for the Shift: Monitor for hemodynamic stability Senior Care Patient Centered Goal for Treatment: Pt will return to baseline Summary: Pt AOx4, sitting on the side of the bed. Provided the posterior head wound care. Noted small amount of serosanguinous drainage, otherwise the wound is intact. Noted elevated blood pressure, rechecked using the proper size blood pressure cuff. BP within normal range. radiation monitor SR with1 HB. Pt denies CP, SOB, light headiness. Pt's dtr in with the pt at this time. Pt remains NPO since the mid-night for procedure, PACE maker placement. Continue to monitor for changes in condition. * Plan of Care - Emi Hollingsworth RN - 02/21/2025 3:51 AM CDT Problem: Discharge Planning Goal: Understanding discharge needs will improve Outcome: Progressing Problem: Fall Risk Goal: Ability to state ways to decrease the risk of falls will improve Outcome: Progressing Goal: Will remain free from falls Outcome: Progressing Goal: Will remain free from injury from falls Outcome: Progressing Problem: Neurosensory Goal: Achieves stable or improved neurological status Outcome: Progressing Goal: Absence of seizures Outcome: Progressing Goal: Remains free of injury related to seizures activity Outcome: Progressing Goal: Achieves maximal functionality and self care Outcome: Progressing Goal: Ability to maintain intracranial pressure will improve Outcome: Progressing Problem: Cardiovascular Goal: Maintains optimal cardiac output and hemodynamic stability Outcome: Progressing Goal: Absence of cardiac dysrhythmias or at baseline Outcome: Progressing Goal: Cardiovascular status will improve Outcome: Progressing Problem: Skin/Tissue Integrity Goal: Skin integrity remains intact Outcome: Progressing Goal: Incisions, wounds, or drain sites healing without S/S of infection Outcome: Progressing Goal: Oral mucous membranes remain intact Description: Outcome: Progressing Problem: Musculoskeletal Goal: Maintain proper alignment of affected body part Outcome: Progressing Goal: Mobility, ROM and muscle strength will improve Outcome: Progressing Goal: Return mobility to safest level of function Outcome: Progressing Problem: Isolation Lack of Knowledge Goal: Knowledge of risk factors and measures for prevention of condition will improve Outcome: Progressing Problem: Isolation Physical Regulation Goal: Isolation- Spread of further infection will be prevented Outcome: Progressing Goal: Isolation- Complications related to the disease process, condition, or treatment will be avoided or minimized. Outcome: Progressing Problem: Respiratory Goal: Achieves optimal ventilation and oxygenation Outcome: Progressing Problem: Gastrointestinal Goal: Minimal or absence of nausea and vomiting Outcome: Progressing Problem: Genitourinary Goal: Absence of urinary retention Outcome: Progressing Problem: Infection Goal: Absence of infection during hospitalization Outcome: Progressing Problem: Metabolic/Fluid and Electrolytes Goal: Electrolytes maintained within normal limits Outcome: Progressing Problem: Hematologic Goal: Maintains hematologic stability Outcome: Progressing Goals: Clinical Goals for the Shift: monitor vs, tele, comfort and safety (preparation for upcoming pacemaker placement) [facility] Patient Centered Goal for Treatment: return home Summary: Nursing to Nursing Communication STARR: DC Transport barriers: No PT/OT orders: No CM anticipated level of care: Mobility Barriers (i.e patient refusal, surgical restrictions, safety concerns, etc.): safety concerns Lines/Drains: Peripheral IV 02/20/25 20 G Right Forearm (Active) External Urinary Device (Active) Last BM: Medical Barriers: IV medications Incomplete Orders/Imaging/Consults: none Significant events over the last shift: pt complained of increasing SOB, wheezing, and started to cough up more sputum, pt was nasal swabbed - positive for metapneumovirus, pt was placed on droplet precautions. Pt was encouraged to do deep breathing exercises with coughing, cough medication was given as well. * Plan of Care - Estella Dumonth - 02/20/2025 3:11 PM CDT Problem: Fall Risk Goal: Ability to state ways to decrease the risk of falls will improve Outcome: Progressing Goals: Summary: Pt AOx4, SR 70's. Pt denies CP, SOB. Continue to monitor for changes in condition. documented in this encounter Plan of Treatment Scheduled Orders Name Type Priority Associated Diagnoses Order Schedule Adult Bronchodilator Therapy Protocol Respiratory Care Routine Until disconti nued until discontinued starting 02/20/2025 documented as of this encounter Procedures * The patient is currently admitted. [...] PATHOGEN PANEL Routine 02/20/2025 7:59 PM CDT documented in this encounter Results * LEADLESS, SINGLE CHAMBER PACEMAKER (PPM) INSERTION (02/21/2025 3:51 PM CDT) Anatomical Region Laterality Modality X-Ray Angiograph y Narrative 02/21/2025 4:05 PM CDT Table formatting from the original result was not included. CARDIAC IMPLANTABLE ELECTRONIC DEVICE (CIED) PLACEMENT REPORT PROCEDURE(S): Placement of leadless permanent cardiac pacemaker CSR RETAIL: Raymond James MD, [facility] SURVEY TECHNICIAN(S): None. PREOPERATIVE DIAGNOSIS: High-grade AV block ANESTHESIA [...] pacemaker in place RECOMMENDATIONS AND FOLLOW-UP: Follow-up: [facility] in 4 weeks. Raymond James MD, [facility] [address], [address] [place], [place] [address] us Maki Jerome NP CV ELECTROPHYSIOLOGY PROCS Final Result * eGFR [...] BLOOD ORDERABLES Final Result [facility] [address] [facility] Department of Laboratories [place] [id number] * (ABNORMAL) Differential, auto (02/21/2025 4:15 AM CDT) Neutrophil abs 4.51 1.50 - 6.50 K/cumm Imm gran abs 0.02 0.00 - 0.10 K/cumm [facility] Lymphocyte abs 0.58(L) 0.80 - 3.30 K/cumm [facility] Monocyte abs 0.68 0.20 - 0.80 K/cumm [facility] Eosinophil abs 0.15 0.00 - 0.50 K/cumm [facility] Basophil abs 0.03 0.00 - 0.10 K/cumm [facility] Neutrophil pct 75.6 % [facility] Comment: Interpretive Data Percent cell count reference ranges are not reported, since discordance with absolute values may lead to misinterpretation of CBC data. Current Interpretive Data was last revised on 2018. Imm gran pct 0.3 % [facility] Comment: Interpretive Data Percent cell count reference ranges are not reported, since discordance with absolute values may lead to misinterpretation of CBC data. Current Interpretive Data was last revised on 2018. Lymphocyte pct 9.7 % [facility] Comment: Interpretive Data Percent cell count reference ranges are not reported, since discordance with absolute values may lead to misinterpretation of CBC data. Current Interpretive Data was last revised on 2018. Monocyte pct 11.4 % [facility] Comment: Interpretive Data Percent cell count reference ranges are not reported, since discordance with absolute values may lead to misinterpretation of CBC data. Current Interpretive Data was last revised on 2018. Eosinophil pct 2.5 % [facility] Comment: Interpretive Data Percent cell count reference ranges are not reported, since discordance with absolute values may lead to misinterpretation of CBC data. Current Interpretive Data was last revised on 2018. Basophil pct 0.5 % [facility] Comment: Interpretive Data Percent cell count reference ranges are not reported, since discordance with absolute values may lead to misinterpretation of CBC data. Current Interpretive Data was last revised on 2018. Blood 02/21/2025 4:15 AM CDT 02/21/2025 5:11 AM CDT Farrah Canchola MD LAB BLOOD ORDERABLES Final Result Performing Organization Address City/[facility]/ZIP Co de Phone Number [facility] [address] [place] [address] * (ABNORMAL) CBC with auto differential (02/21/2025 4:15 AM CDT) Pathologist [facility] WBC 5.97 3.80 - 9.90 K/cumm Hgb 10.5(L) 13.0 - 17.5 g/dL [facility] Hct 31.1(L) 38.9 - 50.3 % [facility] Plt 183 150 - 400 K/cumm [facility] MPV 11.2 9.1 - 12.3 fL [facility] RBC 3.39(L) 4.30 - 5.80 M/cumm [facility] MCV 91.7 81.3 - 96.4 fL [facility] MCH 31.0 27.1 - 33.3 pg [facility] MCHC 33.8 32.3 - 35.7 g/dL [facility] RDW CV 13.0 11.1 - 14.9 % [facility] RDW SD 43.3 35.7 - 48.1 fL [facility] NRBC abs 0.00 0.00 - 0.01 K/cumm [facility] Blood 02/21/2025 4:15 AM CDT 02/21/2025 5:11 AM CDT Farrah Canchola MD LAB BLOOD ORDERABLES Final Result [facility] [address] Department of [employer] [place], [place] [id number] * (ABNORMAL) Basic metabolic panel (02/21/2025 4:15 AM CDT) Pathologist [facility] Sodium 133(L) 135 - 145 mmol/L Potassium, pl 3.9 3.3 - 4.9 mmol/L [facility] Chloride 96(L) 97 - 110 mmol/L [facility] CO2 27 22 - 32 mmol/L [facility] Anion gap 10 2 - 15 mmol/L [facility] BUN 29(H) 6 - 25 mg/dL [facility] Creatinine 1.11 0.80 - 1.30 mg/dL [facility] Glucose 120 70 - 199 mg/dL [facility] Comment: Interpretive Data Fasting glucose >/= 126 [...] 2022. Calcium 8.8 8.5 - 10.3 mg/dL [facility] Blood 02/21/2025 4:15 AM CDT 02/21/2025 5:12 AM CDT us Farrah Canchola MD LAB BLOOD ORDERABLES Final Result Performing Organization Address City/[facility] Co de Phone Number [facility] [address] Department [place] [address] * ECG 12 lead (02/20/2025 10:44 PM CDT) 02/20/2025 10:4 4 PM CDT Narrative [facility] - 02/21/2025 10:17 AM CDT Vent Rate: 86 bpm RR Interval: 696 msec MT Interval: 286 msec QRS Duration: 152 msec QT Interval: 388 msec QTC Interval: 431 msec P-R-T Reeds: 31 - -21 - 2 degrees IMPRESSION: SINUS RHYTHM WITH FIRST DEGREE AV BLOCK BORDERLINE LEFT AXIS DEVIATION RIGHT BUNDLE BRANCH BLOCK MODERATE VOLTAGE CRITERIA FOR LVH, CONSIDER NORMAL VARIANT ABNORMAL ECG Electronically Signed By: Victor Manuel Merlos MD mobap us Farrah Canchola MD ECG ORDERABLES Final Resul t Performing Organization Address City/[facility] Co de Phone Number [facility] * XR Chest 1 Vw (02/20/2025 8:58 PM CDT) Anatomical Region Laterality Modality Body, Chest N/A Computed Radiogr aphy 02/21/2025 7:25 AM CDT Impressions 02/21/2025 7:25 AM CDT [...] Influenza A RNA Not Detected Not Detected [facility] Influenza B RNA Not Detected Not Detected [facility] RSV RNA Not Detected Not Detected [facility] COVID-19 RNA Not Detected Not Detected [facility] Coronavirus 229E RNA Not Detected Not Detected [facility] Coronavirus HKU1 RNA Not Detected Not Detected [facility] Coronavirus NL63 RNA Not Detected Not Detected [facility] Coronavirus OC43 RNA Not Detected Not Detected [facility] Adenovirus DNA Not Detected Not Detected [facility] Metapneumovirus RNA Detected(A) Not Detected [facility] Rhinovirus/Enterov irus RNA Not Detected Not Detected [facility] Parainfluenza 1 RNA Not Detected Not Detected [facility] Parainfluenza 2 RNA Not Detected Not Detected [facility] Parainfluenza 3 RNA Not Detected Not Detected [facility] Parainfluenza 4 RNA Not Detected Not Detected [facility] B. pertussis DNA Not Detected Not Detected [facility] B. parapertussis DNA Not Detected Not Detected [facility] C. pneumoniae DNA Not Detected Not Detected [facility] M. pneumoniae DNA Not Detected Not Detected [facility] Comment: Interpretive Data The [employer] FilmArray Respiratory Panel (RP2.1) assay is a [...] assay has FDA clearance for testing of [facility] swabs. The performance characteristics of this assay have been determined by [facility]. Current interpretive data was last revised on 2021. Nasopharyngeal 02/20/2025 7: 59 PM CDT 02/20/2025 8:10 PM CDT Narrative ELSANANNETTE CURT - 02/20/2025 9:03 PM CDT Is the Patient experiencing symptoms consistent with COVID?->Yes Surveillance testing for transplant patient?->No us Benoit Perez MD LAB MICROBIOLOGY - GENER AL ORDERABLES Final Result [facility] [address] Department [place] [address] [facility] documented in this encounter Visit Diagnoses Diagnosis Tachy-scotty syndrome (HCC)- Primary Sinoatrial node dysfunction Tachy-scotty syndrome (HCC) Sinoatrial node dysfunction Syncope, cardiogenic [R55] 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 aortocoronary bypass status Primary hypertension Unspecified essential hypertension Morbid (severe) obesity due to excess calories (HCC) Mixed hyperlipidemia CAD (coronary artery disease) Coronary atherosclerosis of unspecified type of vessel, [place] or graft Syncope, cardiogenic Tachy-scotty syndrome (HCC) Sinoatrial node dysfunction documented in this encounter Admitting Diagnoses Diagnosis Tachy-scotty syndrome (HCC) Sinoatrial node dysfunction documented in this encounter Administered Medications Active Administered Medications - up to 3 most recent administrations Medication Order MAR Action Action Date Dose Rate Site acetaminophen (TYLENOL) tablet 650 mg 650 mg, oral, Every 4 hours PRN, 1st line for pain, fever, fever greater than 38.3 C, Starting on Yudelka 02/20/25 at 1435, Indications: Fever, PainIndications:Fever,Pain albuterol HFA (PROVENTIL HFA,VENTOLIN HFA,PROAIR HFA) 90 mcg/actuation inhaler 2 puff 2 puff, inhalation, Every 6 hours PRN (respiratory manager), wheezing, shortness of breath, Starting on Yudelka 02/20/25 at 1746 Given 02/21/2025 5:36 PM CDT 2 puffs Given 02/21/2025 10:20 AM CDT 2 puffs allopurinoL (ZYLOPRIM) tablet 300 mg 300 mg, oral, Every morning, First dose on Mon02/21/25 at 0900, Indications: prevention of acute gout attackIndications:prevention of acute gout attack Given 02/22/2025 8:19 AM CDT 300 mg Given 02/21/2025 9:25 AM CDT 300 mg benzocaine-menthoL (CHLORASEPTIC) lozenge 1 lozenge 1 lozenge, mouth/throat, Every 2 hours PRN, sore throat, Starting on Mon02/21/25 at 1212 benzonatate (TESSALON) capsule 100 mg 100 mg, oral, 3 times daily PRN, cough, Starting on Mon02/20/25 at 2104, Do not crush, chew, cut, dissolve, open or otherwise manipulate tablet/capsule., Indications: CoughIndications:Cough Given 02/21/2025 10:03 AM CDT 100 mg Given 02/20/2025 9:41 PM CDT 100 mg Carrier Fluids for Secondary Infusion - 0.9% Sodium Chloride 30 mL, intravenous, As needed, For priming tubing and/or flushing, Starting on Mon02/20/25 at 1435, 0-250 ml/hr to flush line after IV infusions when no maintenance IV ordered. Infuse 30mL at the same rate as the secondary infusion. Run as primary IV, not intended for KVO. guaiFENesin (ROBITUSSIN) 20 mg/mL oral liquid 400 mg 400 mg, oral, Every 4 hours PRN, cough, congestion, Starting on Mon02/20/25 at 2104 Given 02/20/2025 9:41 PM CDT 4 00 mg lisinopriL (PRINIVIL,ZESTRIL) tablet 40 mg 40 mg, oral, Daily, First dose on Mon02/21/25 at 0900 Given 02/22/2025 8:19 AM CDT 40 mg Given 02/21/2025 9:25 AM CDT 40 mg ondansetron (ZOFRAN) injection 4 mg 4 mg, intravenous, Administer over 2 Minutes, Every 6 hours PRN, nausea, vomiting, if not tolerating PO, Starting on Mon02/20/25 at 1435, Indications: Nausea and VomitingIndications:Nausea and Vomiting ondansetron ODT (ZOFRAN-ODT) disintegrating tablet 4 mg 4 mg, oral, Every 6 hours PRN, nausea, vomiting, Starting on Mon02/20/25 at 1435, If administering by mouth, place tablet on tongue and allow to dissolve., Indications: Nausea and VomitingIndications:Nausea and Vomiting pantoprazole DR (PROTONIX) extended release tablet 40 mg 40 mg, oral, Daily, First dose on Mon02/21/25 at 0900, Do not crush, chew, cut, dissolve, open or otherwise manipulate tablet/capsule., Indications: Treatment of Non-Bleeding Gastric DisorderIndications:Treatment of Non-Bleeding Gastric Disorder Given 02/22/2025 8:19 AM CDT 40 mg Given 02/21/2025 9:25 AM CDT 40 mg predniSONE (DELTASONE) tablet 40 mg 40 mg, oral, Daily, First dose on Mon02/22/25 at 1145 pregabalin (LYRICA) capsule 100 mg 100 mg, oral, 2 times daily, First dose on Mon02/20/25 at 2100 Given 02/22/2025 8:19 AM CDT 100 mg Given 02/21/2025 9:25 AM CDT 100 mg Given 02/20/2025 9:41 PM CDT 100 mg ramelteon (ROZEREM) tablet 8 mg 8 mg, oral, Nightly PRN, sleep, Starting on Mon02/20/25 at 1823, Indications: Sleep-Onset InsomniaIndications:Sleep-Onset Insomnia senna-docusate (PERICOLACE) 8.6-50 mg per tablet 1 tablet 1 tablet, oral, 2 times daily PRN, constipation, Starting on Mon02/20/25 at 2009 Given 02/21/2025 9:25 AM CDT 1 tablet sodium chloride 0.9% flush 0.5-20 mL 0.5-20 mL, intra-catheter, Every 8 hours scheduled (alternate), First dose on Mon02/20/25 at 1600, Flush volume based on line type and size. Given 02/21/2025 6:48 PM CDT 10 mL Given 02/21/2025 9:25 AM CDT 10 mL Given 02/20/2025 9:44 PM CDT 10 mL sodium chloride 0.9% flush 0.5-20 mL 0.5-20 mL, intra-catheter, As needed, line care, Starting on Yudelka 02/20/25 at 1435, Flush volume based on line type and size. Flush before and after each use. tamsulosin (FLOMAX) extended release capsule 0.4 mg 0.4 mg, oral, Daily, First dose on Mon02/21/25 at 0900, Do not crush, chew, cut, dissolve, open or otherwise manipulate tablet/capsule. Given 02/22/2025 8:19 AM CDT 0.4 mg Given 02/21/2025 9:25 AM CDT 0.4 mg documented in this encounter Discontinued Medications Medication Sig Discontinue Reason Start Date End Da te pregabalin (LYRICA) 50 mg capsuleIndications:Neur opathic Pain Take 2 capsules (100 mg total) by mouth 2 (two) times a day 02/20/2025 documented as of this encounter Historical Medications * This list may reflect changes made after this encounter. pregabalin (LYRICA) 100 mg capsule Take 1 capsule (100 mg total) by mouth 2 (two) times a day added in this encounter Active and Recently Administered Medications Times are shown in CDT. Scheduled Medication Order 02/20/2025 02/21/2025 02/22/2025 allopurinoL (ZYLOPRIM) tablet 300 mg 300 mg, oral, Every morning, First dose on Mon02/21/25 at 0900, Indications: prevention of acute gout attack 924 (Given - Provider: Lillie Dumont) 818 (Given - Provider: Irene Crespo, EDWARD) lisinopriL (PRINIVIL,ZESTRIL) tablet 40 mg 40 mg, oral, Daily, First dose on Mon02/21/25 at 0900 0925 (Given - Provider: Lillie Dumont) 818 (Given - Provider: Irene Crespo, EDWARD) pantoprazole DR (PROTONIX) extended release tablet 40 mg 40 mg, oral, Daily, First dose on Mon02/21/25 at 0900, Do not crush, chew, cut, dissolve, open or otherwise manipulate tablet/capsule., Indications: Treatment of Non-Bleeding Gastric Disorder 0925 (Given - Provider: Lillie Dumont) 0819 (Given - Provider: Irene Crespo, EDWARD) predniSONE (DELTASONE) tablet 40 mg 40 mg, oral, Daily, First dose on 02/22/25 at 1145 1145 (Due) pregabalin (LYRICA) capsule 100 mg 100 mg, oral, 2 times daily, First dose on Yudelka 02/20/25 at 2100 2141 (Given - Provider: Emi Hollingsworth RN) 0925 (Given - Provider: Lillie Dumont)2225 (Not Given - Provider: Maxine Robles RN - Reason: Patient/family refused) 0819 (Given - Provider: Irene Crespo RN)2100 (Due) sodium chloride 0.9% flush 0.5-20 mL 0.5-20 mL, intra-catheter, Every 8 hours scheduled (alternate), First dose on Yudelka 02/20/25 at 1600, Flush volume based on line type and size. 1611 (Given - Provider: Lillie Dumont)2144 (Given - Provider: Emi Hollingsworth RN) 0000 (Hold - Provider: Maxine Robles RN - Reason: Contraindicated)0925 (Given - Provider: Lillie Dumont)1848 (Given - Provider: Lillie Dumont) 0019 (Not Given - Provider: Maxine Robles RN - Reason: Contraindicated)0819 (Not Given - Provider: Irene Crespo RN - Reason: Other)1600 (Due) tamsulosin (FLOMAX) extended release capsule 0.4 mg 0.4 mg, oral, Daily, First dose on Mon02/21/25 at 0900, Do not crush, chew, cut, dissolve, open or otherwise manipulate tablet/capsule. 0925 (Given - Provider: Lillie Dumont) 0819 (Given - Provider: Irene Crespo, EDWARD) PRN Medication Order 02/20/2025 02/21/2025 02/22/2025 acetaminophen (TYLENOL) tablet 650 mg 650 mg, oral, Every 4 hours PRN, 1st line for pain, fever, fever greater than 38.3 C, Starting on Yudelka 02/20/25 at 1435, Indications: Fever, Pain albuterol HFA (PROVENTIL HFA,VENTOLIN HFA,PROAIR HFA) 90 mcg/actuation inhaler 2 puff 2 puff, inhalation, Every 6 hours PRN (respiratory manager), wheezing, shortness of breath, Starting on Mon02/20/25 at 1746 1020 (Given - Provider: Laura Choi, FLATWORK TIER)1736 (Given - Provider: Laura Choi, FLATWORK TIER) benzocaine-menthoL (CHLORASEPTIC) lozenge 1 lozenge 1 lozenge, mouth/throat, Every 2 hours PRN, sore throat, Starting on Mon02/21/25 at 1212 benzonatate (TESSALON) capsule 100 mg 100 mg, oral, 3 times daily PRN, cough, Starting on Yudelka 02/20/25 at 2104, Do not crush, chew, cut, dissolve, open or otherwise manipulate tablet/capsule., Indications: Cough 2140 (Given - Provider: Emi Hollingsworth RN) 1003 (Given - Provider: Lillie Dumont) Carrier Fluids for Secondary Infusion - 0.9% Sodium Chloride 30 mL, intravenous, As needed, For priming tubing and/or flushing, Starting on Yudelka 02/20/25 at 1435, 0-250 ml/hr to flush line after IV infusions when no maintenance IV ordered. Infuse 30mL at the same rate as the secondary infusion. Run as primary IV, not intended for KVO. ceFAZolin (ANCEF) 3,000 mg/30 mL in sterile water (premix) (CANCELED) Administer over 3 Minutes, Code/trauma/sedation medication, Starting on Mon02/21/25 at 1530, Intra-Procedure (CV) 1530 (Given - Provider: Aj Cabrera RN) fentaNYL (SUBLIMAZE) preservative free injection (CANCELED) Code/trauma/sedation medication, Starting on Mon02/21/25 at 1531, Intra-Procedure (CV) 1531 (Given - Provider: Aj Cabrera RN) fluticasone propionate (FLONASE) 50 mcg/actuation nasal spray 2 spray 2 spray, each nostril, Daily PRN, rhinitis, allergies, Starting on Mon02/20/25 at 1730 guaiFENesin (ROBITUSSIN) 20 mg/mL oral liquid 400 mg 400 mg, oral, Every 4 hours PRN, cough, congestion, Starting on Mon02/20/25 at 2104 2141 (Given - Provider: Emi Hollingsworth RN) ioversoL (OPTIRAY 320) injection (CANCELED) Code/trauma/sedation medication, Starting on Mon02/21/25 at 1543, Intra-Procedure (CV) 1543 (Given - Provider: Raymond James MD) lidocaine-EPINEPHrine (XYLOCAINE with EPI) 2 %-1:100,000 injection (CANCELED) Code/trauma/sedation medication, Starting on Mon02/21/25 at 1533, Intra-Procedure (CV), Indications: Administration of Local Anesthesia 1533 (Given - Provider: Raymond James MD) midazolam (VERSED) 1 mg/mL preservative free injection (CANCELED) Administer over 2 Minutes, Code/trauma/sedation medication, Starting on Mon02/21/25 at 1531, Intra-Procedure (CV) 1531 (Given - Provider: Aj Cabrera, EDWARD) ondansetron (ZOFRAN) injection 4 mg(Linked Group 1) 4 mg, intravenous, Administer over 2 Minutes, Every 6 hours PRN, nausea, vomiting, if not tolerating PO, Starting on Yudelka 02/20/25 at 1435, Indications: Nausea and Vomiting ondansetron ODT (ZOFRAN-ODT) disintegrating tablet 4 mg(Linked Group 1) 4 mg, oral, Every 6 hours PRN, nausea, vomiting, Starting on Yudelka 02/20/25 at 1435, If administering by mouth, place tablet on tongue and allow to dissolve., Indications: Nausea and Vomiting ramelteon (ROZEREM) tablet 8 mg 8 mg, oral, Nightly PRN, sleep, Starting on Mon02/20/25 at 1823, Indications: Sleep-Onset Insomnia senna-docusate (PERICOLACE) 8.6-50 mg per tablet 1 tablet 1 tablet, oral, 2 times daily PRN, constipation, Starting on Yudelka 02/20/25 at 2009 0925 (Given - Provider: Lillie Dumont) sodium chloride 0.9% flush 0.5-20 mL 0.5-20 mL, intra-catheter, As needed, line care, Starting on Yudelka 02/20/25 at 1435, Flush volume based on line type and size. Flush before and after each use. Linked Groups Order Group 1: ondansetron ODT (ZOFRAN-ODT) disintegrating tablet 4 mgJump to med 4 mg, oral, Every 6 hours PRN, nausea, vomiting, Starting on Yudelka 02/20/25 at 1435, If administering by mouth, place tablet on tongue and allow to dissolve., Indications: Nausea and Vomiting Or ondansetron (ZOFRAN) injection 4 mgJump to med 4 mg, intravenous, Administer over 2 Minutes, Every 6 hours PRN, nausea, vomiting, if not tolerating PO, Starting on Yudelka 02/20/25 at 1435, Indications: Nausea and Vomiting documented in this encounter Orders Medications Ordered That Harinder ht Not Have Been Administered Count Last Ordered Date First Ordered Date predniSONE (DELTASONE) tablet 40 mg 1 02/22 benzocaine-menthoL (CHLORASE PTIC) lozenge 1 lozenge 1 02/21/2025 ceFAZolin (ANCEF) 3,000 mg/3 0 mL in sterile water (premix) 1 02/21/2025 fentaNYL (SUBLIMAZE) preserv ative free injection 1 02/21/2025 ioversoL (OPTIRAY 320) injection 1 02/22/20 lidocaine-EPINEPHrine (XYLOC SYLVIA with EPI) 2 %-1:100,000 injection 1 02/21/2025 midazolam (VERSED) 1 mg/mL p reservative free injection 1 02/21/2025 acetaminophen (TYLENOL) tablet 650 mg 1 10/2024 albuterol HFA (PROVENTIL HFA ,VENTOLIN HFA,PROAIR HFA) 90 mcg/actuation inhaler 2 puff 1 02/20/2025 aspirin chewable tablet 81 mg 1 02/20/2025 Carrier Fluids for Secondary Infusion - 0.9% Sodium Chloride 1 02/20/2025 clopidogreL (PLAVIX) tablet 75 mg 1 fluticasone propionate (FLON ASE) 50 mcg/actuation nasal spray 2 spray 1 02/20/2025 ondansetron (ZOFRAN) injection 4 mg 1 02/20 ondansetron ODT (ZOFRAN-ODT) disintegrating tablet 4 mg 1 02/20/2025 ramelteon (ROZEREM) tablet 8 mg 1 sodium chloride 0.9% flush 0.5-20 mL 1 10/2024 Diet Count Last Ordered Date First Orde red Date ADULT DIET 1 02/21/2025 Nursing Count Last Ordered Date First Orde red Date APPLY 1 02/21/2025 ELEVATE HEELS OFF OF BED 1 02/21/2025 NOTIFY PROVIDER (SPECIFY) 2 02/21/2025 NURSING COMMUNICATION 6 02/21/2025 TELEMETRY MONITORING 1 02/21/2025 TURN PATIENT 1 02/21/2025 VITAL SIGNS 2 02/21/2025 02/20/2025 WOUND CARE 1 02/21/2025 ACTIVITY 1 02/20/2025 MAINTAIN IV ACCESS 1 02/20/[address] PLACE SEQUENTIAL COMPRESSION DEVICE 1 02/20 WEIGH PATIENT 1 02/20/2025 Code Status Count Last Ordered Date First Orde red Date LIMITED CODE 1 02/20/2025 Consult Count Last Ordered Date First Orde red Date CONSULT TO WOUND CARE 1 02/21/2025 OT Count Last Ordered Date First Orde red Date OT EVALUATE AND TREAT 1 02/21/2025 PT Count Last Ordered Date First Orde red Date PT EVALUATE AND TREAT 1 02/21/2025 IV Count Last Ordered Date First Orde red Date INSERT PERIPHERAL IV 1 02/20/2025 Admission Count Last Ordered Date First Orde red Date ADMIT TO INPATIENT 1 02/20/2025 Precaution Count Last Ordered Date First Orde red Date FALL PRECAUTIONS 1 02/20/2025 CORE MEASURES Count Last Ordered Date First Ord ered Date REASON FOR NO VTE PROPHYLAXIS AT ADMISSION 1 02/21/2025 REASON FOR NO VTE PROPHYLAXI S - HOSPITAL ADMISSION - MEDICATIONS 1 02/20/2025 Case Request Count Last Ordered Date First Orde red Date CASE REQUEST EP LAB 1 02/20/2025 documented in this encounter Additional Health Concerns Infection Onset Date Last Indicated Resolved Time COVID: Suspected 02/20/2025 02/20/2025 02/20/2025 9:04 PM CDT Human metapneumovirus, conta ct + droplet 02/20/2025 02/20/2025 documented as of this encounter Care Teams Asphalt Paver Relationship Specialty Start Date End Date Nicolas Kumar MD PCP - General 07/02/21 Victor Manuel Dallas MD [address] [place] [address] Consulting Physician Cardiology 01/14/22 Fadi Moreno MD [address] [place] [address] Consulting Physician Neurosurgery 03/22/22 Leno Mao MD [address] [place] [address] Consulting Physician Cardiothoracic Surgery 03/19/24 Linda Schwartz NP [address] [place] [address] Nurse Practitioner Cardiothoracic Surgery 04/30/24 documented as of this encounter
--- OUTSIDE RECORDS SUMMARY | 2025-02-22 11:07 | XMS_ITS | Encounter Summary ---
Author Organization [facility] Healthcare Address [address] [place] [address] Care Team Providers Care Wrapper Caser Name Role Phone Nicolas Kumar MD Primary Care Provider [phone] Victor Manuel Dallas MD Unavailable [phone] Fadi Moreno MD Unavailable [phone] Leno Mao MD Unavailable [phone] Linda Schwartz NP Unavailable Encounter Details Date Type Department Care Team (Late st Contact Info) Description 02/17/2025 Telephone [facility] Medical Group Cardiology [address] [facility] [address] [facility] [address] [place] [address] Victor Manuel Dallas MD [address] [place] [address] Social History Tobacco Use Types [...] on file 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 Gender Identity Not on file Sexual Orientation [...] documented as of this encounter Care Teams Wrapper Caser Relationship Specialty Start Date End Date Nicolas Kumar MD PCP - General 07/02/21 Victor Manuel Dallas MD [address] [place] [address] Consulting Physician Cardiology 01/14/22 Fadi Moreno MD [address] [place] [address] Consulting Physician Neurosurgery 03/22/22 Leno Mao MD [address] [place] [address] Consulting Physician Cardiothoracic Surgery 03/19/24 Linda Schwartz NP [address] [place] [address] Nurse Practitioner Cardiothoracic Surgery 04/30/24 documented as of this encounter
--- OUTSIDE RECORDS SUMMARY | 2025-02-22 11:07 | XMS_ITS | Encounter Summary ---
Author Organization [facility] Healthcare Address [address] [place] [address] Care Team Providers Care Cooker Process Cheese Name Role Phone Nicolas Kumar MD Primary Care Provider Vcitor Manuel Dallas MD Unavailable [phone] Fadi Moreno MD Unavailable [phone] Leno Mao MD Unavailable [phone] Linda Schwartz NP Unavailable Reason for Visit * Auth/Cert Specialty Diagnoses / Procedures Referred By Contac t Referred To Contact Diagnoses Arrhythmia---ACC Procedures N Referral ID Status Reason Start Date Expiration Date Visits Re quested Visits Authorized [id number] 1 1 Encounter Details Date Type Department Care Team (Latest Contact Info) Description 02/21/2025 2:35 PM CDT - 02/21/2025 4:25 PM CDT Surgery [facility] [address] [place] [address] Raymond James MD [address] [facility] [address], [place] [address] LEADLESS, SINGLE CHAMBER PACEMAKER (PPM) INSERTION Social History Tobacco Use Types Packs/Day Years [...] on file 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 Gender Identity Not on file Sexual Orientation Not on file Occupation Industry Job Start Date Job End Date Retired Not on file Not on file Not on file documented as of this encounter Last Filed Vital Signs Vital Sign Reading Time Taken Comments Blood Pressure 135/58 02/21/2025 3:55 PM CDT Pulse 50 02/21/2025 3:55 PM CDT Temperature 36.9 C (98.4 F) 02/21/2025 12:09 PM CDT Respiratory Rate 24 02/21/2025 3:55 PM CDT Oxygen Saturation 99% 02/21/2025 3:55 PM CDT Inhaled Oxygen Concentration - - [...] labs Reviewed chest x-ray imaging Reviewed electrophysiology eligibility consultant note(s) ASSESSMENT/PLAN: Syncope with posterior scalp [...] February 20, 2025 Admit Date: 02/20/2025 Bed: [id number] LOS: 0 days Subjective HPI Quan Guallpa is a 84 y.o. male with past medical history notable for coronary artery disease status post CABG, aortic stenosis status post TAVR, hypertension, hypercholesterolemia who presented initially to [facility] with syncope. History was obtained with the patient, review local records, and review of records from [facility]. Patient was in his usual state of health until 02/09/2025. He was standing in the [place]. He was found down by other patrons. He was found have a large posterior scalp hematoma. He was brought to the emergency department [place] for further evaluation. 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 He lives in a group home environment in an independent apartment. He [...] stenosis 04/29/2024 TAVR Hyperlipidemia Hypertension Prostate Cancer ([facility]) (HCC) Weight loss Past Surgical History: Procedure Laterality Date ANGIOPLASTY 2001, 2023 CARDIAC CATHETERIZATION CARDIAC STENT PLACEMENT 2002 2 stents CARDIAC VALVE REPLACEMENT 2023,aortic COCHLEAR IMPLANT Right CORONARY ARTERY BYPASS GRAFT 2009, QUAD CORONARY STENT PLACEMENT 04/03/2024 DEVON to LAD x 1 KNEE ARTHROSCOPY Right TRANSCATHETER AORTIC VALVE REPLACEMENT 04/29/2024 29 [place] VASECTOMY 1977 Current Facility-Administered Medications Medication Dose Route Frequency [...] Daily Benoit Perez MD Allergies Allergen Reactions Xmtcgkz-Jct-Qlv Reductase Inhibitors Muscle pain Lactose Diarrhea and [...] Lines, Drains, Airways Labs/Diagnostic Review Labs from [facility] dated 02/20/2025 White blood cell count 6.2 Hemoglobin 10.3 Hematocrit 32.5 Platelet count 187 INR 0.9 Sodium 132 Potassium 4 Chloride 95 Bicarb 29 BUN 31 Creatinine 1.2 Glucose 105 Calcium 8.6 Magnesium 1.7 Total protein 7 Albumin 3.9 Total bilirubin 0.5 Alkaline phosphatase 68 AST 26 ALT 15 Labs from [facility] dated 02/17/2025 TSH 2.98 I have reviewed the laboratory results. Imaging Review No results found. CT head dated 02/17/2025 from [facility] No acute intracranial findings CT cervical spine dated 02/09/2025 from [facility] Tdilbezv-ye-heshvy cervical spondylosis with C4-C5 laminectomies and instrumented C3-C6 posterior spinal fusion. No acute osseous abnormality. 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 MRI of the brain with MRA could be considered for further characterization No carotid artery occlusion, dissection, or significant stenosis. EKG report dated 02/17/2025 from [facility] Sinus rhythm with a rate of 65, first-degree AV block, right bundle-branch block, LVH. The tracing was not available for me to personally review or interpret Transthoracic echocardiogram dated 02/19/2025 from [facility] 1. Left ventricular hypertrophy with vigorous systolic [...] cardiogenic Reported 3 second sinus pause at [place] EP consult reviewed Hold home metoprolol succinate [...] follow: no Please contact Wound/Ostomy Dept on [facility] with any questions or concerns * Maki [...] 1 time he was staying at the [employer] store and does not have any prodrome or residual symptoms reported. He does have a scalp hematoma. He also had an episode in the morning a couple days ago. At that time he fell passed out in his recliner. When he awoke did not what happened. He was admitted to [facility] and I received a call from Cardiology [...] stenosis 04/29/2024 TAVR Hyperlipidemia Hypertension Prostate Cancer [facility] ([facility]) Weight loss Past Surgical History Past Surgical History: Procedure Laterality Date ANGIOPLASTY 2001, 2023 CARDIAC CATHETERIZATION CARDIAC STENT PLACEMENT 2002 2 stents CARDIAC VALVE REPLACEMENT 2023,aortic COCHLEAR IMPLANT Right CORONARY ARTERY BYPASS GRAFT 2009, QUAD CORONARY STENT PLACEMENT 04/03/2024 DEVON to LAD x 1 KNEE ARTHROSCOPY Right TRANSCATHETER AORTIC VALVE REPLACEMENT 04/29/2024 29 [place] VASECTOMY 1978 Medications Medications Prior to Admission Medication Sig [...] 12 HOURS Unknown Allergies Allergies Allergen Reactions Xdepeiu-Mnn-Qcw Reductase Inhibitors Muscle pain Lactose Diarrhea and [...] sinus pauses up to 3-4 seconds at [facility] with near-syncope. Echocardiogram at that time demonstrated normal LV function. He also has a past history of CAD, status post CABG, valvular heart disease now status post TAVR. Will obtain telemetry strips available from [facility]. Would recommend placement of a pacemaker, consider leadless pacemaker as he would only need a low percentage of intermittent pacing The risks and benefits have been explained to the patient and he is agreeable to proceed. Will makeappropriate arrangements Maki Jerome NP [facility] Medical Group Arrhythmia [facility] Cosigned by Raymond James MD at 02/20/2025 6:28 PM CDT Associated attestation - Raymond James MD - 02/20/2025 6:28 PM CDT Chart reviewed. Case discussed with JUNIOR NET DEVELOPER. IMPRESSION: Syncope, bradycardia RECOMMENDATIONS: Plan for permanent pacemaker documented in this encounter Miscellaneous Notes * Plan of Care - Maxine Robles RN - 02/21/2025 9:59 PM CDT Goals: Clinical Goals for the Shift: Monitor cath site, monitor vss, pacemaker. [facility] Patient Centered Goal for Treatment: Pt will [...] for the Shift: Monitor for hemodynamic stability Field Reporter Patient Centered Goal for Treatment: Pt will return to baseline Summary: Pt AOx4, sitting on the side of the bed. Provided the posterior head wound care. Noted small amount of serosanguinous drainage, otherwise the wound is intact. Noted elevated blood pressure, rechecked using the proper size blood pressure cuff. BP within normal range. court recording monitor SR with1 HB. Pt denies CP, [...] and safety (preparation for upcoming pacemaker placement) Field Reporter Patient Centered Goal for Treatment: return home [...] as well. * Plan of Care - Lillie Dumont - 02/20/2025 3:11 PM CDT Problem: Fall [...] PROCEDURE(S): Placement of leadless permanent cardiac pacemaker EXPANDED FUNCTION DENTAL ASSISTANT: Raymond James MD, FACC ORTHOPEDIC SHOE FITTER(S): None. PREOPERATIVE DIAGNOSIS: High-grade AV block ANESTHESIA [...] pacemaker in place RECOMMENDATIONS AND FOLLOW-UP: Follow-up: [facility] in 4 weeks. Raymond James MD, [facility] Medical [facility] Arr[facility] [address] [facility], [address], [place] [address] [place] Maki Jerome NP CV ELECTROPHYSIOLOGY PROCS [...] MD LAB BLOOD ORDERABLES Final Result [facility] [address] Department [place] [address] * (ABNORMAL) Differential, auto (02/21/2025 4:15 AM CDT) Neutrophil abs 4.51 1.50 - 6.50 K/cumm Imm gran abs 0.02 0.00 - 0.10 K/cumm [facility] Lymphocyte abs 0.58(L) 0.80 - 3.30 K/cumm [facility] Monocyte abs 0.68 0.20 - 0.80 K/cumm [facility] Eosinophil abs 0.15 0.00 - 0.50 K/cumm [facility] Basophil abs 0.03 0.00 - 0.10 K/cumm [facility] Neutrophil pct 75.6 % [facility] Comment: Interpretive Data Percent cell count reference ranges are not reported, since discordance with absolute values may lead to misinterpretation of CBC data. Current Interpretive Data was last revised on 2018. Imm gran pct 0.3 % [facility] Comment: Interpretive Data Percent cell count reference ranges are not reported, since discordance with absolute values may lead to misinterpretation of CBC data. Current Interpretive Data was last revised on 2018. Lymphocyte pct 9.7 % [facility] Comment: Interpretive Data Percent cell count reference ranges are not reported, since discordance with absolute values may lead to misinterpretation of CBC data. Current Interpretive Data was last revised on 2018. Monocyte pct 11.4 % [facility] Comment: Interpretive Data Percent cell count reference ranges are not reported, since discordance with absolute values may lead to misinterpretation of CBC data. Current Interpretive Data was last revised on 2018. Eosinophil pct 2.5 % [facility] Comment: Interpretive Data Percent cell count reference ranges are not reported, since discordance with absolute values may lead to misinterpretation of CBC data. Current Interpretive Data was last revised on 2018. Basophil pct 0.5 % [facility] Comment: Interpretive Data Percent cell count reference ranges are not reported, since discordance with absolute values may lead to misinterpretation of CBC data. Current Interpretive Data was last revised on 2018. Blood 02/21/2025 4:15 AM CDT 02/21/2025 5:11 AM CDT us Farrah Canchola MD LAB BLOOD ORDERABLES Final Result [facility] [address] Department [place] [address] * (ABNORMAL) CBC with auto differential (02/21/2025 4:15 AM CDT) [facility] WBC 5.97 3.80 - 9.90 K/cumm Hgb 10.5(L) 13.0 - 17.5 g/dL [facility] Hct 31.1(L) 38.9 - 50.3 % [facility] Plt 183 150 - 400 K/cumm [facility] MPV 11.2 9.1 - 12.3 fL [facility] RBC 3.39(L) 4.30 - 5.80 M/cumm [facility] MCV 91.7 81.3 - 96.4 fL [facility] MCH 31.0 27.1 - 33.3 pg [facility] MCHC 33.8 32.3 - 35.7 g/dL [facility] RDW CV 13.0 11.1 - 14.9 % [facility] RDW SD 43.3 35.7 - 48.1 fL [facility] NRBC abs 0.00 0.00 - 0.01 K/cumm [facility] Blood 02/21/2025 4:15 AM CDT 02/21/2025 5:11 AM CDT Farrah Canchola MD LAB BLOOD ORDERABLES Final Result [facility] [address] Department [place] [address] * (ABNORMAL) Basic metabolic panel (02/21/2025 4:15 AM CDT) [facility] Sodium 133(L) 135 - 145 mmol/L Potassium, pl 3.9 3.3 - 4.9 mmol/L [facility] Chloride 96(L) 97 - 110 mmol/L [facility] CO2 27 22 - 32 mmol/L [facility] Anion gap 10 2 - 15 mmol/L [facility] BUN 29(H) 6 - 25 mg/dL [facility] Creatinine 1.11 0.80 - 1.30 mg/dL [facility] Glucose 120 70 - 199 mg/dL [facility] Comment: Interpretive Data Fasting glucose [...] 2022. Calcium 8.8 8.5 - 10.3 mg/dL [facility] Blood 02/21/2025 4:15 AM CDT 02/21/2025 5:12 AM CDT Farrah Canchola MD LAB BLOOD ORDERABLES Final Result Performing Organization Address City/[facility] Co de Phone Number [facility] [address] Department [place] [address] * ECG 12 lead (02/20/2025 10:44 PM CDT) 02/20/2025 10:4 4 PM CDT Narrative [facility] - 02/21/2025 10:17 AM CDT Vent Rate: 86 bpm RR Interval: 696 msec HI Interval: 286 msec QRS Duration: 152 msec QT Interval: 388 msec QTC Interval: 431 msec P-R-T [place]: 31 - -21 - 2 degrees IMPRESSION: SINUS RHYTHM WITH FIRST DEGREE AV BLOCK BORDERLINE LEFT AXIS DEVIATION RIGHT BUNDLE BRANCH BLOCK MODERATE VOLTAGE CRITERIA FOR LVH, CONSIDER NORMAL VARIANT ABNORMAL ECG Electronically Signed By: Victor Manuel fuentes us Farrah Canchola MD ECG ORDERABLES Final Resul t Performing Organization Address City/[facility]/ZIP Co de Phone Number [facility] Quick Hang [facility] * XR Chest 1 Vw (02/20/2025 [...] pathogen panel Nasopharyngeal (02/20/2025 7:59 PM CDT) Pathologist [facility] Influenza A RNA Not Detected Not Detected [facility] Influenza B RNA Not Detected Not Detected [facility] RSV RNA Not Detected Not Detected [facility] COVID-19 RNA Not Detected Not Detected [facility] Coronavirus 229E RNA Not Detected Not Detected [facility] Coronavirus HKU1 RNA Not Detected Not Detected [facility] Coronavirus NL63 RNA Not Detected Not Detected [facility] Coronavirus OC43 RNA Not Detected Not Detected [facility] Adenovirus DNA Not Detected Not Detected [facility] Metapneumovirus RNA Detected(A) Not Detected [facility] Rhinovirus/Enterov irus RNA Not Detected Not Detected [facility] Parainfluenza 1 RNA Not Detected Not Detected [facility] Parainfluenza 2 RNA Not Detected Not Detected [facility] Parainfluenza 3 RNA Not Detected Not Detected [facility] Parainfluenza 4 RNA Not Detected Not Detected [facility] B. pertussis DNA Not Detected Not Detected [facility] B. parapertussis DNA Not Detected Not Detected [facility] C. pneumoniae DNA Not Detected Not Detected [facility] M. pneumoniae DNA Not Detected Not Detected [facility] Comment: Interpretive Data The opendorse FilmArray Respiratory Panel (RP2.1) assay is a [...] assay has FDA clearance for testing of JUNIOR NET DEVELOPER swabs. The performance characteristics of this assay have been determined by [facility]. Current interpretive data was last revised on 2021. Nasopharyngeal 02/20/2025 7: 59 PM CDT 02/20/2025 8:10 PM CDT Narrative [facility] - 02/20/2025 9:03 PM CDT Is the Patient experiencing symptoms consistent with COVID?->Yes Surveillance testing for transplant patient?->No Benoit Perez MD LAB MICROBIOLOGY - GENER AL ORDERABLES Final Result [facility] [address] Department [place] [address] [facility] documented in this encounter Visit Diagnoses Diagnosis [...] Coronary atherosclerosis of unspecified type of vessel, little shell tribe or graft Syncope, cardiogenic Tachy-scotty syndrome (HCC) [...] 2 puff, inhalation, Every 6 hours PRN (cyber incident responder), wheezing, shortness of breath, Starting on Yudelka [...] Given 02/21/2025 9:25 AM CDT 0.4 mg Inactive Administered Medications - up to 3 most recent administrations Medication Order MAR Action Action Date Dose Rate Site ceFAZolin (ANCEF) 3,000 mg/30 mL in sterile water (premix) Administer over 3 Minutes, Code/trauma/sedation medication, Starting on Mon02/21/25 at 1530, Intra-Procedure (CV) Given 02/21/2025 3:30 PM CDT 3,000 mg fentaNYL (SUBLIMAZE) preservative free injection Code/trauma/sedation medication, Starting on Mon02/21/25 at 1531, Intra-Procedure (CV) Given 02/21/2025 3:31 PM CDT 25 mcg ioversoL (OPTIRAY 320) injection Code/trauma/sedation medication, Starting on Mon02/21/25 at 1543, Intra-Procedure (CV) Given 02/21/2025 3:43 PM CDT 15 mL lidocaine-EPINEPHrine (XYLOCAINE with EPI) 2 %-1:100,000 injection Code/trauma/sedation medication, Starting on Mon02/21/25 at 1533, Intra-Procedure (CV), Indications: Administration of Local AnesthesiaIndications:Admini stration of Local Anesthesia Given 02/21/2025 3:33 PM CDT 22 mL Right Groin midazolam (VERSED) 1 mg/mL preservative free injection Administer over 2 Minutes, Code/trauma/sedation medication, Starting on Mon02/21/25 at 1531, Intra-Procedure (CV) Given 02/21/2025 3:31 PM CDT 1 mg documented in this encounter Discontinued Medications [...] attack 924 (Given - Provider: Lillie Dumont) 08 (Given - Provider: Irene Crespo RN) lisinopriL (PRINIVIL,ZESTRIL) tablet 40 mg 40 mg, oral, Daily, First dose on Mon02/21/25 at 0900 09 (Given - Provider: Lillie Dumont) 08 (Given - Provider: Irene Crespo RN) pantoprazole DR (PROTONIX) extended release tablet 40 mg 40 mg, oral, Daily, First dose on Mon02/21/25 at 0900, Do not crush, chew, cut, dissolve, open or otherwise manipulate tablet/capsule., Indications: Treatment of Non-Bleeding Gastric Disorder 924 (Given - Provider: Lillie Dumont) 08 (Given - Provider: Irene Crespo RN) predniSONE (DELTASONE) tablet 40 mg 40 mg, oral, Daily, First dose on 02/22/25 at 1145 1145 (Due) pregabalin (LYRICA) capsule 100 mg 100 mg, oral, 2 times daily, First dose on Yudelka 02/20/25 at 2100 2141 (Given - Provider: Emi Hollingsworth RN) 0925 (Given - Provider: Lillie Dumont)222 (Not Given - Provider: Maxine Robles RN - Reason: Patient/family refused) 08 (Given - Provider: Irene Crespo RN)2100 (Due) sodium chloride 0.9% flush 0.5-20 mL 0.5-20 mL, intra-catheter, Every 8 hours scheduled (alternate), First dose on Yudelka 02/20/25 at 1600, Flush volume based on line type and size. 1611 (Given - Provider: Lillie Dumont)2144 (Given - Provider: Emi Hollingsworth, EDWARD) 0000 (Hold - Provider: Maxine Robles, EDWARD - Reason: Contraindicated)0925 (Given - Provider: Lillie [...] 2 puff, inhalation, Every 6 hours PRN (cyber incident responder), wheezing, shortness of breath, Starting on Yudelka 02/20/25 at 1746 1020 (Given - Provider: Laura Choi, COAT FINISHER)1736 (Given - Provider: Laura Choi, PASCUAL) benzocaine-menthoL (CHLORASEPTIC) lozenge 1 lozenge 1 lozenge, [...] 1531 (Given - Provider: Aj Cabrera RN) ondansetron (ZOFRAN) injection 4 mg(Linked Group 1) [...] PRN, constipation, Starting on Mon02/20/25 at 2009 0925 (Given - Provider: Lillie Dumont) sodium chloride 0.9% flush 0.5-20 mL 0.5-20 mL, intra-catheter, As needed, line care, Starting on Mon02/20/25 at 1435, Flush volume based on line [...] (CHLORASE PTIC) lozenge 1 lozenge 1 02/21/2025 acetaminophen (TYLENOL) tablet 650 mg 1 10/2024 albuterol HFA (PROVENTIL HFA ,VENTOLIN HFA,PROAIR HFA) 90 mcg/actuation inhaler 2 puff 2 02/20/2025 allopurinoL (ZYLOPRIM) tablet 300 mg 1 10/2024 aspirin chewable tablet 81 mg 1 02/20/2025 benzonatate (TESSALON) capsule 100 mg 1 10/2024 Carrier Fluids for Secondary Infusion - 0.9% Sodium Chloride 1 02/20/2025 clopidogreL (PLAVIX) tablet 75 mg 1 025 fluticasone propionate (FLON ASE) 50 mcg/actuation nasal spray 2 spray 1 02/20/2025 guaiFENesin (ROBITUSSIN) 20 mg/mL oral liquid 400 mg 1 02/20/2025 lisinopriL (PRINIVIL,ZESTRIL) tablet 40 mg 1 02/20/2025 ondansetron (ZOFRAN) injection 4 mg 1 02/20 ondansetron ODT (ZOFRAN-ODT) disintegrating tablet 4 mg 1 02/20/[address] (PROTONIX) e xtended release tablet 40 mg 1 02/20/2025 pregabalin (LYRICA) capsule 100 mg 1 2024 ramelteon (ROZEREM) tablet 8 mg 1 senna-docusate (PERICOLACE) 8.6-50 mg per tablet 1 tablet 1 02/20/2025 sodium chloride 0.9% flush 0.5-20 mL 2 10/2024 tamsulosin (FLOMAX) extended release capsule 0.4 mg 1 02/20/2025 Diet Count Last Ordered Date First Orde [...] documented as of this encounter Care Teams Cooker Process Cheese Relationship Specialty Start Date End Date Nicolas Kumar MD PCP - General 07/02/21 Victor Manuel Dallas MD [address] [place] [address] Consulting Physician Cardiology 01/14/22 Fadi Moreno MD [address] [place] [address] Consulting Physician Neurosurgery 03/22/22 Leno Mao MD [address] [facility] [address] [place] [address] Consulting Physician Cardiothoracic Surgery 03/19/24 Linda Schwartz NP [address] [facility] [address] [place] [address] Nurse Practitioner Cardiothoracic Surgery 04/30/24 documented as of this encounter
--- OUTSIDE RECORDS SUMMARY | 2025-02-22 11:07 | XMS_ITS | Referral Summary ---
Author Organization [facility] [address] Address [address] [place] [address] Care Team Providers Care Overlay Operator Name Role Phone Nicolas Kumar MD Primary Care Provider [phone] Victor Manuel Dallas MD Unavailable Fadi Moreno MD Unavailable [phone] Leno Mao MD Unavailable Linda Schwartz NP Unavailable Encounters Date Type Department Care Team Description 02/21/2025 2:35 PM CDT - 02/21/2025 4:25 PM CDT Surgery [facility] Electrophysiology Lab [address] [place] [phone] Raymond James MD LEADLESS, SINGLE CHAMBER PACEMAKER (PPM) INSERTION 02/21/2025 2:47 PM CDT Anesthesia Event [facility] Electrophysiology Lab [address] [place] [phone] Munir Sherman MD Messer, Jennifer Ellyn, EDWARD 02/20/2025 1:05 PM CDT - Present Hospital Encounter [address] [address] TeckcFarrah lu MD Ahmad, Bazgha Imtiaz, Tachy-scotty syndrome (HCC) (Primary Dx); Syncope, cardiogenic [R55] 02/19/2025 Orders Only [facility] [address] [place] [phone] Farrah Canchola MD 02/17/2025 Telephone [facility] Cardiology [address] [place] [address] Victor Manuel Dallas MD 01/16/2025 11:00 AM CDT Office Visit [facility] Cardiology at [address] [place] [phone] Victor Manuel Dallas MD S/P CABG (coronary artery bypass graft) (Primary Dx); S/P TAVR (transcatheter aortic valve replacement) 01/06/2025 Telephone [facility] Cardiology [address] [place] [address] Victor Manuel Dallas MD from Last 3 Months Allergies Active Allergy Reactions Criticality Noted Date Comments Lactose Diarrhea,Flatulence Low Rtifcxh-Vdj-Lne Reductase Inhibitors Muscle pain Medium 04/15/2024 Medications [...] 2 mL 11 04/15/20 24 025 Discontinued metoprolol XL (TOPROL-XL) [...] (01/07/2022): Added automatically from request for surgery [id number] Elevated PSA 11/29/2021 Overview (11/29/2021): Added automatically from request for surgery [id number] Right carpal tunnel syndrome 05/10/2021 Overview (05/10/2021): Added automatically from request for surgery [id number] Aortic systolic murmur on examination 05/28/2019 CAD [...] on file Legal Sex 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 Gender Identity Not on file Sexual Orientation [...] 02/20/2025 1:07 PM CDT Plan of Treatment Not on file Medical Devices Implanted Type Area Coin Machine Mechanic Device Identifier Shelf Expiration Date Model / Serial / Lot Medtronic Inc Micra 2 Av Synchronous Leadless Ventricular Pacemaker [id number] - [id number] - [id number] Implanted:Qty: 1 on 02/21/2025 by Raymond James MD at [facility] Pacemaker Medtronic Inc 06/05/2026 [id number] / [id number] / [employer] Tory 3 29mm Transcatheter Aortic Valve [id number] - [id number] - [id number] Implanted:Qty: 1 on 04/29/2024 by Aubrey Brand MD at [facility] Prosthetic Valve N/A: Aortic Valve [employer] 10/02/2026 [id number] / [id number] / [employer] Carlitos Synergy Xd Monorail 3.5mm 38mm 144cm Delivery System 1 Access [id number] - [id number] - [id number] Implanted:Qty: 1 on 04/03/2024 by Aubrey Brand MD at [facility] Stent Left: Circumflex Coronary Artery [employer] Carlitos 12/19/2025 [id number] / [id number] / [id number] Teleflex Medical Inc 18f Manta Vascular Closure Device 2115 - S0 - [id number] Implanted:Qty: 1 on 04/29/2024 by Aubrey Brand MD at [facility] Vascular Closure Device Tele[employer] Inc 06/11/2025 2115 / [id number] / [id number] Bellamy Vascular System Closure Repair Femoral Artery Suture Mediated Perclose Prostyle 97762-36 - [id number] - [id number] Implanted:Qty: 1 on 02/21/2025 by Raymond James MD at [facility] Vascular Closure Device [employer] 11/22/2026 22185-55 / [id number] / [id number] Bellamy Vascular System Closure Repair Femoral Artery Suture Mediated Perclose Prostyle 00062-81 - [id number] - [id number] Implanted:Qty: 1 on 02/21/2025 by Raymond James MD at [facility] Vascular Occlusion Device [employer] 12/20/2026 86405-50 / [id number] / [id number] Cochlear Implant Right: Head [facility] Carlitos Graft Bone Filler Cancellous 1-2mm Micro Granules Gel Altapore 10ml Putty [id number] - [id number] Implanted:Qty: 1 on 03/14/2022 by Fadi Moreno MD at [facility] N/A: Spine Cervical [facility] Carlitos [id number] 11/02/2023 [id number] / / [id number] Depuy Synthes Spine [id number] 3.5mm 16mm Ply Spine Screw Bone Nonsterile 4mm Jose - [id number] Implanted:Qty: 7 on 03/14/2022 by Fadi Moreno MD at [facility] N/A: Spine Cervical Depuy Synthes Spine [id number] / / Depuy Synthes Spine [id number] Lock Cap Spine T15 Standard Screw Set Titanium Nonsterile - [id number] Implanted:Qty: 7 on 03/14/2022 by Fadi Moreno MD at [facility] N/A: Spine Cervical Depuy Synthes Spine [id number] / / Depuy Spine [id number] [place] Expedium 2 Spine Wire Fixation Cocr Titanium - [id number] Implanted:Qty: 2 on 03/14/2022 by Fadi Moreno MD at [facility] N/A: Spine Cervical Depuy Synthes Spine [id number] / / Depuy Synthes Spine [id number] 4mm 60mm Lordosis Jose Spinal Titanium - [id number] Implanted:Qty: 2 on 03/14/2022 by Fadi Moreno MD at [facility] N/A: Spine Cervical Depuy Synthes Spine [id number] / / Procedures * The patient is [...] PROCEDURE(S): Placement of leadless permanent cardiac pacemaker BOILERMAKER SHIP: Raymond James MD, [facility] PERLITE GRINDER(S): None. PREOPERATIVE DIAGNOSIS: High-grade AV block ANESTHESIA [...] place RECOMMENDATIONS AND FOLLOW-UP: Follow-up: [facility] Device Clinic in 4 weeks. Raymond James MD, [facility] Arr[facility] [address] [place] [address], [address] [address] Maki Jerome NP CV ELECTROPHYSIOLOGY PROCS Final [...] of Race in Diagnosing Kidney Disease, JASN 202). The CKD-EPI equation should not be used for patients with unstable renal function and has not been validated in children and those over 70. Current interpretive data was last reviewed 2021. Blood 02/21/2025 4:15 AM CDT 02/21/2025 5:12 AM CDT us Farrah Canchola MD LAB BLOOD ORDERABLES Final Result [facility] [address] Department [place] [address] * (ABNORMAL) Differential, auto (02/21/2025 4:15 AM CDT) Neutrophil abs 4.51 1.50 - 6.50 K/cumm Imm gran abs 0.02 0.00 - 0.10 K/cumm [facility] Lymphocyte abs 0.58(L) 0.80 - 3.30 K/cumm [facility] Monocyte abs 0.68 0.20 - 0.80 K/cumm [facility] Eosinophil abs 0.15 0.00 - 0.50 K/cumm [facility] Basophil abs 0.03 0.00 - 0.10 K/cumm [facility] Neutrophil pct 75.6 % [facility] Comment: Interpretive Data Percent cell count reference ranges are not reported, since discordance with absolute values may lead to misinterpretation of CBC data. Current Interpretive Data was last revised on 2018. Imm gran pct 0.3 % [facility] Comment: Interpretive Data Percent cell count reference ranges are not reported, since discordance with absolute values may lead to misinterpretation of CBC data. Current Interpretive Data was last revised on 2018. Lymphocyte pct 9.7 % [facility] Comment: Interpretive Data Percent cell count reference ranges are not reported, since discordance with absolute values may lead to misinterpretation of CBC data. Current Interpretive Data was last revised on 2018. Monocyte pct 11.4 % [facility] Comment: Interpretive Data Percent cell count reference ranges are not reported, since discordance with absolute values may lead to misinterpretation of CBC data. Current Interpretive Data was last revised on 2018. Eosinophil pct 2.5 % [facility] Comment: Interpretive Data Percent cell count reference ranges are not reported, since discordance with absolute values may lead to misinterpretation of CBC data. Current Interpretive Data was last revised on 2018. Basophil pct 0.5 % [facility] Comment: Interpretive Data Percent cell count reference ranges are not reported, since discordance with absolute values may lead to misinterpretation of CBC data. Current Interpretive Data was last revised on 2018. Blood 02/21/2025 4:15 AM CDT 02/21/2025 5:11 AM CDT Farrah Canchola MD LAB BLOOD ORDERABLES Final Result Performing Organization Address City/[facility]/ZIP Co de Phone Number [facility] [address] [facility] [place] [address] * (ABNORMAL) CBC with auto differential (02/21/2025 4:15 AM CDT) WBC 5.97 3.80 - 9.90 K/cumm Hgb 10.5(L) 13.0 - 17.5 g/dL [facility] Hct 31.1(L) 38.9 - 50.3 % [facility] Plt 183 150 - 400 K/cumm [facility] MPV 11.2 9.1 - 12.3 fL [facility] RBC 3.39(L) 4.30 - 5.80 M/cumm [facility] MCV 91.7 81.3 - 96.4 fL [facility] MCH 31.0 27.1 - 33.3 pg [facility] MCHC 33.8 32.3 - 35.7 g/dL [facility] RDW CV 13.0 11.1 - 14.9 % [facility] RDW SD 43.3 35.7 - 48.1 fL [facility] NRBC abs 0.00 0.00 - 0.01 K/cumm [facility] Blood 02/21/2025 4:15 AM CDT 02/21/2025 5:11 AM CDT Farrah Canchola MD LAB BLOOD ORDERABLES Final Result Performing Organization Address City/[facility]/ZIP Co de Phone Number [facility] [address] [place] [address] * (ABNORMAL) Basic metabolic panel (02/21/2025 4:15 AM CDT) Sodium 133(L) 135 - 145 mmol/L Potassium, pl 3.9 3.3 - 4.9 mmol/L [facility] Chloride 96(L) 97 - 110 mmol/L [facility] CO2 27 22 - 32 mmol/L [facility] Anion gap 10 2 - 15 mmol/L [facility] BUN 29(H) 6 - 25 mg/dL [facility] Creatinine 1.11 0.80 - 1.30 mg/dL [facility] Glucose 120 70 - 199 mg/dL [facility] Comment: Interpretive Data Fasting glucose >/= [...] 2022. Calcium 8.8 8.5 - 10.3 mg/dL [facility] Blood 02/21/2025 4:15 AM CDT 02/21/2025 5:12 AM CDT us Farrah Canchola MD LAB BLOOD ORDERABLES Final Result [facility] [address] Department [place] [address] * ECG 12 lead (02/20/2025 10:44 PM CDT) 02/20/2025 10:4 4 PM CDT Narrative [facility] - 02/21/2025 10:17 AM CDT Vent Rate: 86 bpm RR Interval: 696 msec [place] Interval: 286 msec QRS Duration: 152 msec QT Interval: 388 msec QTC Interval: 431 msec P-R-T [place]: 31 - -21 - 2 degrees IMPRESSION: SINUS RHYTHM WITH FIRST DEGREE AV BLOCK BORDERLINE LEFT AXIS DEVIATION RIGHT BUNDLE BRANCH BLOCK MODERATE VOLTAGE CRITERIA FOR LVH, CONSIDER NORMAL VARIANT ABNORMAL ECG Electronically Signed By: Victor Manuel Merlos MD [employer]ell Farrah Canchola MD ECG ORDERABLES Final Resul t [facility] * XR Chest 1 Vw (02/20/2025 8:58 [...] panel Nasopharyngeal (02/20/2025 7:59 PM CDT) Pathologist [facility] Influenza A RNA Not Detected Not Detected [facility] Influenza B RNA Not Detected Not Detected [facility] RSV RNA Not Detected Not Detected [facility] COVID-19 RNA Not Detected Not Detected [facility] Coronavirus 229E RNA Not Detected Not Detected [facility] Coronavirus HKU1 RNA Not Detected Not Detected [facility] Coronavirus NL63 RNA Not Detected Not Detected [facility] Coronavirus OC43 RNA Not Detected Not Detected [facility] Adenovirus DNA Not Detected Not Detected [facility] Metapneumovirus RNA Detected(A) Not Detected [facility] Rhinovirus/Enterov irus RNA Not Detected Not Detected [facility] Parainfluenza 1 RNA Not Detected Not Detected [facility] Parainfluenza 2 RNA Not Detected Not Detected [facility] Parainfluenza 3 RNA Not Detected Not Detected [facility] Parainfluenza 4 RNA Not Detected Not Detected [facility] B. pertussis DNA Not Detected Not Detected [facility] B. parapertussis DNA Not Detected Not Detected [facility] C. pneumoniae DNA Not Detected Not Detected [facility] M. pneumoniae DNA Not Detected Not Detected [facility] Comment: Interpretive Data The PrizeBox™ FilmArray Respiratory Panel (RP2.1) assay is a [...] assay has FDA clearance for testing of RESEARCH ASSOCIATE QUALITY CONTROL QC swabs. The performance characteristics of this assay have been determined by [facility]. Current interpretive data was last revised on 2021. Nasopharyngeal 02/20/2025 7: 59 PM CDT 02/20/2025 8:10 PM CDT Narrative [facility] - 02/20/2025 9:03 PM CDT Is the Patient experiencing symptoms consistent with COVID?->Yes Surveillance testing for transplant patient?->No Benoit Perez MD LAB MICROBIOLOGY - GENER AL ORDERABLES Final Result [facility] [address] Department [place] [address] [facility] from Last 3 Months Additional Health Concerns Infection Onset Date Last Indicated Resolved Time Human metapneumovirus, contact + droplet 02/20/2025 02/20/2025 Insurance [facility] MEDICARE [facility] Address: [facility] [address] [place] [address] [facility] MEDICARE [facility] Address: [address] [address] [place] [address] * Guarantor: QUAN GUALLPA Account Type Relation to Patient Date of Phone Billing Address Personal/Family [employer] MEDICARE ADVANTAGE [facility] MEDICARE Address: [address] [address] [place] [address] Advance Directives For more information, please contact: [phone] Documents on File Type Date Recorded Patient Yolk Spray Drier Expl anation ADVANCE DIRECTIVE 03/14/2022 11:31 AM Johnathan r of Telecommunications Manager-Medical * LIMITED - No CPR (Latest Code [...] 10:30 PM 03/22/2022 6:43 PM Care Teams Overlay Operator Relationship Specialty Start Date End Date Nicolas Kumar MD PCP - General 07/02/21 Victor Manuel Dallas MD [address] [facility] [address] [place] [address] Consulting Physician Cardiology 01/14/22 Fadi Moreno MD [address] [place] [address] Consulting Physician Neurosurgery 03/22/22 Leno Mao MD [address] [facility] [address] [place] [address] Consulting Physician Cardiothoracic Surgery 03/19/24 Linda Schwartz NP [address] [facility] [address] [place] [address] Nurse Practitioner Cardiothoracic Surgery 04/30/24
--- OUTSIDE RECORDS SUMMARY | 2025-02-22 11:07 | XMS_ITS | Clinical Summary ---
Author Organization [facility] Address [address], [address] [address] Phone Care Team Providers Care Hair Boiler Name Role Phone Breanna Mao MD Primary [...] age to complete this topic Care Teams Hair Boiler Relationship Specialty Start Date End Date Breanna Mao [place] [address] [place] [address] PCP - General Family Medicine 03/12/19
--- OUTSIDE RECORDS SUMMARY | 2025-02-22 11:07 | XMS_ITS | Clinical Summary ---
Author Organization [facility] Address [address] [place] [address] Care Team Providers Care Group Fitness Department Head Name Role Phone Unavailable Primary Care Provider [...]
== END 2025-02-20 12:24 | disposition short-term general hospital (02) ==
LOC: ANHED 15:11 → ANH3MEDSUR 02-18 08:38
PROVIDERS: Nurse Practitioner Acute Care; Admitting Provider Hospitalist; Emergency Provider Emergency Medicine; PCP Family Medicine; Visit Provider Nurse Practitioner Acute Care
DX: R55 Syncope and collapse (principal); I45.5 Other specified heart block; S00.03XA Contusion of scalp, initial encounter; W18.30XA Fall on same level, unspecified, initial encounter; I25.10 Atherosclerotic heart disease of native coronary artery without angina pectoris; I35.0 Nonrheumatic aortic (valve) stenosis; I25.9 Chronic ischemic heart disease, unspecified; K21.9 Gastro-esophageal reflux disease without esophagitis; N40.0 Benign prostatic hyperplasia without lower urinary tract symptoms; Z85.46 Personal history of malignant neoplasm of prostate; I10 Essential (primary) hypertension; G57.93 Unspecified mononeuropathy of bilateral lower limbs; D64.9 Anemia, unspecified; G47.33 Obstructive sleep apnea (adult) (pediatric); M10.9 Gout, unspecified; E78.00 Pure hypercholesterolemia, unspecified; Z66 Do not resuscitate; Z79.51 Long term (current) use of inhaled steroids; Z79.899 Other long term (current) drug therapy; Z87.891 Personal history of nicotine dependence; Z95.1 Presence of aortocoronary bypass graft; Z95.5 Presence of coronary angioplasty implant and graft; Z98.1 Arthrodesis status; Z98.890 Other specified postprocedural states
CPT/HCPCS: 36415; 70450; 70496; 70498; 72125; 80053; 83735; 84443; 85025; 85610; 85730; 93005; 93306; 96365; 96366; 96374; 96375; 97161; 97165; 99285; A9270; G0378; J3475; Q9967